=== PATIENT | male | born 1935 | race Caucasian/White ===

== ENCOUNTER 2016-10-18 10:00 | Outpatient (RCR) | payer MEDICARE, OTHER ==
--- OUTSIDE RECORDS SUMMARY | 2016-09-18 10:32 | XMS REPORT | Continuity of Care Document ---
Author Author [facility] Organization [facility] Address Unknown Phone Unavailable Care Team Providers Care Battery Container Finishing Hand Name Role Phone ALEKSANDR PIÑA DO PCP Insurance Providers Payer Name Policy Number Subscriber Name Relationship Wps Medicare [id number] Kamini Cortés 20 Self / Same As Patient For Life [id number] Kamini Cortés 20 Self / Same As Patient Advance Directives Directive Response Recorded Date/Time Advance Directives No 05/26/15 2:53pm Health Care Power of Organizational Research Consultant Yes 05/26/15 2:53pm Organ Donor No 05/26/15 2:53pm Problems Active Problems Medical Problem Onset Date Status Atrial fibrillation 05/26/2015 Acute Medications Current Home Medications Medication Dose Units Route Directions Days/Qty Instructions Start Date Ipratropium/Albuterol Sulfate 14.7 Gm 2 Puff Inhalation Q6hr Prn as needed for Shortness Of Breath NEEDED FOR SHORTNESS OF BREATH 07/11/12 Hydrochlorothiazide 50 Mg 50 Mg Oral Daily 07/11/12 Finasteride 5 Mg 5 Mg Oral Bedtime 07/11/12 Loratadine 10 Mg 10 Mg Oral Daily 07/11/12 Doxazosin Mesylate 4 Mg 8 Mg Oral Bedtime TAKE 2 (4 MG) TABLETS AT BEDTIME 07/11/12 Salmeterol Xinafoate/Fluticasone 1 Disk 1 Puff Inhalation Twice A Day 1 PUFF 07/11/12 Tiotropium [place] 1 Inh 1 Inhalation Daily 1 INHALATION 07/11/12 Alprazolam 1 Mg 1 Mg Oral Three Times A Day as needed for Anxiety Epinephrine 0.3 Mg/0.3 Ml 0.3 Mg Intramusc As Directed 04/07/14 Prednisone 10 Mg 10 Mg Oral Daily 30 04/07/14 Albuterol Sulfate/Ipratropium 3 Ml 3 Ml Inhalation Twice A Day 04/07 Pomegranate Fruit Extract 250 Mg 250 Mg Oral Daily 04/07/14 Cyanocobalamin 2,500 Mcg 2,500 Mcg Sublingual Daily 04/07/14 Ascorbic Acid 500 Mg 500 Mg Oral Daily 04/07/14 Calcium/Vitamin D 600 Mg 600 Mg Oral Daily 04/07/14 Montelukast Sodium 10 Mg 10 Mg Oral Daily 04/07/14 Benzonatate (Tessalon Perles) 200 Mg 200 Mg Oral Q8hr Prn as needed for Cough NEEDED FOR COUGH 04/07/14 Glucosamine/D3/Boswellia Anjali 1 Each 1 Tab Oral Twice A Day Mu-Vits-Min Th/Lycopene/Lutein 1 Each 1 Tab Oral Daily 04/07/14 Vitamin E 400 Unit 400 Unit Oral Daily 04/07/14 [Potassium Gluconate] 595 Mg Oral Daily 04/07/14 Hydrocodone/Acetaminophen 1 Each 1 Tab Oral Every 4HRS as needed for Pain 05/26/15 Azithromycin 250 Mg 500 Mg Oral Saturday05/26/15 Quinapril Hcl 10 Mg 10 Mg Oral Daily 05/26/15 Past Home Medications Medication Directions Ordered Status Meclizine Hcl 25 Mg Tablet, 25 Mg Oral Three Times A Day as needed 07/11/12 Discontinued Hydrocodone Bit/Acetaminophen 1 Each Tablet, 1 Each Oral Every 6 Hours as needed 07/11/12 Discontinued Lisinopril 10 Mg Tablet, 10 Mg Oral Daily 07/11/12 Discontinued Alprazolam 0.25 Mg Tab.rapdis, 1 Each Oral Three Times A Day 07/11/12 Discontinued Potassium Chloride 10 Meq Capsule.sa, 10 Meq Oral Daily 07/11/12 Discontinued Ipratropium [place] 15 Ml [place], 15 Ml Nasal 07/11/12 Discontinued Cefdinir (Omnicef) 300 Mg Capsule, 1 Each Oral Twice A Day 07/11/12 Discontinued Prednisone 50 Mg Tab, 50 Mg Oral Daily 07/11/12 Discontinued Hydrocodone Bit/Acetaminophen 1 Each Tablet, 10-325 Mg Oral Four Times Daily as needed for Moderate Pain 04/07/14 Discontinued Clotrimazole (Mycelex) 10 Mg Christa, 10 Mg Oral 5 Times Daily 04/07/14 Discontinued Azithromycin 500 Mg Tablet, 500 Mg Oral Mon, Sat, Sat04/07/14 Discontinued Social History Social History Problem Response Recorded Date/Time Alcohol Use Regular Use 05/26/2015 2:54pm Recreational Drug Use No 05/26/2015 2:54pm Recent Foreign Travel No 02/27/2016 1:00pm Hospital Discharge Instructions No hospital discharge instructions. Plan of Care Prescriptions See Medication Section Functional Status No functional status results. Allergies, Adverse Reactions, Alerts Allergen Type Severity Reaction Status Last Updated sulfamethoxazole ([id number]) Allergy Severe ANAPHYLAXIS Active 07/11/12 Trimethoprim Allergy Severe ANAPHYLAXIS Active 07/11/12 Levofloxacin Allergy Intermediate NAUSEA Active 07/11/12 Immunizations No immunization records. Vital Signs No known vital signs results. Results No known relevant diagnostic tests, laboratory data and/or discharge summary. Procedures No known history of procedures. Encounters Encounter Location Arrival/Admit Date Discharge/Depart Date Attending Provider Discharged [facility] 05/24/16 10:00am 11:59pm ALEKSANDR PIÑA DO
[~2016-10-18 10:00] MED LIST: ALPR0.2550 PO; ALPR1T PO; ASCO500T20 PO; AZIT250T5 PO; AZIT500T PO; BENZ200C25 PO; CEFD300C3 PO; CLD600T PO; CLOT10TR11 PO; CYAN25003 SL; DOXA4TAB2 PO; E400C PO; EPIN0.3P3 IM; FINA5TAB6 PO; FLUT1DIS27 IH; GLUC-132 PO; HYDR-2890 PO; HYDR-2962 PO; HYDR-753 PO; HYDR50TA3 PO; IPRA15SP2 NS; IPRA3AMP19 IH; LISI10TA PO; LORA10TA7 PO; MECL-105 PO; MONT10TA24 PO; MULT-1029 PO; POME250C2 PO; POTA10CA43 PO; POTASSIUM GLUCONATE PO; PRD10T PO; PRD50T PO; QUIN10TA23 PO; RT-COMBINH IH; TIOT18CA IH
[2016-10-25] MEDS ORDERED: GABA-488 PO (13:32)
[2016-10-25] MEDS ORDERED: APIX5TAB PO (13:32)
[2016-10-25] MEDS ORDERED: POTA10TA6 PO (13:32)
[2016-10-25] MEDS ORDERED: FURO-125 PO (13:32)
== END 2016-12-17 | disposition home or self-care (01) ==
LOC: PULM 10:00
PROVIDERS: ATTEND Internal Medicine
DX: J44.9 Chronic obstructive pulmonary disease, unspecified (principal)

== ENCOUNTER 2016-10-31 10:49 | Outpatient (RCR) | payer MEDICARE, OTHER ==
--- OUTSIDE RECORDS SUMMARY | 2016-10-25 12:04 | XMS REPORT | Continuity of Care Document ---
Author Author [facility] Organization [facility] Address Unknown Phone Unavailable Care Team Providers Care Cosmetic Manager Name Role Phone ALEKSANDR PIÑA DO PCP Insurance Providers Payer Name Policy Number Subscriber Name Relationship Wps Medicare [id number] Kamini Cortés 20 Self / Same As Patient For Life [id number] Kamini Cortés 20 Self / Same As Patient Advance Directives Directive Response Recorded Date/Time Advance Directives No 05/26/15 2:53pm Health Care Power of Net Developer Yes 05/26/15 2:53pm Organ Donor No 05/26/15 [...] Twice A Day 1 PUFF 07/11/12 Tiotropium [place] 1 Inh 1 Inhalation Daily 1 INHALATION [...] 10 Meq Oral Daily 07/11/12 Discontinued Ipratropium [place] 15 Ml [place], 15 Ml Nasal 07/11/12 Discontinued Cefdinir (Omnicef) [...] Type Severity Reaction Status Last Updated sulfamethoxazole ([id number]) Allergy Severe ANAPHYLAXIS Active 07/11/12 Trimethoprim Allergy Severe ANAPHYLAXIS Active 07/11/12 Levofloxacin Allergy Intermediate NAUSEA Active 07/11/12 Immunizations No immunization records. Vital Signs No known vital signs results. Results No known relevant diagnostic tests, laboratory data and/or discharge summary. Procedures No known history of procedures. Encounters Encounter Location Arrival/Admit Date Discharge/Depart Date Attending Provider Discharged Recurring [facility] 05/24/16 10:00am 11:59pm LAEKSANDR PIÑA DO
[2016-10-25] MEDS: cefTRIAXone 1 GM/NS 50 ML IVPB IV SCH ×2 (12:40)
[2016-10-25 13:32] VITALS: BP 106/77
[2016-10-26] MEDS: cefTRIAXone 1 GM/NS 50 ML IVPB IV SCH ×2 (09:20)
[2016-10-26 09:55] VITALS: BP 115/66
[2016-10-27] MEDS: cefTRIAXone 1 GM/NS 50 ML IVPB IV SCH ×2 (09:26)
[2016-10-27 10:10] VITALS: BP 128/68
[2016-10-28] MEDS: cefTRIAXone 1 GM/NS 50 ML IVPB IV SCH ×2 (11:13)
[2016-10-28 11:40] VITALS: BP 129/85
[2016-10-29] MEDS: cefTRIAXone 1 GM/NS 50 ML IVPB IV SCH ×2 (09:14)
[2016-10-29 09:26] VITALS: BP 154/95
[2016-10-30] MEDS: cefTRIAXone 1 GM/NS 50 ML IVPB IV SCH ×2 (10:16)
[2016-10-30 10:46] VITALS: BP 117/67
[~2016-10-31] VITALS: Ht 182.9 cm; Wt 62.8 kg
[~2016-10-31 10:49] MED LIST changes: +APIX5TAB PO; +FURO-125 PO; +GABA-488 PO; +POTA10TA6 PO
[2016-10-31] MEDS: cefTRIAXone 1 GM/NS 50 ML IVPB IV SCH ×2 (10:58)
[2016-10-31 11:13] VITALS: BP 132/92
== END 2017-01-23 | disposition home or self-care (01) ==
LOC: SDC 10:49
PROVIDERS: ATTEND Nurse Practitioner Family
DX: J44.0 Chronic obstructive pulmonary disease with (acute) lower respiratory infection (principal); J18.9 Pneumonia, unspecified organism
CPT/HCPCS: 96365

== ENCOUNTER → 2017-02-15 | Outpatient (CLI) | payer MEDICARE, OTHER ==
--- NOTE | 2017-02-15 11:13 | Diagnostic Imaging Report ---
INDICATION: Shortness of breath and wheezing x2 days. PA and lateral chest. Heart size and pulmonary vascularity are normal. Lungs are clear. There are no effusions or pneumothoraces. IMPRESSION: Negative chest. Dictated by: Dictated on workstation # [id number]
== END ==
LOC: RAD 10:34
PROVIDERS: ATTEND Internal Medicine
DX: R07.89 Other chest pain (principal)
CPT/HCPCS: 71020

== ENCOUNTER 2017-09-17 04:29 | Inpatient (IN) | payer MEDICARE, OTHER ==
[2017-09-17] VITALS (9 sets, daily range): BP systolic 96–141; BP diastolic 60–79
[~2017-09-17] VITALS: Ht 182.9 cm; Wt 104.4 kg
[~2017-09-17 04:29] MED LIST changes: +AZIT250T12 PO; -AZIT250T5 PO; +QUIN10TA14 PO; -QUIN10TA23 PO
[2017-09-17] MEDS ORDERED: RT-ALBUTEROL/IPRATROPIUM 3 ML (DUONEB) VIAL ONE (04:33)
[2017-09-17] MEDS ORDERED: RT-ALBUTEROL SULF 2.5 MG/3 ML PRE-MIX VIAL ONE (04:33)
--- OUTSIDE RECORDS SUMMARY | 2017-09-17 04:37 | XMS REPORT | Continuity of Care Document ---
Author Author [facility] Organization [facility] Address Unknown Phone Unavailable Allergies Active Description Code Type Severity Reaction Onset Reported/Identified Relationship to Patient Clinical Status Yes sulfamethoxazole [id number] Drug Allergy Severe ANAPHYLAXIS 07/11/2012 Yes trimethoprim [id number] Drug Allergy Severe ANAPHYLAXIS 07/11/2012 Yes levofloxacin [id number] Drug Allergy Moderate NAUSEA 07/11/2012 Medications Problems Date Dx Coded Attending Type Code Diagnosis Diagnosed By 07/11/2012 Ot 599.0 URIN TRACT INFECTION NOS 07/11/2012 Ot 782.1 NONSPECIF SKIN ERUPT NEC 07/11/2012 Ot 995.0 OTHER ANAPHYLACTIC REACTION 07/11/2012 Ot E931.0 ADV EFF SULFONAMIDES 04/08/2014 GABRIEL DESHPANDE MD Ot 272.4 HYPERLIPIDEMIA NEC/NOS 04/08/2014 GABRIEL DESHPANDE MD Ot 278.00 OBESITY, NOS 04/08/2014 GABRIEL DESHPANDE MD Ot 401.9 HYPERTENSION NOS 04/08/2014 GABRIEL DESHPANDE MD Ot 414.01 CORONARY ATHEROSCLEROSIS OF [place] CORON 04/08/2014 GABRIEL DESHPANDE MD Ot 440.20 ATHEROSCLEROSIS [place] ARTERIES EXTREMIT 04/08/2014 GABRIEL DESHPANDE MD Ot 441.4 ABDOM AORTIC ANEURYSM 04/08/2014 GABRIEL DESHPANDE MD Ot 496 CHR AIRWAY OBSTRUCT NEC 04/08/2014 GABRIEL DESHPANDE MD Ot 794.30 ABN CARDIOVASC STUDY NOS 04/08/2014 GABRIEL DESHPANDE MD Ot V58.69 OTH MED,LT,CURRENT USE 04/08/2014 GABRIEL DESHPANDE MD Ot V85.31 BODY MASS INDEX 31.0-31.9, ADULT 04/15/2014 OCTAVIO MCKEON MD Ot 278.00 OBESITY, NOS 04/15/2014 OCTAVIO MCKEON MD Ot 401.9 HYPERTENSION NOS 04/15/2014 OCTAVIO MCKEON MD Ot 414.00 CORON ATHEROSCLER NOS TYPE VESSEL, NATIV 04/15/2014 MIKE JENNINGS, OCTAVIO Bernard Ot 440.21 ATHEROSCL [place] ARTER EXTREM W INTERMIT 04/15/2014 MIKE JENNINGS, OCTAVIO Bernard Ot 496 CHR AIRWAY OBSTRUCT NEC 04/15/2014 MIKE JENNINGS, OCTAVIO Bernard Ot V15.82 HISTORY OF TOBACCO USE 04/15/2014 OCTAVIO MCKEON MD Ot V58.69 OTH MED,LT,CURRENT USE 04/15/2014 MIKE JENNINGS, OCTAVIO Bernard Ot V85.31 BODY MASS INDEX 31.0-31.9, ADULT 10/20/2014 ALEKSANDR PIÑA DO Ot 496 10/20/2014 ALEKSANDR PIÑA DO Ot V57.89 11/10/2014 ALEKSANDR PIÑA DO Ot 496 CHR AIRWAY OBSTRUCT NEC 11/10/2014 ALEKSANDR PIÑA DO Ot V57.89 REHABILITATION PROC NEC 11/18/2014 Ot 496 11/18/2014 Ot V57.89 02/04/2015 Ot 486 02/04/2015 Ot 496 02/04/2015 Ot 721.0 02/04/2015 Ot 722.6 02/04/2015 Ot 724.3 02/04/2015 ALEKSANDR PIÑA DO Ot 496 02/04/2015 CHERY ROBERTS DO Ot 278.00 02/04/2015 CHERY ROBERTS DO Ot 486 02/04/2015 CHERY ROBERTS DO Ot 496 02/04/2015 ALEKSANDR PIÑA DO Ot V58.69 02/04/2015 ALEKSANDR PIÑA DO Ot V58.83 02/04/2015 Ot 496 02/04/2015 Ot V57.89 02/07/2015 KAYLEE HERNANDEZ MD Ot 724.6 DISORDERS OF SACRUM 04/01/2015 ALEKSANDR PIÑA DO Ot 496 04/19/2015 Ot 496 04/19/2015 Ot V57.89 04/19/2015 ALEKSANDR PIÑA DO Ot 496 05/06/2015 Ot 496 05/06/2015 Ot V57.89 05/06/2015 ALEKSANDR PIÑA DO Ot 496 05/12/2015 ALEKSANDR PIÑA DO Ot 496 05/26/2015 ALEKSANDR PIÑA DO Ot 496 05/26/2015 ALEKSANDR PIÑA DO Ot 496 05/26/2015 ALEKSANDR PIÑA DO Ot 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 05/26/2015 ALEKSANDR PIÑA DO Ot 305.1 TOBACCO USE DISORDER 05/26/2015 ALEKSANDR PIÑA DO Ot 401.9 HYPERTENSION NOS 05/26/2015 ALEKSANDR PIÑA DO Ot 414.01 CORONARY ATHEROSCLEROSIS OF [place] CORON 05/26/2015 ALEKSANDR PIÑA DO Ot 427.69 PREMATURE BEATS NEC 05/26/2015 ALEKSANDR PIÑA DO Ot 427.89 CARDIAC DYSRHYTHMIAS NEC 05/26/2015 ALEKSANDR PIÑA DO Ot 443.9 PERIPH VASCULAR DIS NOS 05/26/2015 ALEKSANDR PIÑA DO Ot 496 CHR AIRWAY OBSTRUCT NEC 05/26/2015 ALEKSANDR PIÑA DO Ot 600.00 HYPERTROPHY (BENIGN) OF PROSTATE W/O URI 05/26/2015 ALEKSANDR PIÑA DO Ot E932.0 ADV EFF CORTICOSTEROIDS 05/26/2015 ALEKSANDR PIÑA DO Ot 255.0 05/26/2015 ALEKSANDR PIÑA DO Ot 305.1 05/26/2015 ALEKSANDR PIÑA DO Ot 401.9 05/26/2015 ALEKSANDR PIÑA DO Ot 414.01 05/26/2015 ALEKSANDR PIÑA DO Ot 427.69 05/26/2015 ALEKSANDR PIÑA DO Ot 427.89 05/26/2015 ALEKSANDR PIÑA DO Ot 443.9 05/26/2015 ALEKSANDR PIÑA DO Ot 496 05/26/2015 ALEKSANDR PIÑA DO Ot 600.00 05/26/2015 ALEKSANDR PIÑA DO, Ot E932.0 06/06/2015 ALEKSANDR PIÑA DO Ot 496 06/29/2015 ALEKSANDR PIÑA DO Ot 496 CHR AIRWAY OBSTRUCT NEC 11/03/2015 Ot 496 11/03/2015 Ot V57.89 11/03/2015 ALEKSANDR PIÑA DO Ot 496 2016 ALEKSANDR PIÑA DO Ot 496 CHR AIRWAY OBSTRUCT NEC 03/08/2016 ALEKSANDR PIÑA DO Ot 496 CHR AIRWAY OBSTRUCT NEC 04/12/2016 ALEKSANDR PÑIA DO Ot J44.9 CHRONIC OBSTRUCTIVE PULMONARY DISEASE, U 05/03/2016 ALEKSADNR PIÑA DO Ot J44.9 CHRONIC OBSTRUCTIVE PULMONARY DISEASE, U 05/27/2016 ALEKSANDR PIÑA DO Ot J44.9 CHRONIC OBSTRUCTIVE PULMONARY DISEASE, U 06/07/2016 ALEKSANDR PIÑA DO Ot J44.9 CHRONIC OBSTRUCTIVE PULMONARY DISEASE, U 06/07/2016 ALEKSANDR PIÑA DO Ot J44.9 CHRONIC OBSTRUCTIVE PULMONARY DISEASE, U 06/08/2016 ALEKSANDR PIÑA DO Ot J44.9 CHRONIC OBSTRUCTIVE PULMONARY DISEASE, U 07/12/2016 ALEKSANDR PIÑA DO Ot J44.9 CHRONIC OBSTRUCTIVE PULMONARY DISEASE, U 07/19/2016 Ot 496 CHR AIRWAY OBSTRUCT NEC 07/19/2016 Ot V57.89 REHABILITATION PROC NEC 07/19/2016 ALEKSANDR PIÑA DO Ot 496 07/19/2016 ALEKSANDR PIÑA DO Ot J44.9 CHRONIC OBSTRUCTIVE PULMONARY DISEASE, U 07/31/2016 Ot 486 PNEUMONIA, ORGANISM NOS 07/31/2016 Ot 496 CHR AIRWAY OBSTRUCT NEC 07/31/2016 Ot 721.0 CERVICAL SPONDYLOSIS 07/31/2016 Ot 722.6 DISC DEGENERATION NOS 07/31/2016 Ot 724.3 SCIATICA 07/31/2016 ALEKSANDR PIÑA DO Ot 496 CHR AIRWAY OBSTRUCT NEC 07/31/2016 CHERY ROBERTS DO Ot 278.00 OBESITY, NOS 07/31/2016 CHERY ROBERTS DO Ot 486 PNEUMONIA, ORGANISM NOS 07/31/2016 CHERY ROBERTS DO Ot 496 CHR AIRWAY OBSTRUCT NEC 07/31/2016 ALEKSADNR PIÑA DO Ot V58.69 OT MED,LT,CURRENT USE 07/31/2016 ALEKSANDR PIÑA DO Ot V58.83 ENCOUNTER FOR THERAPEUTIC DRUG MONITORIN 07/31/2016 Ot 496 CHR AIRWAY OBSTRUCT NEC 07/31/2016 Ot V57.89 REHABILITATION PROC NEC 07/31/2016 ALEKSANDR PIÑA DO Ot 496 07/31/2016 ALEKSANDR PIÑA DO Ot J44.9 CHRONIC OBSTRUCTIVE PULMONARY DISEASE, U 08/01/2016 MELYSSA JENNINGS, KARRI Cueto Ot M54.12 RADICULOPATHY, CERVICAL REGION 08/14/2016 ALEKSANDR PIÑA DO Ot J44.9 CHRONIC OBSTRUCTIVE PULMONARY DISEASE, U 08/21/2016 MELYSSA JENNINGS, KARRI Cueto Ot M54.12 RADICULOPATHY, CERVICAL REGION 09/04/2016 KARRI RAGSDALE MD Ot M54.12 RADICULOPATHY, CERVICAL REGION 09/05/2016 ALEKSANDR PIÑA DO Ot J44.9 CHRONIC OBSTRUCTIVE PULMONARY DISEASE, U 09/06/2016 ALEKSANDR PIÑA DO Ot J44.9 CHRONIC OBSTRUCTIVE PULMONARY DISEASE, U 09/18/2016 WANG [place], ALEKSANDR Cueto Ot J44.9 CHRONIC OBSTRUCTIVE PULMONARY DISEASE, U 09/19/2016 WANG [place], ALEKSANDR Cueto Ot J44.9 CHRONIC OBSTRUCTIVE PULMONARY DISEASE, U 09/26/2016 SHERLY PATE APRN Ot J44.9 CHRONIC OBSTRUCTIVE PULMONARY DISEASE , U 10/18/2016 ALEKSANDR PIÑA DO Ot J44.9 CHRONIC OBSTRUCTIVE PULMONARY DISEASE, U 10/18/2016 SHERLY PATE APRN Ot J44.9 CHRONIC OBSTRUCTIVE PULMONARY DISEASE , U 10/25/2016 Ot 496 CHR AIRWAY OBSTRUCT NEC 10/25/2016 Ot V57.89 REHABILITATION PROC NEC 10/25/2016 ALEKSANDR PIÑA DO Ot 496 10/25/2016 MELYSSA JENNINGS, KARRI Cueto Ot M54.12 RADICULOPATHY, CERVICAL REGION 10/25/2016 ALEKSANDR PIÑA DO Ot J44.9 CHRONIC OBSTRUCTIVE PULMONARY DISEASE, U 10/25/2016 SHERLY PATE APRN Ot J44.9 CHRONIC OBSTRUCTIVE PULMONARY DISEASE , U 10/31/2016 MARC PIÑA PUBLIC RELATIONS COUNSELOR Ot J18.9 PNEUMONIA, UNSPECIFIED ORGANISM 10/31/2016 MARC PIÑA PUBLIC RELATIONS COUNSELOR Ot J44.0 CHRONIC OBSTRUCTIVE PULMON DISEASE W AC[facility] 10/31/2016 MARC PIÑA PUBLIC RELATIONS COUNSELOR Ot J18.9 PNEUMONIA, UNSPECIFIED ORGANISM 10/31/2016 MARC PIÑA L PUBLIC RELATIONS COUNSELOR Ot J44.0 CHRONIC OBSTRUCTIVE PULMON DISEASE W [facility] 10/31/2016 ALEKSANDR PIÑA DO Ot J44.9 CHRONIC OBSTRUCTIVE PULMONARY DISEASE, U 10/31/2016 SHERLY PATE APRN Ot J44.9 CHRONIC OBSTRUCTIVE PULMONARY DISEASE , U 11/26/2016 Ot 496 CHR AIRWAY OBSTRUCT NEC 11/26/2016 Ot V57.89 REHABILITATION PROC NEC 11/26/2016 ALEKSANDR PIÑA DO Ot 496 11/26/2016 MELYSSA JENNINGS, KARRI Cueto Ot M54.12 RADICULOPATHY, CERVICAL REGION 11/26/2016 ALEKSANDR PIÑA DO Ot J44.9 CHRONIC OBSTRUCTIVE PULMONARY DISEASE, U 11/26/2016 SHERLY PATE APRN Ot J44.9 CHRONIC OBSTRUCTIVE PULMONARY DISEASE , U 11/26/2016 MARC PIÑA PUBLIC RELATIONS COUNSELOR Ot J18.9 PNEUMONIA, UNSPECIFIED ORGANISM 11/26/2016 MARC PIÑA PUBLIC RELATIONS COUNSELOR Ot J44.0 CHRONIC OBSTRUCTIVE PULMON DISEASE W [facility] 12/12/2016 MARC PIÑA PUBLIC RELATIONS COUNSELOR Ot J18.9 PNEUMONIA, UNSPECIFIED ORGANISM 12/12/2016 MARC PIÑA PUBLIC RELATIONS COUNSELOR Ot J44.0 CHRONIC OBSTRUCTIVE PULMON DISEASE W [facility] 12/17/2016 ALEKSANDR PIÑA DO Ot J44.9 CHRONIC OBSTRUCTIVE PULMONARY DISEASE, U 12/18/2016 ALEKSANDR PIÑA DO Ot J44.9 CHRONIC OBSTRUCTIVE PULMONARY DISEASE, U 01/01/2017 MARC PIÑA PUBLIC RELATIONS COUNSELOR Ot J18.9 PNEUMONIA, UNSPECIFIED ORGANISM 01/01/2017 MARC PIÑA PUBLIC RELATIONS COUNSELOR Ot J44.0 CHRONIC OBSTRUCTIVE PULMON DISEASE W [facility] 01/23/2017 MARC PIÑA PUBLIC RELATIONS COUNSELOR Ot J18.9 PNEUMONIA, UNSPECIFIED ORGANISM 01/23/2017 MARC PIÑA PUBLIC RELATIONS COUNSELOR Ot J44.0 CHRONIC OBSTRUCTIVE PULMON DISEASE W [facility] 2017 ALEKSANDR PIÑA DO Ot R07.89 OTHER CHEST PAIN 02/21/2017 ALEKSANDR PIÑA DO Ot R07.89 OTHER CHEST PAIN 03/11/2017 ALEKSANDR PIÑA DO Ot R07.89 OTHER CHEST PAIN 03/26/2017 ALEKSANDR PIÑA DO Ot R07.89 OTHER CHEST PAIN Procedures Results Encounters ACCT No. Visit Date/Time Discharge Status Pt. Type Provider Facility Loc./Unit Complaint [id number] 02/15/2017 10:34:00 2016 23:59:59 CLS Outpatient ALEKSANDR PIÑA DO [facility] RAD R07.89 [id number] 01/24/2017 00:16:00 2016 23:59:59 CLS Preadmit MARC PIÑA [facility] J18.9,J44.9 [id number] 10/31/2016 10:49:00 2016 00:01:00 DIS Outpatient MARC PIÑA [facility] J18.9,J44.9 [id number] 12/18/2016 13:00:00 2016 23:59:59 CLS Preadmit ALEKSANDR PIÑA DO [facility] PULM COPD [id number] 10/18/2016 10:00:00 2016 00:01:00 DIS Outpatient ALEKSANDR PIÑA DO [facility] PULM COPD [id number] 09/25/2016 11:24:00 2015 23:59:59 CLS Outpatient SHERLY PATE APRN [facility] RAD COPD,BRONCHIECTASIS [id number] 08/30/2016 10:00:00 2015 00:01:00 DIS Outpatient ALEKSANDR PIÑA DO [facility] PULM COPD [id number] 07/30/2016 08:36:00 2015 23:59:59 CLS Outpatient KARRI RAGSDALE MD [facility] RAD CERVICAL RADICULOPATHY [id number] 05/24/2016 10:00:00 2015 00:01:00 DIS Outpatient ALEKSANDR PIÑA DO [facility] PULM COPD [id number] 06/30/2015 15:00:00 2014 23:59:59 CLS Preadmit ALEKSANDR PIÑA DO [facility] PULM COPD TACHYCARDIA [id number] 05/26/2015 09:00:00 2014 00:01:00 DIS Outpatient ALEKSANDR PIÑA DO [facility] PULM COPD TACHYCARDIA [id number] 05/26/2015 12:50:00 2014 18:06:00 DIS Inpatient ALEKSANDR PIÑA DO [facility] ICU AFIB [id number] 02/07/2015 12:37:00 2014 13:27:00 DIS Outpatient KAYLEE HERNANDEZ MD [facility] CARD SACROILIAC JOINT DYSFUNCTION [id number] 09/07/2014 10:00:00 2013 23:59:59 CLS Outpatient ALEKSANDR PIÑA DO [facility] PULM COPD [id number] 04/15/2014 13:23:00 2013 21:32:00 DIS Outpatient MIKE JENNINGS, OCTAVIO Bernard [facility] CATH ASOD,LEG PAIN [id number] 04/07/2014 07:04:00 2013 14:57:00 DIS Outpatient GABRIEL DESHPANDE MD [facility] CATH ABN STRESS,CAD,OBESITY,HTN [id number] 03/09/2014 06:41:00 2013 23:59:59 CLS Outpatient ALEKSANDR PIÑA DO [facility] CARD CARDIAC RISK D/T, [id number] 02/17/2014 11:00:00 2013 23:59:59 CLS Outpatient CHERY ROBERTS DO [facility] RT COPD,OBESITY,PNEUMONIA [id number] 11/30/2013 12:32:00 2013 23:59:59 CLS Outpatient ALEKSANDR PIÑA DO [facility] RAD COPD [id number] 09/17/2017 04:31:00 ACT Emergency GOPI JENNINGS, THIAGO Cueto [facility] ER PAIN,FALL ON 09-16-17 [id number] 02/04/2015 16:19:00 Document Registration [id number] 11/11/2014 08:00:00 Document Registration [id number] 08/19/2012 14:17:00 Document Registration [id number] 05/21/2012 10:24:00 Document Registration [id number] 09/04/2011 09:18:00 Document Registration
[2017-09-17] MEDS ORDERED: RT-ALBUTEROL SULF 2.5 MG/3 ML PRE-MIX VIAL INH STA (04:39)
[2017-09-17] MEDS ORDERED: NS IV 1000 ML 1,000 ML IV ONE ×2 (04:39→05:10)
[2017-09-17] MEDS ORDERED: RT-ALBUTEROL/IPRATROPIUM 3 ML (DUONEB) VIAL INH ONE (04:45)
[2017-09-17 04:48] LABS: BASOPHILS % (AUTO) 0 % (0-10); EOSINOPHILS % (AUTO) 0 % (0-10); LYMPHOCYTES # (AUTO) 1.8 X 10^3 (1.0-4.0); LYMPHOCYTES % (AUTO) 26 % (12-44); MEAN CORPUSCULAR HEMOGLOBIN 34 PG (25-34); MEAN CORPUSCULAR HGB CONC 35 G/DL (32-36); MEAN CORPUSCULAR VOLUME 97 FL (80-99); MEAN PLATELET VOLUME 8.4 FL (7.4-10.4); MONOCYTES # (AUTO) 0.9 X 10^3 (0.0-1.0); MONOCYTES % (AUTO) 13 % (0-12); NEUTROPHILS # (AUTO) 4.2 X 10^3 (1.8-7.8); NEUTROPHILS % (AUTO) 60 % (42-75); PLATELET COUNT 230 10^3/uL (130-400); RED BLOOD COUNT 4.54 10^6/uL (4.35-5.85); RED CELL DISTRIBUTION WIDTH 12.5 % (10.0-14.5)
--- NOTE | 2017-09-17 04:48 | ED Fall/Injury ---
General Chief Complaint: General Problems/Pain Stated Complaint: PAIN,FALL ON 09-16-17 Source: patient, EMS Exam Limitations: no limitations History of Present Illness Time seen by provider: 04:42 Initial Comments Patient reports ER by EMS with a chief complaint that he had a fall approximately 20-30 to 2300 hrs. last night. He said he had a few drinks of Scotch and a hydrocodone at 1800 hrs. He does not really remember the fall or events preceding it. He doesn't think he had loss of consciousness nor hit his head. He's not having any new pains anywhere. He does have chronic pain in his neck midline but he has bad degenerative disc disease and is in need of surgery on his neck and is not a candidate right now. Nothing else is hurting and he doesn't really feel any more short of breath than normal. He uses 3 L by nasal cannula at home. He says yesterday he was started on Keflex and steroids for some kind of lung infection by his primary care physician. He has pretty significant COPD. He is not sure how long he laid on the ground before getting up. EMS says when they got there he was leaning against his walker on his abdomen, standing. Dr. Jasmine, coronary catheterization 2013 showing LAD with 70% stenosis. Ejection fraction 60%. Also history of COPD with oxygen dependence, hypertension , prostatic hypertrophy, Pallavi syndrome iatrogenic. Patient states he was put on Keflex and steroids yesterday morning after seeing his doctor did not feel well. His gives a further history that she heard a thud and immediately went into the living room and found him sitting on the floor in front of his easy chair. He was too weak to get up on his own so she had to help him get back into his chair. Allergies and Home Medications Allergies Coded Allergies: sulfamethoxazole (Verified Allergy, Severe, ANAPHYLAXIS, 07/11/12) trimethoprim (Verified Allergy, Severe, ANAPHYLAXIS, 07/11/12) levofloxacin (Verified Allergy, Intermediate, NAUSEA, 07/11/12) Home Medications Albuterol Sulfate/Ipratropium 3 Ml Solution, 3 ML IH BID, (Reported) Alprazolam 1 Mg Tab, 1 MG PO TID PRN for ANXIETY, (Reported) Apixaban 5 Mg Tablet, 5 MG PO BID, (Reported) Ascorbic Acid 500 Mg Tablet, 500 MG PO DAILY, (Reported) Benzonatate 200 Mg Capsule, 200 MG PO Q8HR PRN PRN for COUGH, (Reported) NEEDED FOR COUGH Calcium/Vitamin D 600 Mg Tab, 600 MG PO DAILY, (Reported) Cyanocobalamin 2,500 Mcg Tab.subl, 2,500 MCG SL DAILY, (Reported) Doxazosin Mesylate 4 Mg Tablet, 8 MG PO HS, (Reported) TAKE 2 (4 MG) TABLETS AT BEDTIME Epinephrine 0.3 Mg/0.3 Ml Pen.injctr, 0.3 MG IM UD, (Reported) Finasteride 5 Mg Tablet, 5 MG PO HS, (Reported) Fluticasone/Salmeterol 1 Disk Inhp, 1 PUFF IH BID, (Reported) 1 PUFF Furosemide 20 Mg Tablet, 60 MG PO BID, (Reported) Gabapentin 300 Mg Capsule, 300 MG PO TID, (Reported) Glucosamine/D3/Boswellia Anjali 1 Each Tablet, 1 TAB PO BID, (Reported) Hydrocodone/Acetaminophen 1 Each Tablet, 1 TAB PO Q4H PRN for PAIN, (Reported) Ipratropium/Albuterol Sulfate 14.7 Gm Aer.w.adap, 2 PUFF IH Q6HR PRN PRN for SHORTNESS OF BREATH, (Reported) NEEDED FOR SHORTNESS OF BREATH Loratadine 10 Mg Tablet, 10 MG PO DAILY, (Reported) Montelukast Sodium 10 Mg Tablet, 10 MG PO DAILY, (Reported) Mu-Vits-Min Th/Lycopene/Lutein 1 Each Tablet, 1 TAB PO DAILY, (Reported) Pomegranate Fruit Extract 250 Mg Capsule, 250 MG PO DAILY, (Reported) Potassium Chloride 10 Meq Tablet.er, 10 MEQ PO DAILY, (Reported) Tiotropium [place] 1 Inh Aerp, 1 IH DAILY, (Reported) 1 INHALATION Vitamin E Acetate 400 Unit Capsule, 400 UNIT PO DAILY, (Reported) [Potassium Gluconate] , 595 MG PO DAILY, (Reported) Constitutional: No chills, No dizziness, No fever, No malaise Eyes: Denies Blindness, Denies Blurred Vision Ears, Nose, Mouth, Throat: denies ear pain, denies ear discharge Respiratory: cough (chronic), short of breath (baseline) Cardiovascular: No chest pain, syncope Gastrointestinal: No abdominal pain, No constipation, No diarrhea, No nausea Genitourinary: No discharge, No dysuria Musculoskeletal: No back pain, No joint pain, neck pain (chronic) Skin: No pruritus, No rash Psychiatric/Neurological: Denies Headache, Denies Numbness, Denies Paresthesia , Denies Pre-Existing Deficit Past Ombidem-Gymrcn-Mgkkuc Hx Patient Social History Alcohol Use: Occasionally Uses Alcohol Beverage of Choice: Scotch Recreational Drug Use: No Smoking Status: Former Smoker Former Smoker, Quit: Aug 25, 2002 Recent Foreign Travel: No Contact w/Someone Who Travel: No Recent Hopitalizations: No Physical Abuse: No Sexual Abuse: No Fear: No Immunizations Up To Date Date of Pneumonia Vaccine: Jun 24, 2012 Surgeries History of Surgeries: Yes (BILAT KNEE SCOPE,R SHOULDER SCOPE,C-SPINE FUSION, FENDON GRAFT BILAT THUMBS,) Respiratory History of Respiratory Disorde: Yes Respiratory Disorders: Pneumonia, COPD Cardiovascular History of Cardiac Disorders: Yes Neurological History of Neurological Disord: No Reproductive System Hx Reproductive Disorders: No Genitourinary Genitourinary Disorders: Prostate Problems Gastrointestinal History of Gastrointestinal Di: No Musculoskeletal History of Musculoskeletal Dis: No Endocrine History of Endocrine Disorders: No Cancer History of Cancer: Yes Cancer: Skin Psychosocial Behavioral Health Disorders: Anxiety Suicide Risk Score: 0 Integumentary History of Skin or Integumenta: No Blood Transfusions History of Blood Disorders: No Adverse Reaction to a Blood Tr: No Physical Exam Vital Signs Vital Sign - Last 12Hours 09/17/17 09/17/17 04:30 04:48 Temp 97.2 Pulse 123 Resp 20 B/P (MAP) 107/76 Pulse Ox 78 O2 Delivery Room Air O2 Flow Rate 3.00 Capillary Refill : General Appearance: WD/WN, no apparent distress HEENT: PERRL/EOMI, TMs normal, pharynx normal, other (no bhat sign) Neck: supple, normal inspection, No tender lateral, tender midline Cardiovascular: tachycardia, irregularly irregular Respiratory: chest non-tender, no respiratory distress, no accessory muscle use , wheezing (throughout both lung mora) Peripheral Pulses: 1+ Dorsalis Pedis (R), 1+ Left Dors-Pedis (L), 2+ Radial Pulses (R), 2+ Radial Pulses (L) Gastrointestinal: normal bowel sounds, non tender, soft, No guarding, No rebound, No tenderness Back: normal inspection, no vertebral tenderness Extremities: normal range of motion, non-tender, normal inspection, normal capillary refill, pedal edema (mild) Neurologic/Psychiatric: alert, normal mood/affect, oriented x 3 Skin: normal color, warm/dry, other (erythematous across his lower abdomen where he was leaning on the walker. Minor abrasion mid sternum with some erythema across the right chest. Hemostatic.) Griselda Coma Score Best Eye Response: (4) Open Spontaneously Best Verbal Response: (5) Oriented Best Motor Response: (6) Obeys Commands Griselda Total: 15 Progress/Results/Core Measures Results/Orders Lab Results Laboratory Tests Test 09/17/17 04:34 09/17/17 04:35 09/17/17 04:42 09/17/17 05:45 Range/Units White Blood Count 7.0 4.3-11.0 10^3/uL Red Blood Count 4.54 4.35-5.85 10^6/uL Hemoglobin 15.5 13.3-17.7 G/DL Hematocrit 44 40-54 % Mean Corpuscular Volume 97 80-99 FL Mean Corpuscular Hemoglobin 34 25-34 PG Mean Corpuscular Hemoglobin Concent 35 32-36 G/DL Red Cell Distribution Width 12.5 10.0-14.5 % Platelet Count 230 130-400 10^3/uL Mean Platelet Volume 8.4 7.4-10.4 FL Neutrophils (%) (Auto) 60 42-75 % Lymphocytes (%) (Auto) 26 12-44 % Monocytes (%) (Auto) 13 H 0-12 % Eosinophils (%) (Auto) 0 0-10 % Basophils (%) (Auto) 0 0-10 % Neutrophils # (Auto) 4.2 1.8-7.8 X 10^3 Lymphocytes # (Auto) 1.8 1.0-4.0 X 10^3 Monocytes # (Auto) 0.9 0.0-1.0 X 10^3 Eosinophils # (Auto) 0.0 0.0-0.3 10^3/uL Basophils # (Auto) 0.0 0.0-0.1 10^3/uL Sodium Level 138 135-145 MMOL/L Potassium Level 3.0 L 3.6-5.0 MMOL/L Chloride Level 89 L 98-107 MMOL/L Carbon Dioxide Level 28 21-32 MMOL/L Anion Gap 21 H 5-14 MMOL/L Blood Urea Nitrogen 9 7-18 MG/DL Creatinine 0.83 0.60-1.30 MG/DL Estimat Glomerular Filtration Rate > 60 BUN/Creatinine Ratio 11 Glucose Level 156 H 70-105 MG/DL Calcium Level 9.9 8.5-10.1 MG/DL Magnesium Level 2.1 1.8-2.4 MG/DL Total Bilirubin 0.8 0.1-1.0 MG/DL Aspartate Amino Transf (AST/SGOT) 31 5-34 U/L Alanine Aminotransferase (ALT/SGPT) 22 0-55 U/L Alkaline Phosphatase 69 40-136 U/L Total Creatine Kinase 116 30-200 U/L Troponin I < 0.30 <0.30 NG/ML B-Type Natriuretic Peptide 114.7 H <100.0 PG/ML Total Protein 7.3 6.4-8.2 GM/DL Albumin 3.9 3.2-4.5 GM/DL Serum Alcohol 142 H <10 MG/DL Prothrombin Time 14.6 12.2-14.7 SEC INR Comment 1.1 0.8-1.4 Activated Partial Thromboplast Time 30 24-35 SEC Lactic Acid Level 6.82 *H 0.50-2.00 MMOL/L Blood Gas Puncture Site LEFT RADIAL Blood Gas Patient Temperature 97.1 Arterial Blood pH 7.39 7.37-7.43 Arterial Blood Partial Pressure CO2 55 H 35-45 MMHG Arterial Blood Partial Pressure O2 56 L 79-93 MMHG Arterial Blood HCO3 33 H 23-27 MMOL/L Arterial Blood Total CO2 34.6 H 21.0-31.0 MMOL/L Arterial Blood Oxygen Saturation 90 L 94-100 % Arterial Blood Base Excess 7.7 H -2.5-2.5 MMOL/L Paulo Test POSITIVE Blood Gas Ventilator Setting NO Blood Gas Inspired Oxygen 4 L My Orders Orders - THIAGO NGUYỄN Alcohol (09/17/17 04:39) BNP (09/17/17 04:39) Cbc With Automated Diff (09/17/17 04:39) Comprehensive Metabolic Panel (09/17/17 04:39) Creatine Kinase (09/17/17 04:39) Lactic Acid Analyzer (09/17/17 04:39) Magnesium (09/17/17 04:39) Troponin I (09/17/17 04:39) Ua Culture If Indicated (09/17/17 04:39) Ct Head/Cervical Spine Wo (09/17/17 04:39) Chest 1 View, Ap/Pa Only (09/17/17 04:39) Saline Lock/Iv-Start (09/17/17 04:39) Ns Iv 1000 Ml (Sodium Chloride 0.9%) (09/17/17 04:39) Albuterol Pre-Mix Nebs (Rt) (Proventil (09/17/17 04:39) Albuterol/Ipra Inhalation Soln (Duoneb I (09/17/17 04:45) Ekg Tracing (09/17/17 04:39) Continuous Ekg Monitoring (09/17/17 04:39) Svn Sm Volume Nebulizer Rt-Rfs (09/17/17 04:39) Albuterol Pre-Mix Nebs (Rt) (Proventil (09/17/17 04:33) Albuterol/Ipra Inhalation Soln (Duoneb I (09/17/17 04:33) Saline Lock/Iv-Start (09/17/17 05:10) Ns Iv 1000 Ml (Sodium Chloride 0.9%) (09/17/17 05:10) Lactated Ringers (Lr 1000 Ml Iv Solution (09/17/17 05:10) Vancomycin Injection (Vancomycin Injecti (09/17/17 05:15) Piperacillin Sodium/Tazobactam (Zosyn Vi (09/17/17 05:15) Potassium Cl 10meq/50ml Ivpb (Kcl 10 Meq (09/17/17 05:15) Blood Culture (09/17/17 05:17) Sputum Culture (09/17/17 05:17) Protime With Inr (09/17/17 05:17) Partial Thromboplastin Time (09/17/17 05:17) O2 (09/17/17 05:17) Vital Signs Adult Sepsis Patie Q1H (09/17/17 05:17) Remove Rings In Anticipation O (09/17/17 05:17) Thiamine Injection (Vitamin B-1 Injectio (09/17/17 09:00) D5 1/2 Ns 1000 Ml Iv Solution (Dextrose (09/17/17 05:20) Magnesium Sulfate Inj (Magnesium Sulfate (09/17/17 05:20) Folic Acid Syr (Ed) (Folic Acid Syr (Ed) (09/17/17 05:20) Vitamin Multi Injection (Mvi 12 Injectio (09/17/17 05:20) Thiamine Injection (Vitamin B-1 Injectio (09/17/17 05:22) Arterial Blood Gas (09/17/17 05:42) Thiamine Injection (Vitamin B-1 Injectio (09/17/17 09:00) Medications Given in ED Current Medications Medications Dose Ordered Sig/Antonio Route Start Time Stop Time Status Last Admin Dose Admin Albuterol/ Ipratropium 3 ml ONCE ONCE INH 09/17/17 04:45 09/17/17 04:46 DC 09/17/17 04:47 3 ML Dextrose/Sodium Chloride 1,000 ml @ ud STK-MED ONCE IV 09/17/17 05:20 09/17/17 05:29 DC 09/17/17 05:55 1,000 MLS/HR Folic Acid 1 mg STK-MED ONCE .ROUTE 09/17/17 05:20 09/17/17 05:30 DC 09/17/17 05:55 1 MG Magnesium Sulfate 1 gm STK-MED ONCE .ROUTE 09/17/17 05:20 09/17/17 05:30 DC 09/17/17 05:54 2 GM Multivitamins 10 ml STK-MED ONCE IV 09/17/17 05:20 09/17/17 05:30 DC 09/17/17 05:54 10 ML Piperacillin Sod/ Tazobactam Sod 4.5 gm/Sodium Chloride 100 ml @ 200 mls/hr ONCE ONCE IV 09/17/17 05:15 09/17/17 05:44 DC 09/17/17 05:45 200 MLS/HR Potassium Chloride 50 ml @ 50 mls/hr ONCE ONCE IV 09/17/17 05:15 09/17/17 06:14 09/17/17 05:50 50 MLS/HR Sodium Chloride 1,000 ml @ 0 mls/hr Q0M ONCE IV 09/17/17 04:39 09/17/17 04:44 DC 09/17/17 04:48 1,000 MLS/HR Thiamine HCl 200 mg STK-MED ONCE .ROUTE 09/17/17 05:22 09/17/17 05:32 DC 09/17/17 05:55 100 MG Vital Signs/I&O Vital Sign - Last 12Hours 09/17/17 09/17/17 04:30 04:48 Temp 97.2 Pulse 123 Resp 20 B/P (MAP) 107/76 Pulse Ox 78 93 O2 Delivery Room Air Nasal Cannula O2 Flow Rate 3.00 Progress Note #1: Time: 04:48 Progress Note He is on blood thinners has some amnesia after a fall. We'll get a CTA as well as CT of the head and neck. Going get an x-ray of his chest as he has some wheezing give him some breathing treatments and see if this may have been the trigger for his fall. Even on 3 L he is staying in the upper 80s to low 90s saturation. Hopefully this will improve after her breathing treatment. We'll obtain some blood work and a lactate. It's likely that his tachycardia is due to his dehydration and hopefully will improve after some IV fluids. Does not seem to be in rapid ventricular response. His heart rate also decrease his normal after his no longer being examined. Progress Note #2: Time: 06:02 Progress Note ABG demonstrates well compensated respiratory acidosis with pH 7.39. PO2 was low so he bumped him up to 4 L per nasal cannula. We'll give him a bubble humidifier for his nasal cannula. ECG Initial ECG Impression Date: Sep 17, 2017 Initial ECG Impression Time: 04:50 Initial ECG Rate: 118 Initial ECG Rhythm: A Fib/Flutter Initial ECG Intervals: QRS (102 ms) Initial ECG Impression: Atrial Fibrillation Initial ECG Comparisson: Changed Comment No definitive P waves seen. Irregularly irregular rhythm. Atrial fibrillation without rapid ventricular response. PVCs seen. No T-wave elevation or depression noted. Diagnostic Imaging Diagonstic Imaging: Xray Plain Films/CT/US/NM/MRI: chest Comments Mild pulmonary congestion. No acute infiltrates. COPD. Reviewed: Reviewed by Me Diagonstic Imaging: CT Plain Films/CT/US/NM/MRI: c-spine, head (without contrast) Comments No intracranial hemorrhage, mass effect, tumor. C-spine without acute osseous fracture, subluxation. Fixation hardware noted. No acute abnormalities of the soft tissue of the neck. Reviewed: Reviewed Night [facility] Study, Reviewed by Me Departure Communication (Admissions) Time/Spoke to Admitting Phy: 05:[address] Perez. We discussed lab imaging findings and clinical exam. He agrees with antibiotic choice vancomycin and Zosyn. We will hold off on steroids in the he will see the patient and make further determinations. Impression Impression: Primary Impression: Fall Qualified Codes: W19.XXXA - Unspecified fall, initial encounter Additional Impressions: Syncope Qualified Codes: R55 - Syncope and collapse Alcohol intoxication Qualified Codes: F10.920 - Alcohol use, unspecified with intoxication, uncomplicated Atrial fibrillation, chronic Disposition: ADMITTED INPATIENT Condition: Stable Admissions Decision to Admit Reason: Admit from ER (General) Decision to Admit/Date: Sep 17, 2017 Time/Decision to Admit Time: 05:38 Departure-Patient Inst. Referrals: ALEKSANDR PIÑA DO (PCP/Family) Primary Care Physician Copy Copies To 1: ALEKSANDR PIÑA DO Copies To 2: BRITTNEY BURT MD, TITUS J Sep 17, 2017 04:47
[2017-09-17 05:02] LABS: ALANINE AMINOTRANSFERASE 22 U/L (0-55); ALBUMIN 3.9 GM/DL (3.2-4.5); ALCOHOL 142 MG/DL (<10); ANION GAP 21 MMOL/L (5-14); ASPARTATE AMINO TRANSFERASE 31 U/L (5-34); BILIRUBIN,TOTAL 0.8 MG/DL (0.1-1.0); BLOOD UREA NITROGEN 9 MG/DL (7-18); BUN/CREATININE RATIO 11; CALCIUM 9.9 MG/DL (8.5-10.1); CARBON DIOXIDE 28 MMOL/L (21-32); CHLORIDE 89 MMOL/L (98-107); CREATINE KINASE 116 U/L (30-200); CREATININE SERUM 0.83 MG/DL (0.60-1.30); GFR ESTIMATED > 60; GLUCOSE 156 MG/DL (70-105); MAGNESIUM 2.1 MG/DL (1.8-2.4); SODIUM 138 MMOL/L (135-145); TOTAL PROTEIN 7.3 GM/DL (6.4-8.2)
[2017-09-17 05:08] LABS: TROPONIN I < 0.30 NG/ML (<0.30)
[2017-09-17] MEDS ORDERED: LACTATED RINGERS 1,000 ML IV ONE (05:10)
[2017-09-17] MEDS ORDERED: VANCOMYCIN INJECTION 1,000 MG in NS (IVPB) 250 ML IV ONE (05:15)
[2017-09-17] MEDS ORDERED: POTASSIUM CL 10MEQ/50ML IVPB 50 ML IV ONE (05:15)
[2017-09-17] MEDS ORDERED: PIPERACILLIN SODIUM/TAZOBACTAM 4.5 GM in NS (IVPB) 100 ML IV ONE (05:15)
[2017-09-17] MEDS ORDERED: MAGNESIUM SULFATE 1 GM/2 ML VIAL ONE (05:20)
[2017-09-17] MEDS ORDERED: FOLIC ACID 1 MG/0.2 ML SYR (ED) ONE (05:20)
[2017-09-17] MEDS ORDERED: VITAMIN MULTI- 12 INJECTION 10 ML VIAL IV ONE (05:20)
[2017-09-17] MEDS ORDERED: D5 1/2 NS 1000 ML IV SOLUTION 1,000 ML IV ONE (05:20)
[2017-09-17] MEDS ORDERED: THIAMINE 100 MG/ML 2 ML (VITAMIN B-1) VIAL ONE (05:22)
[2017-09-17 05:34] LABS: INR 1.1 (0.8-1.4); PROTHROMBIN TIME PATIENT 14.6 SEC (12.2-14.7)
[2017-09-17 05:49] LABS: ABG BASE EXCESS 7.7 MMOL/L (-2.5-2.5); ABG HCO3 33 MMOL/L (23-27); ABG OXYGEN SATURATION 90 % (94-100); ABG PCO2 55 MMHG (35-45); ABG PH 7.39 (7.37-7.43); ABG PO2 56 MMHG (79-93); ABG TCO2 34.6 MMOL/L (21.0-31.0); ALLENS TEST POSITIVE
[2017-09-17 05:50] LABS: PATIENT TEMP 97.1
--- NOTE | 2017-09-17 06:23 | Diagnostic Imaging Report ---
EXAM: CHEST 1 VIEW, AP/PA ONLY INDICATION: Chest pain. COMPARISON: Chest radiograph 02/15/2017. FINDINGS: Normal heart size and pulmonary vascularity. No focal pulmonary opacity, pleural effusion or pneumothorax. Postoperative changes in the cervical spine. Calcified aorta. No significant change. IMPRESSION: No acute cardiopulmonary findings. Dictated by: Dictated on workstation # [id number]
--- NOTE | 2017-09-17 06:51 | Diagnostic Imaging Report ---
PROCEDURE: CT head and CT cervical spine without contrast. TECHNIQUE: Multiple contiguous axial images were obtained through the brain and cervical spine without the use of intravenous contrast. Sagittal and coronal reformations through the cervical spine were then performed. INDICATION: Fall. Head and neck pain. Prior cervical spine surgery. COMPARISON: MRI cervical spine without contrast 07/30/2016. FINDINGS: CT head: No intracranial hemorrhage, mass effect, hydrocephalus or extra-axial fluid collections. No CT evidence of acute infarction. Advanced generalized cerebral and cerebellar parenchymal volume loss. Intracranial vascular calcifications. Osseous structures are intact. The visualized paranasal sinuses and mastoids are clear. CT cervical spine: Grade 1 retrolisthesis of C3 on C4 is stable. Alignment is otherwise unremarkable. Vertebral body heights preserved. There are advanced degenerative endplate changes at C2-C4. There are postoperative findings of an anterior fusion at C7. Hardware components are intact. No focal high-grade spinal canal narrowing on this nondedicated exam. Uncovertebral joint hypertrophy results in multiple levels of moderate and advanced neuroforaminal narrowing. Coarse atherosclerotic calcifications including the carotid bifurcations. IMPRESSION: No acute intracranial or cervical spine CT findings. Dictated by: Dictated on workstation # [id number]
--- NOTE | 2017-09-17 07:36 | Pulmonary Consultation ---
History of Present Illness History of Present Illness Date of Consultation 09/17/17 07:31 Time Seen by Provider: 07:31 Date of Admission History of Present Illness 82yo with hx of oxygen dependent COPD 3 liters, and CAD presented to ED via EMS secondary to fall after a few drinks of scotch and taking hydrocondone. He does not remember fall. Allergies and Home Medications Allergies Coded Allergies: sulfamethoxazole (Verified Allergy, Severe, ANAPHYLAXIS, 07/11/12) trimethoprim (Verified Allergy, Severe, ANAPHYLAXIS, 07/11/12) levofloxacin (Verified Allergy, Intermediate, NAUSEA, 07/11/12) Home Medications Albuterol Sulfate/Ipratropium 3 Ml Solution, 3 ML IH BID, (Reported) Alprazolam 1 Mg Tab, 1 MG PO TID PRN for ANXIETY, (Reported) Apixaban 5 Mg Tablet, 5 MG PO BID, (Reported) Ascorbic Acid 500 Mg Tablet, 500 MG PO DAILY, (Reported) Benzonatate 200 Mg Capsule, 200 MG PO Q8HR PRN PRN for COUGH, (Reported) NEEDED FOR COUGH Calcium/Vitamin D 600 Mg Tab, 600 MG PO DAILY, (Reported) Cyanocobalamin 2,500 Mcg Tab.subl, 2,500 MCG SL DAILY, (Reported) Doxazosin Mesylate 4 Mg Tablet, 8 MG PO HS, (Reported) TAKE 2 (4 MG) TABLETS AT BEDTIME Epinephrine 0.3 Mg/0.3 Ml Pen.injctr, 0.3 MG IM UD, (Reported) Finasteride 5 Mg Tablet, 5 MG PO HS, (Reported) Fluticasone/Salmeterol 1 Disk Inhp, 1 PUFF IH BID, (Reported) 1 PUFF Furosemide 20 Mg Tablet, 60 MG PO BID, (Reported) Gabapentin 300 Mg Capsule, 300 MG PO TID, (Reported) Glucosamine/D3/Boswellia Anjali 1 Each Tablet, 1 TAB PO BID, (Reported) Hydrocodone/Acetaminophen 1 Each Tablet, 1 TAB PO Q4H PRN for PAIN, (Reported) Ipratropium/Albuterol Sulfate 14.7 Gm Aer.w.adap, 2 PUFF IH Q6HR PRN PRN for SHORTNESS OF BREATH, (Reported) NEEDED FOR SHORTNESS OF BREATH Loratadine 10 Mg Tablet, 10 MG PO DAILY, (Reported) Montelukast Sodium 10 Mg Tablet, 10 MG PO DAILY, (Reported) Mu-Vits-Min Th/Lycopene/Lutein 1 Each Tablet, 1 TAB PO DAILY, (Reported) Pomegranate Fruit Extract 250 Mg Capsule, 250 MG PO DAILY, (Reported) Potassium Chloride 10 Meq Tablet.er, 10 MEQ PO DAILY, (Reported) Tiotropium [place] 1 Inh Aerp, 1 IH DAILY, (Reported) 1 INHALATION Vitamin E Acetate 400 Unit Capsule, 400 UNIT PO DAILY, (Reported) [Potassium Gluconate] , 595 MG PO DAILY, (Reported) Past Wqbkthc-Baulqv-Vcgeat Hx Patient Social History Alcohol Use: Occasionally Uses Alcohol Beverage of Choice: FreakOut Recreational Drug Use: No Smoking Status: Former Smoker Former Smoker, Quit: Aug 25, 2002 Recent Foreign Travel: No Contact w/Someone Who Travel: No Recent Infectious Disease Expo: No Recent Hopitalizations: No Physical Abuse: No Sexual Abuse: No Fear: No Immunizations Up To Date Date of Pneumonia Vaccine: Jun 24, 2012 Surgeries History of Surgeries: Yes (BILAT KNEE SCOPE,R SHOULDER SCOPE,C-SPINE FUSION, FENDON GRAFT BILAT THUMBS,) Respiratory History of Respiratory Disorde: Yes Respiratory Disorders: Pneumonia, COPD Cardiovascular History of Cardiac Disorders: Yes Neurological History of Neurological Disord: No Reproductive System Hx Reproductive Disorders: No Genitourinary Genitourinary Disorders: Prostate Problems Gastrointestinal History of Gastrointestinal Di: No Musculoskeletal History of Musculoskeletal Dis: No Endocrine History of Endocrine Disorders: No Cancer History of Cancer: Yes Cancer: Skin Psychosocial Behavioral Health Disorders: Anxiety Suicide Risk Score: 0 Integumentary History of Skin or Integumenta: No Blood Transfusions History of Blood Disorders: No Adverse Reaction to a Blood Tr: No Exam Exam Vital Signs Date Time Temp Pulse Resp B/P (MAP) Pulse Ox O2 Delivery O2 Flow Rate FiO2 09/17/17 06:58 87 18 96 Nasal Cannula 4.00 09/17/17 04:48 93 Nasal Cannula 3.00 09/17/17 04:30 97.2 123 20 107/76 78 Room Air General Appearance: No Apparent Distress, WD/WN HEENT: PERRL/EOMI Neck: Full Range of Motion, Non Tender, Supple Respiratory: No Accessory Muscle Use, No Respiratory Distress, Decreased Breath Sounds Capillary Refill: Less Than 3 Seconds Peripheral Pulses: 1+ Dorsalis Pedis (R), 1+ Left Dors-Pedis (L), 2+ Radial Pulses (R), 2+ Radial Pulses (L) Gastrointestinal: normal bowel sounds, non tender, soft, No guarding, No rebound, No tenderness Extremity: Normal Capillary Refill, Normal Inspection Neurologic/Psychiatric: Alert, Oriented x3 Skin: Normal Color, Warm/Dry Lymphatic: No Adenopathy Results Lab Laboratory Tests 09/17/17 04:34 Assessment/Plan Assessment/Plan -s/p fall secondary to ETOH -Fall precautions -Dehydration with lactic acidosis -Aggressive IVF -monitor -Severe oxygen dependent COPD -Oxygen -SVNs -Will hold off on steroids for now Questionable sepsis - -Shah culture -Will continue Abx for now -repeat CXR tomorrow after pt gets IV hydration Morbid obesity Hypokalemia -follow K replacement protocol CHERY ROBERTS DO Sep 17, 2017 07:36
[2017-09-17] MEDS ORDERED: 1/2 NS IV SOLUTION 1,000 ML IV PRN (07:59)
[2017-09-17] MEDS ORDERED: LORazepam 1 MG (ATIVAN) TAB PO PRN (08:00)
[2017-09-17] MEDS ORDERED: POTASSIUM CHLORIDE INJ 10 MEQ in NS IV 1000 ML 1,000 ML IV SCH (08:00)
[2017-09-17] MEDS ORDERED: ACETAMINOPHEN 500 MG TAB (TYLENOL) PO PRN (08:00)
[2017-09-17] MEDS ORDERED: LORazepam INJ 2 MG/ML (ATIVAN) VIAL IV PRN (08:00)
[2017-09-17] MEDS ORDERED: ONDANSETRON 4 MG (ZOFRAN) ORAL DISSOLVE TAB SL PRN (08:00)
[2017-09-17] MEDS ORDERED: LORazepam INJ 2 MG/ML (ATIVAN) VIAL IM/IV PRN (08:00)
[2017-09-17] MEDS ORDERED: CATHETER FLUSH 10 ML SYR IV PRN (08:00)
[2017-09-17] MEDS ORDERED: SENNA W/DOCUSATE (SENOKOT S) TABLET PO PRN (08:00)
[2017-09-17] MEDS ORDERED: HYDROcodone/APAP 10 MG/325 MG (LORTAB) TAB PO PRN (08:00)
[2017-09-17] MEDS ORDERED: D5 1/2 NS 1000 ML IV SOLUTION 1,000 ML IV PRN (08:00)
[2017-09-17] MEDS ORDERED: VANCOMYCIN 1 GM/NS 250 ML IVPB IV NR ×2 (08:00)
[2017-09-17] MEDS ORDERED: ANTACID SUSP 30 ML UDC (MYLANTA) PO PRN (08:00)
[2017-09-17] MEDS ORDERED: ONDANSETRON 4 MG/2 ML (SDV) Z0FRAN IV PRN ×2 (08:00)
[2017-09-17] MEDS ORDERED: MAGNESIUM 1 GM/100 ML IVPB 100 ML IV SCH (08:30)
[2017-09-17] MEDS: KCL 20 MEQ TAB (K-DUR) PO SCH (08:43)
[2017-09-17] MEDS: THIAMINE 100 MG (VITAMIN B-1) TAB PO SCH (08:47)
[2017-09-17] MEDS: MAGNESIUM OXIDE (MAG-OX)400 MG TAB PO SCH ×2 (08:47→21:11)
[2017-09-17] MEDS: FOLIC ACID 1 MG TAB PO SCH (08:47)
[2017-09-17] MEDS: LORATADINE (CLARITIN) 10 MG TAB PO SCH (08:47)
[2017-09-17] MEDS: MULTIVIT W/MINERALS TAB (THERAGRAN M) PO SCH (08:47)
[2017-09-17] MEDS: NS IV 1000 ML 1,000 ML IV SCH ×3 (08:48→14:40)
[2017-09-17] MEDS ORDERED: CEFP250T2 PO (08:52)
[2017-09-17] MEDS ORDERED: TIOT18CA2 INH (08:52)
[2017-09-17] MEDS ORDERED: CYAN25006 SL (08:52)
[2017-09-17] MEDS ORDERED: CALC-6 PO (08:52)
[2017-09-17] MEDS ORDERED: EPIN0.3P3 IJ (08:52)
[2017-09-17] MEDS ORDERED: ACAI500C PO (08:52)
[2017-09-17] MEDS ORDERED: HYDR453.3 TOP (08:52)
[2017-09-17] MEDS ORDERED: ASCO500T7 PO (08:52)
[2017-09-17] MEDS ORDERED: PRD20T PO (08:52)
[2017-09-17] MEDS ORDERED: FURO40TA4 PO (08:52)
[2017-09-17] MEDS ORDERED: FLUT1DIS27 INH (08:52)
[2017-09-17] MEDS ORDERED: CETI10TA17 PO (08:52)
[2017-09-17] MEDS ORDERED: MONT10TA24 PO (08:52)
[2017-09-17] MEDS ORDERED: IPRA4AER INH (08:52)
[2017-09-17] MEDS ORDERED: POTA99TA17 PO (08:52)
[2017-09-17] MEDS ORDERED: BETA2500 PO (08:52)
[2017-09-17] MEDS ORDERED: HYDR-3820 PO (08:52)
[2017-09-17] MEDS ORDERED: ALPR1TAB7 PO (08:52)
[2017-09-17] MEDS ORDERED: POME250C2 PO (08:52)
[2017-09-17] MEDS ORDERED: ACET600C5 PO (08:52)
[2017-09-17] MEDS ORDERED: VITA400C60 PO (08:52)
[2017-09-17] MEDS ORDERED: POTA10CA68 PO (08:52)
[2017-09-17] MEDS ORDERED: MULT-77 PO (08:52)
[2017-09-17] MEDS ORDERED: GLUC-219 PO (08:52)
[2017-09-17] MEDS ORDERED: FINA5TAB6 PO (08:52)
[2017-09-17] MEDS ORDERED: IPRA3AMP NEB (08:52)
[2017-09-17] MEDS ORDERED: BENZ200C51 PO (08:52)
[2017-09-17] MEDS ORDERED: DOXA4TAB2 PO (08:52)
[2017-09-17] MEDS: POTASSIUM CL 10MEQ/50ML IVPB 50 ML IV SCH ×4 (08:59→13:30)
[2017-09-17] MEDS ORDERED: THIAMINE INJECTION 100 MG, FOLIC ACID INJECTION 1 MG, VITAMIN MULTI INJECTION 10 ML, MA... IV ONE ×10 (09:00)
[2017-09-17] MEDS ORDERED: APIXABAN 5 MG (ELIQUIS) TABLET PO SCH (09:00)
[2017-09-17] MEDS ORDERED: METO5TAB6 PO (09:19)
[2017-09-17] MEDS: RT-ALBUTEROL/IPRATROPIUM 3 ML (DUONEB) VIAL INH SCH ×2 (10:52→14:32)
[2017-09-17] MEDS: RT-ADVAIR HFA 115/21 MCG PER PUFF IH SCH ×2 (11:02→19:47)
[2017-09-17] MEDS ORDERED: PIPERACILLIN/TAZOBACTAM 4.5 GM/NS 100 ML IVPB IV SCH ×2 (12:00)
[2017-09-17] MEDS ORDERED: ALPRAZolam 1 MG (XANAX) TAB PO PRN (15:45)
[2017-09-17] MEDS ORDERED: METOLAZONE 5 MG (ZAROXOLYN) TAB PO PRN (15:45)
--- NOTE | 2017-09-17 15:56 | History & Physical-Hospitalist ---
HPI History of Present Illness: HPI/Chief Complaint The patient is an 82-year-old white male who presented to the emergency room early this morning. His states that as she was preparing to go to bed at about 20-30 she heard a loud thump and went into the TV room. Her had somehow fallen out of his recliner was unable to get up off the floor. They struggled with this and he finally suggested that she just go get the sleeping bag and let him sleep on the floor. This was ultimately put they settled upon. She sat with him for a while and then went to bed. She got up later to go to the bathroom and went to check on him. He was somehow able to get up at that time and used a walker to get to the bathroom. She had to help him and then he fell again. At this point in time she called the ambulance. It is noted that he had a few drinks of Scotch and a hydrocodone at about 1800 hours. He has chronic health problems largely with his back and joints. He has advanced COPD and uses O2 by nasal cannula at 3 L/m chronically. He had been seen by Dr. Bedoya yesterday and put on a cephalosporin and some prednisone. There was a concern because of an elevated lactic acid that he might be septic however his chest x-ray, white blood count, vital signs do not confirm this. Source: patient Exam Limitations: no limitations Date Seen 09/17/17 Time Seen by Provider: 15:51 Attending Physician Sb Burt MD PCP Eliceo Bedoya DO Referring Physician Date of Admission Sep 17, 2017 at 05:30 Home Medications & Allergies Home Medications Reviewed patient Home Medication Reconciliation Form Allergies Allergies Coded Allergies sulfamethoxazole (Verified Allergy, Severe, ANAPHYLAXIS, 07/11/12) trimethoprim (Verified Allergy, Severe, ANAPHYLAXIS, 07/11/12) levofloxacin (Verified Allergy, Intermediate, NAUSEA, 07/11/12) Past Nnaqxfo-Owznvb-Zykowc Hx Patient Social History Alcohol Use: Occasionally Uses Number of Drinks Today: EE Alcohol Beverage of Choice: Scotch Recreational Drug Use: No Smoking Status: Former Smoker Former Smoker, Quit: Aug 25, 2002 Physical Abuse Screen: No Sexual Abuse: No Recent Foreign Travel: No Contact w/other who traveled: No Recent Hopitalizations: No Recent Infectious Disease Expo: No Immunizations Up To Date Date of Pneumonia Vaccine: Jun 24, 2012 Date of Influenza Vaccine: Jul 25, 2017 Surgeries Yes (BILAT KNEE SCOPE,R SHOULDER SCOPE,C-SPINE FUSION,FENDON GRAFT BILAT THUMBS, ) Respiratory Yes Cardiovascular Yes Neurological No Reproductive System Hx Reproductive Disorders: No Genitourinary Prostate Problems Gastrointestinal No Musculoskeletal No Endocrine History of Endocrine Disorders: No HEENT History of HEENT Disorders: No Cancer Yes Skin Psychosocial Behavioral Health Disorders: Anxiety Integumentary History of Skin or Integumenta: No Blood Transfusions History of Blood Disorders: No Adverse Reaction to a Blood Tr: No Review of Systems Constitutional: see HPI EENTM: no symptoms reported Respiratory: dyspnea on exertion, orthopnea, short of breath, wheezing Cardiovascular: no symptoms reported Gastrointestinal: no symptoms reported Genitourinary: frequency, hesitancy Musculoskeletal: muscle pain, muscle stiffness Skin: other (easy bruising) Psychiatric/Neurological: No Symptoms Reported Physical Exam Physical Exam Vital Signs Vital Sign - Last 12Hours 09/17/17 09/17/17 04:30 04:48 Temp 97.2 Pulse 123 Resp 20 B/P (MAP) 107/76 Pulse Ox 78 O2 Delivery Room Air O2 Flow Rate 3.00 Capillary Refill : Less Than 3 Seconds General Appearance: No Apparent Distress, WD/WN Eyes: Bilateral Eye Normal Inspection HEENT: Normal ENT Inspection Neck: Normal Inspection Respiratory: Decreased Breath Sounds (distant) Cardiovascular: Irregularly Irregular Gastrointestinal: Other (quite obese without tenderness or organomegaly) Back: Normal Inspection, No CVA Tenderness, No Vertebral Tenderness Extremity: Normal Capillary Refill, Normal Inspection, Normal Range of Motion, Non Tender, No Calf Tenderness, No Pedal Edema Neurologic/Psychiatric: Alert, Oriented x3, No Motor/Sensory Deficits, Normal 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 Multiple other smaller ecchymoses are noted) Lymphatic: No Adenopathy Results Results/Procedures Lab Laboratory Tests 09/17/17 04:34 Assessment/Plan Admission Diagnosis Fall at home. 2.no evidence of sepsis/lactic acid increase likely related to alcohol. 3.severe COPD/chronic O2 dependence Assessment and Plan Discontinue Antibiotics empiricLY. Consider early discharge Clinical Quality Measures DVT/VTE Risk/Contraindication: Risk Factor Score Per Nursin RFS Level Per Nursing on Admit: 4+=Very High SB BURT MD Sep 17, 2017 15:56
[2017-09-17] MEDS ORDERED: RT-ALBUTEROL/IPRATROPIUM 3 ML (DUONEB) VIAL IH PRN (17:00)
[2017-09-17] MEDS: HYDROcodone/APAP 10 MG/325 MG (LORTAB) TAB PO PRN (18:01)
[2017-09-17] MEDS ORDERED: VANCOMYCIN 1500 MG/NS 500 ML IVPB IV SCH ×2 (20:00)
[2017-09-17] MEDS ORDERED: doxAzosin 4 MG (CARDURA) TAB PO SCH (21:00)
[2017-09-17] MEDS ORDERED: RT-ALBUTEROL/IPRATROPIUM 3 ML (DUONEB) VIAL IH SCH (21:00)
[2017-09-17] MEDS ORDERED: MONTELUKAST 10 MG (SINGULAIR) TAB PO SCH ×2 (21:00)
[2017-09-17] MEDS: GABAPENTIN 600 MG (NEURONTIN) TAB PO SCH (21:11)
[2017-09-17] MEDS: APIXABAN 5 MG (ELIQUIS) TABLET PO SCH (21:12)
[2017-09-18] VITALS: BP 110/63
[2017-09-18 04:00] VITALS: BP 121/73
[2017-09-18 04:55] LABS: BASOPHILS % (AUTO) 0 % (0-10); EOSINOPHILS # (AUTO) 0.3 10^3/uL (0.0-0.3); EOSINOPHILS % (AUTO) 3 % (0-10); LYMPHOCYTES # (AUTO) 1.7 X 10^3 (1.0-4.0); LYMPHOCYTES % (AUTO) 17 % (12-44); MEAN CORPUSCULAR HEMOGLOBIN 35 PG (25-34); MEAN CORPUSCULAR HGB CONC 35 G/DL (32-36); MEAN CORPUSCULAR VOLUME 101 FL (80-99); MEAN PLATELET VOLUME 8.7 FL (7.4-10.4); MONOCYTES # (AUTO) 1.3 X 10^3 (0.0-1.0); MONOCYTES % (AUTO) 13 % (0-12); NEUTROPHILS # (AUTO) 6.8 X 10^3 (1.8-7.8); NEUTROPHILS % (AUTO) 67 % (42-75); PLATELET COUNT 193 10^3/uL (130-400); RED BLOOD COUNT 3.78 10^6/uL (4.35-5.85); RED CELL DISTRIBUTION WIDTH 12.9 % (10.0-14.5); WHITE BLOOD COUNT 10.1 10^3/uL (4.3-11.0)
[2017-09-18] MEDS: HYDROcodone/APAP 10 MG/325 MG (LORTAB) TAB PO PRN (04:57)
[2017-09-18 05:17] LABS: ALANINE AMINOTRANSFERASE 18 U/L (0-55); ANION GAP 9 MMOL/L (5-14); ASPARTATE AMINO TRANSFERASE 30 U/L (5-34); BILIRUBIN,TOTAL 1.4 MG/DL (0.1-1.0); BLOOD UREA NITROGEN 6 MG/DL (7-18); BUN/CREATININE RATIO 9; CALCIUM 8.6 MG/DL (8.5-10.1); CARBON DIOXIDE 34 MMOL/L (21-32); CHLORIDE 97 MMOL/L (98-107); CREATININE SERUM 0.69 MG/DL (0.60-1.30); GFR ESTIMATED > 60; GLUCOSE 109 MG/DL (70-105); PHOSPHORUS 2.6 MG/DL (2.3-4.7); SODIUM 140 MMOL/L (135-145); TOTAL PROTEIN 5.7 GM/DL (6.4-8.2)
[2017-09-18] MEDS: KCL 20 MEQ TAB (K-DUR) PO SCH (06:00)
--- NOTE | 2017-09-18 06:24 | Pulmonary Progress Note ---
Subjective Time Seen by Provider: 06:27 Subjective/Events-last exam Pt is doing better no complications noted. Exam Exam Vital Signs Date Time Temp Pulse Resp B/P (MAP) Pulse Ox O2 Delivery O2 Flow Rate FiO2 09/18/17 04:00 97.8 75 14 121/73 96 Nasal Cannula 4.00 09/18/17 01:00 66 09/18/17 00:00 97.6 107 15 110/63 97 Nasal Cannula 4.00 09/17/17 21:00 96 Nasal Cannula 4.00 09/17/17 20:00 98.1 79 24 128/63 96 Nasal Cannula 4.00 09/17/17 19:49 96 Nasal Cannula 4.00 09/17/17 19:00 112 09/17/17 17:35 89 19 141/74 94 Nasal Cannula 4.00 09/17/17 16:00 114 14 94 Nasal Cannula 4.00 09/17/17 15:00 142 25 94 Nasal Cannula 4.00 09/17/17 14:32 95 Nasal Cannula 4.00 09/17/17 14:32 118 95 36 09/17/17 14:00 27 95 Nasal Cannula 4.00 09/17/17 13:00 90 09/17/17 13:00 36 96/66 94 Nasal Cannula 4.00 09/17/17 12:00 130 21 115/62 94 Nasal Cannula 4.00 09/17/17 11:07 96 Nasal Cannula 4.00 09/17/17 11:02 96 Nasal Cannula 4.00 09/17/17 11:00 22 117/60 97 Nasal Cannula 4.00 09/17/17 10:53 95 Nasal Cannula 5.00 09/17/17 10:39 Nasal Cannula 4.00 09/17/17 10:00 126 20 113/79 96 Nasal Cannula 4.00 09/17/17 09:00 21 101/69 95 Nasal Cannula 4.00 09/17/17 08:00 110 18 108/66 95 Nasal Cannula 4.00 09/17/17 07:00 114/70 09/17/17 07:00 114 09/17/17 06:58 87 18 96 Nasal Cannula 4.00 General Appearance: No Apparent Distress, WD/WN HEENT: Normal ENT Inspection Neck: Normal Inspection Respiratory: Decreased Breath Sounds (distant) Cardiovascular: Irregularly Irregular Capillary Refill: Less Than 3 Seconds Peripheral Pulses: 1+ Dorsalis Pedis (R), 1+ Left Dors-Pedis (L), 2+ Radial Pulses (R), 2+ Radial Pulses (L) Gastrointestinal: normal bowel sounds, non tender, soft, No guarding, No rebound, No tenderness Extremity: Normal Capillary Refill, Normal Inspection, Normal Range of Motion, Non Tender, No Calf Tenderness, No Pedal Edema Neurologic/Psychiatric: Alert, Oriented x3, No Motor/Sensory Deficits, Normal Mood/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 Multiple other smaller ecchymoses are noted) Lymphatic: No Adenopathy Results Lab Laboratory Tests 09/17/17 04:34 09/18/17 04:20 Assessment/Plan Assessment/Plan -s/p fall secondary to ETOH -Fall precautions -Dehydration with lactic acidosis -monitor -Severe oxygen dependent COPD -- pt is at baseline -Oxygen -SVNs -Will hold off on steroids for now Morbid obesity Hypokalemia -replace 232 Pt seems to be improved. Doubt infection. Pt is ok from pulmonary standpoint for discharge. Clinical Quality Measures DVT/VTE Risk/Contraindication: Risk Factor Score Per Nursin RFS Level Per Nursing on Admit: 4+=Very High CHERY ROBERTS DO Sep 18, 2017 06:24
[2017-09-18] MEDS ORDERED: KCL 20 MEQ TAB (K-DUR) PO NR (06:30)
[2017-09-18] MEDS ORDERED: ASCORBIC ACID (VIT C) 500 MG TABLET PO SCH (07:00)
[2017-09-18] MEDS ORDERED: predniSONE 20 MG TAB PO SCH (07:00)
[2017-09-18] MEDS: MULTIVIT W/MINERALS TAB (THERAGRAN M) PO SCH (07:04)
[2017-09-18] MEDS: THIAMINE 100 MG (VITAMIN B-1) TAB PO SCH (07:04)
--- NOTE | 2017-09-18 07:50 | Diagnostic Imaging Report ---
INDICATION: Sepsis. Compared 09/17/2017 FINDINGS: Air trapping and COPD chronic. No focal consolidation, effusion or pneumothorax. Mild cardiomegaly present unchanged without substantial overdistention of the vascularity. IMPRESSION: Stable chronic findings Dictated by: Dictated on workstation # [id number]
[2017-09-18] MEDS: RT-ADVAIR HFA 115/21 MCG PER PUFF IH SCH (07:54)
[2017-09-18] MEDS ORDERED: UMECLIDINIUM BROMIDE (INCRUSE ELLIPTA) 7'S IH SCH (08:00)
[2017-09-18 08:08] VITALS: BP 116/68
[2017-09-18] MEDS ORDERED: FUROSEMIDE 40 MG (LASIX) TAB PO SCH (09:00)
[2017-09-18] MEDS: GABAPENTIN 600 MG (NEURONTIN) TAB PO SCH (09:08)
[2017-09-18] MEDS: FOLIC ACID 1 MG TAB PO SCH (09:08)
[2017-09-18] MEDS: MAGNESIUM OXIDE (MAG-OX)400 MG TAB PO SCH (09:08)
[2017-09-18] MEDS: APIXABAN 5 MG (ELIQUIS) TABLET PO SCH (09:08)
[2017-09-18] MEDS: LORATADINE (CLARITIN) 10 MG TAB PO SCH (09:10)
--- NOTE | 2017-09-18 11:14 | Progress Note-Hospitalist ---
Standard Progress Note Progress Notes/Assess & Plan Date Seen 09/18/17 Time Seen by Provider: 11:09 Diagnosis Fall at home. 2.no evidence of sepsis/lactic acid increase likely related to alcohol. 3.severe COPD/chronic O2 dependence Assess & Plan/Chief Complaint The patient appears to return to his usual state of health. He is chronically oxygen dependent at home and remained so. White blood count is normal. He is afebrile. Cultures are negative. They are eager to return home. The is concerned about his ability to walk as she is certainly not able to lift him. Physical therapy will be asked to give an opinion. Physical exam: He is on the commode at the time of my visit. He appears somewhat breathless from the several steps that were required for him to get there from the bed. Lungs are clear but the breath sounds are very distant. CV is regular. Ankles show one half plus edema Impression: Fall at home. 2.lactic acidosis likely secondary to alcohol use. 3.severe COPD/chronic O2 dependence Labs Laboratory Tests 09/17/17 04:34 09/18/17 04:20 Final Diagnosis 1.fall at home. 2.lactic acidosis apparently secondary to alcohol use. 3.severe COPD with chronic oxygen dependence Copy Copies To 1: ALEKSANDR PIÑA RODNEY K MD Sep 18, 2017 11:14
--- NOTE | 2017-09-18 11:25 | Discharge Instructions ---
Discharge Instructions Patient Instructions Patient Instructions: rESUME MEDICATIONS previously. Finish the oral antibiotics that were started prior to urination. Schedule a follow-up appointment with Dr. Bedoya. Return to The [facility] For: Decline in performance. Activity & Diet Discharge Diet: No Restrictions Activity as Tolerated: Yes Copy Copies To 1: ALEKSANDR BEDOYA RODNEY K MD Sep 18, 2017 11:25
--- NOTE | 2017-09-18 11:55 | Physical Therapy Evaluation ---
PT Evaluation-General Medical Diagnosis Admission Date Sep 17, 2017 at 05:30 Medical Diagnosis: fall at home Onset Date: Sep 16, 2017 Therapy Diagnosis Therapy Diagnosis: weakness Height/Weight Height (Feet): 6 Height (Inches): 0.00 Weight (Pounds): 230 Weight (Ounces): 3.2 Precautions Precautions/Isolations: Standard Precautions Weight Bear Status Right Lower Extremity: Right Weight Bearing/Tolerated Left Lower Extremity: Left Weight Bearing/Tolerated Referral Physician: Lyubov Reason for Referral: Evaluation/Treatment (assess if able to discharge home safely) Medical History Pertinent Medical History: COPD Current History Pt fell at home and was unable to get up; brought to ER via EMS. Reviewed History: Yes Social History Home: Single Level Current Living Status: Spouse Entry Into Home: Stairs With Railing Prior/Core FIM Prior Level of Function Functional [place] Measure 0=Not Assessed/NA 4=Minimal Assistance 1=Total Assistance 5=Supervision or Setup 2=Maximal Assistance 6=Modified [place] 3=Moderate Assistance 7=Complete [place] Pt indep at home; uses home O2 PT Evaluation-Current Subjective Anxious to go home. Objective Patient Orientation: Person, Place, Time, Situation Problem Solving: Good ROM/Strength ROM Lower Extremities WFL Strength Lower Extremities WFL Integumentary/Posture Integumentary Refer to nursing notes. Bowel Incontinence: No Bladder Incontinence: No Posture Normal and symmetrical Neuromuscular (Tone, Coordination, Reflexes) No noted functional deficits Sensory Vision: Functional Hand Dominance: Right Sensation Right Lower Extremit: Intact Sensation Left Lower Extremity: Intact Transfers Functional [place] Measure 0=Not Assessed/NA 4=Minimal Assistance 1=Total Assistance 5=Supervision or Setup 2=Maximal Assistance 6=Modified [place] 3=Moderate Assistance 7=Complete [place] Transfers (B, C, W/C) (FIM): 7 Pt able to sit up from flat bed (with difficulty) and able to lie back down without difficulty. Indep with sit to stand; stood to use the urinal unsupported. Gait Mode of Locomotion: Walk Comments/Gait Description Pt ambulated 150 ft without assist; uses O2 at 3 l/min. Safe and steady gait; wide SHARITA but no LOB noted. Balance Sitting Static: Good Sitting Dynamic: Good Standing Static: Fair Standing Dynamic: Fair Assessment/Needs Pt is slightly unsteady with initial standing but no LOB; able to transfer and ambulate without assist; pt and feel they can manage at home without assist. Rehab Potential: Good PT Plan Treatment/Plan Treatment Plan: Discontinue PT Treatment Plan: Other (DC PT) Treatment Duration: Sep 18, 2017 Frequency: eval only Estimated Hrs Per Day: Other Patient and/or Family Agrees t: Yes Safety Risks/Education Patient Education: Gait Training, Transfer Techniques, Safety Issues Teaching Recipient: Patient, Significant Other Teaching Methods: Discussion Response to Teaching: Verbalize Understanding Discharge Recommendations Plan DC PT Time/GCodes Time In: 1110 Time Out: 1130 Total Billed Treatment Time: 20 Total Billed Treatment visit EVM 20 MARAH LAMBERT PT Sep 18, 2017 11:55
[2017-09-18] MEDS ORDERED: TROUGH ORDER-PHARMACY XX NR (19:00)
== END 2017-09-18 12:10 | disposition home or self-care (01) | DRG 641 ==
LOC: EDUNIT# 04:29 → ER 04:31 → ICU 05:30
PROVIDERS: ADMIT Internal Medicine; ATTEND Internal Medicine
DX: E87.2 Acidosis (principal); E86.0 Dehydration; J44.9 Chronic obstructive pulmonary disease, unspecified; F10.920 Alcohol use, unspecified with intoxication, uncomplicated; E24.2 Drug-induced Cushing's syndrome; E66.01 Morbid (severe) obesity due to excess calories; E87.6 Hypokalemia; S20.319A Abrasion of unspecified front wall of thorax, initial encounter; Z66 Do not resuscitate; I48.2 Chronic atrial fibrillation; I25.10 Atherosclerotic heart disease of native coronary artery without angina pectoris; I10 Essential (primary) hypertension; N40.0 Benign prostatic hyperplasia without lower urinary tract symptoms; F41.9 Anxiety disorder, unspecified; M50.30 Other cervical disc degeneration, unspecified cervical region; W07.XXXA Fall from chair, initial encounter; W18.30XA Fall on same level, unspecified, initial encounter; Y92.008 Other place in unspecified non-institutional (private) residence as the place of occurrence of the external cause; Z68.30 Body mass index [BMI] 30.0-30.9, adult; Z99.81 Dependence on supplemental oxygen; Z87.891 Personal history of nicotine dependence; Z85.828 Personal history of other malignant neoplasm of skin; Z98.1 Arthrodesis status
CPT/HCPCS: 36415; 70450; 71010; 72125; 80053; 80320; 82550; 82805; 83605; 83735; 83880; 84100; 84484; 85025; 85610; 85730; 87040; 93005; 94640

== ENCOUNTER → 2017-09-27 | Outpatient (CLI) | payer MEDICARE, OTHER ==
[~2017-09-27] MED LIST changes: +ACAI500C PO; +ACET600C5 PO; +ALPR1TAB7 PO; +ASCO500T7 PO; +BENZ200C51 PO; +BETA2500 PO; +CALC-6 PO; +CEFP250T2 PO; +CETI10TA17 PO; +CYAN25006 SL; +EPIN0.3P3 IJ; +FLUT1DIS27 INH; +FURO40TA4 PO; +GLUC-219 PO; +HYDR-3820 PO; +HYDR453.3 TOP; +IPRA3AMP NEB; +IPRA4AER INH; +METO5TAB6 PO; +MULT-77 PO; +POTA10CA68 PO; +POTA99TA17 PO; +PRD20T PO; +TIOT18CA2 INH; +VITA400C60 PO
--- NOTE | 2017-09-27 12:10 | Diagnostic Imaging Report ---
PROCEDURE: MR imaging cervical spine without contrast. TECHNIQUE: Multiplanar, multisequence MR imaging of the cervical spine was performed without contrast. INDICATION: Chronic neck pain. FINDINGS: There is posterior translation of C3 over C4 of approximately 3 mm. This is stable from 07/30/2016 exam. There is susceptibility artifact from anterior plate and screws for fusion of C4-C7 levels with suggestion of solid osseous fusion of these vertebral bodies. There is disc desiccation seen at the remaining discs and severe disc height loss with endplate irregularity at C3/C4. The marrow signal demonstrates distortions and artifacts around the susceptibility artifact from the fusion hardware with reactive changes around endplates of C3/C4 and anterior-inferior aspect of C2. No suspicious focal mass. The spinal cord has normal signal. The foramen magnum and upper cervical canal are widely patent. C2/C3: There is disc spur complex resulting in mild to moderate spinal canal stenosis reducing the AP dimension of the canal to 8.9 mm. No cord compression. Facet and uncovertebral joint hypertrophy results in moderate stenosis on the left and moderate to severe stenosis on the right side. C3/C4: There is posterior translation of 3 mm at this level. There is also a disc spur complex and posterior ligamentous hypertrophy seen resulting in moderate to severe spinal canal stenosis reducing the AP dimension of the canal to 6.5 mm and resulting in mild cord compression, worse along the left side of the spinal cord. The foramina demonstrate bilateral severe stenosis, worse on the left side. C4/C5: There is solid fusion at this level with remaining mild posterior osteophyte suggested to the right of the midline. There is mild canal stenosis without cord compression reducing the AP dimension of the canal to 9.3 mm. The foramina demonstrate bilateral moderate stenosis. C5/C6: There is solid fusion with suggestion of mild posterior osteophytes resulting in mild spinal canal stenosis reducing the AP dimension of the canal to 9.4 mm. The foramina demonstrate severe stenosis bilaterally. C6/C7: There is solid fusion with no spinal canal stenosis. The foramina demonstrate mild to moderate stenosis bilaterally. C7/T1: There is a mild disc spur complex seen with no significant spinal canal stenosis. No foraminal stenosis. 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 No cord signal abnormality. There is also multilevel high-grade foraminal stenosis. Dictated by: Dictated on workstation # [id number]
== END ==
LOC: RAD 10:40
PROVIDERS: ATTEND Internal Medicine
DX: M48.02 Spinal stenosis, cervical region (principal); M50.20 Other cervical disc displacement, unspecified cervical region; M50.321 Other cervical disc degeneration at C4-C5 level; M24.28 Disorder of ligament, vertebrae
CPT/HCPCS: 72141

== ENCOUNTER → 2018-02-13 | Outpatient (CLI) | payer MEDICARE, OTHER | LOC: CARD 09:58 | PROVIDERS: ATTEND Internal Medicine | DX: I48.0 Paroxysmal atrial fibrillation (principal) | CPT/HCPCS: 93225; 93226 ==

== ENCOUNTER → 2018-04-06 | Outpatient (CLI) | payer MEDICARE, OTHER ==
--- NOTE | 2018-04-06 17:10 | Diagnostic Imaging Report ---
PROCEDURE: CT head without contrast. TECHNIQUE: Multiple contiguous axial images were obtained through the brain without the use of intravenous contrast. INDICATION: Recurrent dizziness and headache after falling eight days ago when striking left side of head, on blood thinner. COMPARISON: 09/09/2017. DISCUSSION: Diffuse brain volume loss is stable, likely age related. White matter hypoattenuation is nonspecific though not greater than expected for age related chronic small vessel ischemic disease. No acute intracranial hemorrhage, mass, midline shift, hydrocephalus. The orbits, sinuses, mastoid air cells, and calvarium are unremarkable. IMPRESSION: 1. Stable senescent changes. No acute intracranial abnormality. Dictated by: Dictated on workstation # [id number]
== END ==
LOC: RAD 16:39
PROVIDERS: ATTEND Nurse Practitioner Family
DX: R54 Age-related physical debility (principal); R42 Dizziness and giddiness; R51 Headache; Z79.01 Long term (current) use of anticoagulants
CPT/HCPCS: 70450

== ENCOUNTER → 2018-05-15 | Outpatient (CLI) | payer MEDICARE, OTHER ==
[~2018-05-15] MED LIST changes: -IPRA3AMP NEB; +IPRA3AMP31 NEB
== END ==
LOC: CARD 13:49
PROVIDERS: ATTEND Internal Medicine Interventional Cardiology
DX: I25.10 Atherosclerotic heart disease of native coronary artery without angina pectoris (principal); I48.0 Paroxysmal atrial fibrillation; I49.5 Sick sinus syndrome; R42 Dizziness and giddiness; R53.83 Other fatigue
CPT/HCPCS: 93306

== ENCOUNTER 2018-06-19 09:59 | Outpatient (RCR) | payer MEDICARE, OTHER ==
[~2018-06-19 09:59] MED LIST changes: +HYDR-4196 PO; -HYDR-753 PO
== END 2018-06-20 | disposition home or self-care (01) ==
LOC: CARD 09:59
PROVIDERS: ATTEND Internal Medicine Interventional Cardiology
DX: I48.0 Paroxysmal atrial fibrillation (principal); I49.5 Sick sinus syndrome; R42 Dizziness and giddiness; R53.83 Other fatigue
CPT/HCPCS: 93270

== ENCOUNTER 2018-12-22 13:16 | Outpatient (RCR) | payer MEDICARE, OTHER ==
[2019-01-01 13:50] VITALS: BP 150/60
[2019-01-01 14:00] VITALS: BP 130/75
[2019-01-08 13:00] VITALS: BP 140/60
[2019-01-08 14:00] VITALS: BP 120/60
[2019-01-15 13:00] VITALS: BP 152/60
[2019-01-15 14:00] VITALS: BP 120/60
[2019-01-20 13:00] VITALS: BP 130/80
[2019-01-20 14:00] VITALS: BP 138/50
[2019-02-05 13:00] VITALS: BP 120/60
[2019-02-05 14:00] VITALS: BP 136/68
[2019-02-24 13:00] VITALS: BP 112/80
[2019-02-24 13:48] VITALS: BP 104/78
[2019-03-03 13:00] VITALS: BP 130/80
[2019-03-03 13:53] VITALS: BP 116/80
== END 2019-03-22 | disposition home or self-care (01) ==
LOC: PULM 13:16
PROVIDERS: ATTEND Internal Medicine
DX: J44.9 Chronic obstructive pulmonary disease, unspecified (principal)
CPT/HCPCS: 99211

== ENCOUNTER → 2019-02-05 | Outpatient (CLI) | payer MEDICARE, OTHER ==
--- NOTE | 2019-02-05 20:50 | Diagnostic Imaging Report ---
INDICATION: Palpable lump in the left axilla region. No prior studies are available for comparison. 2-D and 3-D lateral left diagnostic mammography was performed with a Computer Aided Detection (CAD) system. FINDINGS: There are two intramammary lymph nodes in the upper-outer aspect of left breast. At the area of the BB marker, no underlying abnormality is seen. No suspicious microcalcifications are seen. IMPRESSION: No suspicious mammographic abnormality is seen. Even so, directed sonographic interrogation of the area of palpable abnormality in the left axilla is recommended and will be performed today. ACR BI-RADS Category 0: Incomplete. (Needs additional imaging evaluation). Result letter will be mailed to the patient. Note: At least 10% of breast cancer is not imaged by mammography. Dictated by: Dictated on workstation # [id number]
--- NOTE | 2019-02-05 20:54 | Diagnostic Imaging Report ---
INDICATION: Lump in the left axillary tail. Correlation is made with diagnostic mammogram earlier the same day. FINDINGS: Sonographic interrogation of the area of lump in the left axillary tail was performed. There is an ovoid, smoothly-marginated hypoechoic mass at the 3 o'clock location 3 cm from nipple measuring 1.5 x 0.4 x 1.7 cm. This has the appearance of a lipoma. No internal vascularity is seen. No fluid-containing mass is seen. IMPRESSION: Probable lipoma at the area of palpable abnormality. No other significant abnormality is detected. ACR BI-RADS Category 2: Benign findings. Dictated by: Dictated on workstation # [id number]
== END ==
LOC: RAD 14:24
PROVIDERS: ATTEND Internal Medicine
DX: N63.32 Unspecified lump in axillary tail of the left breast (principal)
CPT/HCPCS: 76642

== ENCOUNTER 2019-05-07 10:15 | Outpatient (RCR) | payer MEDICARE, OTHER ==
[2019-05-01 14:10] VITALS: BP 135/99
[2019-05-01] MEDS: CATHETER FLUSH 10 ML SYR IV PRN (14:40)
[2019-05-01] MEDS: ERTAPENEM 1 GM/NS 50 ML IVPB IV SCH ×2 (14:41)
[2019-05-02] MEDS: ERTAPENEM 1 GM/NS 50 ML IVPB IV SCH ×2 (10:21)
[2019-05-02] MEDS: CATHETER FLUSH 10 ML SYR IV PRN (10:21)
[2019-05-02 11:00] VITALS: BP 142/74
[2019-05-03] MEDS: CATHETER FLUSH 10 ML SYR IV PRN (10:15)
[2019-05-03] MEDS: ERTAPENEM 1 GM/NS 50 ML IVPB IV SCH ×2 (10:15)
[2019-05-03 10:50] VITALS: BP 91/60
[2019-05-04] MEDS: ERTAPENEM 1 GM/NS 50 ML IVPB IV SCH ×2 (10:26)
[2019-05-04 10:36] VITALS: BP 164/82
[2019-05-05] MEDS: CATHETER FLUSH 10 ML SYR IV PRN ×2 (10:25→10:55)
[2019-05-05] MEDS: ERTAPENEM 1 GM/NS 50 ML IVPB IV SCH ×2 (10:26)
[2019-05-05 11:00] VITALS: BP 115/66
[2019-05-06] MEDS: ERTAPENEM 1 GM/NS 50 ML IVPB IV SCH ×2 (10:18)
[2019-05-06 10:20] VITALS: BP 143/75
[~2019-05-07] VITALS: Ht 182.9 cm; Wt 110.9 kg
[2019-05-07 10:15] VITALS: BP 118/93
[2019-05-07] MEDS: ERTAPENEM 1 GM/NS 50 ML IVPB IV SCH ×2 (10:30)
== END 2019-05-07 11:10 | disposition home or self-care (01) ==
LOC: SDC 10:15
PROVIDERS: ATTEND Internal Medicine
DX: J18.9 Pneumonia, unspecified organism (principal)
CPT/HCPCS: 96365

== ENCOUNTER 2019-05-16 19:26 | Inpatient (IN) | payer MEDICARE, OTHER ==
[~2019-05-16] VITALS: Ht 182.9 cm; Wt 109.6 kg
--- NOTE | 2019-05-16 19:30 | NUR ---
Multiple large, dark, and purple bruises noted over anterior and superior aspect of bilat upper extremities.
[2019-05-16] MEDS ORDERED: methylPREDNISolone 125 MG (Solu-MEDROL) VIAL IV STA (19:33)
--- NOTE | 2019-05-16 19:35 | NUR ---
Pt refused gann catheter insertion. Education verbalized to pt regarding benefits regarding catheter insertion and pt continues to refuse.
[2019-05-16 19:41] LABS: BASOPHILS % (AUTO) 0 % (0-10); EOSINOPHILS # (AUTO) 0.2 10^3/uL (0.0-0.3); EOSINOPHILS % (AUTO) 2 % (0-10); HEMATOCRIT 37 % (40-54); HEMOGLOBIN 12.5 G/DL (13.3-17.7); LYMPHOCYTES # (AUTO) 0.8 X 10^3 (1.0-4.0); LYMPHOCYTES % (AUTO) 8 % (12-44); MEAN CORPUSCULAR HEMOGLOBIN 34 PG (25-34); MEAN CORPUSCULAR HGB CONC 34 G/DL (32-36); MEAN CORPUSCULAR VOLUME 100 FL (80-99); MEAN PLATELET VOLUME 8.9 FL (7.4-10.4); MONOCYTES # (AUTO) 0.8 X 10^3 (0.0-1.0); MONOCYTES % (AUTO) 8 % (0-12); NEUTROPHILS # (AUTO) 8.8 X 10^3 (1.8-7.8); NEUTROPHILS % (AUTO) 83 % (42-75); PLATELET COUNT 170 10^3/uL (130-400); RED CELL DISTRIBUTION WIDTH 12.5 % (10.0-14.5); WHITE BLOOD COUNT 10.7 10^3/uL (4.3-11.0)
[2019-05-16] MEDS ORDERED: RT-ALBUTEROL/IPRATROPIUM 3 ML (DUONEB) VIAL INH ONE ×2 (19:45→22:30)
[2019-05-16] MEDS ORDERED: DEXAMETHASONE 4 MG/ML SDV (DECADRON) IH ONE (19:45)
--- NOTE | 2019-05-16 19:45 | NUR ---
@ bedside. reports on the morning of 05/14/19 pt fell @ approx 0300 while amb to restroom. reports pt was "down on knees" for unknown length of time. Pt reports discomfort to bilat knees @ this time. Bruising in various stages of healing and multiple superficial abrasions noted to bilat knees.
[2019-05-16 20:02] LABS: BILIRUBIN,URINE NEGATIVE (NEGATIVE); CLARITY,URINE SLIGHTLY CLOUDY; COLOR,URINE YELLOW; GLUCOSE, URINE (UA) NEGATIVE (NEGATIVE); KETONES,URINE NEGATIVE (NEGATIVE); LEUKOCYTE ESTERASE ,URINE 1+ (NEGATIVE); NITRITE,URINE NEGATIVE (NEGATIVE); PH,URINE 5 (5-9); PROTEIN,URINE 1+ (NEGATIVE); UROBILINOGEN,URINE NORMAL (NORMAL)
[2019-05-16 20:02] LABS: ALBUMIN 3.5 GM/DL (3.2-4.5); BILIRUBIN,TOTAL 1.5 MG/DL (0.1-1.0); CALCIUM 9.4 MG/DL (8.5-10.1); CREATININE SERUM 3.23 MG/DL (0.60-1.30); POTASSIUM 4.5 MMOL/L (3.6-5.0); TOTAL PROTEIN 6.7 GM/DL (6.4-8.2)
[2019-05-16 20:10] LABS: INR 1.4 (0.8-1.4); PROTHROMBIN TIME PATIENT 17.6 SEC (12.2-14.7)
[2019-05-16 20:12] LABS: BACTERIA,URINE TRACE /HPF; RBC,URINE 50-100 /HPF
[2019-05-16 20:18] LABS: AMPHETAMINE SCREEN, URINE NEGATIVE (NEGATIVE); BENZODIAZEPINES SCREEN URINE POSITIVE (NEGATIVE); CANNABINOID SCREEN, URINE NEGATIVE (NEGATIVE); COCAINE SCREEN URINE NEGATIVE (NEGATIVE); METHAMPHETAMINE SCREEN URINE S NEGATIVE (NEGATIVE); OPIATE SCREEN URINE POSITIVE (NEGATIVE)
[2019-05-16 20:19] LABS: BARBITURATE SCREEN URINE NEGATIVE (NEGATIVE); METHADONE STAT NEGATIVE (NEGATIVE); OXYCODONE STAT NEGATIVE (NEGATIVE); PROPOXYPHENE STAT NEGATIVE (NEGATIVE); TRICYCLIC ANTIDEPRESSANTS SCRE NEGATIVE (NEGATIVE)
--- NOTE | 2019-05-16 20:56 | Diagnostic Imaging Report ---
INDICATION: Pain. EXAMINATION: Single view of the chest was obtained. FINDINGS: Upper limits heart size is present. No overt failure pattern. No displaced chest wall fracture deformity, effusion or pneumothorax. There is some scarring or partial atelectasis in the right lung base. IMPRESSION: No acute appearing abnormality. Dictated by: Dictated on workstation # [id number]
--- NOTE | 2019-05-16 20:58 | Diagnostic Imaging Report ---
INDICATION: Fall, pain. EXAMINATION: Three views of bilateral knees were obtained. FINDINGS: No fracture or dislocation. No radiopaque loose bodies. Vascular calcifications and osteoarthritic changes without erosive elements. No convincing evidence for substantial joint effusion. IMPRESSION: No acute appearing abnormality. Dictated by: Dictated on workstation # [id number]
--- NOTE | 2019-05-16 20:59 | Diagnostic Imaging Report ---
INDICATION: Pain. EXAMINATION: AP pelvis and two views of bilateral hips were performed. FINDINGS: There is bilateral hip osteoarthritis. The pelvic rings, symphysis and SI joints are intact. No displacement of the midline bladder. No fracture, avulsion or other acute abnormality. IMPRESSION: No acute appearing abnormality. Dictated by: Dictated on workstation # [id number]
--- NOTE | 2019-05-16 21:13 | Diagnostic Imaging Report ---
PROCEDURE: CT head and CT cervical spine without contrast. TECHNIQUE: Multiple contiguous axial images were obtained through the brain and cervical spine without the use of intravenous contrast. Sagittal and coronal reformations through the cervical spine were then performed. Auto Exposure Controls were utilized during the CT exam to meet ALARA standards for radiation dose reduction. INDICATION: Weakness. COMPARISON: Head CT compared with 04/06/2018. CT HEAD: Cerebral cortical atrophy and periventricular white matter disease are stable chronic findings. Incidental prominence of the cisterna magna as stable chronic findings. Atherosclerotic vascular calcifications, chronic. There is no hemorrhage, edema, mass or mass effect. No evidence for elevated pressures. There is a shallow air-fluid level in the right maxillary sinus with slight membrane thickening, which may be inflammatory. Mastoids are clear. COMPARISON: The cervical spine is compared with 09/09/2017. CT CERVICAL SPINE: ACDF C4, C5, C6 and C7 redemonstrated. No findings of pseudoarthrosis. Spondylosis at the C3-C4 greater than C2-C3 levels, chronic. At C3-C4 there is a moderate severity of central canal stenosis with right greater than left foraminal narrowing, chronic. The alignment is stable. There is no fracture or paravertebral fluid collection. There is substantial atherosclerotic carotid vascular calcifications, stable. Irregular parenchymal density at the patient's right pulmonary apex, elongated, and morphology measured 1.9 cm x 0.6 cm. While this has the appearance most often attributed to pleural parenchymal scarring, its not present on the comparison study and therefore warrants followup. A followup chest CT in 3-4 months is recommended on an outpatient basis. IMPRESSION: 1. CT head: There may be mild right maxillary sinusitis with no acute-appearing intracerebral pathology. Stable chronic senescent findings. 2. CT cervical spine: Spondylosis and facet arthrosis with stable postoperative changes of multilevel stenosis, chronic. No acute cervical spinal pathology. 3. Irregular parenchymal density right pulmonary apex is a new finding from the study of 2017. While likely benign, CT followup of chest would not require contrast and is recommended within three months time. Dictated by: Dictated on workstation # [id number]
--- OUTSIDE RECORDS SUMMARY | 2019-05-16 22:17 | XMS REPORT ---
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 Tender Name Role Phone Nithin Turner PCP Allergies and Adverse Reactions Name Reaction Notes Anectine Bactrim Tamiflu SULFA (SULFONAMIDE ANTIBIOTICS) Plan of Treatment Planned Activity Comments Planned Date Planned Time Plan/Goal CT ABD AND PELVIS W/WO CONTRAST 01/06/2018 12:00 AM Medications Active Name Start Date Estimated Completion Date SIG Comments Eliquis 5 mg oral tablet take 1 tablet (5 mg) by oral route 2 times per day Combivent Respimat 20-100 mcg/actuation inhalation mist inhale 1 puff by inhalation route 4 times per day ; may take additional puffs as needed not to exceed 6 puffs in 24hrs potassium chloride 10 mEq oral capsule, extended release take 1 capsule (10 meq) by oral route once daily with food Spiriva with HandiHaler 18 mcg inhalation capsule, w/inhalation device inhale 1 capsule (18 mcg) by inhalation route once daily Advair Diskus 500-50 mcg/dose inhalation blister with device inhale 1 puff by inhalation route 2 times per day in the morning and evening approximately 12 hours apart ipratropium-albuterol 0.5 mg-3 mg(2.5 mg base)/3 mL inhalation solution for nebulization inhale 3 milliliters by nebulization route 2 times per day Lasix 80 mg oral tablet take 2 tablets (160 mg) by oral route once daily Zyrtec 10 mg oral tablet take 1 tablet (10 mg) by oral route once daily gabapentin 300 mg oral capsule take 2 capsules (600 mg) by oral route 2 times per day hydrocodone-acetaminophen 10-325 mg oral tablet take 1 tablet by oral route every 6 hours as needed for pain alprazolam 1 mg oral tablet take 1/2 tablet (1 mg) by oral route 3 times per day as needed benzonatate 200 mg oral capsule take 1 capsule (200 mg) by oral route 3 times per day as needed for cough doxazosin 4 mg oral tablet take 2 tablets (8 mg) by oral route once daily finasteride 5 mg oral tablet take 1 tablet (5 mg) by oral route once daily montelukast 10 mg oral tablet take 1 tablet (10 mg) by oral route once daily in the evening Osteo Bi-Flex 250-200 mg oral tablet take 1 tablet by oral route Complete Senior oral tablet take 1 tablet by oral route Macuvite With Lutein 5,000-60-30-2 ajcq-el-ilfy-mg oral tablet take 1 tablet by oral route vitamin E 400 unit oral capsule take 1 capsule by oral route potassium gluconate 595 mg (99 mg) oral tablet extended release take 1 tablet by oral route daily Vitamin C 500 mg oral capsule, extended release take 1 capsule by oral route daily Calcium with Vitamin D 600 mg(1,500mg) -400 unit oral tablet take 1 tablet by oral route daily vitamin H13-dhwzl acid 500-400 mcg oral tablet take 1 tablet by oral route daily pomegranate fruit extract 250 mg oral capsule take 1 capsule by oral route daily j-fpemem-wslhg-d-glucosamine miscellaneous powder use as directed Problem List Not available. Vital Signs Date Time BP-Sys(mm[Hg] BP-Maureen(mm[Hg]) HR(bpm) RR(rpm) Temp WT HT HC BMI BSA BMI Percentile O2 Sat(%) 01/06/2018 1:42:00 PM 130 mmHg 82 mmHg 133 bpm 24 rpm 97.3 F 233 lbs 72 in 31.60 kg/m2 2.32 m2 96 % Social History Name Description Comments Tobacco Former smoker quit 2001 History of Procedures Date Ordered Description Order Status 01/06/2018 12:00 AM URINALYSIS AUTO W/SCOPE Reviewed 01/06/2018 12:00 AM CYTOGENETIC STUDY Returned 01/06/2018 12:00 AM METABOLIC PANEL TOTAL CA Reviewed Results Summary Date and Description Results 01/06/2018 2:35 PM GLUCOSE 129.0 mg/dLSODIUM 141.0 mmol/LPOTASSIUM 4.10 mmol/LCHLORIDE 97.0 mmol/LCO2 36.0 mmol/LBUN 8.0 mg/dLCREATININE 0.80 mg/dLCALCIUM 9.30 mg/dLAGE 82 GFR NonAA 93 GFR AA 113 eGFR >60 mL/min/1.73meGFR AA* >60 01/06/2018 3:05 PM COLOR YELLOW APPEARANCE CLEAR SPEC GRAV >=1.030 pH 5.0 PROTEIN TRACE GLUCOSE NEGATIVE mg/dLKETONE TRACE BILIRUBIN NEGATIVE BLOOD MODERATE NITRITE NEGATIVE LEUK SCREEN NEGATIVE WBC/HPF 0-5 RBC/HPF 0-5 CASTS/LPF NEGATIVE /LPFCRYSTALS NEGATIVE MUCOUS THRDS NEGATIVE BACTERIA 1+ EPITH CELLS NEGATIVE /HPFTRICHOMONAS NEGATIVE YEAST NEGATIVE CULT SET UP? YES History Of Immunizations Not available. History of Past Illness Name Date of Onset Comments Urinary Tract Infection Jan 06 2018 1:44PM Microscopic hematuria Jan 06 2018 1:44PM Payers Insurance Name Company Name Plan Name Plan Number Policy Number Policy Group Number Start Date Medicare Part B [employer] [place] [id number] N/A [facility] [place] [id number] N/A History of Encounters Visit Date Visit Type Provider 01/06/2018 Office visit Nithin Turner MD
--- OUTSIDE RECORDS SUMMARY | 2019-05-16 22:18 | XMS REPORT ---
Author Author Nithin Turner Organization [facility] Address [address] [place], [place] [id number] Care Team Providers Care Policewoman Name Role Phone Nithin Turner PCP Allergies [...] by oral route Macuvite With Lutein 5,000-60-30-2 vjnm-qz-igbl-mg oral tablet take 1 tablet by oral [...] 1 tablet by oral route daily vitamin H74-tcnmy acid 500-400 mcg oral tablet take 1 tablet by oral route daily pomegranate fruit extract 250 mg oral capsule take 1 capsule by oral route daily k-opgfap-rldeo-d-glucosamine miscellaneous powder use as directed Flomax 0.4 mg oral capsule,extended release 24hr 01/23/2018 01/18/2019 take 2 capsules (0.8 mg) by oral route once daily 1/2 hour following the same meal each day for 30 days Problem List Not available. Vital Signs Date Time BP-Sys(mm[Hg] BP-Maureen(mm[Hg]) HR(bpm) RR(rpm) Temp WT HT HC BMI BSA BMI Percentile O2 Sat(%) 01/06/2018 1:42:00 PM 130 mmHg 82 mmHg 133 bpm 24 rpm 97.3 F 233 lbs 72 in 31.6002 kg/m 2.3171 m 96 % Social History Name Description Comments Tobacco Former smoker quit 2002 History of Procedures Date Ordered Description Order Status 01/06/2018 12:00 AM URINALYSIS AUTO W/SCOPE Reviewed 01/06/2018 12:00 AM CYTOGENETIC STUDY Reviewed 01/06/2018 12:00 AM METABOLIC PANEL TOTAL CA Reviewed 01/23/2018 12:00 AM CYSTOSCOPY Reviewed Results Summary Date and Description Results [...] Date Medicare Part B [employer] [place] [id number] N/A [facility] [id number] N/A History of Encounters Visit Date Visit Type Provider 01/23/2018 Procedures Nithin Turner MD 01/06/2018 Office visit Nithin Turner MD
--- OUTSIDE RECORDS SUMMARY | 2019-05-16 22:20 | XMS REPORT | Continuity of Care Document ---
Author Organization Unknown Address Unknown Phone Unavailable Allergies Active Description Code Type Severity Reaction Onset Reported/Identified Relationship to Patient Clinical Status Yes sulfamethoxazole [id number] Drug Allergy Severe ANAPHYLAXIS 07/11/2012 Yes trimethoprim [id number] Drug Allergy Severe ANAPHYLAXIS 07/11/2012 Yes levofloxacin [id number] Drug Allergy Moderate NAUSEA 07/11/2012 Medications There is no data. Problems Date Dx Coded Attending Type Code Diagnosis Diagnosed By 09/19/1109 ALEKSANDR PIÑA DO Ot J18.9 PNEUMONIA, UNSPECIFIED ORGANISM 07/11/2012 Ot 599.0 URIN TRACT INFECTION NOS 07/11/2012 Ot 782.1 NONSPECIF SKIN ERUPT NEC 07/11/2012 Ot 995.0 OTHER ANAPHYLACTIC REACTION 07/11/2012 Ot E931.0 ADV EFF SULFONAMIDES 04/08/2014 GABRIEL DESHPANDE MD Ot 272.4 HYPERLIPIDEMIA NEC/NOS 04/08/2014 GABRIEL DESHPANDE MD Ot 278.00 OBESITY, NOS 04/08/2014 GABRIEL DESHPANDE MD Ot 401.9 HYPERTENSION NOS 04/08/2014 GABRIEL DESHPANDE MD Ot 414.01 CORONARY ATHEROSCLEROSIS OF [place] CORON 04/08/2014 GABRIEL DESHPANDE MD Ot 440.20 ATHEROSCLEROSIS [place] ARTERIES EXTREMIT 04/08/2014 GABRIEL DESHPANDE MD Ot [...] 401.9 HYPERTENSION NOS 04/15/2014 OCTAVIO MCKEON MD S Ot 414.00 CORON ATHEROSCLER NOS TYPE VESSEL, NATIV 04/15/2014 OCTAVIO MCKEON MD Ot 440.21 ATHEROSCL [place] ARTER EXTREM W INTERMIT 04/15/2014 OCTAVIO MCKEON MD Ot 496 CHR AIRWAY OBSTRUCT NEC 04/15/2014 OCTAVIO MCKEON MD Ot V15.82 HISTORY OF TOBACCO USE 04/15/2014 OCTAVIO MCKEON MD Ot V58.69 OTH MED,LT,CURRENT USE 04/15/2014 OCTAVIO MCKEON MD Ot V85.31 BODY MASS INDEX 31.0-31.9, [...] PIÑA DO Ot 414.01 CORONARY ATHEROSCLEROSIS OF [place] CORON 05/26/2015 ALEKSANDR PIÑA DO Ot 427.69 [...] PIÑA DO Ot 600.00 05/26/2015 ALEKSANDR PIÑA DO Ot E932.0 06/06/2015 ALEKSANDR PIÑA DO Ot 496 06/29/2015 ALEKSANDR PIÑA DO Ot 496 CHR AIRWAY OBSTRUCT NEC 11/03/2015 Ot 496 11/03/2015 Ot V57.89 11/03/2015 ALEKSANDR PIÑA DO Ot 496 2016 ALEKSANDR PIÑA DO Ot 496 CHR AIRWAY OBSTRUCT NEC 03/08/2016 ALEKSANDR PIÑA DO Ot 496 CHR AIRWAY OBSTRUCT NEC 04/12/2016 ALEKSANDR PIÑA DO Ot J44.9 CHRONIC OBSTRUCTIVE PULMONARY DISEASE, U 05/03/2016 ALEKSANDR PIÑA DO Ot J44.9 CHRONIC OBSTRUCTIVE [...] Ot 496 CHR AIRWAY OBSTRUCT NEC 07/31/2016 ALEKSANDR PIÑA DO Ot V58.69 OT MED,LT,CURRENT USE 07/31/2016 ALEKSANDR PIÑA DO Ot V58.83 ENCOUNTER FOR THERAPEUTIC DRUG MONITORIN 07/31/2016 Ot 496 CHR AIRWAY OBSTRUCT NEC 07/31/2016 Ot V57.89 REHABILITATION PROC NEC 07/31/2016 ALEKSANDR PIÑA DO Ot 496 07/31/2016 ALEKSANDR PIÑA DO Ot J44.9 CHRONIC OBSTRUCTIVE PULMONARY DISEASE, U 08/01/2016 KARRI RAGSDALE MD Ot M54.12 RADICULOPATHY, CERVICAL REGION 08/14/2016 ALEKSANDR PIÑA DO Ot J44.9 CHRONIC OBSTRUCTIVE PULMONARY DISEASE, U 08/21/2016 MELYSSA JENNINGS, KARRI Cueto Ot M54.12 RADICULOPATHY, CERVICAL REGION 09/04/2016 KARRI RAGSDALE MD, Ot M54.12 RADICULOPATHY, CERVICAL REGION 09/05/2016 ALEKSANDR PIÑA DO Ot J44.9 CHRONIC OBSTRUCTIVE PULMONARY DISEASE, U 09/06/2016 ALEKSANDR PIÑA DO Ot J44.9 CHRONIC OBSTRUCTIVE PULMONARY DISEASE, U 09/18/2016 ALEKSANDR PIÑA DO Ot J44.9 CHRONIC OBSTRUCTIVE PULMONARY DISEASE, U 09/19/2016 ALEKSANDR PIÑA DO Ot J44.9 CHRONIC OBSTRUCTIVE PULMONARY DISEASE, U 09/26/2016 SHERLY PATE APRN Ot J44.9 CHRONIC OBSTRUCTIVE PULMONARY DISEASE, U 10/18/2016 ALEKSANDR PIÑA DO Ot J44.9 CHRONIC OBSTRUCTIVE PULMONARY DISEASE, U 10/18/2016 SHERLY PATE APRN Ot J44.9 CHRONIC OBSTRUCTIVE PULMONARY DISEASE, U 10/25/2016 Ot 496 CHR AIRWAY OBSTRUCT NEC 10/25/2016 Ot V57.89 REHABILITATION PROC NEC 10/25/2016 ALEKSANDR PIÑA DO Ot 496 10/25/2016 KARRI RAGSDALE MD, Ot M54.12 RADICULOPATHY, CERVICAL REGION 10/25/2016 ALEKSANDR PIÑA DO Ot J44.9 CHRONIC OBSTRUCTIVE PULMONARY DISEASE, U 10/25/2016 SHERLY PATE APRN Ot J44.9 CHRONIC OBSTRUCTIVE PULMONARY DISEASE, U 10/31/2016 EKATERINA PIÑAIA L COUNSELING DIRECTOR Ot J18.9 PNEUMONIA, UNSPECIFIED ORGANISM 10/31/2016 EKATERINA PIÑAIA L COUNSELING DIRECTOR Ot J44.0 CHRONIC OBSTRUCTIVE PULMON DISEASE W [facility] 10/31/2016 EKATERINA PIÑAIA L COUNSELING DIRECTOR Ot J18.9 PNEUMONIA, UNSPECIFIED ORGANISM 10/31/2016 EKATERINA PIÑAIA L COUNSELING DIRECTOR Ot J44.0 CHRONIC OBSTRUCTIVE PULMON DISEASE W ACU 10/31/2016 ALEKSANDR PIÑA DO Ot J44.9 CHRONIC OBSTRUCTIVE PULMONARY DISEASE, U 10/31/2016 SHERLY PATE APRN Ot J44.9 CHRONIC OBSTRUCTIVE PULMONARY DISEASE, U 11/26/2016 Ot 496 CHR AIRWAY OBSTRUCT NEC 11/26/2016 Ot V57.89 REHABILITATION PROC [facility] 11/26/2016 ALEKSANDR PIÑA DO Ot 496 11/26/2016 MELYSSA JENNINGS, KARRI Cueto Ot M54.12 RADICULOPATHY, CERVICAL REGION 11/26/2016 ALEKSANDR PIÑA DO Ot J44.9 CHRONIC OBSTRUCTIVE PULMONARY DISEASE, U 11/26/2016 SHERLY PATE APRN Ot J44.9 CHRONIC OBSTRUCTIVE PULMONARY DISEASE, U 11/26/2016 MARC PIÑA COUNSELING DIRECTOR Ot J18.9 PNEUMONIA, UNSPECIFIED ORGANISM 11/26/2016 EKATERINA PIÑAIA L COUNSELING DIRECTOR Ot J44.0 CHRONIC OBSTRUCTIVE PULMON DISEASE W [facility] 12/12/2016 EKATERINA PIÑAIA L COUNSELING DIRECTOR Ot J18.9 PNEUMONIA, UNSPECIFIED ORGANISM 12/12/2016 EKATERINA PIÑAIA L COUNSELING DIRECTOR Ot J44.0 CHRONIC OBSTRUCTIVE PULMON DISEASE W U 12/17/2016 ALEKSANDR PIÑA DO Ot J44.9 CHRONIC OBSTRUCTIVE PULMONARY DISEASE, U 12/18/2016 ALEKSANDR PIÑA DO Ot J44.9 CHRONIC OBSTRUCTIVE PULMONARY DISEASE, U 01/01/2017 SHAISTA PIÑARICIA L COUNSELING DIRECTOR Ot J18.9 PNEUMONIA, UNSPECIFIED ORGANISM 01/01/2017 SHAISTA PIÑARICIA L COUNSELING DIRECTOR Ot J44.0 CHRONIC OBSTRUCTIVE PULMON DISEASE W U 01/23/2017 EKATERINA PIÑAIA L COUNSELING DIRECTOR Ot J18.9 PNEUMONIA, UNSPECIFIED ORGANISM 01/23/2017 EKATERINA PIÑAIA L COUNSELING DIRECTOR Ot J44.0 CHRONIC OBSTRUCTIVE PULMON DISEASE W U 2017 ALEKSANDR PIÑA DO Ot R07.89 OTHER CHEST PAIN 02/21/2017 ALEKSANDR PIÑA DO Ot R07.89 OTHER CHEST PAIN 03/11/2017 ALEKSANDR PIÑA DO Ot R07.89 OTHER CHEST PAIN 03/26/2017 ALEKSANDR PIÑA DO Ot R07.89 OTHER CHEST PAIN 09/17/2017 Ot 721.0 CERVICAL SPONDYLOSIS 09/17/2017 Ot 722.6 DISC DEGENERATION NOS 09/17/2017 Ot 724.3 SCIATICA 09/17/2017 ALEKSANDR PIÑA DO Ot 496 CHR AIRWAY OBSTRUCT NEC 09/17/2017 CHERY ROBERTS DO Ot 278.00 OBESITY, NOS 09/17/2017 CHERY ROBERTS DO Ot 486 PNEUMONIA, ORGANISM NOS 09/17/2017 CHERY ROBERTS DO Ot 496 CHR AIRWAY OBSTRUCT NEC 09/17/2017 ALEKSANDR PIÑA DO Ot V58.69 OTH MED,LT,CURRENT USE 09/17/2017 ALEKSANDR PIÑA DO Ot V58.83 ENCOUNTER FOR THERAPEUTIC DRUG MONITORIN 09/17/2017 Ot 496 CHR AIRWAY OBSTRUCT NEC 09/17/2017 Ot V57.89 REHABILITATION PROC NEC 09/17/2017 ALEKSANDR PIÑA DO Ot 496 09/17/2017 MELYSSA JENNINGS, KARRI Cueto Ot M54.12 RADICULOPATHY, CERVICAL REGION 09/17/2017 SHERLY PATE APRN Ot J44.9 CHRONIC OBSTRUCTIVE PULMONARY DISEASE, U 09/17/2017 ALEKSANDR PIÑA DO Ot J44.9 CHRONIC OBSTRUCTIVE PULMONARY DISEASE, U 09/17/2017 ALEKSANDR PIÑA DO Ot R07.89 OTHER CHEST PAIN 09/17/2017 BRITTNEY BURT MD Ot A41.9 SEPSIS, UNSPECIFIED ORGANISM 09/17/2017 BRITTNEY BURT MD Ot E66.01 MORBID (SEVERE) OBESITY DUE TO EXCESS CA 09/17/2017 BRITTNEY BURT MD Ot E86.0 DEHYDRATION 09/17/2017 BRITTNEY BURT MD Ot E87.6 HYPOKALEMIA 09/17/2017 BRITTNEY BURT MD Ot J44.9 CHRONIC OBSTRUCTIVE PULMONARY DISEASE, U 09/17/2017 BRITTNEY BURT MD Ot Z66 DO NOT RESUSCITATE 09/17/2017 BRITTNEY BURT MD Ot Z68.30 BODY MASS INDEX (BMI) 30.0-30.9, ADULT 09/17/2017 BRITTNEY BURT MD Ot Z99.81 DEPENDENCE ON SUPPLEMENTAL OXYGEN 09/17/2017 BRITTNEY BURT MD Ot A41.9 SEPSIS, UNSPECIFIED ORGANISM 09/17/2017 BRITTNEY BURT MD Ot 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 09/17/2017 BRITTNEY BURT MD Ot E66.01 MORBID (SEVERE) OBESITY DUE TO EXCESS CA 09/17/2017 BRITTNEY BURT MD Ot E86.0 DEHYDRATION 09/17/2017 BRITTNEY BURT MD Ot E87.2 ACIDOSIS 09/17/2017 BRITTNEY BURT MD Ot E87.6 HYPOKALEMIA 09/17/2017 BRITTNEY BURT MD Ot F10.920 ALCOHOL USE, UNSPECIFIED WITH INTOXICATI 09/17/2017 BRITTNEY BURT MD Ot F41.9 ANXIETY DISORDER, UNSPECIFIED 09/17/2017 BRITTNEY BURT MD Ot I10 ESSENTIAL (PRIMARY) HYPERTENSION 09/17/2017 BRITTNEY BURT MD, Ot I25.10 ATHSCL HEART DISEASE OF [place] CORONARY 09/17/2017 BRITTNEY BURT MD, Ot I48.2 CHRONIC ATRIAL FIBRILLATION 09/17/2017 BRITTNEY BURT MD, Ot J44.9 CHRONIC OBSTRUCTIVE PULMONARY DISEASE, U 09/17/2017 BRITTNEY BURT MD Ot M50.30 OTHER CERVICAL DISC DEGENERATION, [facility] C 09/17/2017 BRITTNEY BURT MD Ot N40.0 BENIGN PROSTATIC HYPERPLASIA WITHOUT LOW 09/17/2017 BRITTNEY BURT MD Ot R55 SYNCOPE AND COLLAPSE 09/17/2017 BRITTNEY BURT MD Ot S20.319A ABRASION OF UNSPECIFIED FRONT WALL OF TH 09/17/2017 BRITTNEY BURT MD Ot W19.XXXA UNSPECIFIED FALL, INITIAL ENCOUNTER 09/17/2017 BRITTNEY BURT MD Ot Y92.[address] 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 09/18/2017 BRITTNEY BURT MD Ot E66.01 MORBID (SEVERE) OBESITY DUE TO EXCESS CA 09/18/2017 BRITTNEY BURT MD Ot E86.0 DEHYDRATION 09/18/2017 BRITTNEY BURT MD Ot E87.2 ACIDOSIS 09/18/2017 BRITTNEY BURT MD Ot E87.6 HYPOKALEMIA 09/18/2017 BRITTNEY BURT MD Ot F10.920 ALCOHOL USE, UNSPECIFIED WITH INTOXICATI 09/18/2017 BRITTNEY BURT MD Ot F41.9 ANXIETY DISORDER, UNSPECIFIED 09/18/2017 BRITTNEY BURT MD Ot I10 ESSENTIAL (PRIMARY) HYPERTENSION 09/18/2017 BRITTNEY BURT MD Ot I25.10 ATHSCL HEART DISEASE OF [place] CORONARY 09/18/2017 BRITTNEY BURT MD Ot I48.2 CHRONIC ATRIAL FIBRILLATION 09/18/2017 BRITTNEY BURT MD Ot J44.9 CHRONIC OBSTRUCTIVE PULMONARY DISEASE, U 09/18/2017 BRITTNEY BURT MD Ot M50.30 OTHER CERVICAL DISC DEGENERATION, [facility] C 09/18/2017 BRITTNEY BURT MD Ot N40.0 BENIGN PROSTATIC HYPERPLASIA WITHOUT LOW 09/18/2017 BRITTNEY BURT MD Ot R55 SYNCOPE AND COLLAPSE 09/18/2017 BRITTNEY BURT MD Ot S20.319A ABRASION OF UNSPECIFIED FRONT WALL OF TH 09/18/2017 BRITTNEY BURT MD Ot W19.XXXA UNSPECIFIED FALL, INITIAL ENCOUNTER 09/18/2017 BRITTNEY BURT MD Ot Y92.[address] 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 09/18/2017 BRITTNEY BURT MD Ot E66.01 MORBID (SEVERE) OBESITY DUE TO EXCESS CA 09/18/2017 BRITTNEY BURT MD Ot E86.0 DEHYDRATION 09/18/2017 BRITTNEY BURT MD Ot E87.2 ACIDOSIS 09/18/2017 BRITTNEY BURT MD Ot E87.6 HYPOKALEMIA 09/18/2017 BRITTNEY BURT MD Ot F10.920 ALCOHOL USE, UNSPECIFIED WITH INTOXICATI 09/18/2017 BRITTNEY BURT MD Ot F41.9 ANXIETY DISORDER, UNSPECIFIED 09/18/2017 BRITTNEY BURT MD Ot I10 ESSENTIAL (PRIMARY) HYPERTENSION 09/18/2017 BRITTNEY BURT MD Ot I25.10 ATHSCL HEART DISEASE OF [place] CORONARY 09/18/2017 BRITTNEY BURT MD Ot I48.2 CHRONIC ATRIAL FIBRILLATION 09/18/2017 BRITTNEY BURT MD Ot J44.9 CHRONIC OBSTRUCTIVE PULMONARY DISEASE, U 09/18/2017 BRITTNEY BURT MD Ot M50.30 OTHER CERVICAL DISC DEGENERATION, [facility] C 09/18/2017 BRITTNEY BURT MD Ot N40.0 BENIGN PROSTATIC HYPERPLASIA WITHOUT LOW 09/18/2017 BRITTNEY BURT MD Ot S20.319A ABRASION OF UNSPECIFIED FRONT WALL OF TH 09/18/2017 BRITTNEY BURT MD Ot W07.XXXA FALL FROM CHAIR, INITIAL ENCOUNTER 09/18/2017 BRITTNEY BURT MD Ot W18.30XA FALL ON SAME LEVEL, UNSPECIFIED, INITIAL 09/18/2017 BRITTNEY BURT MD Ot Y92.[address] IN [facility] NON-INSTITUT (PRIVATE) 09/18/2017 BRITTNEY BURT MD Ot Z66 DO NOT RESUSCITATE 09/18/2017 BRITTNEY BURT MD Ot Z68.30 BODY MASS INDEX (BMI) 30.0-30.9, ADULT 09/18/2017 BRITTNEY BURT MD Ot Z85.828 PERSONAL HISTORY OF OTHER MALIGNANT NEOP 09/18/2017 BRITTNEY BURT MD Ot Z87.891 PERSONAL HISTORY OF NICOTINE DEPENDENCE 09/18/2017 BRITTNEY BURT MD Ot Z98.1 ARTHRODESIS STATUS 09/18/2017 BRITTNEY BURT MD Ot Z99.81 DEPENDENCE ON SUPPLEMENTAL OXYGEN 09/24/2017 Ot 496 CHR AIRWAY OBSTRUCT NEC 09/24/2017 Ot V57.89 REHABILITATION PROC NEC 09/24/2017 ALEKSANDR PIÑA DO Ot 496 09/24/2017 KARRI RAGSDALE MD Ot M54.12 RADICULOPATHY, CERVICAL REGION 09/24/2017 SHERLY PATE APRN Ot J44.9 CHRONIC OBSTRUCTIVE PULMONARY DISEASE, U 09/24/2017 ALEKSANDR PIÑA DO Ot J44.9 CHRONIC OBSTRUCTIVE PULMONARY DISEASE, U 09/24/2017 ALEKSANDR PIÑA DO Ot R07.89 OTHER CHEST PAIN 09/26/2017 Ot 496 CHR AIRWAY OBSTRUCT NEC 09/26/2017 Ot V57.89 REHABILITATION PROC NEC 09/26/2017 ALEKSANDR PIÑA DO Ot 496 09/26/2017 KARRI RAGSDALE MD Ot M54.12 RADICULOPATHY, CERVICAL REGION 09/26/2017 SHERLY PATE APRN Ot J44.9 CHRONIC OBSTRUCTIVE PULMONARY DISEASE, U 09/26/2017 ALEKSANDR PIÑA DO Ot J44.9 CHRONIC OBSTRUCTIVE PULMONARY DISEASE, U 09/26/2017 ALEKSANDR PIÑA DO Ot R07.89 OTHER CHEST PAIN 09/30/2017 ALEKSANDR PIÑA DO Ot M24.28 DISORDER OF LIGAMENT, [place] 09/30/2017 ALEKSANDR PIÑA DO Ot M48.02 SPINAL STENOSIS, CERVICAL REGION 09/30/2017 ALEKSANDR PIÑA DO Ot M50.20 OTHER CERVICAL DISC DISPLACEMENT, [facility] C 09/30/2017 ALEKSANDR PIÑA DO Ot 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 09/30/2017 Ot 496 CHR AIRWAY OBSTRUCT NEC 09/30/2017 Ot V57.89 REHABILITATION PROC NEC 09/30/2017 ALEKSANDR PIÑA DO Ot 496 09/30/2017 KARRI RAGSDALE MD Ot M54.12 RADICULOPATHY, CERVICAL REGION 09/30/2017 SHERLY PATE APRN Ot J44.9 CHRONIC OBSTRUCTIVE PULMONARY DISEASE, U 09/30/2017 ALEKSANDR PIÑA DO Ot J44.9 CHRONIC OBSTRUCTIVE PULMONARY DISEASE, U 09/30/2017 ALEKSANDR PIÑA DO Ot R07.89 OTHER CHEST PAIN 09/30/2017 ALEKSANDR PIÑA DO Ot M24.28 DISORDER OF LIGAMENT, [place] 09/30/2017 ALEKSANDR PIÑA DO Ot M48.02 SPINAL STENOSIS, CERVICAL REGION 09/30/2017 ALEKSANDR PIÑA DO Ot M50.20 OTHER CERVICAL DISC DISPLACEMENT, 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 10/18/2017 ALEKSANDR PIÑA DO Ot M24.28 DISORDER OF LIGAMENT, [place] 10/18/2017 ALEKSANDR PIÑA DO Ot M48.02 SPINAL STENOSIS, CERVICAL REGION 10/18/2017 ALEKSANDR PIÑA DO Ot M50.20 OTHER CERVICAL DISC DISPLACEMENT, [facility] 10/18/2017 ALEKSANDR PIÑA DO Ot 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 11/07/2017 ALEKSANDR PIÑA DO Ot M24.28 DISORDER OF LIGAMENT, [place] 11/07/2017 ALEKSANDR PIÑA DO Ot M48.02 SPINAL STENOSIS, CERVICAL REGION 11/07/2017 ALEKSANDR PIÑA DO Ot M50.20 OTHER CERVICAL DISC DISPLACEMENT, [facility] 11/07/2017 ALEKSANDR PIÑA DO Ot 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 11/10/2017 Ot 496 CHR AIRWAY OBSTRUCT NEC 11/10/2017 Ot V57.89 REHABILITATION PROC [facility] 11/10/2017 ALEKSANDR PIÑA DO Ot 496 11/10/2017 KARRI RAGSDALE MD Ot M54.12 RADICULOPATHY, CERVICAL REGION 11/10/2017 SHERLY PATE APRN Ot J44.9 CHRONIC OBSTRUCTIVE PULMONARY DISEASE, U 11/10/2017 PIÑA DOALEKSANDR Ot J44.9 CHRONIC OBSTRUCTIVE PULMONARY DISEASE, U 11/10/2017 PIÑA DO, ALEKSANDR Cueto Ot R07.89 OTHER CHEST PAIN 11/10/2017 ALEKSANDR PIÑA DO Ot M24.28 DISORDER OF LIGAMENT, [place] 11/10/2017 ALEKSANDR PIÑA DO Ot M48.02 SPINAL STENOSIS, CERVICAL REGION 11/10/2017 PIÑA DOALEKSANDR Ot M50.20 OTHER CERVICAL DISC DISPLACEMENT, [facility] C 11/10/2017 PIÑA DOALEKSANDR Ot 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 12/09/2017 Ot 496 CHR AIRWAY OBSTRUCT NEC 12/09/2017 Ot V57.89 REHABILITATION PROC NEC 12/09/2017 ALEKSANDR PIÑA DO Ot 496 12/09/2017 KARRI RAGSDALE MD, Ot M54.12 RADICULOPATHY, CERVICAL REGION 12/09/2017 SHERLY PATE APRN Ot J44.9 CHRONIC OBSTRUCTIVE PULMONARY DISEASE, U 12/09/2017 PIÑA DOALEKSANDR Ot J44.9 CHRONIC OBSTRUCTIVE PULMONARY DISEASE, U 12/09/2017 PIÑA DO, ALEKSANDR Cueto Ot R07.89 OTHER CHEST PAIN 12/09/2017 WANG DOALEKSANDR Ot M24.28 DISORDER OF LIGAMENT, [place] 12/09/2017 ALEKSANDR PIÑA DO Ot M48.02 SPINAL STENOSIS, CERVICAL REGION 12/09/2017 PIÑA DOALEKSANDR Ot M50.20 OTHER CERVICAL DISC DISPLACEMENT, [facility] C 12/09/2017 PIÑA DOALEKSANDR Ot 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 02/11/2018 Ot 496 CHR AIRWAY OBSTRUCT NEC 02/11/2018 Ot V57.89 REHABILITATION PROC NEC 02/11/2018 ALEKSANDR PIÑA DO Ot 496 02/11/2018 KARRI RAGSDALE MD Ot M54.12 RADICULOPATHY, CERVICAL REGION 02/11/2018 SHERLY PATE APRN Ot J44.9 CHRONIC OBSTRUCTIVE PULMONARY DISEASE, U 02/11/2018 ALEKSANDR PIÑA DO Ot J44.9 CHRONIC OBSTRUCTIVE PULMONARY DISEASE, U 02/11/2018 ALEKSANDR PIÑA DO Ot R07.89 OTHER CHEST PAIN 02/11/2018 ALEKSANDR PIÑA DO Ot M24.28 DISORDER OF LIGAMENT, [place] 02/11/2018 ALEKSANDR PIÑA DO Ot M48.02 SPINAL STENOSIS, CERVICAL REGION 02/11/2018 ALEKSANDR PIÑA DO Ot M50.20 OTHER CERVICAL DISC DISPLACEMENT, [facility] C 02/11/2018 ALEKSANDR PIÑA DO Ot 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 02/11/2018 ALEKSANDR PIÑA DO Ot I48.0 PAROXYSMAL ATRIAL FIBRILLATION 02/14/2018 ALEKSANDR PIÑA DO Ot I48.0 PAROXYSMAL ATRIAL FIBRILLATION 03/05/2018 ALEKSANDR PIÑA DO Ot I48.0 PAROXYSMAL ATRIAL FIBRILLATION 03/26/2018 ALEKSANDR PIÑA DO Ot I48.0 PAROXYSMAL ATRIAL FIBRILLATION 04/06/2018 Ot 496 CHR AIRWAY OBSTRUCT [facility] 04/06/2018 Ot V57.89 REHABILITATION PROC [facility] 04/06/2018 ALEKSANDR PIÑA DO Ot 496 04/06/2018 MELYSSA JENNINGS, KARRI Cueto Ot M54.12 RADICULOPATHY, CERVICAL REGION 04/06/2018 SHERLY PATE APRN Ot J44.9 CHRONIC OBSTRUCTIVE PULMONARY DISEASE, U 04/06/2018 ALEKSANDR PIÑA DO Ot J44.9 CHRONIC OBSTRUCTIVE PULMONARY DISEASE, U 04/06/2018 ALEKSANDR PIÑA DO Ot R07.89 OTHER CHEST PAIN 04/06/2018 ALEKSANDR PIÑA DO Ot M24.28 DISORDER OF LIGAMENT, [place] 04/06/2018 ALEKSANDR PIÑA DO Ot M48.02 SPINAL STENOSIS, CERVICAL REGION 04/06/2018 ALEKSANDR PIÑA DO Ot M50.20 OTHER CERVICAL DISC DISPLACEMENT, [facility] C 04/06/2018 ALEKSANDR PIÑA DO Ot 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 04/06/2018 ALEKSANDR PIÑA DO Ot I48.0 PAROXYSMAL ATRIAL FIBRILLATION 04/07/2018 SADIE NI APRN Ot R42 DIZZINESS AND GIDDINESS 04/07/2018 SADIE NI APRN Ot R51 HEADACHE 04/07/2018 LAST, SADIE Rama FAMILY SERVICE COUNSELOR Ot R54 AGE-RELATED PHYSICAL DEBILITY 04/07/2018 LAST, SADIE Ontiveros FAMILY SERVICE COUNSELOR Ot Z79.01 [facility] (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 04/08/2018 LAST, SADIE L FAMILY SERVICE COUNSELOR Ot R42 DIZZINESS AND GIDDINESS 04/08/2018 LAST, SADIE L FAMILY SERVICE COUNSELOR Ot R51 HEADACHE 04/08/2018 LAST, SADIE L FAMILY SERVICE COUNSELOR Ot R54 AGE-RELATED PHYSICAL DEBILITY 04/08/2018 LAST, SADIE Rama FAMILY SERVICE COUNSELOR Ot 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 04/28/2018 LAST, SADIE L FAMILY SERVICE COUNSELOR Ot R42 DIZZINESS AND GIDDINESS 04/28/2018 LAST, SADIE L FAMILY SERVICE COUNSELOR Ot R51 HEADACHE 04/28/2018 LAST, SADIE L FAMILY SERVICE COUNSELOR Ot R54 AGE-RELATED PHYSICAL DEBILITY 04/28/2018 LAST, SADIE Ontiveros FAMILY SERVICE COUNSELOR Ot 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 05/15/2018 ALEKSANDR PIÑA DO Ot 496 CHR AIRWAY OBSTRUCT NEC 05/15/2018 CHERY ROBERTS DO Ot 278.00 OBESITY, NOS 05/15/2018 CHERY ROBERTS DO Ot 486 PNEUMONIA, ORGANISM NOS 05/15/2018 CHERY ROBERTS DO Ot 496 CHR AIRWAY OBSTRUCT NEC 05/15/2018 ALEKSANDR PIÑA DO Ot V58.69 OT MED,LT,CURRENT USE 05/15/2018 ALEKSANDR PIÑA DO Ot V58.83 ENCOUNTER FOR THERAPEUTIC DRUG MONITORIN 05/15/2018 Ot 496 CHR AIRWAY OBSTRUCT NEC 05/15/2018 Ot V57.89 REHABILITATION PROC NEC 05/15/2018 ALEKSANDR PIÑA DO Ot 496 05/15/2018 MELYSSA JENNINGS, KARRI Cueto Ot M54.12 RADICULOPATHY, CERVICAL REGION 05/15/2018 SHERLY PATE APRN Ot J44.9 CHRONIC OBSTRUCTIVE PULMONARY DISEASE, U 05/15/2018 ALEKSANDR PIÑA DO, Ot J44.9 CHRONIC OBSTRUCTIVE PULMONARY DISEASE, U 05/15/2018 ALEKSANDR PIÑA DO Ot R07.89 OTHER CHEST PAIN 05/15/2018 ALEKSANDR PIÑA DO Ot M24.28 DISORDER OF LIGAMENT, VERTEBRAE 05/15/2018 ALEKSANDR PIÑA DO Ot M48.02 SPINAL STENOSIS, CERVICAL REGION 05/15/2018 ALEKSANRD PIÑA DO Ot M50.20 OTHER CERVICAL DISC DISPLACEMENT, UNSP C 05/15/2018 ALEKSANDR PIÑA DO Ot 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 05/15/2018 ALEKSANDR PIÑA DO Ot I48.0 PAROXYSMAL ATRIAL FIBRILLATION 05/15/2018 LASTSADIE FAMILY SERVICE COUNSELOR Ot R42 DIZZINESS AND GIDDINESS 05/15/2018 LAST, SADIE Ontiveros FAMILY SERVICE COUNSELOR Ot R51 HEADACHE 05/15/2018 LAST, SADIE Ontiveros FAMILY SERVICE COUNSELOR Ot R54 AGE-RELATED PHYSICAL DEBILITY 05/15/2018 SADIE NI APRN Ot Z79.01 [facility] (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 05/19/2018 Amy PADILLA MD Ot I25.10 ATHSCL HEART DISEASE OF [place] CORONARY 05/19/2018 Amy PADILLA MD Ot I48.0 PAROXYSMAL ATRIAL FIBRILLATION 05/19/2018 Amy PADILLA MD Ot I49.5 SICK SINUS SYNDROME 05/19/2018 Amy PADILLA MD Ot R42 DIZZINESS AND GIDDINESS 05/19/2018 Amy PADILLA MD Ot R53.83 OTHER FATIGUE 05/19/2018 LASTSADIE FAMILY SERVICE COUNSELOR Ot R42 DIZZINESS AND GIDDINESS 05/19/2018 LASTSADIE FAMILY SERVICE COUNSELOR Ot R51 HEADACHE 05/19/2018 LASTSADIE FAMILY SERVICE COUNSELOR Ot R54 AGE-RELATED PHYSICAL DEBILITY 05/19/2018 SADIE NI APRN Ot Z79.01 [facility] (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 06/06/2018 RANDY JENNINGS M LISSETTE Ot I25.10 ATHSCL HEART DISEASE OF [place] CORONARY 06/06/2018 RANDY JENNINGS M LISSETTE Ot I48.0 PAROXYSMAL ATRIAL FIBRILLATION 06/06/2018 Amy PADILLA MD Ot I49.5 SICK SINUS SYNDROME 06/06/2018 Amy PADILLA MD Ot R42 DIZZINESS AND GIDDINESS 06/06/2018 Amy PADILLA MD Ot R53.83 OTHER FATIGUE 06/20/2018 RANDY JENNINGS, M LISSETTE Ot I48.0 PAROXYSMAL ATRIAL FIBRILLATION 06/20/2018 RANDY JENNINGS, M LISSETTE Ot I49.5 SICK SINUS SYNDROME 06/20/2018 RANDY JENNINGS M LISSETTE Ot R42 DIZZINESS AND GIDDINESS 06/20/2018 RANDY JENNINGS M LISSETTE Ot R53.83 OTHER FATIGUE 07/04/2018 RANDY JENNINGS, M LISSETTE Ot I25.10 ATHSCL HEART DISEASE OF [place] CORONARY 07/04/2018 RANDY JENNINGS M LISSETTE Ot I48.0 PAROXYSMAL ATRIAL FIBRILLATION 07/04/2018 RANDY JENNINGS M LISSETTE Ot I49.5 SICK SINUS SYNDROME 07/04/2018 RANDY JENNINGS M LISSETTE Ot R42 DIZZINESS AND GIDDINESS 07/04/2018 RANDY JENNINGS M LISSETTE Ot R53.83 OTHER FATIGUE 07/15/2018 RANDY JENNINGS M LISSETTE Ot I48.0 PAROXYSMAL ATRIAL FIBRILLATION 07/15/2018 RANDY JENNINGS M LISSETTE Ot I49.5 SICK SINUS SYNDROME 07/15/2018 RANDY JENNINGS M LISSETTE Ot R42 DIZZINESS AND GIDDINESS 07/15/2018 Amy PADILLA MD Ot R53.83 OTHER FATIGUE 12/23/2018 ALEKSANDR PIÑA DO, Ot J44.9 CHRONIC OBSTRUCTIVE PULMONARY DISEASE, U 01/01/2019 ALEKSANDR PIÑA DO, Ot J44.9 CHRONIC OBSTRUCTIVE PULMONARY DISEASE, U 01/08/2019 ALEKSANDR PIÑA DO, Ot J44.9 CHRONIC OBSTRUCTIVE PULMONARY DISEASE, U 01/15/2019 ALEKSANDR PIÑA DO, Ot J44.9 CHRONIC OBSTRUCTIVE PULMONARY DISEASE, U 01/15/2019 ALEKSANDR PIÑA DO, Ot J44.9 CHRONIC OBSTRUCTIVE PULMONARY DISEASE, U 01/20/2019 ALEKSANDR PIÑA DO, Ot J44.9 CHRONIC OBSTRUCTIVE PULMONARY DISEASE, U 02/05/2019 ALEKSANDR PIÑA DO, Ot J44.9 CHRONIC OBSTRUCTIVE PULMONARY DISEASE, U 02/06/2019 ALEKSANDR PIÑA DO Ot N63.32 UNSPECIFIED LUMP IN AXILLARY TAIL OF THE 02/11/2019 ALEKSANDR PIÑA DO, Ot J44.9 CHRONIC OBSTRUCTIVE PULMONARY DISEASE, U 02/23/2019 WANG [place], ALEKSANDR Cueto Ot J44.9 CHRONIC OBSTRUCTIVE PULMONARY DISEASE, U 02/24/2019 ALEKSANDR PIÑA DO Ot J44.9 CHRONIC OBSTRUCTIVE PULMONARY DISEASE, U 03/03/2019 WANG [place], ALEKSANDR Cueto Ot J44.9 CHRONIC OBSTRUCTIVE PULMONARY DISEASE, U 03/22/2019 ALEKSANDR PIÑA DO Ot J44.9 CHRONIC OBSTRUCTIVE PULMONARY DISEASE, U 03/27/2019 ALEKSANDR PIÑA DO Ot N63.32 UNSPECIFIED LUMP IN AXILLARY TAIL OF THE 03/28/2019 ALEKSANDR PIÑA DO Ot J44.9 CHRONIC OBSTRUCTIVE PULMONARY DISEASE, U Procedures There is no data. Results Test Result Range Complete blood count (CBC) with automated white blood cell (WBC) differential - 09/17/17 04:34 Blood leukocytes automated count (number/volume) 7.0 10*3/uL 4.3-11.0 Blood erythrocytes automated count (number/volume) 4.54 10*6/uL 4.35-5.85 Venous blood hemoglobin measurement (mass/volume) 15.5 g/dL 13.3-17.7 Blood hematocrit (volume fraction) 44 % 40-54 Automated erythrocyte mean corpuscular volume 97 [foz_us] 80-99 Automated erythrocyte mean corpuscular hemoglobin (mass per erythrocyte) 34 pg 25-34 Automated erythrocyte mean corpuscular hemoglobin concentration measurement (mass/volume) 35 g/dL 32-36 Automated erythrocyte distribution width ratio 12.5 % 10.0- 14.5 Automated blood platelet count (count/volume) 230 10*3/uL 130-400 Automated blood platelet mean volume measurement 8.4 [foz_us] 7.4-10.4 Automated blood neutrophils/100 leukocytes 60 % 42-75 Automated blood lymphocytes/100 leukocytes 26 % 12-44 Blood monocytes/100 leukocytes 13 % 0-12 Automated blood eosinophils/100 leukocytes 0 % 0-10 Automated blood basophils/100 leukocytes 0 % 0-10 Blood neutrophils automated count (number/volume) 4.2 10*3 1.8-7.8 Blood lymphocytes automated count (number/volume) 1.8 10*3 1.0-4.0 Blood monocytes automated count (number/volume) 0.9 10*3 0.0- 1.0 Automated eosinophil count 0.0 10*3/uL 0.0-0.3 Automated blood basophil count (count/volume) 0.0 10*3/uL 0.0-0.1 Comprehensive metabolic panel - 09/17/17 04:34 Serum or plasma sodium measurement (moles/volume) 138 mmol/L 135-145 Serum or plasma potassium measurement (moles/volume) 3.0 mmol/L 3.6-5.0 Serum or plasma chloride measurement (moles/volume) 89 mmol/L 98-107 Carbon dioxide 28 mmol/L 21-32 Serum or plasma anion gap determination (moles/volume) 21 mmol/L 5-14 Serum or plasma urea nitrogen measurement (mass/volume) 9 mg/dL 7-18 Serum or plasma creatinine measurement (mass/volume) 0.83 mg/dL 0.60-1.30 Serum or plasma urea nitrogen/creatinine mass ratio 11 NRG Serum or plasma creatinine measurement with calculation of estimated glomerular filtration rate > NRG Serum or plasma glucose measurement (mass/volume) 156 mg/dL 70-105 Serum or plasma calcium measurement (mass/volume) 9.9 mg/dL 8.5-10.1 Serum or plasma total bilirubin measurement (mass/volume) 0.8 mg/dL 0.1-1.0 Serum or plasma alkaline phosphatase measurement (enzymatic activity/volume) 69 U/L 40-136 Serum or plasma aspartate aminotransferase measurement (enzymatic activity/volume) 31 U/L 5-34 Serum or plasma alanine aminotransferase measurement (enzymatic activity/volume) 22 U/L 0-55 Serum or plasma protein measurement (mass/volume) 7.3 g/dL 6.4-8.2 Serum or plasma albumin measurement (mass/volume) 3.9 g/dL 3.2-4.5 Magnesium - 09/17/17 04:34 Magnesium 2.1 mg/dL 1.8-2.4 Serum or plasma creatine kinase measurement (enzymatic activity/volume) - 09/17/17 04:34 Serum or plasma creatine kinase measurement (enzymatic activity/volume) 116 U/L 30-200 Serum or plasma troponin i.cardiac measurement (mass/volume) - 09/17/17 04:34 Serum or plasma troponin i.cardiac measurement (mass/volume) < ng/mL <0.30 Serum or plasma lithium measurement (moles/volume) - 09/17/17 04:34 BNP level 114.7 pg/mL <100.0 Serum or plasma ethanol measurement (mass/volume) - 09/17/17 04:34 Serum or plasma ethanol measurement (mass/volume) 142 mg/dL <10 PT panel in platelet poor plasma by coagulation assay - 09/17/17 04:35 Prothrombin time (PT) in platelet poor plasma by coagulation assay 14.6 s 12.2-14.7 INR in platelet poor plasma or blood by coagulation assay 1.1 0.8-1.4 Activated partial thromboplastin time (aPTT) in platelet poor plasma bycoagulation assay - 09/17/17 04:35 Activated partial thromboplastin time (aPTT) in platelet poor plasma bycoagulation assay 30 s 24-35 Blood lactic acid measurement (moles/volume) - 09/17/17 04:42 Blood lactic acid measurement (moles/volume) 6.82 mmol/L 0.50- 2.00 Bacterial blood culture - 09/17/17 05:08 Bacterial blood culture NG NRG Bacterial blood culture - 09/17/17 05:35 Bacterial blood culture NG NRG Arterial blood gas measurement - 09/17/17 05:45 Blood pCO2 55 mm[Hg] 35-45 Blood pO2 56 mm[Hg] 79-93 Arterial blood bicarbonate measurement (moles/volume) 33 mmol/L 23-27 Arterial blood base excess by calculation 7.7 mmol/L -2.5-2.5 Arterial blood oxygen saturation measurement 90 % 94-100 * Inhaled oxygen flow rate 4 L NRG Arterial blood pH measurement with patient temperature correction 7.39 7.37-7.43 Arterial blood carbon dioxide, total measurement (moles/volume) 34.6 mmol/L 21.0-31.0 Body site LEFT RADIAL NRG Assessment of wrist artery patency prior to arterial puncture POSITIVE NRG Setting of ventilation mode NO NRG Measurement of body temperature 97.1 NRG Serum or plasma lactate measurement (moles/volume) - 09/17/17 07:25 Serum or plasma lactate measurement (moles/volume) 2.68 mmol/L 0.50-2.00 Complete blood count (CBC) with automated white blood cell (WBC) differential - 09/18/17 04:20 Blood leukocytes automated count (number/volume) 10.1 10*3/uL 4.3-11.0 Blood erythrocytes automated count (number/volume) 3.78 10*6/uL 4.35-5.85 Venous blood hemoglobin measurement (mass/volume) 13.1 g/dL 13.3-17.7 Blood hematocrit (volume fraction) 38 % 40-54 Automated erythrocyte mean corpuscular volume 101 [foz_us] 80-99 Automated erythrocyte mean corpuscular hemoglobin (mass per erythrocyte) 35 pg 25-34 Automated erythrocyte mean corpuscular hemoglobin concentration measurement (mass/volume) 35 g/dL 32-36 Automated erythrocyte distribution width ratio 12.9 % 10.0- 14.5 Automated blood platelet count (count/volume) 193 10*3/uL 130-400 Automated blood platelet mean volume measurement 8.7 [foz_us] 7.4-10.4 Automated blood neutrophils/100 leukocytes 67 % 42-75 Automated blood lymphocytes/100 leukocytes 17 % 12-44 Blood monocytes/100 leukocytes 13 % 0-12 Automated blood eosinophils/100 leukocytes 3 % 0-10 Automated blood basophils/100 leukocytes 0 % 0-10 Blood neutrophils automated count (number/volume) 6.8 10*3 1.8-7.8 Blood lymphocytes automated count (number/volume) 1.7 10*3 1.0-4.0 Blood monocytes automated count (number/volume) 1.3 10*3 0.0- 1.0 Automated eosinophil count 0.3 10*3/uL 0.0-0.3 Automated blood basophil count (count/volume) 0.0 10*3/uL 0.0-0.1 Comprehensive metabolic panel - 09/18/17 04:20 Serum or plasma sodium measurement (moles/volume) 140 mmol/L 135-145 Serum or plasma potassium measurement (moles/volume) 3.0 mmol/L 3.6-5.0 Serum or plasma chloride measurement (moles/volume) 97 mmol/L 98-107 Carbon dioxide 34 mmol/L 21-32 Serum or plasma anion gap determination (moles/volume) 9 mmol/L 5-14 Serum or plasma urea nitrogen measurement (mass/volume) 6 mg/dL 7-18 Serum or plasma creatinine measurement (mass/volume) 0.69 mg/dL 0.60-1.30 Serum or plasma urea nitrogen/creatinine mass ratio 9 NRG Serum or plasma creatinine measurement with calculation of estimated glomerular filtration rate > NRG Serum or plasma glucose measurement (mass/volume) 109 mg/dL 70-105 Serum or plasma calcium measurement (mass/volume) 8.6 mg/dL 8.5-10.1 Serum or plasma total bilirubin measurement (mass/volume) 1.4 mg/dL 0.1-1.0 Serum or plasma alkaline phosphatase measurement (enzymatic activity/volume) 49 U/L 40-136 Serum or plasma aspartate aminotransferase measurement (enzymatic activity/volume) 30 U/L 5-34 Serum or plasma alanine aminotransferase measurement (enzymatic activity/volume) 18 U/L 0-55 Serum or plasma protein measurement (mass/volume) 5.7 g/dL 6.4-8.2 Serum or plasma albumin measurement (mass/volume) 3.0 g/dL 3.2-4.5 Serum or plasma phosphate measurement (mass/volume) - 09/18/17 04:20 Serum or plasma phosphate measurement (mass/volume) 2.6 mg/dL 2.3-4.7 Magnesium - 09/18/17 04:20 Magnesium 2.0 mg/dL 1.8-2.4 Complete blood count (CBC) with automated white blood cell (WBC) differential - 05/16/19 19:33 Blood leukocytes automated count (number/volume) 10.7 10*3/uL 4.3-11.0 Blood erythrocytes automated count (number/volume) 3.68 10*6/uL 4.35-5.85 Venous blood hemoglobin measurement (mass/volume) 12.5 g/dL 13.3-17.7 Blood hematocrit (volume fraction) 37 % 40-54 Automated erythrocyte mean corpuscular volume 100 [foz_us] 80-99 Automated erythrocyte mean corpuscular hemoglobin (mass per erythrocyte) 34 pg 25-34 Automated erythrocyte mean corpuscular hemoglobin concentration measurement (mass/volume) 34 g/dL 32-36 Automated erythrocyte distribution width ratio 12.5 % 10.0- 14.5 Automated blood platelet count (count/volume) 170 10*3/uL 130-400 Automated blood platelet mean volume measurement 8.9 [foz_us] 7.4-10.4 Automated blood neutrophils/100 leukocytes 83 % 42-75 Automated blood lymphocytes/100 leukocytes 8 % 12-44 Blood monocytes/100 leukocytes 8 % 0-12 Automated blood eosinophils/100 leukocytes 2 % 0-10 Automated blood basophils/100 leukocytes 0 % 0-10 Blood neutrophils automated count (number/volume) 8.8 10*3 1.8-7.8 Blood lymphocytes automated count (number/volume) 0.8 10*3 1.0-4.0 Blood monocytes automated count (number/volume) 0.8 10*3 0.0- 1.0 Automated eosinophil count 0.2 10*3/uL 0.0-0.3 Automated blood basophil count (count/volume) 0.0 10*3/uL 0.0-0.1 Blood lactic acid measurement (moles/volume) - 05/16/19 19:33 Blood lactic acid measurement (moles/volume) 1.81 mmol/L 0.50- 2.00 Magnesium - 05/16/19 19:33 Magnesium 2.0 mg/dL 1.8-2.4 Comprehensive metabolic panel - 05/16/19 19:33 Serum or plasma sodium measurement (moles/volume) 128 mmol/L 135-145 Serum or plasma potassium measurement (moles/volume) 4.5 mmol/L 3.6-5.0 Serum or plasma chloride measurement (moles/volume) 83 mmol/L 98-107 Carbon dioxide 27 mmol/L 21-32 Serum or plasma anion gap determination (moles/volume) 18 mmol/L 5-14 Serum or plasma urea nitrogen measurement (mass/volume) 35 mg/dL 7-18 Serum or plasma creatinine measurement (mass/volume) 3.23 mg/dL 0.60-1.30 Serum or plasma urea nitrogen/creatinine mass ratio 11 NRG Serum or plasma creatinine measurement with calculation of estimated glomerular filtration rate 18 NRG Serum or plasma glucose measurement (mass/volume) 111 mg/dL 70-105 Serum or plasma calcium measurement (mass/volume) 9.4 mg/dL 8.5-10.1 Serum or plasma total bilirubin measurement (mass/volume) 1.5 mg/dL 0.1-1.0 Serum or plasma alkaline phosphatase measurement (enzymatic activity/volume) 58 U/L 40-136 Serum or plasma aspartate aminotransferase measurement (enzymatic activity/volume) 349 U/L 5-34 Serum or plasma alanine aminotransferase measurement (enzymatic activity/volume) 74 U/L 0-55 Serum or plasma protein measurement (mass/volume) 6.7 g/dL 6.4-8.2 Serum or plasma albumin measurement (mass/volume) 3.5 g/dL 3.2-4.5 CALCIUM CORRECTED 9.8 mg/dL 8.5-10.1 Serum or plasma ethanol measurement (mass/volume) - 05/16/19 19:33 Serum or plasma ethanol measurement (mass/volume) < mg/dL <10 Serum or plasma troponin i.cardiac measurement (mass/volume) - 05/16/19 19:33 Serum or plasma troponin i.cardiac measurement (mass/volume) 0.040 ng/mL <0.028 PT panel in platelet poor plasma by coagulation assay - 05/16/19 19:53 Prothrombin time (PT) in platelet poor plasma by coagulation assay 17.6 s 12.2-14.7 INR in platelet poor plasma or blood by coagulation assay 1.4 0.8-1.4 Activated partial thromboplastin time (aPTT) in platelet poor plasma bycoagulation assay - 05/16/19 19:53 Activated partial thromboplastin time (aPTT) in platelet poor plasma bycoagulation assay 36 s 24-35 Complete urinalysis with reflex to culture - 05/16/19 19:55 Urine color determination YELLOW NRG Urine clarity determination SLIGHTLY CLOUDY NRG Urine pH measurement by test strip 5 5-9 Specific gravity of urine by test strip 1.015 1.016-1.022 Urine protein assay by test strip, semi-quantitative 1+ NEGATIVE Urine glucose detection by automated test strip NEGATIVE NEGATIVE Erythrocytes detection in urine sediment by light microscopy 5+ NEGATIVE Urine ketones detection by automated test strip NEGATIVE NEGATIVE Urine nitrite detection by test strip NEGATIVE NEGATIVE Urine total bilirubin detection by test strip NEGATIVE NEGATIVE Urine urobilinogen measurement by automated test strip (mass/volume) NORMAL NORMAL Urine leukocyte esterase detection by dipstick 1+ NEGATIVE Automated urine sediment erythrocyte count by microscopy (number/high power field) [HPF] NRG Automated urine sediment leukocyte count by microscopy (number/high power field) [HPF] NRG Bacteria detection in urine sediment by light microscopy TRACE NRG Squamous epithelial cells detection in urine sediment by light microscopy 2-5 NRG Crystals detection in urine sediment by light microscopy NONE NRG Casts detection in urine sediment by light microscopy NONE NRG Mucus detection in urine sediment by light microscopy NEGATIVE NRG Complete urinalysis with reflex to culture CULTURE PENDING NRG Urine drug screening test - 05/16/19 19:55 Urine phencyclidine detection by screening method NEGATIVE NEGATIVE Urine benzodiazepines detection by screening method POSITIVE NEGATIVE Urine cocaine detection NEGATIVE NEGATIVE Urine amphetamines detection by screening method NEGATIVE NEGATIVE Urine methamphetamine detection by screening method NEGATIVE NEGATIVE Urine cannabinoids detection by screening method NEGATIVE NEGATIVE Urine opiates detection by screening method POSITIVE NEGATIVE Urine barbiturates detection NEGATIVE NEGATIVE Screening urine tricyclic antidepressants detection NEGATIVE NEGATIVE Urine methadone detection by screening method NEGATIVE NEGATIVE Urine oxycodone detection NEGATIVE NEGATIVE Urine propoxyphene detection NEGATIVE NEGATIVE Encounters ACCT No. Visit Date/Time Discharge Status Pt. Type Provider Facility Loc./Unit Complaint [id number] 04/03/2019 15:42:44 04/03/2019 23:59:59 CLS Outpatient Nithin Turner [id number] 01/23/2018 15:53:35 01/23/2018 23:59:59 CLS Outpatient Nithin Turner [id number] 01/06/2018 14:02:27 01/06/2018 23:59:59 CLS Outpatient Nithin Turner [id number] 05/07/2019 10:15:00 05/07/2019 11:10:00 DIS Outpatient ALEKSANDR PIÑA DO Via [facility] J18.9 [id number] 03/23/2019 10:45:00 03/23/2019 23:59:59 CLS Preadmit ALEKSANDR PIÑA DO Via [facility] PULM COPD [id number] 12/22/2018 13:16:00 03/22/2019 00:01:00 DIS Outpatient ALEKSANDR PIÑA DO Via [facility] PULM COPD [id number] 02/05/2019 14:24:00 02/05/2019 23:59:59 CLS Outpatient ALEKSANDR PIÑA DO Via [facility] RAD UNSPECIFIED LUMP IN AXILLARY TAIL OF THE L BREAST [id number] 07/21/2018 15:00:00 07/21/2018 23:59:59 CLS Preadmit Amy PADILLA MD Via [facility] CARD PAD,SINUS NODE DYSFUNCTION,DIZZINESS,FATIGUE [id number] 06/19/2018 09:59:00 06/20/2018 00:01:00 DIS Outpatient Amy PADILLA MD [facility] CARD PAD,SINUS NODE DYSFUNCTION,DIZZINESS,FATIGUE [id number] 05/15/2018 13:49:00 05/15/2018 23:59:59 CLS Outpatient RANDY JENNINGS, Amy MCLAUGHLIN Via [facility] CARD CAD,FATIGUE,DIZZINESS,SINUS NODE DYSFUNCTION [id number] 04/06/2018 16:39:00 04/06/2018 23:59:59 CLS Outpatient SADIE NI APRN [facility] RAD FALL, RECURRENT DIZZINESS,ON BLOOD THINNERS [id number] 02/13/2018 09:58:00 02/13/2018 23:59:59 CLS Outpatient ALEKSANDR PIÑA DO Via [facility] CARD I48.0 AFIB [id number] 09/27/2017 10:40:00 09/27/2017 23:59:59 CLS Outpatient ALEKSANDR PIÑA DO Via [facility] RAD CERVICAL DJD [id number] 09/17/2017 05:30:00 09/18/2017 12:10:00 DIS Inpatient BRITTNEY BURT MD Via [facility] ICU SEPSIS-SEVERE,SUSPECT PNA,FALL,HYPOKALEMIA,ETOH [id number] 02/15/2017 10:34:00 02/15/2017 23:59:59 CLS Outpatient ALEKSANDR PIÑA DO Via [facility] RAD R07.89 [id number] 01/24/2017 00:16:00 01/24/2017 23:59:59 CLS Preadmit MARC PIÑA Via [facility] J18.9,J44.9 [id number] 10/31/2016 10:49:00 01/23/2017 00:01:00 DIS Outpatient MARC PIÑAP Via [facility] J18.9,J44.9 [id number] 12/18/2016 13:00:00 12/18/2016 23:59:59 CLS Preadmit ALEKSANDR PIÑA DO Via [facility] PULM COPD [id number] 10/18/2016 10:00:00 12/17/2016 00:01:00 DIS Outpatient ALEKSANDR PIÑA DO Via [facility] PULM COPD [id number] 09/25/2016 11:24:00 09/25/2016 23:59:59 CLS Outpatient RIO SHERLY Lilliam INDIRA Via [facility] RAD COPD,BRONCHIECTASIS [id number] 08/30/2016 10:00:00 09/05/2016 00:01:00 DIS Outpatient ALEKSANDR PIÑA DO Via [facility] PULM COPD [id number] 07/30/2016 08:36:00 07/30/2016 23:59:59 CLS Outpatient KARRI RAGSDALE MD Via [facility] RAD CERVICAL RADICULOPATHY [id number] 05/24/2016 10:00:00 05/27/2016 00:01:00 DIS Outpatient ALEKSANDR PIÑA DO Via [facility] PULM COPD [id number] 06/30/2015 15:00:00 06/30/2015 23:59:59 CLS Preadmit ALEKSANDR PIÑA DO Via [facility] PUL COPD TACHYCARDIA [id number] 05/26/2015 09:00:00 06/29/2015 00:01:00 DIS Outpatient ALEKSANDR PIÑA DO Via [facility] PUL COPD TACHYCARDIA [id number] 05/26/2015 12:50:00 05/26/2015 18:06:00 DIS Inpatient ALEKSANDR PIÑA DO Via [facility] ICU AFIB [id number] 02/07/2015 12:37:00 02/07/2015 13:27:00 DIS Outpatient KAYLEE HERNANDEZ MD Via [facility] CARD SACROILIAC JOINT DYSFUNCTION [id number] 09/07/2014 10:00:00 09/07/2014 23:59:59 CLS Outpatient ALEKSANDR PIÑA DO Via [facility] PULM COPD [id number] 04/15/2014 13:23:00 04/15/2014 21:32:00 DIS Outpatient OCTAVIO MCKEON MD Via [facility] CATH ASOD,LEG PAIN [id number] 04/07/2014 07:04:00 04/08/2014 14:57:00 DIS Outpatient GABRIEL DESHPANDE MD Via [facility] CATH ABN STRESS,CAD,OBESITY,HTN [id number] 03/09/2014 06:41:00 03/09/2014 23:59:59 CLS Outpatient ALEKSANDR PIÑA DO Via [facility] CARD CARDIAC RISK D/T, [id number] 02/17/2014 11:00:00 02/17/2014 23:59:59 CLS Outpatient CHERY ROBERTS DO Via [facility] RT COPD,OBESITY,PNEUMONIA [id number] 11/30/2013 12:32:00 11/30/2013 23:59:59 CLS Outpatient ALEKSANDR PIÑA DO Via [facility] RAD COPD [id number] 05/16/2019 19:42:00 Document Registration [id number] 02/04/2015 16:19:00 Document Registration [id number] 11/11/2014 08:00:00 Document Registration [id number] 08/19/2012 14:17:00 Document Registration [id number] 05/21/2012 10:24:00 Document Registration [id number] 09/04/2011 09:18:00 Document Registration
[2019-05-16] MEDS ORDERED: NS IV 1000 ML 1,000 ML ONE (23:32)
[2019-05-16] MEDS ORDERED: 1/2 NS IV SOLUTION 1,000 ML IV PRN (23:56)
[2019-05-16] MEDS: NS IV 1000 ML 1,000 ML IV SCH (23:59)
[2019-05-17] VITALS (11 sets, daily range): BP systolic 90–128; BP diastolic 62–92
[2019-05-17] MEDS ORDERED: ONDANSETRON 4 MG/2 ML (SDV) Z0FRAN IV PRN
[2019-05-17] MEDS ORDERED: LORazepam INJ 2 MG/ML (ATIVAN) VIAL IM/IV PRN
[2019-05-17] MEDS ORDERED: D5 1/2 NS 1000 ML IV SOLUTION 1,000 ML IV PRN
[2019-05-17] MEDS ORDERED: ANTACID SUSP 30 ML UDC (MYLANTA) PO PRN
[2019-05-17] MEDS ORDERED: LORazepam INJ 2 MG/ML (ATIVAN) VIAL IV PRN
[2019-05-17] MEDS ORDERED: ONDANSETRON 4 MG (ZOFRAN) ORAL DISSOLVE TAB SL PRN
[2019-05-17] MEDS ORDERED: SENNA W/DOCUSATE (SENOKOT S) TABLET PO PRN
[2019-05-17] MEDS: methylPREDNISolone 125 MG (Solu-MEDROL) VIAL IVP SCH ×2 (03:10→08:28)
[2019-05-17 03:24] LABS: BASOPHILS % (AUTO) 0 % (0-10); EOSINOPHILS % (AUTO) 0 % (0-10); HEMATOCRIT 34 % (40-54); HEMOGLOBIN 11.4 G/DL (13.3-17.7); LYMPHOCYTES # (AUTO) 0.3 X 10^3 (1.0-4.0); LYMPHOCYTES % (AUTO) 4 % (12-44); MEAN CORPUSCULAR HEMOGLOBIN 34 PG (25-34); MEAN CORPUSCULAR HGB CONC 34 G/DL (32-36); MEAN CORPUSCULAR VOLUME 100 FL (80-99); MEAN PLATELET VOLUME 9.1 FL (7.4-10.4); MONOCYTES # (AUTO) 0.1 X 10^3 (0.0-1.0); MONOCYTES % (AUTO) 1 % (0-12); NEUTROPHILS # (AUTO) 7.4 X 10^3 (1.8-7.8); NEUTROPHILS % (AUTO) 95 % (42-75); PLATELET COUNT 150 10^3/uL (130-400); RED CELL DISTRIBUTION WIDTH 12.3 % (10.0-14.5); WHITE BLOOD COUNT 7.8 10^3/uL (4.3-11.0)
[2019-05-17] MEDS ORDERED: RT-ALBUTEROL SULF 2.5 MG/3 ML PRE-MIX VIAL INH PRN (03:30)
[2019-05-17 03:41] LABS: ALANINE AMINOTRANSFERASE 62 U/L (0-55); ALBUMIN 3.2 GM/DL (3.2-4.5); ALKALINE PHOSPHATASE 53 U/L (40-136); BILIRUBIN,TOTAL 1.2 MG/DL (0.1-1.0); BUN/CREATININE RATIO 12; CALCIUM 8.9 MG/DL (8.5-10.1); CARBON DIOXIDE 26 MMOL/L (21-32); CHLORIDE 86 MMOL/L (98-107); CREATININE SERUM 3.09 MG/DL (0.60-1.30); GFR ESTIMATED 19; GLUCOSE 160 MG/DL (70-105); POTASSIUM 4.7 MMOL/L (3.6-5.0); SODIUM 127 MMOL/L (135-145)
[2019-05-17 03:50] LABS: BAND NEUTROPHILS 5 %; LYMPHOCYTES % (MANUAL) 3 %; MONOCYTES % (MANUAL) 2 %; NEUTROPHILS % (MANUAL) 90 %
[2019-05-17 03:51] LABS: RBC MORPH NORMAL
[2019-05-17] MEDS: NS IV 1000 ML 1,000 ML IV SCH ×5 (05:00→22:32)
--- NOTE | 2019-05-17 06:55 | ED General ---
General Chief Complaint: General Problems/Pain Stated Complaint: ACUTE RENAL FAILURE;DEHYDRATION;WEAKNESS Nursing Triage Note: Pt to room #3 via cc ems cart from home with c/o generalized weakness and decreased urination. 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 In transit to facility ems adm duoneb tx IH d/t audible breath sounds. Upon arrival pt a&ox4 with audible breath sounds heard. 4L o2 via nc applied. Pt reports he has been experiencing weakness for "a couple days." Denies sob, fever, chills, nausea, vomiting, diarrhea. Denies pain or discomfort. Nursing Sepsis Screen: No Definite Risk Source of Information: Patient (PT IS SOMEWHAT LIMITED HISTORIAN), Spouse History of Present Illness Date Seen by Provider: May 16, 2019 Time Seen by Provider: 19:30 Initial Comments PT ARRIVES VIA EMS FROM HOME PT HAS HAD GENERALIZED WEAKNESS FOR THE LAST 3 DAYS, AND TODAY HE COULD NOT STAND, SO SAT DOWN ON THE BATHROOM FLOOR AND COULD NOT GET UP. HE DID NOT FALL AT ANY TIME OR INJURE HIMSELF EMS GAVE DUONEB ENROUTE FOR COUGH AND CHEST CONGESTION PER EMS: O2 SAT 97% ON 3L/NC--PT NORMALLY WEARS O2 AT 3-4L/NC CONTINUOUSLY BP 120'S/70'S HR 110'S BLOOD GLUCOSE 118 A PT STATES SHE HAS HAD A NON-PRODUCTIVE COUGH FOR THE LAST FEW DAYS--PT WITH HISTORY OF COPD DENIES FEVER/SWEATS/CHILLS DENIES CHEST PAIN DENIES INCREASE IN CHRONIC SHORTNESS OF BREATH DENIES NAUSEA/VOMITING/DIARRHEA OR ABDOMINAL PAIN STATES HE HAS BEEN EATING AND DRINKING, BUT STATES HE HAS NOT URINATED AT ALL FOR AT LEAST 2 DAYS NO INCREASE IN CHRONIC LEG EDEMA IS IN ROOM A SHORT TIME LATER, AND SHE REPORTS THAT HE FELL ON SATURDAY AT 0300, AND HAS HAD PROGRESSIVE WEAKNESS SINCE THEN, AND HAS NOT BEEN ABLE TO REALLY GET UP AT ALL PT C/O BILATERAL KNEE PAIN FROM THE FALL--LEFT > RIGHT. DENIES HITTING HEAD OR HAVING LOSS OF CONSCIOUSNESS. NO HEAD, NECK OR BACK PAIN PT DRINKS DAILY--AT LEAST 4 DRINKS / SCOTCH EVERY NIGHT, DOES . NO HISTORY OF WITHDRAWL SYMPTOMS PT ALSO USES OPIATES ON DAILY BASIS FOR CHRONIC NECK AND JOINT PAIN, AND BENZODIAZEPINES DAILY FOR ANXIETY PT IS ON ELIQUIS FOR CHRONIC ATRIAL FIBRILLATION. PCP: DR. PIÑA Allergies and Home Medications Allergies Coded Allergies: sulfamethoxazole (Verified Allergy, Severe, ANAPHYLAXIS, 07/11/12) trimethoprim (Verified Allergy, Severe, ANAPHYLAXIS, 07/11/12) levofloxacin (Verified Allergy, Intermediate, NAUSEA, 07/11/12) Home Medications Acai Julian Extract 500 Mg Capsule, 500 MG PO BID, (Reported) Acetylcysteine 600 Mg Capsule, 600 MG PO BID, (Reported) Albuterol/Ipratropium 4 Gm Aero, 1 PUFF INH QID PRN for SHORTNESS OF BREATH, (Reported) Alprazolam 1 Mg Tablet, 1 MG PO TID PRN for ANXIETY, (Reported) Apixaban 5 Mg Tablet, 5 MG PO BID, (Reported) Ascorbic Acid 500 Mg Tablet, 500 MG PO DAILY, (Reported) Benzonatate 200 Mg Capsule, 200 MG PO Q8H PRN for COUGH, (Reported) Beta-Carotene 25,000 Unit Capsule, 25,000 UNIT PO DAILY, (Reported) Calcium Carbonate/Vitamin D3 1 Each Tablet, 1 TAB PO DAILY, (Reported) Cefprozil 250 Mg Tablet, 250 MG PO BID, (Reported) 10 DAY SUPPLY FILLED 09-16-17 Cetirizine HCl 10 Mg Tablet, 10 MG PO DAILY, (Reported) Cyanocobalamin (Vitamin B-12) 2,500 Mcg Tab.subl, 2,500 MCG SL DAILY, (Reported) Doxazosin Mesylate 4 Mg Tablet, 8 MG PO HS, (Reported) TAKES 2 (4MG) TABLETS Epinephrine 0.3 Mg/0.3 Ml Auto.injct, 0.3 MG IJ UD PRN for ALLERGIC REACTION, (Reported) Finasteride 5 Mg Tablet, 5 MG PO HS, (Reported) Fluticasone/Salmeterol 1 Each Blst.w.dev, 1 PUFF INH BID, (Reported) Furosemide 40 Mg Tablet, 80 MG PO DAILY, (Reported) TAKES 2 (40MG) TABLETS Gabapentin 300 Mg Capsule, 600 MG PO BID, (Reported) TAKES 2 (300MG) CAPSULES Glucosamine/D3/Boswellia Anjali 1 Each Tablet, 1 TAB PO DAILY, (Reported) Hydrocodone/Acetaminophen 1 Each Tablet, 1 TAB PO Q6H PRN for PAIN-MODERATE, (Reported) Hydrocortisone 453.6 Gm Cream..g., TOP DAILY PRN for SKIN SORE, (Reported) Ipratropium/Albuterol Sulfate 3 Ml Ampul.neb, 3 ML NEB BID, (Reported) Metolazone 5 Mg Tablet, 5 MG PO MoWeFr PRN for SWELLING, (Reported) Montelukast Sodium 10 Mg Tablet, 10 MG PO HS, (Reported) Multivitamin W/Iron, Minerals 1 Each Tablet, 1 TAB PO DAILY, (Reported) Pomegranate Fruit Extract 250 Mg Capsule, 500 MG PO DAILY, (Reported) Potassium Chloride 10 Meq Capsule.er, 10 MEQ PO DAILY, (Reported) Potassium Gluconate 99 Mg Tablet, 99 MG PO DAILY, (Reported) Tiotropium [place] 1 Inh Aerp, 1 CAP INH DAILY, (Reported) Vitamin E Acetate 400 Unit Capsule, 400 UNIT PO DAILY, (Reported) Patient Home Medication List Home Medication List Reviewed: Yes Review of Systems Review of Systems Constitutional: see HPI; No chills, No diaphoresis, No dizziness, No fever; malaise, weakness EENTM: no symptoms reported Respiratory: see HPI, cough; No phlegm; short of breath Cardiovascular: no symptoms reported; No chest pain; edema; No palpitations, No syncope Gastrointestinal: no symptoms reported; No abdominal pain, No diarrhea, No loss of appetite, No nausea, No vomiting Genitourinary: see HPI, decreased output; No dysuria Musculoskeletal: see HPI Skin: no symptoms reported Psychiatric/Neurological: No Symptoms Reported; Denies Headache, Denies Numbness, Denies Paresthesia, Denies Seizure, Denies Tingling; Weakness (GENERALIZED WEAKNESS, NO FOCAL WEAKNESS) Hematologic/Lymphatic: No Symptoms Reported Immunological/Allergic: no symptoms reported Past Ifydzai-Tyvqpx-Yqdhkf Hx Patient Social History Alcohol Use: Regular Use (DAILY USE--DRINKS AT LEAST 4 DRINKS A DAY--SCOTCH ON [employer]) Number of Drinks Today: EE Alcohol Beverage of Choice: Scotch Recreational Drug Use: No Smoking Status: Former Smoker (HEAVY, DAILY USE BY HISTORY) Type Used: Cigarettes Former Smoker, Quit: Aug 25, 2002 2nd Hand Smoke Exposure: No Recent Foreign Travel: No Contact w/Someone Who Travel: No Recent Infectious Disease Expo: No Recent Hopitalizations: No Immunizations Up To Date Date of Pneumonia Vaccine: May 17, 2018 Date of Influenza Vaccine: Jul 25, 2017 Past Medical History Surgeries: Yes (LEFT KNEE SCOPE 2001; RIGHT KNEE SCOPE 2002;RIGH SHOUDER 2004; RIGHT HYDROCOELE 2007; C-SPINE FUSION/PLATE AND DISCECTOMY C4-C7 2007; LEFT THUMB ENDON GRAFT 2009; RIGHT THUMB TENDON GRAFT 2017; BILATERAL CATARACTS 2012; CARDIAC CATHS--NO INTERVENTION) Cardiac, Eye Surgery, Orthopedic Respiratory: Yes Pneumonia, COPD 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) Atrial Fibrillation, Chronic Edema/Swelling, Coronary Artery Disease, High Cholesterol, Hypertension, Peripheral Vascular Neurological: No Reproductive Disorders: No Genitourinary: Yes (E.D.) Benign Prostatic Hyperpl, Prostate Problems Gastrointestinal: No Musculoskeletal: Yes (CHRONIC NECK PAIN --S/P SURGERY 2007) Degenerate Disk Disease, Arthritis Endocrine: Yes (OBESITY; JUAN MANUEL'S FROM CHRONIC STEROID USE) HEENT: Yes Cataract Cancer: Yes Skin Psychosocial: Yes Anxiety Integumentary: No Blood Disorders: No Adverse Reaction/Blood Tranf: No Physical Exam Vital Signs Vital Signs - First Documented 05/17/19 03:22 FiO2 32 Capillary Refill : Less Than 3 Seconds Height, Weight, BMI Height: 6'0.00" Weight: 225lbs. 2.0oz. 102.723008ao; 30.5 BMI Method:Stated General Appearance: Mild Distress, Obese, Other (AUDIBLE RHONCHI FROM DOORWAY; PT LETHARGIC WITH SLIGHTLY SLOW MENTATION; ) HEENT: PERRL/EOMI Neck: Non Tender Respiratory: Rhonci (AUDIBLE), Other (MILDLY DYSPNEIC) Cardiovascular: No Murmur, Irregularly Irregular, Tachycardia Gastrointestinal: Non Tender, Soft Back: No CVA Tenderness Extremity: Pedal Edema (1+ BILATERAL EDEMA WITH CHRONIC VENOUS STASIS CHANGES BILATERALLY; BILATERAL FOREARMS WITH EXTENSIVE BRUISING OF VARIOUS AGES; BILATERAL KNEES WITH BRUISING AND TENDERNESS--LEFT > RIGHT. NO DEFORMITY. ) Neurologic/Psychiatric: Alert, Oriented x3, No Motor/Sensory Deficits, Other (MILD TO MODERATELY LETHARGIC WITH SLOW MENTATION) Skin: Normal Color, Warm/Dry, Ecchymosis Focused Exam Lactate Level 05/16/19 19:33: Lactic Acid Level 1.81 Progress/Results/Core Measures Suspected Sepsis Recent Fever Within 48 Hours: No Infection Criteria Present: None New/Unexplained Altered Menta: No Sepsis Screen: No Definite Risk SIRS Temperature:95.2 Pulse: 67 Respiratory Rate: 17 Laboratory Tests 7/27/19 19:33: White Blood Count 10.7 05/17/19 03:06: White Blood Count 7.8 Blood Pressure 90 /78 Mean: 82 05/16/19 19:33: Lactic Acid Level 1.81 Laboratory Tests 05/16/19 19:33: Creatinine 3.23H, Platelet Count 170, Total Bilirubin 1.5H 05/16/19 19:53: INR Comment 1.4 05/17/19 03:06: Creatinine 3.09H, Platelet Count 150, Total Bilirubin 1.2H Results/Orders Lab Results Laboratory Tests Test 05/16/19 19:33 05/16/19 19:53 05/16/19 19:55 05/17/19 03:06 Range/Units White Blood Count 10.7 7.8 4.3-11.0 10^3/uL Red Blood Count 3.68 L 3.37 L 4.35-5.85 10^6/uL Hemoglobin 12.5 L 11.4 L 13.3-17.7 G/DL Hematocrit 37 L 34 L 40-54 % Mean Corpuscular Volume 100 H 100 H 80-99 FL Mean Corpuscular Hemoglobin 34 34 25-34 PG Mean Corpuscular Hemoglobin Concent 34 34 32-36 G/DL Red Cell Distribution Width 12.5 12.3 10.0-14.5 % Platelet Count 170 150 130-400 10^3/uL Mean Platelet Volume 8.9 9.1 7.4-10.4 FL Neutrophils (%) (Auto) 83 H 95 H 42-75 % Lymphocytes (%) (Auto) 8 L 4 L 12-44 % Monocytes (%) (Auto) 8 1 0-12 % Eosinophils (%) (Auto) 2 0 0-10 % Basophils (%) (Auto) 0 0 0-10 % Neutrophils # (Auto) 8.8 H 7.4 1.8-7.8 X 10^3 Lymphocytes # (Auto) 0.8 L 0.3 L 1.0-4.0 X 10^3 Monocytes # (Auto) 0.8 0.1 0.0-1.0 X 10^3 Eosinophils # (Auto) 0.2 0.0 0.0-0.3 10^3/uL Basophils # (Auto) 0.0 0.0 0.0-0.1 10^3/uL Sodium Level 128 L 127 L 135-145 MMOL/L Potassium Level 4.5 4.7 3.6-5.0 MMOL/L Chloride Level 83 L 86 L 98-107 MMOL/L Carbon Dioxide Level 27 26 21-32 MMOL/L Anion Gap 18 H 15 H 5-14 MMOL/L Blood Urea Nitrogen 35 H 38 H 7-18 MG/DL Creatinine 3.23 H 3.09 H 0.60-1.30 MG/DL Estimat Glomerular Filtration Rate 18 19 BUN/Creatinine Ratio 11 12 Glucose Level 111 H 160 H 70-105 MG/DL Lactic Acid Level 1.81 0.50-2.00 MMOL/L Calcium Level 9.4 8.9 8.5-10.1 MG/DL Corrected Calcium 9.8 9.5 8.5-10.1 MG/DL Magnesium Level 2.0 1.8-2.4 MG/DL Total Bilirubin 1.5 H 1.2 H 0.1-1.0 MG/DL Aspartate Amino Transf (AST/SGOT) 349 H 253 H 5-34 U/L Alanine Aminotransferase (ALT/SGPT) 74 H 62 H 0-55 U/L Alkaline Phosphatase 58 53 40-136 U/L Troponin I 0.040 H < 0.028 <0.028 NG/ML Total Protein 6.7 6.0 L 6.4-8.2 GM/DL Albumin 3.5 3.2 3.2-4.5 GM/DL Serum Alcohol < 10 <10 MG/DL Prothrombin Time 17.6 H 12.2-14.7 SEC INR Comment 1.4 0.8-1.4 Activated Partial Thromboplast Time 36 H 24-35 SEC Urine Color YELLOW Urine Clarity SLIGHTLY CLOUDY Urine pH 5 5-9 Urine Specific [place] 1.015 L 1.016-1.022 Urine Protein 1+ H NEGATIVE Urine Glucose (UA) NEGATIVE NEGATIVE Urine Ketones NEGATIVE NEGATIVE Urine Nitrite NEGATIVE NEGATIVE Urine Bilirubin NEGATIVE NEGATIVE Urine Urobilinogen NORMAL NORMAL MG/DL Urine Leukocyte Esterase 1+ H NEGATIVE Urine RBC (Auto) 5+ H NEGATIVE Urine RBC 50-100 H /HPF Urine WBC 2-5 /HPF Urine Squamous Epithelial Cells 2-5 /HPF Urine Crystals NONE /LPF Urine Bacteria TRACE /HPF Urine Casts NONE /LPF Urine Mucus NEGATIVE /LPF Urine Culture Indicated CULTURE PENDING Urine Opiates Screen POSITIVE H NEGATIVE Urine Oxycodone Screen NEGATIVE NEGATIVE Urine Methadone Screen NEGATIVE NEGATIVE Urine Propoxyphene Screen NEGATIVE NEGATIVE Urine Barbiturates Screen NEGATIVE NEGATIVE Ur Tricyclic Antidepressants Screen NEGATIVE NEGATIVE Urine Phencyclidine Screen NEGATIVE NEGATIVE Urine Amphetamines Screen NEGATIVE NEGATIVE Urine Methamphetamines Screen NEGATIVE NEGATIVE Urine Benzodiazepines Screen POSITIVE H NEGATIVE Urine Cocaine Screen NEGATIVE NEGATIVE Urine Cannabinoids Screen NEGATIVE NEGATIVE Neutrophils % (Manual) 90 % Lymphocytes % (Manual) 3 % Monocytes % (Manual) 2 % Band Neutrophils 5 % Blood Morphology Comment NORMAL My Orders Orders - WEN CAREY DO Cbc With Automated Diff (05/16/19 19:33) Comprehensive Metabolic Panel (05/16/19 19:33) Blood Culture (05/16/19:33) Sputum Culture (05/16/19:33) Urinalysis (05/16/19:33) Urine Culture (05/16/19:33) Protime With Inr (05/16/19:33) Partial Thromboplastin Time (05/16/19:33) Chest 1 View, Ap/Pa Only (05/16/19:33) Ed Iv/Invasive Line Start (05/16/19:33) Ed Iv/Invasive Line Start (05/16/19:33) Ekg Tracing (05/16/19:33) Troponin I (05/16/19:33) Vital Signs Adult Sepsis Patie Q15M (05/16/19 19:33) O2 (05/16/19 19:33) Remove Rings In Anticipation O (05/16/19:33) Lactic Acid Analyzer (05/16/19:33) Albuterol/Ipra Inhalation Soln (Duoneb I (05/16/19 19:45) Dexamethasone Injection (Decadron Inject (05/16/19 19:45) Rt Request For Service (05/16/19 19:33) Methylprednisolone Sod Succ (Solu-Medrol (05/16/19 19:33) Svn Small Volume Nebulizer (05/16/19 19:33) Alcohol (05/16/19 19:39) Drug Screen Stat (Urine) (05/16/19 19:39) Magnesium (05/16/19 19:39) Ct Head/Cervical Spine Wo (05/16/19 19:45) Pelvis/Asif Hips 5> Views (05/16/19 19:45) Knee, 3 Views, Bilateral (05/16/19 19:45) Albuterol/Ipra Inhalation Soln (Duoneb I (05/16/19 22:30) Svn Small Volume Nebulizer (05/16/19 22:23) Medications Given in ED Current Medications Medications Dose Ordered Sig/Antonio Route Start Time Stop Time Status Last Admin Dose Admin Albuterol/ Ipratropium 3 ml ONCE ONCE INH 05/16/19 19:45 05/16/19 19:46 DC 05/16/19 21:05 3 ML Dexamethasone Sodium Phosphate 20 mg ONCE ONCE IH 05/16/19 19:45 05/16/19 19:46 DC 05/16/19 21:05 20 MG Vital Signs/I&O 05/16/19 05/16/19 05/16/19 05/17/19 19:30 19:30 23:00 00:00 Temp 98.5 98.5 99.1 Pulse 84 112 82 Resp 20 18 14 B/P (MAP) 129/72 (91) 95/73 (80) 123/67 (85) Pulse Ox 94 94 96 98 O2 Delivery Nasal Cannula Nasal Cannula Nasal Cannula Nasal Cannula O2 Flow Rate 4.00 4.00 4.00 3.00 05/17/19 05/17/19 05/17/19 05/17/19 00:00 00:02 00:12 00:15 Pulse 91 82 Resp 12 B/P (MAP) 126/76 (93) Pulse Ox 96 98 O2 Delivery Nasal Cannula Nasal Cannula Nasal Cannula O2 Flow Rate 3.00 3.00 3.00 05/17/19 05/17/19 05/17/19 05/17/19 00:30 02:00 03:22 04:00 Temp 95.2 Pulse 93 79 79 Resp 13 11 B/P (MAP) 128/73 (91) 108/76 (87) Pulse Ox 95 99 99 O2 Delivery Nasal Cannula Nasal Cannula O2 Flow Rate 3.00 3.00 FiO2 32 05/17/19 05/17/19 04:00 04:00 Pulse 67 Resp 17 B/P (MAP) 90/78 (82) Pulse Ox 99 O2 Delivery Nasal Cannula Nasal Cannula O2 Flow Rate 3.00 3.00 Capillary Refill : Less Than 3 Seconds Blood Pressure Mean: 82 Progress Note : Progress Note NO DETERIORATION IN PT'S CONDITION DURING ER STAY GIVEN NEB TREATMENTS WITH CLEARING OF RHONCHI ECG Initial ECG Impression Date: May 16, 2019 Initial ECG Impression Time: 19:42 Initial ECG Rate: 112 Initial ECG Rhythm: A Fib/Flutter Diagnostic Imaging Comments CXR--NO ACUTE PROCESS CT HEAD/CERVICAL SPINE--NO ACUTE PROCESS, MILD RIGHT MAXILLARY SINUSITIS, DEGENERATIVE CHANGES OF CERVICAL SPINE; RIGHT PULMONARY APEX WITH LIKELY BENIGN, BUT NEW, DENSITY, CAROTID DISEASE PELVIS WITH BILATERAL HIPS XRAYS--NO ACUTE PROCESS BILATERAL KNEE XRAYS--NO ACUTE PROCESS ALL PER RADIOLOGIST REPORTS AT 2113 Reviewed: Reviewed by Me Departure Communication (Admissions) 2138--SPOKE WITH DR. LIMON, HOSPITALIST, ACCEPTS PT FOR ADMIT. Impression Primary Impression: COPD exacerbation Additional Impressions: Acute renal failure Generalized weakness S/P FALL FROM STANDING BILATERAL KNEE CONTUSIONS Elevated liver enzymes Electrolyte imbalance Alcoholism CHRONIC OPIATE AND BENDAZEPINE USE Disposition: ADMITTED INPATIENT Condition: Improved Departure-Patient Inst. Referrals: ALEKSANDR PIÑA DO (PCP) Primary Care Physician WEN CAREY DO May 17, 2019 06:55
--- NOTE | 2019-05-17 08:13 | Pulmonary Consultation ---
History of Present Illness History of Present Illness Date of Consultation 05/17/19 08:05 Time Seen by Provider: 08:05 Date of Admission History of Present Illness 84yo with hx of severe oxygen dependent COPD ( 3liters/min), Afib (on eliquis) chronic pain presented via EMS to ED secondary to worsening chest congestion, NPC, generalized weakness over the last 3 days to the point pt could not stand. Denies sob, fever, chills, nausea, vomiting, diarrhea. Denies pain or discomfort. EMS gave SVN secondary to chest congestion. PT also states he has not urinated over the last 2 days. PT drinks at least 4 drinks of scotch daily. No hx of withdrawal. Pt also uses daily narcotics and benzos. Allergies and Home Medications Allergies Coded Allergies: sulfamethoxazole (Verified Allergy, Severe, ANAPHYLAXIS, 07/11/12) trimethoprim (Verified Allergy, Severe, ANAPHYLAXIS, 07/11/12) levofloxacin (Verified Allergy, Intermediate, NAUSEA, 07/11/12) Home Medications Acai Julian Extract 500 Mg Capsule, 500 MG PO BID, (Reported) Acetylcysteine 600 Mg Capsule, 600 MG PO BID, (Reported) Albuterol/Ipratropium 4 Gm Aero, 1 PUFF INH QID PRN for SHORTNESS OF BREATH, (Reported) Alprazolam 1 Mg Tablet, 1 MG PO TID PRN for ANXIETY, (Reported) Apixaban 5 Mg Tablet, 5 MG PO BID, (Reported) Ascorbic Acid 500 Mg Tablet, 500 MG PO DAILY, (Reported) Benzonatate 200 Mg Capsule, 200 MG PO Q8H PRN for COUGH, (Reported) Beta-Carotene 25,000 Unit Capsule, 25,000 UNIT PO DAILY, (Reported) Calcium Carbonate/Vitamin D3 1 Each Tablet, 1 TAB PO DAILY, (Reported) Cefprozil 250 Mg Tablet, 250 MG PO BID, (Reported) 10 DAY SUPPLY FILLED 09-16-17 Cetirizine HCl 10 Mg Tablet, 10 MG PO DAILY, (Reported) Cyanocobalamin (Vitamin B-12) 2,500 Mcg Tab.subl, 2,500 MCG SL DAILY, (Reported) Doxazosin Mesylate 4 Mg Tablet, 8 MG PO HS, (Reported) TAKES 2 (4MG) TABLETS Epinephrine 0.3 Mg/0.3 Ml Auto.injct, 0.3 MG IJ UD PRN for ALLERGIC REACTION, (Reported) Finasteride 5 Mg Tablet, 5 MG PO HS, (Reported) Fluticasone/Salmeterol 1 Each Blst.w.dev, 1 PUFF INH BID, (Reported) Furosemide 40 Mg Tablet, 80 MG PO DAILY, (Reported) TAKES 2 (40MG) TABLETS Gabapentin 300 Mg Capsule, 600 MG PO BID, (Reported) TAKES 2 (300MG) CAPSULES Glucosamine/D3/Boswellia Anjali 1 Each Tablet, 1 TAB PO DAILY, (Reported) Hydrocodone/Acetaminophen 1 Each Tablet, 1 TAB PO Q6H PRN for PAIN-MODERATE, ( Reported) Hydrocortisone 453.6 Gm Cream..g., TOP DAILY PRN for SKIN SORE, (Reported) Ipratropium/Albuterol Sulfate 3 Ml Ampul.neb, 3 ML NEB BID, (Reported) Metolazone 5 Mg Tablet, 5 MG PO MoWeFr PRN for SWELLING, (Reported) Montelukast Sodium 10 Mg Tablet, 10 MG PO HS, (Reported) Multivitamin W/Iron, Minerals 1 Each Tablet, 1 TAB PO DAILY, (Reported) Pomegranate Fruit Extract 250 Mg Capsule, 500 MG PO DAILY, (Reported) Potassium Chloride 10 Meq Capsule.er, 10 MEQ PO DAILY, (Reported) Potassium Gluconate 99 Mg Tablet, 99 MG PO DAILY, (Reported) Tiotropium [place] 1 Inh Aerp, 1 CAP INH DAILY, (Reported) Vitamin E Acetate 400 Unit Capsule, 400 UNIT PO DAILY, (Reported) Past Egtemvc-Mtqday-Evtzng Hx Patient Social History Alcohol Use: Regular Use (DAILY USE--DRINKS AT LEAST 4 DRINKS A DAY--[place] ON [employer]) Number of Drinks Today: EE Alcohol Beverage of Choice: [place] Recreational Drug Use: No Smoking Status: Former Smoker (HEAVY, DAILY USE BY HISTORY) Type Used: Cigarettes Former Smoker, Quit: Aug 25, 2002 2nd Hand Smoke Exposure: No Recent Foreign Travel: No Contact w/Someone Who Travel: No Recent Infectious Disease Expo: No Recent Hopitalizations: No Immunizations Up To Date Date of Pneumonia Vaccine: May 17, 2018 Date of Influenza Vaccine: Jul 25, 2017 Past Medical History Surgeries: Yes (LEFT KNEE SCOPE 2001; RIGHT KNEE SCOPE 2002;RIGH SHOUDER 2004; RIGHT HYDROCOELE 2007; C-SPINE FUSION/PLATE AND DISCECTOMY C4-C7 2007; LEFT THUMB ENDON GRAFT 2009; RIGHT THUMB TENDON GRAFT 2017; BILATERAL CATARACTS 2012; CARDIAC CATHS--NO INTERVENTION) Cardiac, Eye Surgery, Orthopedic Respiratory: Yes Pneumonia, COPD 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) Atrial Fibrillation, Chronic Edema/Swelling, Coronary Artery Disease, High Cho lesterol, Hypertension, Peripheral Vascular Neurological: No Reproductive Disorders: No Genitourinary: Yes (E.D.) Benign Prostatic Hyperpl, Prostate Problems Gastrointestinal: No Musculoskeletal: Yes (CHRONIC NECK PAIN --S/P SURGERY 2007) Degenerate Disk Disease, Arthritis Endocrine: Yes (OBESITY; JUAN MANUEL'S FROM CHRONIC STEROID USE) HEENT: Yes Cataract Cancer: Yes Skin Psychosocial: Yes Anxiety Integumentary: No Blood Disorders: No Adverse Reaction/Blood Tranf: No Review of Systems Time Seen by Provider: 08:22 Sepsis Event Evaluation Height, Weight, BMI Height: 6'0.00" Weight: 225lbs. 2.0oz. 102.162405py; 30.5 BMI Method:Stated Exam Exam Vital Signs Date Time Temp Pulse Resp B/P (MAP) Pulse Ox O2 Delivery O2 Flow Rate FiO2 05/17/19 08:00 65 11 103/62 (76) 96 Nasal Cannula 3.00 05/17/19 07:00 66 05/17/19 04:00 67 17 90/78 (82) 99 Nasal Cannula 3.00 05/17/19 04:00 Nasal Cannula 3.00 05/17/19 04:00 95.2 05/17/19 03:22 79 99 32 05/17/19 02:00 79 11 108/76 (87) 99 Nasal Cannula 3.00 05/17/19 00:30 93 13 128/73 (91) 95 Nasal Cannula 3.00 05/17/19 00:15 82 12 126/76 (93) 98 Nasal Cannula 3.00 05/17/19 00:12 96 Nasal Cannula 3.00 05/17/19 00:02 91 05/17/19 00:00 Nasal Cannula 3.00 05/17/19 00:00 99.1 82 14 123/67 (85) 98 Nasal Cannula 3.00 05/16/19 23:00 98.5 112 18 95/73 (80) 96 Nasal Cannula 4.00 05/16/19 19:30 94 Nasal Cannula 4.00 05/16/19 19:30 98.5 84 20 129/72 (91 94 Nasal Cannula 4.00 I & O 05/17/19 07:00 Intake Total 0 ml Output Total 350 ml Balance -350 ml Height & Weight Height: 6'0.00" Weight: 225lbs. 2.0oz. 102.832831xu; 30.5 BMI Method:Stated General Appearance: Anxious, Chronically ill HEENT: PERRL/EOMI, Pharynx Normal Neck: Full Range of Motion, Non Tender, Supple Respiratory: Chest Non Tender, No Respiratory Distress, Crackles, Decreased Breath Sounds Cardiovascular: Regular Rate, Rhythm, No Edema, No Murmur Capillary Refill: Less Than 3 Seconds Gastrointestinal: normal bowel sounds, non tender, soft, no organomegaly Extremity: Normal Capillary Refill, Normal Range of Motion, Non Tender, No Pedal Edema Neurologic/Psychiatric: Alert, Depressed Affect, Disoriented Skin: Normal Color, Warm/Dry Lymphatic: No Adenopathy Results Lab Laboratory Tests 05/16/19 19:33 05/17/19 03:06 Assessment/Plan Assessment/Plan COPDAE (PT has home oxygen 3liters/min) -Add advair -svns -Solumedrol Dehydration -IVF -Will give another liter bolus of NS CKD -Monitor -IVF Generalized weaknesss -PT/OT Elevated LFTs probably secondary to ETOH -Check US of RUQ -Hepatitis panel Alcohol dependance -Education -KAMALJIT protocol Chronic pain CHERY ROBERTS DO May 17, 2019 08:13
[2019-05-17] MEDS ORDERED: NS IV 1000 ML 1,000 ML IV SCH (08:15)
[2019-05-17] MEDS: GABAPENTIN 300 MG (NEURONTIN) CAP PO SCH ×2 (08:28→21:05)
[2019-05-17] MEDS: APIXABAN 5 MG (ELIQUIS) TABLET PO SCH ×2 (08:28→21:05)
[2019-05-17] MEDS ORDERED: THIAMINE INJECTION 100 MG, FOLIC ACID INJECTION 1 MG, MAGNESIUM SULFATE 2 GM, VITAMIN M... IV SCH ×5 (09:00)
[2019-05-17] MEDS: RT-ALBUTEROL/IPRATROPIUM 3 ML (DUONEB) VIAL INH SCH ×3 (09:38→22:30)
[2019-05-17] MEDS: RT-ADVAIR HFA 115/21 MCG PER PUFF IH SCH ×2 (09:39→22:30)
[2019-05-17] MEDS: methylPREDNISolone 40 MG/ML (Solu-MEDROL) VIAL IV SCH ×3 (10:13→21:05)
--- NOTE | 2019-05-17 11:28 | History & Physical-Hospitalist ---
History of Present Illness HPI/Chief Complaint patient reports for the past week in been feeling increasingly weak with poor appetite. He admits to long-standing history of excessive drinking 4 scotches each night that sound like they have a minimum of 2 ounces of alcohol and more likely for per glass. As an aside when I discussed my suspicion that excessive alcohol intake may be the root of his hospital admission he stated that he expected that it was going to catch up with him at some point. He denied any night sweats chills fever and also denied abdominal pain. He denies any problems with confusion but just stated that he felt weak. He reports that he had been in his usual state of health up until about a week ago. Date Seen 05/17/19 Time Seen by a Provider: 08:45 Attending Physician Shreyas Saul MD PCP Aleksandr Piña DO Referring Physician Date of Admission May 16, 2019 at 21:00 Home Medications & Allergies Home Medications Reviewed patient Home Medication Reconciliation performed by pharmacy medication reconciliations human service technician and/or nursing. Patients Allergies have been reviewed. Allergies Allergies Coded Allergies sulfamethoxazole (Verified Allergy, Severe, ANAPHYLAXIS, 07/11/12) trimethoprim (Verified Allergy, Severe, ANAPHYLAXIS, 07/11/12) levofloxacin (Verified Allergy, Intermediate, NAUSEA, 07/11/12) Past [id number] Hx Past Med/Social Hx: Reviewed and Corrections made Patient Social History Alcohol Use: Regular Use (DAILY USE--DRINKS AT LEAST 4 DRINKS A DAY--SCOTCH ON [place]) Number of Drinks Today: EE Alcohol Beverage of Choice: Scotch Recreational Drug Use: No Smoking Status: Former Smoker (HEAVY, DAILY USE BY HISTORY) Former Smoker, Quit: Aug 25, 2002 Type Used: Cigarettes 2nd Hand Smoke Exposure: No Recent Foreign Travel: No Contact w/other who traveled: No Recent Hopitalizations: No Recent Infectious Disease Expo: No Immunizations Up To Date Date of Pneumonia Vaccine: May 17, 2018 Date of Influenza Vaccine: Jul 25, 2017 Past Medical History Surgeries: Cardiac, Eye Surgery, Orthopedic Cardiac: Atrial Fibrillation, Chronic Edema/Swelling, Coronary Artery Disease, High Cholesterol, Hypertension, Peripheral Vascular Reproductive: No Genitourinary: Benign Prostatic Hyperpl, Prostate Problems Musculoskeletal: Degenerate Disk Disease, Arthritis HEENT: Cataract Cancer: Skin Psychosocial: Anxiety History of Blood Disorders: No Adverse Reaction to Blood Kang: No Review of Systems Constitutional: see HPI Physical Exam Physical Exam Vital Signs Vital Signs - First Documented 05/17/19 03:22 FiO2 32 Capillary Refill : Less Than 3 Seconds Height, Weight, BMI Height: 6'0.00" Weight: 225lbs. 2.0oz. 102.555454ft; 30.5 BMI Method:Stated General Appearance: No Apparent Distress Neck: Normal Inspection Respiratory: Chest Non Tender, No Accessory Muscle Use, No Respiratory D istress, Other (sonorous rhonchi noted bilaterally with loose sounding nonproductive cough.) Cardiovascular: Regular Rate, Rhythm, No Edema, No Gallop, No JVD, No Murmur, Normal Peripheral Pulses Gastrointestinal: Normal Bowel Sounds, No Organomegaly, No Pulsatile Mass, Non Tender, Soft Extremity: Other (rather diffuse senile purpura noted with trace bilateral lower extremity edema no hematoma formation noted) Neurologic/Psychiatric: Alert, No Motor/Sensory Deficits, Normal Mood/Affect, Other (oriented 2) Results Results/Procedures Labs Laboratory Tests 05/16/19 19:33 05/17/19 03:06 Patient resulted labs reviewed. Assessment/Plan Admission Diagnosis 1. 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 Discussed the fact that the patient's alcohol consumption is clearly excessive which he agrees with he is strongly advised to discontinue alcohol consumption. We'll be holding antihypertensive medication and continue IV fluid therapy with monitoring renal function. monitor for evidence of withdrawal and thiamine is been initiated IV. 2. Alcohol use disorder 3. Acute kidney injury again secondary to hypotension most likely Admission Status: Inpatient Order (span 2 midnights) Reason for Inpatient Admission: see admission and plan Critical Care Critically Ill Patient Clinical Quality Measures DVT/VTE Risk/Contraindication: Risk Factor Score Per Nursin RFS Level Per Nursing on Admit: 4+=Very High Copy Copies To 1: ALEKSANDR PIÑA MARK D MD May 17, 2019 11:28
[2019-05-17] MEDS: LORazepam 1 MG (ATIVAN) TAB PO PRN ×2 (16:44→21:05)
[2019-05-17] MEDS: HYDROcodone/APAP 10 MG/325 MG (LORTAB) TAB PO PRN (21:24)
--- NOTE | 2019-05-17 21:39 | NUR ---
PT ADAMANT ABOUT TAKING HYDROCODONE-ACETAMINOPHEN BEFORE BED THIS IS WHAT HE DOES WHEN HE IS AT HOME. THIS NURSE EDUCATED PT ON PAIN MANAGEMENT AT TIME OF MED ADMINISTRATION
[2019-05-18] VITALS (8 sets, daily range): BP systolic 68–137; BP diastolic 53–84
[2019-05-18] MEDS: methylPREDNISolone 40 MG/ML (Solu-MEDROL) VIAL IV SCH ×4 (02:52→20:24)
[2019-05-18] MEDS: RT-ALBUTEROL/IPRATROPIUM 3 ML (DUONEB) VIAL INH SCH ×4 (03:25→21:58)
[2019-05-18] MEDS: NS IV 1000 ML 1,000 ML IV SCH ×4 (03:36→20:25)
--- NOTE | 2019-05-18 06:43 | Pulmonary Progress Note ---
Subjective Time Seen by a Provider: 07:14 Subjective/Events-last exam Awake and alert. Complains of loose nonproductive cough. SOB is stable . Sepsis Event Evaluation Height, Weight, BMI Height: 6'0.00" Weight: 233lbs. 0.2oz. 105.542556yw; 30.5 BMI Method:Stated Focused Exam Lactate Level 05/16/19 19:33: Lactic Acid Level 1.81 Exam Exam Vital Signs Date Time Temp Pulse Resp B/P (MAP) Pulse Ox O2 Delivery O2 Flow Rate FiO2 05/18/19 04:00 65 13 109/66 (80) 97 Nasal Cannula 3.00 05/18/19 04:00 97 Nasal Cannula 3.00 05/18/19 03:41 98 Nasal Cannula 3.00 05/18/19 02:00 66 12 115/75 (88) 97 Nasal Cannula 3.00 05/18/19 01:00 66 05/18/19 00:00 97 Nasal Cannula 3.00 05/18/19 00:00 66 11 106/70 (82) 98 Nasal Cannula 3.00 05/17/19 22:35 99 Nasal Cannula 3.00 05/17/19 22:30 98 Nasal Cannula 3.00 05/17/19 22:00 78 12 109/73 (85) 97 Nasal Cannula 3.00 05/17/19 21:00 96 Nasal Cannula 3.00 05/17/19 20:42 96 15 94 Nasal Cannula 3.00 05/17/19 20:00 88 16 117/68 (84) 94 Nasal Cannula 2.00 05/17/19 20:00 96 Nasal Cannula 3.00 05/17/19 19:55 96.6 05/17/19 19:00 90 05/17/19 16:00 86 17 110/78 (89) 96 Nasal Cannula 3.00 05/17/19 16:00 Nasal Cannula 2.00 05/17/19 16:00 96.8 05/17/19 15:32 100 Nasal Cannula 2.00 05/17/19 12:39 80 05/17/19 12:00 96.5 05/17/19 12:00 83 17 127/92 (104) Nasal Cannula 3.00 05/17/19 12:00 Nasal Cannula 2.00 05/17/19 09:38 96 Nasal Cannula 2.00 05/17/19 09:00 Nasal Cannula 2.00 05/17/19 08:00 96.2 05/17/19 08:00 Nasal Cannula 2.00 05/17/19 08:00 65 11 103/62 (76) 96 Nasal Cannula 3.00 05/17/19 07:00 66 I & O 05/18/19 07:00 Intake Total 3965.2 ml Output Total 1525 ml Balance 2440.2 ml Height & Weight Height: 6'0.00" Weight: 233lbs. 0.2oz. 105.358402dr; 30.5 BMI Method:Stated General Appearance: Anxious, Chronically ill HEENT: PERRL/EOMI, Pharynx Normal Neck: Full Range of Motion, Non Tender, Supple Respiratory: No Accessory Muscle Use, No Respiratory Distress, Crackles, Decreased Breath Sounds, Rhonci; No Wheezing Cardiovascular: Regular Rate, Rhythm, No JVD, No Murmur Capillary Refill: Less Than 3 Seconds Gastrointestinal: normal bowel sounds, non tender, soft Extremity: Normal Capillary Refill, No Pedal Edema Neurologic/Psychiatric: Alert, Oriented x3 Skin: Normal Color Lymphatic: No Adenopathy Results Lab Laboratory Tests 05/16/19 19:33 05/17/19 03:06 Assessment/Plan Assessment/Plan COPDAE (PT has home oxygen 3liters/min) - advair -svns -Solumedrol Dehydration -IVF CKD -Monitor -IVF Generalized weaknesss -PT/OT Elevated LFTs probably secondary to ETOH -Check US of RUQ -Hepatitis panel Alcohol dependance -Education -KAMALJIT protocol Chronic pain CHERY ROBERTS DO May 18, 2019 06:43
[2019-05-18 07:37] LABS: BASOPHILS % (AUTO) 0 % (0-10); EOSINOPHILS % (AUTO) 0 % (0-10); HEMATOCRIT 34 % (40-54); HEMOGLOBIN 11.6 G/DL (13.3-17.7); LYMPHOCYTES # (AUTO) 0.3 X 10^3 (1.0-4.0); LYMPHOCYTES % (AUTO) 4 % (12-44); MEAN CORPUSCULAR HEMOGLOBIN 34 PG (25-34); MEAN CORPUSCULAR HGB CONC 34 G/DL (32-36); MEAN CORPUSCULAR VOLUME 100 FL (80-99); MEAN PLATELET VOLUME 9.4 FL (7.4-10.4); MONOCYTES # (AUTO) 0.4 X 10^3 (0.0-1.0); MONOCYTES % (AUTO) 6 % (0-12); NEUTROPHILS # (AUTO) 6.5 X 10^3 (1.8-7.8); NEUTROPHILS % (AUTO) 90 % (42-75); PLATELET COUNT 140 10^3/uL (130-400); RED CELL DISTRIBUTION WIDTH 12.3 % (10.0-14.5); WHITE BLOOD COUNT 7.2 10^3/uL (4.3-11.0)
[2019-05-18 07:52] LABS: CALCIUM 8.5 MG/DL (8.5-10.1); CREATININE SERUM 2.37 MG/DL (0.60-1.30); POTASSIUM 4.2 MMOL/L (3.6-5.0)
--- NOTE | 2019-05-18 09:30 | NUR ---
Initial visit with pt's , Chaya. Offered compassionate presence and active listening as she shared that she wants to be an advocate for her 's health and wellbeing, just as she was for her mother until her . She recalled that I escorted Adarsh to registration one day when he was here for an appointment, and said the kindness meant allot. Chaya said she was glad to see a familiar face.
[2019-05-18] MEDS: THIAMINE INJECTION 100 MG, FOLIC ACID INJECTION 1 MG, VITAMIN MULTI INJECTION 10 ML, MA... IV SCH ×5 (10:19)
[2019-05-18] MEDS: GABAPENTIN 300 MG (NEURONTIN) CAP PO SCH ×2 (10:19→20:25)
[2019-05-18] MEDS: APIXABAN 5 MG (ELIQUIS) TABLET PO SCH ×2 (10:19→20:25)
--- NOTE | 2019-05-18 10:23 | Progress Note - Hospitalist ---
Subjective HPI/CC On Admission Date Seen by Provider: May 18, 2019 Time Seen by Provider: 08:15 patient reports for the past week in been feeling increasingly weak with poor appetite. He admits to long-standing history of excessive drinking 4 scotches each night that sound like they have a minimum of 2 ounces of alcohol and more l ikely for per glass. As an aside when I discussed my suspicion that excessive alcohol intake may be the root of his hospital admission he stated that he expected that it was going to catch up with him at some point. He denied any night sweats chills fever and also denied abdominal pain. He denies any problems with confusion but just stated that he felt weak. He reports that he had been in his usual state of health up until about a week ago. Subjective/Events-last exam Pt reports feeling well. Requesting DC. Focused Exam Lactate Level 05/16/19 19:33: Lactic Acid Level 1.81 Objective Exam Vital Signs Vital Signs Date Time Temp Pulse Resp B/P (MAP) Pulse Ox O2 Delivery O2 Flow Rate FiO2 05/18/19 12:00 97.2 85 20 128/77 (94) 99 Nasal Cannula 3.00 05/17/19 03:22 32 Capillary Refill : Less Than 3 Seconds General Appearance: No Apparent Distress, WD/WN Respiratory: No Accessory Muscle Use, No Respiratory Distress, Decreased Breath Sounds, Rhonci; No Wheezing; Other (on 3lpm NC) Cardiovascular: Regular Rate, Rhythm, No JVD, No Murmur Gastrointestinal: Normal Bowel Sounds, Non Tender, Soft Extremity: No Pedal Edema Neurologic/Psychiatric: Alert, Oriented x3, Normal Mood/Affect Results/Procedures Lab Laboratory Tests 05/18/19 07:25 Patient resulted labs reviewed. Assessment/Plan Assessment and Plan Assess & Plan/Chief Complaint COPD with Acute Exacerbation Acute Renal Failure Alcohol Abuse Hepatitis likely due to alcohol and/or PAGE Plan IVF and trend creatinine Continue Solu Medrol MAT protocol Pulm consulted, appreciate recs [place] Critical Care Critically Ill Patient Diagnosis/Problems Diagnosis/Problems (1) COPD exacerbation Status: Acute (2) Acute renal failure Status: Acute Qualifiers: Acute renal failure type: unspecified Qualified Codes: N17.9 - Acute kid kolby failure, unspecified (3) Alcoholism Status: Acute (4) Atrial fibrillation Onset Date: 05/26/2015 Status: Acute Qualifiers: Atrial fibrillation type: chronic Qualified Codes: I48.2 - Chronic atrial fibrillation (5) Elevated liver enzymes Status: Acute Clinical Quality Measures DVT/VTE Risk/Contraindication: Risk Factor Score Per Nursin RFS Level Per Nursing on Admit: 4+=Very High CHRIS ACOSTA MD May 18, 2019 10:23
[2019-05-18] MEDS ORDERED: POTA10TA14 PO (10:52)
[2019-05-18] MEDS ORDERED: FURO80TA3 PO (10:52)
--- NOTE | 2019-05-18 11:20 | NUR ---
TRANSFERRED FROM ICU TO ROOM 416 PER W/C. ALERT AND COOPERATIVE WITH SL. TREMORS AND SL. CONFUSION NOTED. SKIN W/D. COLOR PALE. RESP. REGULAR. DEEP BREATHING ENCOURAGED. IV SITE PER LEFT WRIST WITH GOOD BLOOD RETURN AND IV FLUIDS INFUSING WELL. AT BEDSIDE. LUNA CATH WITH CLEAR YELLOW URINE. TEL. ON. HEART RATE IRREGULAR. LUNGS COURSE AND DIM. LOOSE NON-PRODUCTIVE COUGH AT TIMES. O2 ON PER N/C AT 3 L PER MIN.
[2019-05-18] MEDS ORDERED: ASCO500C17 PO (13:58)
--- NOTE | 2019-05-18 14:07 | NUR ---
SPOKE WITH PT (AND HIS ) ABOUT HOME MEDS, WELL GOING THRU THE EXT MED HISTORY TO COMPLETE THE MED REC. 05-29-18 ADVAIR 500-/50 90 DAY SUPPLY 04-15-2019 DOXAZOSIN 4MG #90/90 DS, LOOKS IF RX WAS WRITTEN FOR 1 TABLET DAILY, BUT IS ADAMANT THEN HE TAKING TWO 4MG TABLETS(8MG TOTAL) ONCE DAILY. XANAX 1MG- PT SAYS HE ONLY TAKES THEN PRN AND I CANNOT SEE THE LAST TIME IT WAS FILLED THRU MAIL ORDER. OTC MEDS: OSTEO BI-FLEX : 1 DAILY SENIOR MULTIVITAMIN: 1 DAILY BETA CAROTENE 25,000IU- 1 DAILY VITAMIN E 400 IU: 1 DAILY POTASSIUM GLUCONATE: 1 DAILY VITAMIN C 500M DAILY CALCIUM WITH VIT D: 1 DAILY VITAMIN B 2,500MG- 1 DAILY POMEGRANATE 500MG- 1 DAILY ACETYL CYSTEINE 600MG- BID STATES THESE ARE THE NORMAL VITAMINS /SUPPLEMENTS HE TAKE BUT OVER THE LAST MONTH IT HAS BEEN TO HARD TO SWALLOW SO HE HAS CUT BACK AND THE ONLY OTC HE IS TAKING CURRENTLY IS THE MULTIVITAMIN. Addendum: 05/19/19 at 1205 by OCHOA MASCORRO [facility] PATIENTS (MARIE) HAS BROUGHT IN HIS FUROSEMIDE BOTTLE TODAY BECAUSE SHE THOUGHT SHE WAS CONFUSED ON THE STRENGTH. THE MAIL ORDER HAD SHOWED THEY SENT OUT THE 80MG ONCE DAILY, BUT AFTER LOOKING AT THE BOTTLE SHE EXPLAINED THE SHE ALWAYS HAS THEM SEND THE 40MG AND HE TAKES 2 TABS AT THE SAME TIME. ACCORDING TO HER THE 80MG ARE TO BIG FOR HIM TO SWALLOW AND HE HAS A HARD TIME TAKING. SHE IS GOING TO CONTACT THE MAIL ORDER PHARMACY AND MAKE SURE THEY KNOW TO JUST SENT 40MG IN THE FUTURE. I UPDATED TO MED REC TO CORRESPOND WITH THIS CHANGE.
[2019-05-18] MEDS: RT-ADVAIR HFA 115/21 MCG PER PUFF IH SCH ×3 (14:43→22:09)
[2019-05-18] MEDS: HYDROcodone/APAP 10 MG/325 MG (LORTAB) TAB PO PRN (15:22)
[2019-05-18] MEDS: LORazepam 1 MG (ATIVAN) TAB PO PRN ×2 (15:30→20:25)
[2019-05-18 15:39] LABS: HEPATITIS C ANTIBODY C Non-Reactive (Non-Reactive)
--- NOTE | 2019-05-18 18:00 | NUR ---
UP IN CHAIR. JEREMY HARRIS DC'D PER DR. ACOSTA"S ORDERS.
[2019-05-19] VITALS: BP 147/70
[2019-05-19] MEDS: RT-ALBUTEROL/IPRATROPIUM 3 ML (DUONEB) VIAL INH SCH ×4 (02:17→21:50)
[2019-05-19] MEDS: methylPREDNISolone 40 MG/ML (Solu-MEDROL) VIAL IV SCH ×4 (02:34→19:42)
[2019-05-19 03:28] VITALS: BP 121/74
[2019-05-19 06:16] LABS: BASOPHILS % (AUTO) 0 % (0-10); EOSINOPHILS % (AUTO) 0 % (0-10); HEMATOCRIT 36 % (40-54); LYMPHOCYTES # (AUTO) 0.3 X 10^3 (1.0-4.0); LYMPHOCYTES % (AUTO) 4 % (12-44); MEAN CORPUSCULAR HEMOGLOBIN 33 PG (25-34); MEAN CORPUSCULAR HGB CONC 33 G/DL (32-36); MEAN CORPUSCULAR VOLUME 101 FL (80-99); MEAN PLATELET VOLUME 9.3 FL (7.4-10.4); MONOCYTES # (AUTO) 0.5 X 10^3 (0.0-1.0); MONOCYTES % (AUTO) 8 % (0-12); NEUTROPHILS # (AUTO) 6.4 X 10^3 (1.8-7.8); NEUTROPHILS % (AUTO) 88 % (42-75); PLATELET COUNT 168 10^3/uL (130-400); RED CELL DISTRIBUTION WIDTH 12.7 % (10.0-14.5); WHITE BLOOD COUNT 7.2 10^3/uL (4.3-11.0)
[2019-05-19 06:43] LABS: CREATININE SERUM 2.01 MG/DL (0.60-1.30); POTASSIUM 4.2 MMOL/L (3.6-5.0)
[2019-05-19] MEDS: NS IV 1000 ML 1,000 ML IV SCH ×3 (07:41→19:42)
[2019-05-19 08:00] VITALS: BP 132/85
[2019-05-19] MEDS: GABAPENTIN 300 MG (NEURONTIN) CAP PO SCH ×2 (08:47→21:04)
[2019-05-19] MEDS: APIXABAN 5 MG (ELIQUIS) TABLET PO SCH ×2 (08:47→21:03)
[2019-05-19] MEDS: HYDROcodone/APAP 10 MG/325 MG (LORTAB) TAB PO PRN (08:48)
--- NOTE | 2019-05-19 09:03 | NUR ---
Met pt's , Chaya at the front entrance. She was carrying multiple bags and sweating. She accepted my offer to assist by carrying one of her bags. She said she has COPD and appreciated the help. Upon entering the room, the pt engaged warmly, alert and oriented. 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 They offered mutual encouragement and support to each other during our visit.
[2019-05-19] MEDS: THIAMINE INJECTION 100 MG, FOLIC ACID INJECTION 1 MG, VITAMIN MULTI INJECTION 10 ML, MA... IV SCH ×5 (09:22)
[2019-05-19] MEDS: RT-ADVAIR HFA 115/21 MCG PER PUFF IH SCH ×2 (10:11→21:49)
[2019-05-19] MEDS ORDERED: FURO40TA4 PO (11:59)
[2019-05-19 12:00] VITALS: BP 153/79
--- NOTE | 2019-05-19 12:08 | Physical Therapy Evaluation ---
PT Evaluation-General Medical Diagnosis Admission Date May 16, 2019 at 21:00 Medical Diagnosis: acute renal failure/dehydration Onset Date: May 16, 2019 Therapy Diagnosis Therapy Diagnosis: debility/weakness Height/Weight Height (Feet): 6 Height (Inches): 0.00 Weight (Pounds): 236 Weight (Ounces): 4.0 Precautions Precautions/Isolations: Fall Prevention, Standard Precautions Weight Bear Status Right Lower Extremity: Right Weight Bearing/Tolerated Left Lower Extremity: Left Weight Bearing/Tolerated Referral Physician: Ismael Reason for Referral: Evaluation/Treatment Medical History Pertinent Medical History: Atrial Fib, Alcoholism, COPD Current History EMS secondary to weakness Reviewed History: Yes Social History Home: Single Level Current Living Status: Spouse Entry Into Home: Stairs With Railing PT Steps Into Home: 3 Prior/Core FIM Prior Level of Function Therapy Code Descriptions/Definitions Functional [place] Measure: 0=Not Assessed/NA 4=Minimal Assistance 1=Total Assistance 5=Supervision or Setup 2=Maximal Assistance 6=Modified [place] 3=Moderate Assistance 7=Complete [place] Therapy Quality Codes: 6 Independent with activity with or without an assistive device 5 Patient requires set up or clean up by helper. Patient completes activity by themselves 4 Supervision or touching assist (CGA). [place] provide cues , steadying assist 3 The helper provides less than half the effort to complete the activity 2 The helper provides more than half the effort to complete the activity 1 Dependent. The helper does all the effort to complete an activity 7 Patient refused to complete or attempt activity 9 The patient did not perform the activity before the current illness or injury 88 Not attempted due to Medical conditions or safety concerns Functional Abilities and Goals: Independent: Patient completed the activities by him/herself, with or without an assistive device, with no assistance from a helper. Needed Some Help: Patient needed partial assistance from another person to complete activities. Dependent: A helper completed the activities for the patient. Unknown: Not Applicable: Bed Mobility: 7 Transfers (B,C,W/C) (FIM): 7 Gait: 7 Stairs: 7 Indoor Mobility (Ambulation): Independent Stairs: Independent Prior Devices Use: None PT Evaluation-Current Subjective OT just complete. Patient agrees to PT. Pain Numeric Pain Scale: 0-No Pain Location: No Pain Reported Objective Patient Orientation: Normal For Age Problem Solving: Fair Attachments: Oxygen (3L NC), IV ROM/Strength ROM Lower Extremities bilateral LE WFL Strength Lower Extremities 4/5 grossly bilaterally Integumentary/Posture Integumentary multiple abrasions bilateral LE due to falls at home Bowel Incontinence: No Bladder Incontinence: No Posture WFL Neuromuscular (Tone, Coordination, Reflexes) grossly intact Sensory Vision: Functional Hearing: Functional Sensation Right Lower Extremit: Intact Sensation Left Lower Extremity: Intact Transfers Therapy Code Descriptions/Definitions Functional [place] Measure: 0=Not Assessed/NA 4=Minimal Assistance 1=Total Assistance 5=Supervision or Setup 2=Maximal Assistance 6=Modified [place] 3=Moderate Assistance 7=Complete [place] Transfers (B, C, W/C) (FIM): 5 Scootin Sit to/from Stand: 5 Gait Mode of Locomotion: Walk Anticipated Mode of Locomotion: Walk Gait (FIM): 5 Distance (FIM): 3=150 ft Distance: 300' x 2 Gait Level of Assist: 5 Gait Assistive Device: FWW Comments/Gait Description steady, functional gait sequence with no deviation Balance Sitting Static: Normal Sitting Dynamic: Normal Standing Static: Normal Standing Dynamic: Normal Assessment/Needs 84 y.o. male, will be seen short term by skilled PT to address functional mobility to ensure safe return to home with spouse. Upon dismissal, patient will require FWW for home use. SW notified. Rehab Potential: Fair PT Short Term Goals Short Term Goals Time Frame: May 22, 2019 Transfers (B,C,W/C) (FIM): 6 Gait (FIM): 6 Distance (FIM): 3=150 ft Gait Distance Comment: >300' Gait Level of Assist: 6 Gait Assistive Device: FWW PT Plan Problem List Problem List: Activity Tolerance Treatment/Plan Treatment Plan: Continue Plan of Care Treatment Plan: Education, Functional Activity [place], Functional Strength, G ait, Safety, Therapeutic Exercise, Transfers Treatment Duration: May 22, 2019 Frequency: 4 times per week Estimated Hrs Per Day: .25 hour per day Patient and/or Family Agrees t: Yes Safety Risks/Education Patient Education: Safety Issues Teaching Recipient: Patient Teaching Methods: Discussion Response to Teaching: Verbalize Understanding Discharge Recommendations Therapy D/C Recommendations: Home w/ Family Support Equpiment Recommendations-D/C: Front Wheeled Walker Time/GCodes Time In: 1145 Time Out: 1205 Total Billed Treatment Time: 17 Total Billed Treatment 1 visit EVMod 17 min ALICE HASSAN PT May 19, 2019 12:08
--- NOTE | 2019-05-19 13:40 | Progress Note - Hospitalist ---
Subjective HPI/CC On Admission Date Seen by Provider: May 19, 2019 Time Seen by Provider: 13:37 patient reports for the past week in been feeling increasingly weak with poor appetite. He admits to long-standing history of excessive drinking 4 scotches each night that sound like they have a minimum of 2 ounces of alcohol and more l ikely for per glass. As an aside when I discussed my suspicion that excessive alcohol intake may be the root of his hospital admission he stated that he expected that it was going to catch up with him at some point. He denied any night sweats chills fever and also denied abdominal pain. He denies any problems with confusion but just stated that he felt weak. He reports that he had been in his usual state of health up until about a week ago. Subjective/Events-last exam Pt reports feeling better. Again requesting discharge. at bedside and worried about DC home today as he has not walked yet. Creatinine remains elevated so pt not medically ready for DC yet. Focused Exam Lactate Level 05/16/19 19:33: Lactic Acid Level 1.81 Objective Exam Vital Signs Vital Signs Date Time Temp Pulse Resp B/P (MAP) Pulse Ox O2 Delivery O2 Flow Rate FiO2 05/19/19 13:00 122 05/19/19 12:00 97.0 18 153/79 (103) 95 Nasal Cannula 3.00 05/17/19 03:22 32 Capillary Refill : Less Than 3 Seconds General Appearance: No Apparent Distress, WD/WN Respiratory: No Accessory Muscle Use, No Respiratory Distress, Decreased Breath Sounds; No Wheezing; Other (on 2lpm NC) Cardiovascular: Regular Rate, Rhythm, No JVD, No Murmur Gastrointestinal: Normal Bowel Sounds, Non Tender, Soft Neurologic/Psychiatric: Alert, Oriented x3, Normal Mood/Affect Results/Procedures Lab Laboratory Tests 05/19/19 05:50 Patient resulted labs reviewed. Assessment/Plan Assessment and Plan Assess & Plan/Chief Complaint COPD with Acute Exacerbation Acute Renal Failure Alcohol Abuse Hepatitis likely due to alcohol and/or PAGE Plan Creatinine improving, trend IVF Continue Solu Medrol- transition to oral taper likely tomorrow MAT protocol Pulm consulted, appreciate recs CIWA Likely DC tomorrow if creatinine continues to improve Critical Care Critically Ill Patient Diagnosis/Problems Diagnosis/Problems (1) COPD exacerbation Status: Acute (2) Acute renal failure Status: Acute Qualifiers: Acute renal failure type: unspecified Qualified Codes: N17.9 - Acute kidney failure, unspecified (3) Alcoholism Status: Acute (4) Atrial fibrillation Onset Date: 05/26/2015 Status: Acute Qualifiers: Atrial fibrillation type: chronic Qualified Codes: I48.2 - Chronic atrial fibrillation (5) Elevated liver enzymes Status: Acute Clinical Quality Measures DVT/VTE Risk/Contraindication: Risk Factor Score Per Nursin RFS Level Per Nursing on Admit: 4+=Very High CHRIS ACOSTA MD May 19, 2019 1:40 pm
--- NOTE | 2019-05-19 14:18 | Occupational Therapy Eval ---
OT Evaluation-General/PLF Medical Diagnosis Admission Date May 16, 2019 at 21:00 Medical Diagnosis: acute renal failure/dehydration Onset Date: May 16, 2019 Therapy Diagnosis Therapy Diagnosis: Weakness Height/Weight Height (Feet): 6 Height (Inches): 0.00 Weight (Pounds): 236 Weight (Ounces): 4.0 Precautions Precautions/Isolations: Fall Prevention, Standard Precautions Safety Interventions: Bed Exit Alarm Weight Bear Status Weight Bearing Restriction: Weight Bearing/Tolerated Referral Physician: Ismael Referral Reason: Activity Tolerance, Self Care, Evaluation/Treatment, Strengthening/ROM Medical History Pertinent Medical History: Atrial Fib, Alcoholism, CAD, COPD, HTN Current History Pt. became weak at home from hepatitis and acute kidney injury, related to ETOH use. Reviewed History: Yes Social History Home: Single Level Current Living Status: Spouse Entry Into Home: Stairs With Railing Steps Into Home: 3 ADL-Prior Level of Function Therapy Code Descriptions/Definitions Functional [place] Measure: 0=Not Assessed/NA 4=Minimal Assistance 1=Total Assistance 5=Supervision or Setup 2=Maximal Assistance 6=Modified [place] 3=Moderate Assistance 7=Complete [place] Therapy Quality Codes: 6 Independent with activity with or without an assistive device 5 Patient requires set up or clean up by helper. Patient completes activity by themselves 4 Supervision or touching assist (CGA). [place] provide cues , steadying assist 3 The helper provides less than half the effort to complete the activity 2 The helper provides more than half the effort to complete the activity 1 Dependent. The helper does all the effort to complete an activity 7 Patient refused to complete or attempt activity 9 The patient did not perform the activity before the current illness or injury 88 Not attempted due to Medical conditions or safety concerns Functional Abilities and Goals: Independent: Patient completed the activities by him/herself, with or without an assistive device, with no assistance from a helper. Needed Some Help: Patient needed partial assistance from another person to complete activities. Dependent: A helper completed the activities for the patient. Unknown: Not Applicable: ADL PLOF Comments Pt. states that he was independent with all basic ADLs. Pt. drives. Does not use walker. Self Care: Independent Functional Cognition: Independent DME/Equipment: Tub/Shower DME/Equipment Comments Pt. does not have walker but spouse has one. Will likely be too short. Occupation: Retired Drive Self: Yes OT Current Status Subjective No pain reported. Spouse states that she would like pt. to be up walking to gain strength. Appearance Pt. in bed and agrees to OT treatment. Mental Status/Objective Patient Orientation: Person, Place, Time, Situation Attachments: IV, Oxygen Current Hand Dominance: Right Upper Extremity ROM WFL Upper Extremity Strength WFL ADL-Treatment Therapy Code Descriptions/Definitions Functional [place] Measure: 0=Not Assessed/NA 4=Minimal Assistance 1=Total Assistance 5=Supervision or Setup 2=Maximal Assistance 6=Modified [place] 3=Moderate Assistance 7=Complete [place] Therapy Quality Codes: 6 Independent with activity with or without an assistive device 5 Patient requires set up or clean up by helper. Patient completes activity by themselves 4 Supervision or touching assist (CGA). [place] provide cues , steadying assist 3 The helper provides less than half the effort to complete the activity 2 The helper provides more than half the effort to complete the activity 1 Dependent. The helper does all the effort to complete an activity 7 Patient refused to complete or attempt activity 9 The patient did not perform the activity before the current illness or injury 88 Not attempted due to Medical conditions or safety concerns Lower Body Dressing (FIM): 5 (SBA to don hospital slippers.) Transfers (B, C, W/C) (FIM): 5 Other Treatments Pt. agrees to work with OT. Transfers supine-sit with SBA. Pt. is able to don slipper socks with SBA while seated on side of bed. Pt. declines ADLs as he has already "cleaned up" from an incontinence issue earlier. Pt. agrees to ambulate with OT, as spouse was concerned about his strength before return home. Stood with SBA and ambulated in [place] with walker. PT took over for pt's ambulation and safety. Pt. agrees to attempt ADLs with OT assist tomorrow. Spouse given toothbrushing items for use in room for pt. Education OT Patient Education: Correct positioning, Modified ADL techniques, Progress toward Goal/Update tx plan, Purpose of tx/functional activities, Reviewed precautions, Rehab process, Transfer techniques Teaching Recipient: Patient, Family Teaching Methods: Demonstration, Discussion Response to Teaching: Verbalize Understanding, Return Demonstration OT Short Term Goals Short Term Goals Transfers (B,C,W/C) (FIM): 6 1=Demonstrate adherence to instructed precautions during ADL tasks. 2=Patient will verbalize/demonstrate understanding of assistive devices/modifications for ADL. 3=Patient will improve strength/tolerance for activity to enable patient to perform ADL's. OT Professor Of Chemical Engineering Goals Longterm Goals Time Frame: May 26, 2019 Eating (FIM): 6 Grooming(FIM): 6 Bathing(FIM): 5 Upper Body Dressing(FIM): 5 Lower Body Dressing(FIM): 5 Toileting(FIM): 6 Transfers (B,C,W/C) (FIM): 6 Toilet/Commode Transfer(FIM): 6 Shower Transfer(FIM): 5 Additional Goals: 1-Demonstrate ADL Tasks, 2-Verbalize Understanding, 3- ImproveStrength/[place] 1=Demonstrate adherence to instructed precautions during ADL tasks. 2=Patient will verbalize/demonstrate understanding of assistive devices/modifications for ADL. 3=Patient will improve strength/tolerance for activity to enable patient to perform ADL's. OT Education/Plan Problem List/Assessment Assessment: Decreased Activ Tolerance, Impaired I ADL's, Impaired Self-Care Skills Discharge Recommendations Plan/Recommendations: Continue POC Therapy D/C Recommendations: Home w/ Family Support, Occupational Therapy Home Care Equpiment Recommendations-D/C: Extended Bath Bench Comment Pt. will need FWW at discharge, as well as bath bench. Target Placement Home with spouse. Possible home health OT. Treatment Plan/Plan of Care Treatment,Training & Education: Yes Patient would benefit from OT for education, treatment and training to promote independence in ADL's, mobility, safety and/or upper extremity function for ADL's. Plan of Care: ADL Retraining, Functional Mobility, UE Funct Exercise/Act Treatment Duration: May 26, 2019 Frequency: 5 times per week Estimated Hrs Per Day: .5 hour per day Agreement: Yes Rehab Potential: Good Time/GCodes Start Time: 11:45 Stop Time: 12:15 Total Time Billed (hr/min): 30 Billed Treatment Time 1,EVL x 15minutes, ADL x 15minutes RICHARD VU OT May 19, 2019 14:18
--- NOTE | 2019-05-19 14:25 | Pulmonary Progress Note ---
Subjective Time Seen by a Provider: 11:17 Subjective/Events-last exam Pt is feeling improved. Sepsis Event Evaluation Height, Weight, BMI Height: 6'0.00" Weight: 236lbs. 4.0oz. 107.945287dl; 30.5 BMI Method:Stated Focused Exam Lactate Level 05/16/19 19:33: Lactic Acid Level 1.81 Exam Exam Vital Signs Date Time Temp Pulse Resp B/P (MAP) Pulse Ox O2 Delivery O2 Flow Rate FiO2 05/19/19 13:00 122 05/19/19 12:00 97.0 66 18 153/79 (103) 95 Nasal Cannula 3.00 05/19/19 10:09 97 Nasal Cannula 2.00 05/19/19 08:00 97.8 76 18 132/85 (101) 96 Nasal Cannula 3.00 05/19/19 07:00 66 05/19/19 03:28 96.6 62 20 121/74 (90) 97 Nasal Cannula 2.00 05/19/19 02:18 95 Nasal Cannula 2.00 05/19/19 01:00 70 05/19/19 00:00 97.0 91 20 147/70 (95) 96 Nasal Cannula 2.00 05/18/19 22:05 94 Nasal Cannula 2.00 05/18/19 21:00 96 Nasal Cannula 2.00 05/18/19 20:46 97.9 99 22 137/84 (101) 93 Nasal Cannula 2.00 05/18/19 20:00 97 Nasal Cannula 3.00 05/18/19 19:00 100 05/18/19 16:14 97.8 98 20 107/65 (79) 97 Nasal Cannula 3.00 05/18/19 14:44 95 Nasal Cannula 3.00 I & O 05/19/19 07:00 Intake Total 4075.2 ml Output Total 1100 ml Balance 2975.2 ml Height & Weight Height: 6'0.00" Weight: 236lbs. 4.0oz. 107.639121ws; 30.5 BMI Method:Stated General Appearance: No Apparent Distress, WD/WN HEENT: PERRL/EOMI, Pharynx Normal Neck: Full Range of Motion, Non Tender, Supple Respiratory: Lungs Clear, Normal Breath Sounds, No Accessory Muscle Use, No Respiratory Distress, Decreased Breath Sounds Cardiovascular: Regular Rate, Rhythm, No Edema Capillary Refill: Less Than 3 Seconds Gastrointestinal: normal bowel sounds, non tender, soft Extremity: Normal Capillary Refill, Normal Range of Motion, No Pedal Edema Neurologic/Psychiatric: Alert, Oriented x3 Skin: Normal Color, Warm/Dry Lymphatic: No Adenopathy Results Lab Laboratory Tests 05/18/19 07:25 05/19/19 05:50 Assessment/Plan Assessment/Plan COPDAE (PT has home oxygen 3liters/min) - advair -svns -Solumedrol Dehydration - resolved CKD -Monitor Generalized weaknesss -PT/OT Elevated LFTs probably secondary to ETOH -Check US of RUQ -Hepatitis panel Alcohol dependance -Education -KAMALJIT protocol Chronic pain CHERY ROBERTS DO May 19, 2019 14:25
--- NOTE | 2019-05-19 15:49 | NUR ---
CM/SS, respond to consult. DME: Coordinated FWW with spouse/patient preferred agency, [facility] Agency understands to deliver to patient room so that PT can set up for patient height. Patient will return home with spouse at discharge. She indicated no other concerns at this time.
[2019-05-19 16:19] VITALS: BP 133/64
[2019-05-19 20:00] VITALS: BP 142/76
[2019-05-20 00:09] VITALS: BP 127/69
[2019-05-20] MEDS: methylPREDNISolone 40 MG/ML (Solu-MEDROL) VIAL IV SCH ×2 (02:49→09:03)
[2019-05-20] MEDS: RT-ALBUTEROL/IPRATROPIUM 3 ML (DUONEB) VIAL INH SCH ×2 (03:00→10:08)
[2019-05-20 04:27] VITALS: BP 118/65
[2019-05-20] MEDS: NS IV 1000 ML 1,000 ML IV SCH (05:19)
[2019-05-20 06:36] LABS: CALCIUM 8.9 MG/DL (8.5-10.1); CREATININE SERUM 1.77 MG/DL (0.60-1.30); POTASSIUM 4.5 MMOL/L (3.6-5.0)
[2019-05-20 08:00] VITALS: BP 126/74
--- NOTE | 2019-05-20 08:56 | Discharge Inst-Simple/Standard ---
Discharge Inst-Standard Patient Instructions/Follow Up Plan of Care/Instructions/FU: Please continue to take your medications as written. Please follow up with your PCP in the next week to follow up this hospital stay and for lab work to check your kidney function. Activity as Tolerated: Yes (Please use walker.) Discharge Diet: Cardiac Diet Return to The Hospital For: Chest pain, shortness of breath, confusion, weakness, fever, if you feel you are getting worse. CHRIS ACOSTA MD May 20, 2019 8:56 am
[2019-05-20] MEDS: GABAPENTIN 300 MG (NEURONTIN) CAP PO SCH (09:03)
[2019-05-20] MEDS: APIXABAN 5 MG (ELIQUIS) TABLET PO SCH (09:03)
[2019-05-20] MEDS ORDERED: PRED10TA22 PO (09:06)
[2019-05-20] MEDS ORDERED: FURO40TA4 PO (09:09)
--- NOTE | 2019-05-20 09:10 | NUR ---
CM/SS. Confirmed FWW has been delivered. Patient identifies no other needs and is ready to return home if discharged.
--- NOTE | 2019-05-20 09:16 | Discharge Summary ---
Diagnosis/Chief Complaint Date of Admission May 16, 2019 at 21:00 Date of Discharge Discharge Date: May 20, 2019 Admission Diagnosis 1. 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 Discussed the fact that the p atient's alcohol consumption is clearly excessive which he agrees with he is strongly advised to discontinue alcohol consumption. We'll be holding antihypertensive medication and continue IV fluid therapy with monitoring renal function. monitor for evidence of withdrawal and thiamine is been initiated IV. 2. Alcohol use disorder 3. Acute kidney injury again secondary to hypotension most likely Discharge Diagnosis (1) COPD exacerbation Status: Acute (2) Acute renal failure Status: Acute (3) Alcoholism Status: Acute (4) Atrial fibrillation Onset Date: 05/26/2015 Status: Acute (5) Elevated liver enzymes Status: Acute Discharge Summary Procedures/Consulations Dr Sandhu- Pulmonology Discharge Physical Exam Allergies: Coded Allergies: sulfamethoxazole (Verified Allergy, Severe, ANAPHYLAXIS, 07/11/12) trimethoprim (Verified Allergy, Severe, ANAPHYLAXIS, 07/11/12) levofloxacin (Verified Allergy, Intermediate, NAUSEA, 07/11/12) Vitals & I&Os Vital Signs Date Time Temp Pulse Resp B/P (MAP) Pulse Ox O2 Delivery O2 Flow Rate FiO2 05/20/19 12:55 05/20/19 10:15 96 Nasal Cannula 2.00 05/20/19 08:00 98.1 86 20 05/17/19 03:22 32 General Appearance: No Apparent Distress, WD/WN Cardiovascular: Regular Rate, Rhythm, No Murmur Hospital Course Pt was admitted for hypovolemia and EDWIGE. He was treated with IVF and creatinine slowly improved. He was seen by PT and was ambulatory with a walker. This was prescribed for discharge. He was on his baseline oxygen for his COPD. We did discuss his drinking habits and need to cut back as he is drinking an excessive amount. He is to follow up with Dr Bedoya. I called and discussed his case with Dr Bedoya. Labs (last 24 hrs) Microbiology 05/16/19 Blood Culture - Preliminary, Resulted No growth 05/16/19 Urine Culture - Final, Complete Enterococcus faecalis Gram Pos Mixed Bacterial Jackie Patient resulted labs reviewed. Pending Labs Discussion & Recommendations Discharge Planning: >30 minutes discharge planning Discharge Home Medications: Active Scripts Active Furosemide 40 Mg Tablet 40 Mg PO DAILY Prednisone 10 Mg Tab.ds.pk 10 Mg PO DAILY Take 6 tabs(60mg)daily,decrease by 1 tab(10mg)every other day. Reported Vitamin C (Ascorbic Acid) 500 Mg Capsule 500 Mg PO DAILY Klor-Con M10 (Potassium Chloride) 10 Meq Tab.er.prt 10 Meq PO BID Q-Ymybnz-x-Cysteine (Acetylcysteine) 600 Mg Capsule 600 Mg PO BID Vitamin E (Vitamin E Acetate) 400 Unit Capsule 400 Unit PO DAILY Beta Carotene (Beta-Carotene) 25,000 Unit Capsule 25,000 Unit PO DAILY Hydrocodon-Acetaminophn 10-325 (Hydrocodone/Acetaminophen) 1 Each Tablet 1 Tab PO Q6H PRN Alprazolam 1 Mg Tablet 0.5-1 Mg PO TID PRN Iprat-Albut 0.5-3(2.5) mg/3 ml (Ipratropium/Albuterol Sulfate) 3 Ml Ampul.neb 3 Ml NEB BID Doxazosin Mesylate 4 Mg Tablet 4 Mg PO BID Hydrocortisone 453.6 Gm Cream..g. TOP UD PRN Cetirizine HCl 10 Mg Tablet 10 Mg PO DAILY Montelukast Sodium 10 Mg Tablet 10 Mg PO HS Spiriva (Tiotropium Addison) 1 Inh Aerp 1 Cap INH DAILY Advair 500-50 Diskus (Fluticasone/Salmeterol) 1 Each Blst.w.dev 1 Puff INH BID Finasteride 5 Mg Tablet 5 Mg PO HS Combivent Respimat Inhal Disputanta (Albuterol/Ipratropium) 4 Gm Aero 1 Puff INH QID PRN Potassium Gluconate 595 MG (Potassium Gluconate) 99 Mg Tablet 99 Mg PO DAILY Complete Senior (Multivitamin W/Iron, Minerals) 1 Each Tablet 1 Tab PO DAILY Osteo Bi-Flex Tablet (Glucosamine/D3/Boswellia Anjali) 1 Each Tablet 1 Tab PO DAILY Calcium 600 + Vit D 200 Tablet (Calcium Carbonate/Vitamin D3) 1 Each Tablet 1 Tab PO DAILY B-12 (Cyanocobalamin (Vitamin B-12)) 2,500 Mcg Tab.subl 2,500 Mcg SL DAILY Pomegranate (Pomegranate Fruit Extract) 250 Mg Capsule 500 Mg PO DAILY Eliquis (Apixaban) 5 Mg Tablet 5 Mg PO BID Gabapentin 300 Mg Capsule 600 Mg PO BID TAKES 2 (300MG) CAPSULES Instructions to patient/family Please see electronic discharge instructions given to patient. Clinical Quality Measures DVT/VTE Risk/Contraindication: Risk Factor Score Per Nursin RFS Level Per Nursing on Admit: 4+=Very High Problem Qualifiers (1) Acute renal failure: Acute renal failure type: unspecified Qualified Codes: N17.9 - Acute kidney failure, unspecified (2) Atrial fibrillation: Atrial fibrillation type: chronic Qualified Codes: I48.2 - Chronic atrial fibrillation CHRIS ACOSTA MD May 20, 2019 09:16
[2019-05-20] MEDS: RT-ADVAIR HFA 115/21 MCG PER PUFF IH SCH (10:15)
--- NOTE | 2019-05-20 11:24 | Pulmonary Progress Note ---
Subjective Time Seen by a Provider: 11:20 Subjective/Events-last exam No complications noted. Sepsis Event Evaluation Height, Weight, BMI Height: 6'0.00" Weight: 241lbs. 9.0oz. 109.093871xx; 30.5 BMI Method:Stated Exam Exam Vital Signs Date Time Temp Pulse Resp B/P (MAP) Pulse Ox O2 Delivery O2 Flow Rate FiO2 05/20/19 10:15 96 Nasal Cannula 2.00 05/20/19 10:09 96 Nasal Cannula 2.00 05/20/19 09:00 Nasal Cannula 3.00 05/20/19 08:00 98.1 86 20 126/74 (91) 95 Nasal Cannula 3.00 05/20/19 07:00 95 05/20/19 04:27 96.9 64 20 118/65 (82) 96 Nasal Cannula 3.00 05/20/19 03:00 95 Nasal Cannula 2.00 05/20/19 01:00 77 05/20/19 00:09 97.3 78 20 127/69 (88) 96 Nasal Cannula 3.00 05/19/19 21:52 96 Nasal Cannula 2.00 05/19/19 21:40 Nasal Cannula 3.00 05/19/19 20:11 Nasal Cannula 3.00 05/19/19 20:00 98.1 78 18 142/76 (98) 98 Nasal Cannula 3.00 05/19/19 19:00 82 05/19/19 16:19 97.9 77 20 133/64 (87) 97 Nasal Cannula 3.00 05/19/19 13:00 122 05/19/19 12:00 97.0 66 18 153/79 (103) 95 Nasal Cannula 3.00 I & O 05/20/19 07:00 Intake Total 1615.2 ml Output Total 825 ml Balance 790.2 ml Height & Weight Height: 6'0.00" Weight: 241lbs. 9.0oz. 109.756499bx; 30.5 BMI Method:Stated General Appearance: No Apparent Distress, WD/WN HEENT: PERRL/EOMI, Pharynx Normal, Moist Mucous Membranes Neck: Full Range of Motion, Non Tender, Supple Respiratory: Chest Non Tender, No Accessory Muscle Use, No Respiratory Dis tress, Decreased Breath Sounds Cardiovascular: Regular Rate, Rhythm, No Murmur Capillary Refill: Less Than 3 Seconds Gastrointestinal: normal bowel sounds, non tender, soft Extremity: Normal Capillary Refill, No Pedal Edema Neurologic/Psychiatric: Alert, Oriented x3 Skin: Normal Color, Warm/Dry Lymphatic: No Adenopathy Results Lab Laboratory Tests 05/19/19 05:50 05/20/19 05:20 Assessment/Plan Assessment/Plan COPDAE (PT has home oxygen 3liters/min) - advair -svns -Solumedrol - change to prednisone taper Dehydration - resolved CKD -Monitor Generalized weaknesss -PT/OT Elevated LFTs probably secondary to ETOH Alcohol dependance -Education -KAMALJIT protocol Chronic pain CHERY ROBERTS DO May 20, 2019 11:24
== END 2019-05-20 11:09 | disposition home or self-care (01) | DRG 683 ==
LOC: EDUNIT# 19:26 → ER 19:27 → ICU 21:00 → 4TH 05-18 11:20
PROVIDERS: ADMIT Internal Medicine; ATTEND Internal Medicine
DX: N17.9 Acute kidney failure, unspecified (principal); E86.0 Dehydration; I95.9 Hypotension, unspecified; J44.1 Chronic obstructive pulmonary disease with (acute) exacerbation; E24.2 Drug-induced Cushing's syndrome; K70.10 Alcoholic hepatitis without ascites; I48.2 Chronic atrial fibrillation; I25.10 Atherosclerotic heart disease of native coronary artery without angina pectoris; F10.20 Alcohol dependence, uncomplicated; I12.9 Hypertensive chronic kidney disease with stage 1 through stage 4 chronic kidney disease, or unspecified chronic kidney disease; N18.9 Chronic kidney disease, unspecified; G89.29 Other chronic pain; E78.00 Pure hypercholesterolemia, unspecified; R05 Cough; R09.89 Other specified symptoms and signs involving the circulatory and respiratory systems; S80.01XA Contusion of right knee, initial encounter; S80.02XA Contusion of left knee, initial encounter; E66.9 Obesity, unspecified; I73.9 Peripheral vascular disease, unspecified; N40.0 Benign prostatic hyperplasia without lower urinary tract symptoms; N52.9 Male erectile dysfunction, unspecified; F41.9 Anxiety disorder, unspecified; W19.XXXA Unspecified fall, initial encounter; Z99.81 Dependence on supplemental oxygen; Z79.899 Other long term (current) drug therapy; Z68.31 Body mass index [BMI] 31.0-31.9, adult; Z79.01 Long term (current) use of anticoagulants; Z87.891 Personal history of nicotine dependence; Z79.891 Long term (current) use of opiate analgesic; T38.0X5A Adverse effect of glucocorticoids and synthetic analogues, initial encounter
CPT/HCPCS: 36415; 51702; 70450; 71045; 72125; 73523; 80048; 80053; 80074; 80306; 80320; 81000; 83605; 83735; 84484; 85007; 85025; 85027; 85610; 85730; 87040; 87077; 87088; 87186; 93005; 94640; 94760; 96374

== ENCOUNTER → 2019-08-05 | Outpatient (CLI) | payer MEDICARE, OTHER ==
[~2019-08-05] MED LIST changes: +ASCO500C17 PO; +FURO80TA3 PO; +POTA10TA14 PO; +PRED10TA22 PO
== END ==
LOC: WOUNDCARE 08:11
PROVIDERS: ATTEND Surgery
DX: L97.212 Non-pressure chronic ulcer of right calf with fat layer exposed (principal); I87.331 Chronic venous hypertension (idiopathic) with ulcer and inflammation of right lower extremity; I70.232 Atherosclerosis of native arteries of right leg with ulceration of calf; S81.002A Unspecified open wound, left knee, initial encounter; S51.002A Unspecified open wound of left elbow, initial encounter; J44.9 Chronic obstructive pulmonary disease, unspecified
CPT/HCPCS: 17250

== ENCOUNTER → 2019-08-10 | Outpatient (CLI) | payer MEDICARE, OTHER | LOC: WOUNDCARE 14:59 | PROVIDERS: ATTEND Surgery | DX: L97.212 Non-pressure chronic ulcer of right calf with fat layer exposed (principal); I87.331 Chronic venous hypertension (idiopathic) with ulcer and inflammation of right lower extremity; J44.9 Chronic obstructive pulmonary disease, unspecified; L92.8 Other granulomatous disorders of the skin and subcutaneous tissue; S81.002A Unspecified open wound, left knee, initial encounter; S51.002A Unspecified open wound of left elbow, initial encounter | CPT/HCPCS: 17250 ==

== ENCOUNTER → 2019-08-18 | Outpatient (CLI) | payer MEDICARE, OTHER | LOC: WOUNDCARE 12:46 | PROVIDERS: ATTEND Surgery | DX: I87.331 Chronic venous hypertension (idiopathic) with ulcer and inflammation of right lower extremity (principal); L97.212 Non-pressure chronic ulcer of right calf with fat layer exposed; I96 Gangrene, not elsewhere classified; S81.002A Unspecified open wound, left knee, initial encounter; S51.002A Unspecified open wound of left elbow, initial encounter; J44.9 Chronic obstructive pulmonary disease, unspecified; L92.8 Other granulomatous disorders of the skin and subcutaneous tissue | CPT/HCPCS: 17250 ==

== ENCOUNTER → 2019-08-24 | Outpatient (CLI) | payer MEDICARE, OTHER | LOC: WOUNDCARE 15:11 | PROVIDERS: ATTEND Surgery | DX: S81.002A Unspecified open wound, left knee, initial encounter (principal); S51.002A Unspecified open wound of left elbow, initial encounter; J44.9 Chronic obstructive pulmonary disease, unspecified | CPT/HCPCS: 99213 ==

== ENCOUNTER 2020-08-10 10:29 | Inpatient (IN) | payer MEDICARE, OTHER ==
[~2020-08-10] VITALS: Ht 182.9 cm; Wt 95.2 kg
[~2020-08-10 10:29] MED LIST changes: +ACHYD1T PO; -BETA2500 PO; -CALC-6 PO; +CALC1TAB84 PO; -HYDR-3820 PO; +MONT10TA26 PO; +[UNRECOGNIZED DRUG - CODE] PO
[2020-08-10] MEDS ORDERED: NOREPINEPHRINE 4 MG/250 ML 250 ML IV ONE (10:38)
[2020-08-10] MEDS ORDERED: LACTATED RINGERS 1,000 ML IV ONE ×3 (10:50→12:30)
[2020-08-10] MEDS ORDERED: FUROSEMIDE 40 MG/4 ML INJ (LASIX) ONE (10:53)
[2020-08-10 10:58] LABS: BASOPHILS # (AUTO) 0.1 10^3/uL (0.0-0.1); BASOPHILS % (AUTO) 0 % (0-10); EOSINOPHILS # (AUTO) 0.1 10^3/uL (0.0-0.3); EOSINOPHILS % (AUTO) 0 % (0-10); HEMATOCRIT 47 % (40-54); HEMOGLOBIN 15.2 g/dL (13.3-17.7); LYMPHOCYTES # (AUTO) 1.4 10^3/uL (1.0-4.0); LYMPHOCYTES % (AUTO) 6 % (12-44); MEAN CORPUSCULAR HEMOGLOBIN 34 pg (25-34); MEAN CORPUSCULAR HGB CONC 32 g/dL (32-36); MEAN CORPUSCULAR VOLUME 105 fL (80-99); MEAN PLATELET VOLUME 9.6 fL (9.0-12.2); MONOCYTES # (AUTO) 1.7 10^3/uL (0.0-1.0); MONOCYTES % (AUTO) 7 % (0-12); NEUTROPHILS # (AUTO) 19.6 10^3/uL (1.8-7.8); NEUTROPHILS % (AUTO) 85 % (42-75); PLATELET COUNT 160 10^3/uL (130-400); WHITE BLOOD COUNT 23.1 10^3/uL (4.3-11.0)
[2020-08-10] MEDS ORDERED: FUROSEMIDE 40 MG/4 ML INJ (LASIX) IVP ONE (11:00)
[2020-08-10 11:01] LABS: ALBUMIN 3.9 GM/DL (3.2-4.5); POTASSIUM 4.5 MMOL/L (3.6-5.0)
[2020-08-10 11:02] LABS: BILIRUBIN,URINE NEGATIVE (NEGATIVE); CLARITY,URINE CLEAR; COLOR,URINE YELLOW; GLUCOSE, URINE (UA) NEGATIVE (NEGATIVE); KETONES,URINE NEGATIVE (NEGATIVE); LEUKOCYTE ESTERASE ,URINE NEGATIVE (NEGATIVE); NITRITE,URINE NEGATIVE (NEGATIVE); PH,URINE 5.5 (5-9); PROTEIN,URINE NEGATIVE (NEGATIVE)
[2020-08-10 11:03] LABS: CALCIUM 9.2 MG/DL (8.5-10.1); INR 1.2 (0.8-1.4); PROTHROMBIN TIME PATIENT 15.7 SEC (12.2-14.7)
[2020-08-10 11:04] LABS: TOTAL PROTEIN 6.8 GM/DL (6.4-8.2)
[2020-08-10 11:06] LABS: BILIRUBIN,TOTAL 1.1 MG/DL (0.1-1.0)
[2020-08-10 11:07] LABS: CREATININE SERUM 1.24 MG/DL (0.60-1.30)
[2020-08-10 11:12] LABS: BACTERIA,URINE NEGATIVE /HPF; RBC,URINE RARE /HPF; SQUAMOUS EPITHELIAL CELL,UR RARE /HPF; WBC,URINE RARE /HPF
[2020-08-10] MEDS ORDERED: VANCOMYCIN INJECTION 2,000 MG in NS IV 500 ML 500 ML IV ONE (11:13)
[2020-08-10] MEDS ORDERED: CEFEPIME INJECTION 1,000 MG in WATER (STERILE) FOR INJECTION 10 ML IV ONE (11:15)
[2020-08-10 11:23] LABS: ANISOCYTOSIS SLIGHT; BAND NEUTROPHILS 19 %; LYMPHOCYTES % (MANUAL) 5 %; MONOCYTES % (MANUAL) 3 %; NEUTROPHILS % (MANUAL) 73 %
--- NOTE | 2020-08-10 11:23 | NUR ---
spoke with pts , updates given and questions answered. states she has no further questions or concerns at this time. Obtained phone numbers [phone] & [phone]
--- NOTE | 2020-08-10 11:25 | Diagnostic Imaging Report ---
INDICATION: Patient found down, sepsis. Frontal chest obtained at 11:08 a.m. is compared to 05/16/2019 FINDINGS: Heart is borderline in size. There is mild central vascular congestion. There is some patchy infiltrate in the right midlung and base is new compared to the prior study. Left lung is clear. There is no pneumothorax or pleural fluid. Right IJ central catheter tip overlies the upper SVC. IMPRESSION: New right-sided infiltrates are present, suspect for pneumonia. No pneumothorax or pleural fluid following right IJ catheter placement. Dictated by: Dictated on workstation # [id number]
[2020-08-10] MEDS ORDERED: methylPREDNISolone 125 MG (Solu-MEDROL) VIAL IV STA (11:28)
--- NOTE | 2020-08-10 11:28 | ED General ---
General Chief Complaint: Trauma-Non Activation Stated Complaint: FEVER/WEAKNESS Nursing Triage Note: pt arrived via cc ems from home with complaint of fall. pts in afib with hypotension. found down by this am Nursing Sepsis Screen: No Definite Risk Source of Information: Patient Exam Limitations: No Limitations History of Present Illness Date Seen by Provider: Aug 10, 2020 Time Seen by Provider: 10:30 Initial Comments Patient arrives by EMS from home with chief complaint that this morning while going around the house his found him laying on the floor. He's had some falls recently and has a new blackeye but his said he did not have yesterday on the left side. Patient does not largely contributory towards history but denies having any pain except for occasional leg cramps on the right side. He's not having any nausea or history of fevers chills cough or. He is short of breath. EMS reports they started an IV and he had very low blood pressure with what looked like A. fib RVR on the monitor. He is on Eliquis. He also takes Lasix. Patient does not require oxygen at baseline but sats were around 90-93% so he was started on 2 L by nasal cannula by EMS. He had a blood pressure of 60/40 and was initiated some IV fluids but they were concerned he was in heart failure so they only gave him 400 cc which started to bring his pressure up. Over the phone the reports that he got out of bed to go to the bathroom and she heard commotion and he had apparently fallen and crawl back into the bedroom trying to get to bed but will did not have the strength to get up to bed so she called EMS. No apparent loss of consciousness. Patient with a history of COPD, daily drinks at least 4 drinks of scotch every night as does his . Denies history of withdrawal symptoms. On benzodiazepines daily for anxiety. On opiates daily for chronic neck and joint pain. On Eliquis for atrial fibrillation. Patient of Dr. JONES. History of coronary disease with his last heart catheter showing significant stenosis in the mid LAD by Dr. Jasmine 2013. Echocardiogram by Dr. Rick showing 55-65% EF and concentric hypertrophy. Allergies and Home Medications Allergies Coded Allergies: sulfamethoxazole (Verified Allergy, Severe, ANAPHYLAXIS, 07/11/12) trimethoprim (Verified Allergy, Severe, ANAPHYLAXIS, 07/11/12) levofloxacin (Verified Allergy, Intermediate, NAUSEA, 07/11/12) Home Medications Albuterol Sulfate 18 Gm Hfa.aer.ad, 2 PUFF INH Q6H PRN for SHORTNESS OF BREATH, (Reported) Albuterol/Ipratropium 4 Gm Aero, 1 PUFF INH QID PRN for SHORTNESS OF BREATH, (Reported) Alprazolam 1 Mg Tablet, 0.5-1 MG PO TID PRN for ANXIETY, (Reported) Apixaban 5 Mg Tablet, 5 MG PO BID, (Reported) Ascorbic Acid 500 Mg Capsule, 500 MG PO DAILY, (Reported) Beta-Carotene 25,000 Unit Capsule, 25,000 UNIT PO DAILY, (Reported) Calcium Carbonate/Vitamin D3 1 Each Tablet, 1 TAB PO DAILY, (Reported) Cetirizine HCl 10 Mg Tablet, 10 MG PO DAILY, (Reported) Cyanocobalamin (Vitamin B-12) 2,500 Mcg Tab.subl, 2,500 MCG SL DAILY, (Reported) Doxazosin Mesylate 4 Mg Tablet, 8 MG PO HS, (Reported) TAKES 2 (4MG) TABS Finasteride 5 Mg Tablet, 5 MG PO HS, (Reported) Fluticasone/Vilanterol 1 Each Blst.w.dev, 1 PUFF INH DAILY, (Reported) Furosemide 40 Mg Tablet, 40 MG PO DAILY, (Reported) Gabapentin 300 Mg Capsule, 600 MG PO BID, (Reported) TAKES 2 (300MG) CAPS Glucosamine/D3/Boswellia Anjali 1 Each Tablet, 1 TAB PO DAILY, (Reported) Guaifenesin 600 Mg Tab.er.12h, 600 MG PO Q12H PRN for CONGESTION, (Reported) Hydrocodone/Acetaminophen 1 Each Tablet, 1 EA PO BID PRN for PAIN-MODERATE (5- 7), (Reported) Ipratropium/Albuterol Sulfate 3 Ml Ampul.neb, 3 ML NEB BID, (Reported) Montelukast Sodium 10 Mg Tablet, 10 MG PO HS, (Reported) Multivitamin W/Iron, Minerals 1 Each Tablet, 1 TAB PO DAILY, (Reported) Pomegranate Fruit Extract 250 Mg Capsule, 500 MG PO DAILY, (Reported) Potassium Chloride 10 Meq Capsule.er, 20 MEQ PO BID, (Reported) TAKES 2 (10MEQ) DAILY Potassium Gluconate 99 Mg Tablet, 99 MG PO DAILY, (Reported) Patient Home Medication List Home Medication List Reviewed: Yes Review of Systems Review of Systems Constitutional: see HPI (the patient has a difficult time giving any review of systems but per his these are as follows); No chills, No diaphoresis, No fever EENTM: No ear discharge, No ear pain Respiratory: cough, short of breath Cardiovascular: No chest pain, No edema Gastrointestinal: No abdominal pain, No nausea, No vomiting Genitourinary: No discharge, No dysuria Musculoskeletal: No back pain, No joint pain All Other Systems Reviewed Negative Unless Noted: Yes Past Wwyeodr-Qrsuaw-Gcpazg Hx Patient Social History Alcohol Use: Regular Use Alcohol Beverage of Choice: Scotch Recreational Drug Use: No Smoking Status: Former Smoker Type Used: Cigarettes Former Smoker, Quit: Aug 25, 2002 2nd Hand Smoke Exposure: No Recent Foreign Travel: No Contact w/Someone Who Travel: No Recent Infectious Disease Expo: No Recent Hopitalizations: No Immunizations Up To Date Date of Pneumonia Vaccine: May 17, 2018 Date of Influenza Vaccine: Jul 25, 2017 Past Medical History Surgeries: Yes Cardiac, Eye Surgery, Orthopedic Respiratory: Yes Pneumonia, COPD 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) Atrial Fibrillation, Chronic Edema/Swelling, Coronary Artery Disease, High Cholesterol, Hypertension, Peripheral Vascular Neurological: No Reproductive Disorders: No Genitourinary: Yes (E.D.) Benign Prostatic Hyperpl, Prostate Problems Gastrointestinal: No Musculoskeletal: Yes (CHRONIC NECK PAIN --S/P SURGERY 2007) Degenerate Disk Disease, Arthritis Endocrine: Yes (OBESITY; 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 9.0oz. [id number]; 29.00 BMI Method:Stated General Appearance: Chronically ill, Obese, Severe Distress Eyes: Bilateral Eye Normal Inspection, Bilateral Eye PERRL, Bilateral Eye EOMI HEENT: PERRL/EOMI, TMs Normal, Pharynx Normal, Moist Mucous Membranes, Other (multiple bruises of various ages all over his trunk and head with a relatively new left black eye. No proptosis. 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 Tested, Other (oriented to person and place but not time nor situation.) Skin: warm/dry, ecchymosis (various aged all over the body.) Focused Exam Sepsis Stage: Septic Shock Possible Source: Pulmonary Lactate Level 08/10/20 10:44: Lactic Acid Level 5.44*H 08/10/20 13:35: Lactic Acid Level 2.84*H Time of Focused Exam: 13:00 Respiratory: No Accessory Muscle Use, Rales, Respiratory Distress (mild), Whee zing (mild) Cardiovascular: Regular Rate, Rhythm, Normal Peripheral Pulses Capillary Refill: Less Than 3 Seconds Peripheral Pulses: 2+ Radial Pulses (R), 2+ Radial Pulses (L) Skin: normal color, warm/dry Lactic Acid Level Laboratory Tests Test 08/10/20 13:35 Lactic Acid Level 2.84 MMOL/L (0.50-2.00) *H Within 3hrs of presentation: Admin fluids, Admin ABX, Blood cultures prior to ABX's, Focus exam, Lactate level, Vasopressin therapy Progress/Results/Core Measures Suspected Sepsis Recent Fever Within 48 Hours: No Infection Criteria Present: None New/Unexplained Altered Menta: No Sepsis Screen: No Definite Risk SIRS Temperature: Pulse: 128 Respiratory Rate: 22 Laboratory Tests 08/10/20 10:44: White Blood Count 23.1H Blood Pressure 79 /44 Mean: 56 08/10/20 10:44: Lactic Acid Level 5.44*H 08/10/20 13:35: Lactic Acid Level 2.84*H Laboratory Tests 08/10/20 10:44: Creatinine 1.24, INR Comment 1.2, Platelet Count 160, Total Bilirubin 1.1H Results/Orders Lab Results Laboratory Tests Test 08/10/20 10:44 08/10/20 11:04 08/10/20 11:15 08/10/20 13:35 Range/Units White Blood Count 23.1 H 4.3-11.0 10^3/uL Red Blood Count 4.49 4.30-5.52 10^6/uL Hemoglobin 15.2 13.3-17.7 g/dL Hematocrit 47 40-54 % Mean Corpuscular Volume 105 H 80-99 fL Mean Corpuscular Hemoglobin 34 25-34 pg Mean Corpuscular Hemoglobin Concent 32 32-36 g/dL Red Cell Distribution Width 12.4 10.0-14.5 % Platelet Count 160 130-400 10^3/uL Mean Platelet Volume 9.6 9.0-12.2 fL Immature Granulocyte % (Auto) 1 % Neutrophils (%) (Auto) 85 H 42-75 % Lymphocytes (%) (Auto) 6 L 12-44 % Monocytes (%) (Auto) 7 0-12 % Eosinophils (%) (Auto) 0 0-10 % Basophils (%) (Auto) 0 0-10 % Neutrophils # (Auto) 19.6 H 1.8-7.8 10^3/uL Lymphocytes # (Auto) 1.4 1.0-4.0 10^3/uL Monocytes # (Auto) 1.7 H 0.0-1.0 10^3/uL Eosinophils # (Auto) 0.1 0.0-0.3 10^3/uL Basophils # (Auto) 0.1 0.0-0.1 10^3/uL Immature Granulocyte # (Auto) 0.3 H 0.0-0.1 10^3/uL Neutrophils % (Manual) 73 % Lymphocytes % (Manual) 5 % Monocytes % (Manual) 3 % Band Neutrophils 19 % Anisocytosis SLIGHT Macrocytosis MODERATE Prothrombin Time 15.7 H 12.2-14.7 SEC INR Comment 1.2 0.8-1.4 Activated Partial Thromboplast Time 30 24-35 SEC Urine Color YELLOW Urine Clarity CLEAR Urine pH 5.5 5-9 Urine Specific Eden 1.020 1.016-1.022 Urine Protein NEGATIVE NEGATIVE Urine Glucose (UA) NEGATIVE NEGATIVE Urine Ketones NEGATIVE NEGATIVE Urine Nitrite NEGATIVE NEGATIVE Urine Bilirubin NEGATIVE NEGATIVE Urine Urobilinogen 0.2 < = 1.0 MG/DL Urine Leukocyte Esterase NEGATIVE NEGATIVE Urine RBC (Auto) NEGATIVE NEGATIVE Urine RBC RARE /HPF Urine WBC RARE /HPF Urine Squamous Epithelial Cells RARE /HPF Urine Crystals NONE /LPF Urine Bacteria NEGATIVE /HPF Urine Casts NONE /LPF Urine Mucus NEGATIVE /LPF Urine Culture Indicated NO Sodium Level 144 135-145 MMOL/L Potassium Level 4.5 3.6-5.0 MMOL/L Chloride Level 98 98-107 MMOL/L Carbon Dioxide Level 27 21-32 MMOL/L Anion Gap 19 H 5-14 MMOL/L Blood Urea Nitrogen 13 7-18 MG/DL Creatinine 1.24 0.60-1.30 MG/DL Estimat Glomerular Filtration Rate 56 BUN/Creatinine Ratio 10 Glucose Level 198 H 70-105 MG/DL Lactic Acid Level 5.44 *H 2.84 *H 0.50-2.00 MMOL/L Calcium Level 9.2 8.5-10.1 MG/DL Corrected Calcium 9.3 8.5-10.1 MG/DL Phosphorus Level 4.0 2.3-4.7 MG/DL Magnesium Level 2.0 1.6-2.4 MG/DL Total Bilirubin 1.1 H 0.1-1.0 MG/DL Aspartate Amino Transf (AST/SGOT) 23 5-34 U/L Alanine Aminotransferase (ALT/SGPT) 14 0-55 U/L Alkaline Phosphatase 72 40-136 U/L Troponin I 0.037 H <0.028 NG/ML C-Reactive Protein High Sensitivity 1.49 H 0.00-0.50 MG/DL B-Type Natriuretic Peptide 153.1 H <100.0 PG/ML Total Protein 6.8 6.4-8.2 GM/DL Albumin 3.9 3.2-4.5 GM/DL Procalcitonin 0.20 H <0.10 NG/ML Serum Alcohol < 10 <10 MG/DL Coronavirus 2019 (ARMANI) Negative Negative Blood Gas Puncture Site Blood Gas Patient Temperature 96.8 Arterial Blood pH 7.27 *L 7.37-7.43 Arterial Blood Partial Pressure CO2 71 *H 35-45 MMHG Arterial Blood Partial Pressure O2 144 H 79-93 MMHG Arterial Blood HCO3 32 H 23-27 MMOL/L Arterial Blood Total CO2 34.1 H 21.0-31.0 MMOL/L Arterial Blood Oxygen Saturation 99 94-100 % Arterial Blood Base Excess 5.1 H -2.5-2.5 MMOL/L Paulo Test Blood Gas Ventilator Setting NO Blood Gas Inspired Oxygen 5 Urine Opiates Screen POSITIVE H NEGATIVE Urine Oxycodone Screen NEGATIVE NEGATIVE Urine Methadone Screen NEGATIVE NEGATIVE Urine Propoxyphene Screen NEGATIVE NEGATIVE Urine Barbiturates Screen NEGATIVE NEGATIVE Ur Tricyclic Antidepressants Screen NEGATIVE NEGATIVE Urine Phencyclidine Screen NEGATIVE NEGATIVE Urine Amphetamines Screen NEGATIVE NEGATIVE Urine Methamphetamines Screen NEGATIVE NEGATIVE Urine Benzodiazepines Screen POSITIVE H NEGATIVE Urine Cocaine Screen NEGATIVE NEGATIVE Urine Cannabinoids Screen NEGATIVE NEGATIVE Test 08/10/20 14:06 Range/Units Blood Gas Puncture Site RT RAD Blood Gas Patient Temperature 35.5 Arterial Blood pH 7.30 *L 7.37-7.43 Arterial Blood Partial Pressure CO2 66 H 35-45 MMHG Arterial Blood Partial Pressure O2 89 79-93 MMHG Arterial Blood HCO3 32 H 23-27 MMOL/L Arterial Blood Total CO2 34.2 H 21.0-31.0 MMOL/L Arterial Blood Oxygen Saturation 97 94-100 % Arterial Blood Base Excess 5.6 H -2.5-2.5 MMOL/L Paulo Test YES-POS Blood Gas Ventilator Setting NO Blood Gas Inspired Oxygen 45% Micro Results Microbiology 08/10/20 Influenza Types A,B Antigen (ANN) - Final, Complete My Orders Orders - THIAGO NGUYỄN Norepinephrine 4 Mg/250 Ml (Norepinephri (08/10/20 10:38) Covid 19 Inhouse Test (08/10/20 10:48) Coronavirus Sars-Cov-2 So 2018 (08/10/20 10:48) Cbc With Automated Diff (08/10/20 10:50) Comprehensive Metabolic Panel (08/10/20 10:50) Blood Culture (08/10/20 10:50) Sputum Culture (08/10/20 10:50) Urinalysis (08/10/20 10:50) Urine Culture (08/10/20 10:50) Protime With Inr (08/10/20 10:50) Partial Thromboplastin Time (08/10/20 10:50) Chest 1 View, Ap/Pa Only (08/10/20 10:50) Ed Iv/Invasive Line Start (08/10/20 10:50) Ed Iv/Invasive Line Start (08/10/20 10:50) Ekg Tracing (08/10/20 10:50) Vital Signs Adult Sepsis Patie Q15M (08/10/20 10:50) O2 (08/10/20 10:50) Remove Rings In Anticipation O (08/10/20 10:50) Lactic Acid Analyzer (08/10/20 10:50) Influenza A And B Antigens (08/10/20 10:50) Lactated Ringers (Lr 1000 Ml Iv Solution (08/10/20 10:50) Furosemide Injection (Lasix Injection) (08/10/20 10:53) Furosemide Injection (Lasix Injection) (08/10/20 11:00) Manual Differential (08/10/20 10:44) Procalcitonin (Pct) (08/10/20 11:13) Hs C Reactive Protein (08/10/20 11:13) Catheter(Urinary) Insert & Ass 03,15 (08/10/20 11:13) Ed Iv/Invasive Line Start (08/10/20 11:13) Vital Signs Adult Sepsis Patie Q15M (08/10/20 11:13) O2 (08/10/20 11:13) Remove Rings In Anticipation O (08/10/20 11:13) Cefepime Injection (Maxipime Injection) (08/10/20 11:15) Vancomycin Injection (Vancomycin Injecti (08/10/20 11:13) Arterial Blood Gas (08/10/20 11:13) Magnesium (08/10/20 11:13) Phosphorus (08/10/20 11:13) Troponin I (08/10/20 11:13) BNP (08/10/20 11:13) Bipap (Bilevel) Set Up (08/10/20 11:19) Albuterol/Ipra Inhalation Soln (Duoneb I (08/10/20 11:30) Methylprednisolone Sod Succ (Solu-Medrol (08/10/20 11:28) Svn Small Volume Nebulizer (08/10/20 11:28) Drug Screen Stat (Urine) (08/10/20 11:28) Methylprednisolone Sod Succ (Solu-Medrol (08/10/20 11:29) Alcohol (08/10/20 11:58) Ed Iv/Invasive Line Start (08/10/20 12:20) Lactated Ringers (Lr 1000 Ml Iv Solution (08/10/20 12:20) Lactated Ringers (Lr 1000 Ml Iv Solution (08/10/20 12:30) Ct Head/Face/Cervical Wo (08/10/20 12:35) Medications Given in ED Current Medications Medications Dose Ordered Sig/Antonio Route Start Time Stop Time Status Last Admin Dose Admin Albuterol/ Ipratropium 3 ml ONCE ONCE INH 08/10/20 11:30 08/10/20 11:31 DC 08/10/20 11:53 3 ML Cefepime HCl 1000 mg/Sterile Water 10 ml @ 200 mls/hr ONCE ONCE IV 08/10/20 11:15 08/10/20 11:19 DC 08/10/20 11:42 200 MLS/HR Furosemide 80 mg ONCE ONCE IVP 08/10/20 11:00 08/10/20 11:01 DC 08/10/20 11:04 80 MG Lactated Ringer's 1,000 ml @ 0 mls/hr Q0M ONCE IV 08/10/20 10:50 08/10/20 10:53 DC 08/10/20 10:55 999 MLS/HR Norepinephrine Bitartrate 250 ml @ ud STK-MED ONCE IV 08/10/20 10:38 08/10/20 10:40 DC 08/10/20 10:54 18.8 MLS/HR Vancomycin HCl 2000 mg/Sodium Chloride 500 ml @ 260 mls/hr 1113 ONCE IV 08/10/20 11:13 08/10/20 13:08 DC 08/10/20 11:42 260 MLS/HR Vital Signs/I&O 08/10/20 08/10/20 08/10/20 08/10/20 10:35 10:40 10:54 11:53 Temp 36.0 Pulse 128 128 117 Resp 22 19 B/P (MAP) 80/52 (61) 79/44 Pulse Ox 94 99 98 O2 Delivery Nasal Cannula O2 Flow Rate 5.00 45.00 08/10/20 08/10/20 08/10/20 13:09 13:41 14:00 Pulse 101 100 117 Resp 20 22 B/P (MAP) 111/77 Pulse Ox 99 98 O2 Flow Rate 45.00 Capillary Refill : Less Than 3 Seconds Blood Pressure Mean: 56 Progress Note : Time: 11:[address] head neck and face given the acuity of his black eye on the left side. No signs of basal skull fracture on physical examination. Pressures are stabilized on Levophed. Steroids, broad-spectrum antibiotics and given. Large infiltrate on the right upper lobe likely would be the source of his sepsis and shock however to be certain even though he has a negative screening COVID-19 we will send out for a COVID-19 confirmatory test. ECG Initial ECG Impression Date: Aug 10, 2020 Initial ECG Impression Time: 11:01 Initial ECG Rate: 127 Initial ECG Rhythm: A Fib/Flutter Initial ECG Intervals: QT (477) Initial ECG Impression: Atrial Fibrillation Initial ECG Comparisson: Unchanged Comment Atrial fibrillation with tachycardia. Diagnostic Imaging Diagonstic Imaging: Xray Plain Films/CT/US/NM/MRI: chest Comments [facility] [place] NAME: KAMINI CORTÉS Monscierge REC#: [id number] PT STATUS: REG ER : 1935 PHYSICIAN: THIAGO NGUYỄN MD ADMIT DATE: 08/10/20/ER Draft Date of Exam:08/10/20 CHEST 1 VIEW, AP/PA ONLY INDICATION: Patient found down, sepsis. Frontal chest obtained at 11:08 a.m. is compared to 05/16/2019 FINDINGS: Heart is borderline in size. There is mild central vascular congestion. There is some patchy infiltrate in the right midlung and base is new compared to the prior study. Left lung is clear. There is no pneumothorax or pleural fluid. Right IJ central catheter tip overlies the upper SVC. IMPRESSION: New right-sided infiltrates are present, suspect for pneumonia. No pneumothorax or pleural fluid following right IJ catheter placement. Dictated on workstation # [id number] Dict: 08/10/20 1122 Trans: 08/10/20 1124 [id number] Interpreted by: OCTAVIO ARGUELLO MD Electronically signed by: Reviewed: Reviewed by Me Diagonstic Imaging: CT Plain Films/CT/US/NM/MRI: facial bones, c-spine, head Comments [facility]. [place], [place] NAME: KAMINI CORTÉS Monscierge REC#: [id number] PT STATUS: ADM IN : 1935 PHYSICIAN: THIAGO NGUYỄN MD ADMIT DATE: 08/10/20/ICU Draft Date of Exam:08/10/20 CT HEAD/FACE/CERVICAL WO PROCEDURE: CT head, face, and cervical spine without contrast. TECHNIQUE: Multiple contiguous axial images were obtained through the head, neck, and facial bones without the use of intravenous contrast. Sagittal and coronal reformations through the cervical spine and facial bones were also performed. Auto Exposure Controls were utilized during the CT exam to meet ALARA standards for radiation dose reduction. INDICATION: Fall. Trauma. COMPARISON: CT head and cervical spine without contrast from 07/17/2019. CT neck without contrast from 05/16/2019. FINDINGS: CT HEAD AND MAXILLOFACIAL: Moderate generalized cerebral and cerebellar parenchymal volume loss. No intracranial hemorrhage, mass effect, hydrocephalus, or extra-axial fluid collection. Intracranial vascular calcifications. No CT evidence of territorial infarction. The skull base and calvarium are intact. Mild mucosal thickening in the maxillary sinuses. The mastoids are clear. Advanced degenerative changes in the right temporomandibular joint, moderate on the left. No maxillofacial fractures. The mandible is intact. CT CERVICAL SPINE: Grade 1 retrolisthesis of C3 on C4. Anterior fusion with interbody bone grafting at C4-C7. Hardware components are intact. Vertebral body heights are preserved. No fractures. Right IJ CVC. Diffuse groundglass opacities in the right upper lobe were at least present on the prior exams but are difficult to compare given they are not entirely included on any of the exams. IMPRESSION: 1. No acute intracranial or cervical spine CT findings. Chronic findings, as above. 2. Diffuse groundglass opacities in the right upper lobe are obscured by motion and not entirely included on the exam. Although these were likely present on the prior exams, they are not entirely included on any of the exams and are obscured by motion artifact. Recommend further evaluation with nonemergent noncontrast chest CT. Dictated on workstation # [id number] Dict: 08/10/20 1329 Trans: 08/10/20 1348 [id number] Interpreted by: BUSHRA GRAVES MD Electronically signed by: Reviewed: Reviewed by Me Critical Care Note Critical Care Start Time: 10:30 Stop Time: 11:30 Total Time (minutes) 60m Progress Patient arrived in acute respiratory distress with low blood pressure. He was fairly noncontributory history. We immediately established an IV, Thomas catheter, central line and Levophed peripherally. Initially we put him at 0.01 Elieser Enoch per kilogram per minute and were unsuccessful raising his pressure. We bumped that up to 0.2 mcg/kg/m which brought him up to a decent pressure and we titrated down to 0.15 mg/kg/m. He had received half a liter fluids by EMS and we initiated another liter bolus as he had low temperature of 96 and shortness of breath cough hypoxia, rails on the right side and wheezing bilaterally. Suspect pneumonia and COPD exacerbation. A septic workup including cefepime and vancomycin was initiated. COVID-19 swabs and an influenza swab were collected. As soon as they laid ultrasound to the patient's right internal jugular and saw that it was performed with fluid we discontinued the IV fluids and he received for probably 7-800 cc. In the hour he has been here he has put out 35 cc of urine. No evidence of UTI. Were going to get electrolytes. He's having some cramps in his right thigh and is more communicative now that he is getting his airway issues addressed. We initially put him on CPAP 10 which was helping his breathing significantly and hopefully helping push some of the fluid out of his lungs. When the ABG came back that showed acidemia with a fairly potent CO2 of 72. It was decided we should switch him over to BiPAP so we could move more volume and ventilate him. We put him on 15/7 initially. FiO2 of 0.60. Patient states his breathing is improved. We are going to give him a DuoNeb as well as Solu-Medrol 125 mg. Departure Communication (Admissions) Time/Spoke to Admitting Phy: 12:00 Discussed the case with Dr. Jones and she agrees to admit the patient to the ICU on IV antibiotics, Solu-Medrol. Call the results of the CT scan directly to her. She would like consultation with Dr. Sandhu. Time/Spoke to Consulting Phy: 12:15 Discussed the case with Dr. Sandhu and the plan to scan the patient on the way to the ICU. He agrees to consult on the case as pulmonology. Impression Primary Impression: Pneumonia Qualified Codes: J18.9 - Pneumonia, unspecified organism Additional Impressions: COPD exacerbation Acute on chronic respiratory failure with hypoxia and hypercapnia Septic shock Fall Qualified Codes: W19.XXXA - Unspecified fall, initial encounter Disposition: ADMITTED INPATIENT Condition: Critical Admissions Decision to Admit Reason: Admit from ER (General) Decision to Admit/Date: Aug 10, 2020 Time/Decision to Admit Time: 10:35 Departure-Patient Inst. Referrals: RAYA JONES MD (PCP) Primary Care Physician ALEKSANDR PIÑA DO (Family) Primary Care Physician THIAGO NGUYỄN Aug 10, 2020 11:28
[2020-08-10 11:29] LABS: ABG BASE EXCESS 5.1 MMOL/L (-2.5-2.5); ABG OXYGEN SATURATION 99 % (94-100); ABG PO2 144 MMHG (79-93); ABG TCO2 34.1 MMOL/L (21.0-31.0)
[2020-08-10] MEDS ORDERED: methylPREDNISolone 125 MG (Solu-MEDROL) VIAL ONE (11:29)
[2020-08-10 11:30] LABS: ABG PCO2 71 MMHG (35-45); ABG PH 7.27 (7.37-7.43); INSPIRED O2 5; PATIENT TEMP 96.8; VENTILATOR NO
[2020-08-10] MEDS ORDERED: RT-ALBUTEROL/IPRATROPIUM 3 ML (DUONEB) VIAL INH ONE (11:30)
--- NOTE | 2020-08-10 11:30 | NUR ---
out put since admission 40cc reported to
[2020-08-10 11:53] VITALS: BP 94/61
[2020-08-10 12:00] LABS: AMPHETAMINE SCREEN, URINE NEGATIVE (NEGATIVE); BARBITURATE SCREEN URINE NEGATIVE (NEGATIVE); BENZODIAZEPINES SCREEN URINE POSITIVE (NEGATIVE); CANNABINOID SCREEN, URINE NEGATIVE (NEGATIVE); COCAINE SCREEN URINE NEGATIVE (NEGATIVE); METHADONE STAT NEGATIVE (NEGATIVE); METHAMPHETAMINE SCREEN URINE S NEGATIVE (NEGATIVE); OPIATE SCREEN URINE POSITIVE (NEGATIVE); OXYCODONE STAT NEGATIVE (NEGATIVE); PROPOXYPHENE STAT NEGATIVE (NEGATIVE); TRICYCLIC ANTIDEPRESSANTS SCRE NEGATIVE (NEGATIVE)
--- NOTE | 2020-08-10 12:50 | NUR ---
45cc out put urine past hour
[2020-08-10] MEDS ORDERED: 1/2 NS IV SOLUTION 1,000 ML IV PRN (13:09)
[2020-08-10] MEDS ORDERED: LORazepam INJ 2 MG/ML (ATIVAN) VIAL IM/IV PRN (13:15)
[2020-08-10] MEDS ORDERED: ACETAMINOPHEN 650 MG SUPP (TYLENOL) PR PRN (13:15)
[2020-08-10] MEDS ORDERED: ONDANSETRON 4 MG (ZOFRAN) ORAL DISSOLVE TAB SL PRN (13:15)
[2020-08-10] MEDS ORDERED: EPINEPHrine 1 MG INJECTION 4 MG in NS (IVPB) 248 ML IV SCH (13:15)
[2020-08-10] MEDS ORDERED: ONDANSETRON 4 MG/2 ML (SDV) Z0FRAN IV PRN ×2 (13:15)
[2020-08-10] MEDS ORDERED: ANTACID SUSP 30 ML UDC (MYLANTA) PO PRN (13:15)
[2020-08-10] MEDS ORDERED: ACETAMINOPHEN 325 MG TABLET PO PRN (13:15)
[2020-08-10] MEDS ORDERED: SENNA W/DOCUSATE (SENOKOT S) TABLET PO PRN (13:15)
[2020-08-10] MEDS ORDERED: D5 1/2 NS 1000 ML IV SOLUTION 1,000 ML IV PRN (13:15)
--- NOTE | 2020-08-10 13:15 | NUR ---
CR 1.24; CR CL ~56; ACTUAL WT 100 KG; VANCO 2000 MG IV GIVEN IN ER; CONTINUE WITH VANCO 2000 MG IV Q24H X 3 DAYS
--- NOTE | 2020-08-10 13:48 | Diagnostic Imaging Report ---
PROCEDURE: CT head, face, and cervical spine without contrast. TECHNIQUE: Multiple contiguous axial images were obtained through the head, neck, and facial bones without the use of intravenous contrast. Sagittal and coronal reformations through the cervical spine and facial bones were also performed. Auto Exposure Controls were utilized during the CT exam to meet ALARA standards for radiation dose reduction. INDICATION: Fall. Trauma. COMPARISON: CT head and cervical spine without contrast from 07/17/2019. CT neck without contrast from 05/16/2019. FINDINGS: CT HEAD AND MAXILLOFACIAL: Moderate generalized cerebral and cerebellar parenchymal volume loss. No intracranial hemorrhage, mass effect, hydrocephalus, or extra-axial fluid collection. Intracranial vascular calcifications. No CT evidence of territorial infarction. The skull base and calvarium are intact. Mild mucosal thickening in the maxillary sinuses. The mastoids are clear. Advanced degenerative changes in the right temporomandibular joint, moderate on the left. No maxillofacial fractures. The mandible is intact. CT CERVICAL SPINE: Grade 1 retrolisthesis of C3 on C4. Anterior fusion with interbody bone grafting at C4-C7. Hardware components are intact. Vertebral body heights are preserved. No fractures. Right IJ CVC. Diffuse groundglass opacities in the right upper lobe were at least present on the prior exams but are difficult to compare given they are not entirely included on any of the exams. IMPRESSION: 1. No acute intracranial or cervical spine CT findings. Chronic findings, as above. 2. Diffuse groundglass opacities in the right upper lobe are obscured by motion and not entirely included on the exam. Although these were likely present on the prior exams, they are not entirely included on any of the exams and are obscured by motion artifact. Recommend further evaluation with nonemergent noncontrast chest CT. Dictated by: Dictated on workstation # [id number]
[2020-08-10 14:13] LABS: ABG BASE EXCESS 5.6 MMOL/L (-2.5-2.5); ABG OXYGEN SATURATION 97 % (94-100); ABG PCO2 66 MMHG (35-45); ABG PO2 89 MMHG (79-93); ABG TCO2 34.2 MMOL/L (21.0-31.0)
[2020-08-10 14:22] LABS: ALLENS TEST YES-POS; INSPIRED O2 45%; PATIENT TEMP 35.5; VENTILATOR NO
[2020-08-10] MEDS ORDERED: FURO40TA4 PO (15:34)
[2020-08-10] MEDS ORDERED: GABA300C PO (15:34)
[2020-08-10] MEDS ORDERED: POTA10CA43 PO (15:34)
[2020-08-10] MEDS ORDERED: HYDR-3820 PO (15:34)
[2020-08-10] MEDS ORDERED: ALBU18HF2 INH (15:34)
[2020-08-10] MEDS ORDERED: FLUT1BLS INH (15:34)
[2020-08-10] MEDS ORDERED: GUAI600T43 PO (15:36)
--- NOTE | 2020-08-10 15:37 | NUR ---
SPOKE WITH THE PT (MARIE) AND WENT THRU THE EXT MED HISTORY TO COMPLETE THE MED REC WHEN I SPOKE WITH MARIE SHE LET ME KNOW THAT PT TAKES POTASSIUM 10MEQ 2 TABS BID AND WHEN WE WERE GOING OVER THE OTC MEDS SHE REALIZED HE IS ALSO TAKING OTC POTASSIUM GLUC 99. I INCLUDED BOTH ON THE MED REC FOR DISCHARGE PURPOSES MARIE ALSO LET ME KNOW THAT PT USES VENTOLIN A RESCUE INHALER BUT ALSO USES COMBIVENT A RESCUE INHALER, AND ACCORDING TO MARIE SHE CANT CONVINCE HE TO NOT USE COMBIVENT OTC MEDS: MUCINEX OSTEO BI FLEX MTV VIT C VIT D3 VIT B12 BETA CAROTENE MAGNESIUM POTASSIUM GLUC MTV
[2020-08-10] MEDS ORDERED: MAGN400T39 PO (15:46)
--- NOTE | 2020-08-10 16:27 | Pulmonary Consultation ---
History of Present Illness History of Present Illness Date Seen by Provider: Aug 10, 2020 Time Seen by Provider: 16:22 Date of Admission Allergies and Home Medications Allergies Coded Allergies: sulfamethoxazole (Verified Allergy, Severe, ANAPHYLAXIS, 07/11/12) trimethoprim (Verified Allergy, Severe, ANAPHYLAXIS, 07/11/12) levofloxacin (Verified Allergy, Intermediate, NAUSEA, 07/11/12) Home Medications Albuterol Sulfate 18 Gm Hfa.aer.ad, 2 PUFF INH Q6H PRN for SHORTNESS OF BREATH, (Reported) Albuterol/Ipratropium 4 Gm Aero, 1 PUFF INH QID PRN for SHORTNESS OF BREATH, (Reported) Alprazolam 1 Mg Tablet, 0.5-1 MG PO TID PRN for ANXIETY, (Reported) Apixaban 5 Mg Tablet, 5 MG PO BID, (Reported) Ascorbic Acid 500 Mg Capsule, 500 MG PO DAILY, (Reported) Beta-Carotene 25,000 Unit Capsule, 25,000 UNIT PO DAILY, (Reported) Calcium Carbonate/Vitamin D3 1 Each Tablet, 1 TAB PO DAILY, (Reported) Cetirizine HCl 10 Mg Tablet, 10 MG PO DAILY, (Reported) Cyanocobalamin (Vitamin B-12) 2,500 Mcg Tab.subl, 2,500 MCG SL DAILY, (Reported) Doxazosin Mesylate 4 Mg Tablet, 8 MG PO HS, (Reported) TAKES 2 (4MG) TABS Finasteride 5 Mg Tablet, 5 MG PO HS, (Reported) Fluticasone/Vilanterol 1 Each Blst.w.dev, 1 PUFF INH DAILY, (Reported) Furosemide 40 Mg Tablet, 40 MG PO DAILY, (Reported) Gabapentin 300 Mg Capsule, 600 MG PO BID, (Reported) TAKES 2 (300MG) CAPS Glucosamine/D3/Boswellia Anjali 1 Each Tablet, 1 TAB PO DAILY, (Reported) Guaifenesin 600 Mg Tab.er.12h, 600 MG PO Q12H PRN for CONGESTION, (Reported) Hydrocodone/Acetaminophen 1 Each Tablet, 1 EA PO BID PRN for PAIN-MODERATE (5- 7), (Reported) Ipratropium/Albuterol Sulfate 3 Ml Ampul.neb, 3 ML NEB BID, (Reported) Magnesium Oxide 400 Mg Tablet, 400 MG PO DAILY, (Reported) Montelukast Sodium 10 Mg Tablet, 10 MG PO HS, (Reported) Multivitamin W/Iron, Minerals 1 Each Tablet, 1 TAB PO DAILY, (Reported) Pomegranate Fruit Extract 250 Mg Capsule, 500 MG PO DAILY, (Reported) Potassium Chloride 10 Meq Capsule.er, 20 MEQ PO BID, (Reported) TAKES 2 (10MEQ) DAILY Potassium Gluconate 99 Mg Tablet, 99 MG PO DAILY, (Reported) Past Opiorvr-Rnhmsa-Pppptu Hx Patient Social History Alcohol Use: Regular Use Number of Drinks Today: EE Alcohol Beverage of Choice: Scotch Recreational Drug Use: No Smoking Status: Former Smoker Type Used: Cigarettes Former Smoker, Quit: Aug 25, 2002 2nd Hand Smoke Exposure: No Recent Foreign Travel: No Contact w/Someone Who Travel: No Recent Infectious Disease Expo: No Recent Hopitalizations: No Immunizations Up To Date Date of Pneumonia Vaccine: May 17, 2018 Date of Influenza Vaccine: Jul 25, 2017 Past Medical History Surgeries: Yes Cardiac, Eye Surgery, Orthopedic Respiratory: Yes Pneumonia, COPD 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) Atrial Fibrillation, Chronic Edema/Swelling, Coronary Artery Disease, High Cholesterol, Hypertension, Peripheral Vascular Neurological: No Reproductive Disorders: No Genitourinary: Yes (E.D.) Benign Prostatic Hyperpl, Prostate Problems Gastrointestinal: No Musculoskeletal: Yes (CHRONIC NECK PAIN --S/P SURGERY 2007) Degenerate Disk Disease, Arthritis Endocrine: Yes (OBESITY; JUAN MANUEL'S FROM CHRONIC STEROID USE) HEENT: Yes Cataract Cancer: Yes Skin Psychosocial: Yes Anxiety Integumentary: No Blood Disorders: No Adverse Reaction/Blood Tranf: No Review of Systems Time Seen by Provider: 16:30 Sepsis Event Evaluation Height, Weight, BMI Height: 6'0.00" Weight: 241lbs. 9.0oz. 109.308544af; 29.00 BMI Method:Stated Exam Exam Vital Signs Date Time Temp Pulse Resp B/P (MAP) Pulse Ox O2 Delivery O2 Flow Rate FiO2 08/10/20 14:00 117 22 98 45.00 08/10/20 13:41 100 08/10/20 13:09 101 20 111/77 99 08/10/20 11:53 117 19 98 45.00 08/10/20 10:54 128 79/44 08/10/20 10:40 99 Nasal Cannula 5.00 08/10/20 10:35 36.0 128 22 80/52 (61) 94 Height & Weight Height: 6'0.00" Weight: 241lbs. 9.0oz. [id number]; 29.00 BMI Method:Stated General Appearance: Chronically ill, Obese, Severe Distress HEENT: PERRL/EOMI, TMs Normal, Pharynx Normal, Moist Mucous Membranes, Other (multiple bruises of various ages all over his trunk and head with a relatively new left black eye. No proptosis. No limitation of extraocular muscle movement.) Neck: Full Range of Motion, Normal Inspection Respiratory: No Accessory Muscle Use, Rales, Respiratory Distress (mild), Wheezing (mild) Cardiovascular: Regular Rate, Rhythm, Normal Peripheral Pulses Capillary Refill: Less Than 3 Seconds Peripheral Pulses: 2+ Radial Pulses (R), 2+ Radial Pulses (L) Extremity: Non Tender, No Calf Tenderness, Slow Capillary Refill, Other (acrocyanosis) Neurologic/Psychiatric: Alert, portrait consultant II-XII Norm as Tested, Other (oriented to person and place but not time nor situation.) Results Lab Laboratory Tests 08/10/20 10:44 Assessment/Plan Assessment/Plan Acute respiratory failure -Continue BiPAP HS -Trial pt to Vapotherm during the day keeping flow rate at 45 and titrate oxygen down for Sp02 90-92% -Influenza is negative -R/O COVID -Check CT of chest Pneumonia with severe sepsis -Septic protocol -IVF -Continue Vanco and Cefepime -Shah cultures Agitation - partly secondary to BiPAP -Will trial off Bipap to Vapotherm s/p Fall -CT head shows no acute change Metabolic lactic acidosis and dehydration -IVF -Continue to monitor NSTEMI probably secondary to hypoxia -Monitor -Telemetry -Trend troponins -Currently denies CP Obesity CHERY ROBERTS DO Aug 10, 2020 16:27
[2020-08-10] MEDS: ENOXAPARIN 40 MG/0.4 ML (LOVENOX) SYR SC SCH (17:01)
--- NOTE | 2020-08-10 17:10 | Diagnostic Imaging Report ---
PROCEDURE: CT chest without contrast. TECHNIQUE: Multiple contiguous axial images were obtained through the chest without the use of intravenous contrast. Auto Exposure Controls were utilized during the CT exam to meet ALARA standards for radiation dose reduction. INDICATION: Septic shock CT chest without contrast There is interstitial infiltrate in the right upper lobe with some scattered areas of alveolar consolidation. There are some similar but less pronounced changes in the posterior basilar and lateral basilar segments of the right lower lobe. There are 2 patchy consolidations of the left lung base. There is a tiny right pleural effusion layering out to a depth of less than a centimeter. There is no pneumothorax. There are emphysematous changes in the lungs. There is no hilar or mediastinal lymphadenopathy. There is calcific atherosclerosis of aorta but no aneurysm. IMPRESSION: COPD with emphysema. There is interstitial infiltrate in the right upper lobe with some scattered patchy alveolar consolidations in the right upper lobe and both lower lobes. Dictated by: Dictated on workstation # [id number]
[2020-08-10] MEDS: LACTATED RINGERS 1,000 ML IV SCH ×2 (17:33→18:54)
[2020-08-10] MEDS ORDERED: NS IV 1000 ML 1,000 ML ONE (17:55)
[2020-08-10] MEDS ORDERED: FLU QUAD HIGH DOSE 240 MCG/0.7 ML 2020-21 (FLUZONE) IM ONE (18:00)
[2020-08-10] MEDS: CEFEPIME 1,000 MG/SWFI 10 ML IV PUSH IV SCH ×4 (18:18→23:15)
[2020-08-10] MEDS: methylPREDNISolone 40 MG/ML (Solu-MEDROL) VIAL IV SCH ×2 (18:18→23:15)
[2020-08-10] MEDS: VASOPRESSIN INJECTION 20 UNIT in NS (IVPB) 100 ML IV SCH ×2 (18:54→19:55)
[2020-08-10] MEDS: NOREPINEPHRINE 4 MG/250 ML 250 ML IV SCH ×2 (18:54→19:50)
[2020-08-10] MEDS ORDERED: LACTATED RINGERS 1,000 ML IV SCH (19:30)
--- NOTE | 2020-08-10 20:32 | History & Physicial ---
History of Present Illness History of Present Illness Reason for visit/HPI PT IS AN 85 Y/O MALE WHO IS KNOWN TO ME FROM CLINIC. HE WAS SEEN IN CLINIC BY THE MERCHANDISING DIRECTOR ON 07/29/2020 WITH DX OF COPD EXACERBATION, GIVEN ORAL ANTIBIOTICS, STEROIDS AND INSTRUCTED ON INCREASE IN BREATHING TREATMENTS. HE STATES THAT HE FINISHED HIS ANTIBIOTICS ABOUT 4-5 DAYS AGO, AND WAS "FEELING GOOD". HE ADMITS THAT HE WAS DRINKING LAST NIGHT - USUALLY DRINKS 2 GLASSES OF SCOTCH AND LAST NIGHT HAD ONE OF SCOTCH AND ONE OF VODKA. HE REPORTS THAT HE GOT UP TO USE THE RESTROOM AND NOTICED THAT HIS OXYGEN WAS NOT ON HIS FACE WHEN HE WAS IN THE RESTROOM. HE REPORTS THAT HE BARELY GOT BACK TO BED AND GOT TO HIS OXYGEN...HE IS FUZZY ABOUT THE FULL DETAILS OF WHAT HAPPENED TO CAUSE HIM TO HAVE A BRUISE ON HIS FACE AND WHAT TRANSPIRED TO GET HIM TO THE HOSPITAL. HE STATES THAT HIS OXYGEN HAS BEEN "COMING OFF A LOT". Date of Admission Aug 10, 2020 at 12:15 Date Seen by a Provider: Aug 10, 2020 Time Seen by a Provider: 20:05 I consulted on this patient on 08/10/20 20:27 Attending Physician Raya Jones MD Admitting Physician Raya Jones MD Consult CRITICAL CARE/ PULMONOLOGY Allergies and Home Medications Allergies Coded Allergies: sulfamethoxazole (Verified Allergy, Severe, ANAPHYLAXIS, 07/11/12) trimethoprim (Verified Allergy, Severe, ANAPHYLAXIS, 07/11/12) levofloxacin (Verified Allergy, Intermediate, NAUSEA, 07/11/12) Home Medications Albuterol Sulfate 18 Gm Hfa.aer.ad, 2 PUFF INH Q6H PRN for SHORTNESS OF BREATH, (Reported) Albuterol/Ipratropium 4 Gm Aero, 1 PUFF INH QID PRN for SHORTNESS OF BREATH, (Reported) Alprazolam 1 Mg Tablet, 0.5-1 MG PO TID PRN for ANXIETY, (Reported) Apixaban 5 Mg Tablet, 5 MG PO BID, (Reported) Ascorbic Acid 500 Mg Capsule, 500 MG PO DAILY, (Reported) Beta-Carotene 25,000 Unit Capsule, 25,000 UNIT PO DAILY, (Reported) Calcium Carbonate/Vitamin D3 1 Each Tablet, 1 TAB PO DAILY, (Reported) Cetirizine HCl 10 Mg Tablet, 10 MG PO DAILY, (Reported) Cyanocobalamin (Vitamin B-12) 2,500 Mcg Tab.subl, 2,500 MCG SL DAILY, (Reported) Doxazosin Mesylate 4 Mg Tablet, 8 MG PO HS, (Reported) TAKES 2 (4MG) TABS Finasteride 5 Mg Tablet, 5 MG PO HS, (Reported) Fluticasone/Vilanterol 1 Each Blst.w.dev, 1 PUFF INH DAILY, (Reported) Furosemide 40 Mg Tablet, 40 MG PO DAILY, (Reported) Gabapentin 300 Mg Capsule, 600 MG PO BID, (Reported) TAKES 2 (300MG) CAPS Glucosamine/D3/Boswellia Anjali 1 Each Tablet, 1 TAB PO DAILY, (Reported) Guaifenesin 600 Mg Tab.er.12h, 600 MG PO Q12H PRN for CONGESTION, (Reported) Hydrocodone/Acetaminophen 1 Each Tablet, 1 EA PO BID PRN for PAIN-MODERATE (5- 7), (Reported) Ipratropium/Albuterol Sulfate 3 Ml Ampul.neb, 3 ML NEB BID, (Reported) Magnesium Oxide 400 Mg Tablet, 400 MG PO DAILY, (Reported) Montelukast Sodium 10 Mg Tablet, 10 MG PO HS, (Reported) Multivitamin W/Iron, Minerals 1 Each Tablet, 1 TAB PO DAILY, (Reported) Pomegranate Fruit Extract 250 Mg Capsule, 500 MG PO DAILY, (Reported) Potassium Chloride 10 Meq Capsule.er, 20 MEQ PO BID, (Reported) TAKES 2 (10MEQ) DAILY Potassium Gluconate 99 Mg Tablet, 99 MG PO DAILY, (Reported) Patient Home Medication List Home Medication List Reviewed: Yes Past Rkfuubl-Mmbmcr-Bkonpq Hx Patient Social History Marrital Status: Living Status: LIVES WITH SPOUSE IN THEIR HOME IN [place] Employed/Student: retired Alcohol Use: Regular Use Alcohol Beverage of Choice: Scotch (AT LEAST 2 A NIGHT) Recreational Drug Use: No Smoking Status: Former Smoker Former Smoker, Quit: Aug 25, 2002 Type Used: Cigarettes 2nd Hand Smoke Exposure: No Physical Abuse Screen: No Sexual Abuse: No Recent Foreign Travel: No Contact w/other who traveled: No Recent Hopitalizations: No Recent Infectious Disease Expo: No Immunizations Up To Date Date of Pneumonia Vaccine: Oct 21, 2016 Date of Influenza Vaccine: Jul 25, 2017 Surgeries Yes Cardiac, Eye Surgery, Orthopedic Respiratory Yes Cardiovascular Yes (CAROTID AND PERIPHERAL VASCULAR DISEASE) Atrial Fibrillation, Chronic Edema/Swelling, Coronary Artery Disease, High Cholesterol, Hypertension, Peripheral Vascular Neurological No Reproductive System Hx Reproductive Disorders: No Genitourinary Yes (E.D.) Benign Prostatic Hyperpl, Prostate Problems Gastrointestinal No Musculoskeletal Yes (CHRONIC NECK PAIN --S/P SURGERY 2007) Degenerate Disk Disease, Arthritis Endocrine History of Endocrine Disorders: Yes (OBESITY; JUAN MANUEL'S FROM CHRONIC STEROID USE) HEENT History of HEENT Disorders: Yes HEENT Disorders: Cataract Loss of Vision: Denies Hearing Impairment: Hard of Hearing Cancer Yes Skin Psychosocial History of Psychiatric Problem: Yes Behavioral Health Disorders: Anxiety Integumentary History of Skin or Integumenta: No Blood Transfusions History of Blood Disorders: No Adverse Reaction to a Blood Tr: No Reviewed Nursing Assessment Reviewed/Agree w Nursing PMH: Yes Family Medical History Significant Family History: Hypertension Review of Systems Constitutional: No chills, No fever; malaise, weakness EENTM: hearing loss; No hoarseness, No throat pain Respiratory: cough, dyspnea on exertion, short of breath Cardiovascular: No chest pain; Hx of Intervention Gastrointestinal: No abdominal pain, No constipation, No diarrhea, No loss of appetite, No nausea, No vomiting Genitourinary: nocturia Musculoskeletal: back pain, muscle weakness Skin: no symptoms reported Psychiatric/Neurological: Weakness All Other Systems Reviewed Negative Unless Noted: Yes Physical Exam Vital Signs Vital Signs - First Documented 08/10/20 08/10/20 08/10/20 10:35 10:40 16:53 Temp 36.0 Pulse 128 Resp 22 B/P (MAP) 80/52 (61) Pulse Ox 94 O2 Delivery Nasal Cannula O2 Flow Rate 5.00 FiO2 30 Capillary Refill : Less Than 3 Seconds Height, Weight, BMI Height: 6'0.00" Weight: 241lbs. 9.0oz. 109.132493kk; 30.70 BMI Method:Stated General Appearance: No Apparent Distress, WD/WN, Other (BRUISING OVER LEFT EYE FROM FALL) Eyes: Bilateral Eye Normal Inspection, Bilateral Eye PERRL, Bilateral Eye EOMI HEENT: PERRL/EOMI Neck: Full Range of Motion, Normal Inspection, Non Tender, Supple Respiratory: Chest Non Tender, Decreased Breath Sounds Cardiovascular: Regular Rate, Rhythm Gastrointestinal: Normal Bowel Sounds, No Organomegaly, Non Tender, Soft Rectal: Deferred Extremity: Slow Capillary Refill (CLUBBING OF FINGERS/TOES - CHRONICALLY DECREASED CAP REFILL), Other (TRACE PEDAL EDEMA, ) Neurologic/Psychiatric: Alert, Oriented x3, No Motor/Sensory Deficits, Normal Mood/Affect, magnet placer II-XII Norm as Tested Skin: Warm/Dry, Cool; No Cyanosis; Ecchymosis (OVER LEFT EYE) Assessment/Plan Assessment and Plan SEPTIC SHOCK PNEUMONIA BILATERAL LOBES AND RIGHT UPPER LOBE COPD EXACERBATION WITH EMPHYSEMA LEUKOCYTOSIS LACTIC ACIDOSIS RESPIRATORY FAILURE HYPOTENSION CHRONIC ATRIAL FIBRILLATION CHRONIC ATICOAGUATION WITH NOAC BPH ALCOHOLISM CHRONIC PAIN SYNDROME CHRONIC ANXIETY SEPTIC SHOCK DUE TO PNEUMONIA BILATERAL LOBES AND RIGHT UPPER LOBE WITH COPD EXACERBATION WITH EMPHYSEMA WITH RESPIRATORY FAILURE CT CHEST FOLLOWS: IMPRESSION: COPD with emphysema. There is interstitial infiltrate in the right upper lobe with some scattered patchy alveolar consolidations in the right upper lobe and both lower lobes. - CONTINUE WITH VAPOTHERM LEUKOCYTOSIS - PT HAS BEEN ON STEROIDS - SOME OF THE ELEVATED WHITE COUNT MAY BE DUE TO RECENT STEROID USE - MONITOR LABS CLOSELY. LACTIC ACIDOSIS - CONTINUE WITH OXYGEN SUPPORT, SERIAL LACTIC ACID LEVELS UNTIL NUMBERS IMPROVE - CONTINUE WITH IV FLUIDS HYPOTENSION - IMPROVED WITH FLUIDS, PRESSURE IMPROVED ON PRESSORS - THESE HAVE BEEN SUCCESSFULLY WEANED OFF OF PATIENT. CHRONIC ATRIAL FIBRILLATION WITH CHRONIC ATICOAGUATION WITH NOAC - PT ON LOVENOX, WILL CHANGE TO ORAL ELIQUIS TOMORROW - HOLD MEDICATIONS FOR NOW. BPH - HOLD HOME REGIMEN TONIGHT. ALCOHOLISM AND CHRONIC PAIN SYNDROME - HOLD PAIN MEDICATION TONIGHT - PT ON CIWA WITHDRAWAL REGIMEN FOR ALCOHOL CHRONIC ANXIETY - HOLD ANXIOLYTICS - PT HAS BEEN WEANING OFF OF THESE SINCE HE IS TAKING CHRONIC PAIN MEDICATIONS. PT IS DNR/DNI WAITING ON FINAL COVID TESTING - INITIAL TEST NEGATIVE IN ER. DVT PROPHYLAXIS WITH LOVENOX GI PROPHYLAXIS WITH PEPCID Admission Diagnosis SEPTIC SHOCK PNEUMONIA BILATERAL LOBES AND RIGHT UPPER LOBE COPD EXACERBATION WITH EMPHYSEMA LEUKOCYTOSIS LACTIC ACIDOSIS RESPIRATORY FAILURE HYPOTENSION CHRONIC ATRIAL FIBRILLATION CHRONIC ATICOAGUATION WITH NOAC BPH ALCOHOLISM CHRONIC PAIN SYNDROME CHRONIC ANXIETY Admission Status: Inpatient Order (span 2 midnights) Reason for Inpatient Admission: INPATIENT ADMISSION FOR AT LEAST 72 HOURS FOR SEPTIC SHOCK, RESPIRATORY FAILURE, PNEUMONIA COPD EXACERBATION Clinical Quality Measures DVT/VTE Risk/Contraindication: Risk Factor Score Per Nursin RFS Level Per Nursing on Admit: 4+=Very High RAYA JONES MD Aug 10, 2020 20:32
[2020-08-10] MEDS ORDERED: guaiFENesin (MUCINEX) 600 MG TAB PO PRN (20:45)
[2020-08-10] MEDS ORDERED: GABAPENTIN 300 MG (NEURONTIN) CAP ONE (21:06)
[2020-08-10] MEDS ORDERED: FAMOTIDINE 20 MG (PEPCID) TABLET ONE (21:06)
[2020-08-10] MEDS: MAGNESIUM OXIDE (MAG-OX)400 MG TAB PO SCH (21:14)
[2020-08-10] MEDS: GABAPENTIN 300 MG (NEURONTIN) CAP PO SCH (21:14)
[2020-08-10] MEDS: MONTELUKAST 10 MG (SINGULAIR) TAB PO SCH (21:14)
[2020-08-10] MEDS: FAMOTIDINE 20 MG (PEPCID) TABLET PO SCH (21:14)
[2020-08-10] MEDS: LORazepam 1 MG (ATIVAN) TAB PO PRN (21:23)
--- NOTE | 2020-08-10 23:15 | NUR ---
Patient refused to wear BiPap at this time.
[2020-08-11] MEDS: ENOXAPARIN 40 MG/0.4 ML (LOVENOX) SYR SC SCH ×2 (01:41→13:03)
[2020-08-11] MEDS: NOREPINEPHRINE 4 MG/250 ML 250 ML IV SCH ×4 (01:41→22:55)
[2020-08-11 01:59] LABS: BASOPHILS % (AUTO) 0 % (0-10); HEMOGLOBIN 13.6 g/dL (13.3-17.7); MEAN CORPUSCULAR VOLUME 104 fL (80-99); MONOCYTES # (AUTO) 0.5 10^3/uL (0.0-1.0); MONOCYTES % (AUTO) 2 % (0-12)
[2020-08-11 02:00] LABS: EOSINOPHILS # (AUTO) 0.1 10^3/uL (0.0-0.3); EOSINOPHILS % (AUTO) 0 % (0-10); HEMATOCRIT 42 % (40-54); LYMPHOCYTES # (AUTO) 0.7 10^3/uL (1.0-4.0); LYMPHOCYTES % (AUTO) 4 % (12-44); MEAN CORPUSCULAR HEMOGLOBIN 34 pg (25-34); MEAN CORPUSCULAR HGB CONC 33 g/dL (32-36); MEAN PLATELET VOLUME 9.5 fL (9.0-12.2); NEUTROPHILS # (AUTO) 18.4 10^3/uL (1.8-7.8); NEUTROPHILS % (AUTO) 93 % (42-75); PLATELET COUNT 140 10^3/uL (130-400); WHITE BLOOD COUNT 19.9 10^3/uL (4.3-11.0)
[2020-08-11 02:28] LABS: BUN/CREATININE RATIO 15; CALCIUM 8.1 MG/DL (8.5-10.1); CARBON DIOXIDE 27 MMOL/L (21-32); CHLORIDE 96 MMOL/L (98-107); CREATININE SERUM 0.97 MG/DL (0.60-1.30); GFR ESTIMATED > 60; GLUCOSE 172 MG/DL (70-105); PHOSPHORUS 2.9 MG/DL (2.3-4.7); POTASSIUM 4.7 MMOL/L (3.6-5.0); SODIUM 135 MMOL/L (135-145)
[2020-08-11] MEDS: LACTATED RINGERS 1,000 ML IV SCH ×2 (02:41→05:28)
[2020-08-11] MEDS: VASOPRESSIN INJECTION 20 UNIT in NS (IVPB) 100 ML IV SCH ×3 (02:41→22:55)
[2020-08-11] MEDS: methylPREDNISolone 40 MG/ML (Solu-MEDROL) VIAL IV SCH ×4 (05:29→23:46)
[2020-08-11] MEDS: CEFEPIME 1,000 MG/SWFI 10 ML IV PUSH IV SCH ×8 (05:29→23:46)
--- NOTE | 2020-08-11 05:47 | Pulmonary Progress Note ---
Sepsis Event Evaluation Height, Weight, BMI Height: 6'0.00" Weight: 241lbs. 9.0oz. 109.287270xh; 30.70 BMI Method:Stated Focused Exam Lactate Level 08/10/20 18:35: Lactic Acid Level 2.01*H 08/10/20 21:02: Lactic Acid Level 2.26*H 08/10/20 23:25: Lactic Acid Level 1.50 Time of Focused Exam: 13:00 Exam Exam Vital Signs Date Time Temp Pulse Resp B/P (MAP) Pulse Ox O2 Delivery O2 Flow Rate FiO2 08/11/20 05:00 56 13 121/81 97 Vapotherm 40.00 30.00 08/11/20 04:00 63 20 116/78 96 Vapotherm 40.00 30.00 08/11/20 03:39 96 Vapotherm 40.00 30 08/11/20 03:00 59 17 113/74 96 Vapotherm 40.00 30.00 08/11/20 02:00 62 16 108/65 96 Vapotherm 40.00 30.00 08/11/20 01:00 72 17 95/73 96 Vapotherm 40.00 30.00 08/11/20 00:39 67 08/11/20 00:00 71 17 100/62 95 Vapotherm 40.00 30.00 08/10/20 23:20 36.6 Vapotherm 40.00 30.00 08/10/20 23:00 71 19 115/68 97 Vapotherm 40.00 30.00 08/10/20 22:27 97 Vapotherm 40.00 30 08/10/20 22:00 80 37 125/87 96 Vapotherm 40.00 30.00 08/10/20 21:00 83 17 130/92 97 Vapotherm 40.00 30.00 08/10/20 21:00 97 Vapotherm 30.00 40 08/10/20 20:00 36.2 84 135/77 Vapotherm 40.00 30.00 08/10/20 20:00 81 39 121/88 95 Vapotherm 40.00 30.00 08/10/20 19:09 90 08/10/20 18:58 97 Vapotherm 40.00 30 08/10/20 18:00 92 79/47 92 NIV Bilevel 30.00 08/10/20 17:00 106 127/83 86 NIV Bilevel 30.00 08/10/20 16:53 97 Vapotherm 40.00 30 08/10/20 16:00 90 138/110 97 NIV Bilevel 30.00 08/10/20 15:00 92 122/72 94 NIV Bilevel 30.00 08/10/20 14:00 117 22 98 45.00 08/10/20 13:45 108 133/82 97 NIV Bilevel 30.00 08/10/20 13:41 100 08/10/20 13:23 100 NIV Bilevel 30.00 08/10/20 13:09 101 20 111/77 99 08/10/20 11:53 117 19 98 45.00 08/10/20 10:54 128 79/44 08/10/20 10:40 99 Nasal Cannula 5.00 08/10/20 10:35 36.0 128 22 80/52 (61) 94 I & O 08/11/20 07:00 Intake Total 5850 ml Output Total 1325 ml Balance 4525 ml Height & Weight Height: 6'0.00" Weight: 241lbs. 9.0oz. 109.694180tw; 30.70 BMI Method:Stated General Appearance: No Apparent Distress, WD/WN, Other (BRUISING OVER LEFT EYE FROM FALL) HEENT: PERRL/EOMI Neck: Full Range of Motion, Normal Inspection, Non Tender, Supple Respiratory: Chest Non Tender, Decreased Breath Sounds Cardiovascular: Regular Rate, Rhythm Capillary Refill: Less Than 3 Seconds Peripheral Pulses: 2+ Radial Pulses (R), 2+ Radial Pulses (L) Extremity: Slow Capillary Refill (CLUBBING OF FINGERS/TOES - CHRONICALLY DECREASED CAP REFILL), Other (TRACE PEDAL EDEMA, ) Neurologic/Psychiatric: Alert, Oriented x3, No Motor/Sensory Deficits, Normal Mood/Affect, hot box spotter II-XII Norm as Tested Skin: Warm/Dry, Cool; No Cyanosis; Ecchymosis (OVER LEFT EYE) Results Lab Laboratory Tests 08/10/20 10:44 08/11/20 01:45 Assessment/Plan Assessment/Plan Acute respiratory failure -Continue BiPAP HS -Pt is now on Vapotherm - refusing BiPAP -Repeat ABG. -Influenza is negative -R/O COVID - CT of chest - reviewed -Pt will need a repeat CT of chest 8 wks after discharge to ensure complete resolution. Pneumonia with severe sepsis -Septic protocol -IVF -Continue Vanco and Cefepime -Shah cultures Alcohol dependance -CIWA. Agitation - partly secondary to BiPAP -Will trial off Bipap to Vapotherm s/p Fall -CT head shows no acute change Metabolic lactic acidosis and dehydration -IVF -Continue to monitor NSTEMI probably secondary to hypoxia -Monitor -Telemetry -Trend troponins -Currently denies CP Obesity CHERY ROBERTS DO Aug 11, 2020 05:47
[2020-08-11 07:28] LABS: ABG BASE EXCESS 4.5 MMOL/L (-2.5-2.5); ABG OXYGEN SATURATION 98 % (94-100); ABG PCO2 54 MMHG (35-45); ABG PH 7.36 (7.37-7.43); ABG PO2 88 MMHG (79-93); ABG TCO2 31.7 MMOL/L (21.0-31.0)
[2020-08-11 07:29] LABS: ALLENS TEST POSITIVE; INSPIRED O2 40 L; PATIENT TEMP 95.8; VENTILATOR NO
[2020-08-11] MEDS: MULTIVIT W/MINERALS TAB (THERAGRAN M) PO SCH (07:50)
[2020-08-11] MEDS: THIAMINE 100 MG (VITAMIN B-1) TAB PO SCH (07:50)
[2020-08-11] MEDS: HYDROcodone/APAP 10 MG/325 MG (LORTAB) TAB PO PRN (07:51)
[2020-08-11] MEDS: ADVAIR HFA 115/21 MCG INHALER 8 GM IH SCH (07:57)
[2020-08-11] MEDS: FAMOTIDINE 20 MG (PEPCID) TABLET PO SCH ×2 (08:04→21:24)
[2020-08-11] MEDS: MAGNESIUM OXIDE (MAG-OX)400 MG TAB PO SCH ×2 (08:05→21:24)
[2020-08-11] MEDS: FOLIC ACID 1 MG TAB PO SCH (08:05)
[2020-08-11] MEDS: GABAPENTIN 300 MG (NEURONTIN) CAP PO SCH ×2 (08:05→21:26)
--- NOTE | 2020-08-11 08:37 | Progress Note ---
Subjective Subjective Date Seen by Provider: Aug 11, 2020 Time Seen by Provider: 08:10 PT REPORTS THAT HE IS FEELING BETTER TODAY - HE DENIES CHEST PAIN, HAS CHRONIC SHORTNESS OF BREATH. HE DENIES ABDOMINAL PAIN, NAUSEA, CONSTIPATION. HE DENIES REFLUX SYMPTOMS. HE STATES THAT HE HAS NOT HAD ANY WITHDRAWAL SYMPTOMS. Review of Systems General: No Chills; Fatigue HEENT: No Head Aches, No Dysphasia Pulmonary: Dyspnea, Cough Cardiovascular: No: Chest Pain, Palpitations Gastrointestinal: No: Nausea, Abdominal Pain, Diarrhea, Constipation Genitourinary: Other (LUNA IN PLACE) Neurological: Weakness, Confusion (INTERMITTENT) All Other Systems Reviewed All Other Systems Reviewed: Yes Objective Exam Vital Signs Vital Signs - First Documented 08/10/20 08/10/20 08/10/20 10:35 10:40 16:53 Temp 36.0 Pulse 128 Resp 22 B/P (MAP) 80/52 (61) Pulse Ox 94 O2 Delivery Nasal Cannula O2 Flow Rate 5.00 FiO2 30 Capillary Refill : Less Than 3 Seconds General Appearance: No Apparent Distress, WD/WN, Other (BRUISING OVER LEFT EYE FROM FALL) Eyes: Bilateral Eye Normal Inspection, Bilateral Eye PERRL, Bilateral Eye EOMI HEENT: PERRL/EOMI Neck: Full Range of Motion, Normal Inspection, Non Tender, Supple Respiratory: Chest Non Tender, Decreased Breath Sounds Cardiovascular: Regular Rate, Rhythm Gastrointestinal: Normal Bowel Sounds, No Organomegaly, Non Tender, Soft Rectal: Deferred Extremity: Slow Capillary Refill (CLUBBING OF FINGERS/TOES - CHRONICALLY DECREASED CAP REFILL), Other (TRACE PEDAL EDEMA, ) Neurologic/Psychiatric: Alert, Oriented x3, No Motor/Sensory Deficits, Normal Mood/Affect, second rigger II-XII Norm as Tested Skin: Warm/Dry, Cool; No Cyanosis; Ecchymosis (OVER LEFT EYE) Results Lab Laboratory Tests 08/10/20 10:44: White Blood Count 23.1H, Red Blood Count 4.49, Hemoglobin 15.2, Hematocrit 47, Mean Corpuscular Volume 105H, Mean Corpuscular Hemoglobin 34, Mean Corpuscular Hemoglobin Concent 32, Red Cell Distribution Width 12.4, Platelet Count 160, Mean Platelet Volume 9.6, Immature Granulocyte % (Auto) 1, Neutrophils (%) (Auto) 85H, Lymphocytes (%) (Auto) 6L, Monocytes (%) (Auto) 7, Eosinophils (%) (Auto) 0, Basophils (%) (Auto) 0, Neutrophils # (Auto) 19.6H, Lymphocytes # (Auto) 1.4, Monocytes # (Auto) 1.7H, Eosinophils # (Auto) 0.1, Basophils # (Auto) 0.1, Immature Granulocyte # (Auto) 0.3H, Neutrophils % (Manual) 73, Lymphocytes % (Manual) 5, Monocytes % (Manual) 3, Band Neutrophils 19, Anisoc ytosis SLIGHT, Macrocytosis MODERATE, Prothrombin Time 15.7H, INR Comment 1.2, Activated Partial Thromboplast Time 30, Urine Color YELLOW, Urine Clarity CLEAR, Urine pH 5.5, Urine Specific Magee 1.020, Urine Protein NEGATIVE, Urine G lucose (UA) NEGATIVE, Urine Ketones NEGATIVE, Urine Nitrite NEGATIVE, Urine Bilirubin NEGATIVE, Urine Urobilinogen 0.2, Urine Leukocyte Esterase NEGATIVE, Urine RBC (Auto) NEGATIVE, Urine RBC RARE, Urine WBC RARE, Urine Squamous Epithelial Cells RARE, Urine Crystals NONE, Urine Bacteria NEGATIVE, Urine Casts NONE, Urine Mucus NEGATIVE, Urine Culture Indicated NO, Sodium Level 144, Potassium Level 4.5, Chloride Level 98, Carbon Dioxide Level 27, Anion Gap 19H, Blood Urea Nitrogen 13, Creatinine 1.24, Estimat Glomerular Filtration Rate 56, BUN/Creatinine Ratio 10, Glucose Level 198H, Lactic Acid Level 5.44*H, Calcium Level 9.2, Corrected Calcium 9.3, Phosphorus Level 4.0, Magnesium Level 2.0, Total Bilirubin 1.1H, Aspartate Amino Transf (AST/SGOT) 23, Alanine Aminotransferase (ALT/SGPT) 14, Alkaline Phosphatase 72, Troponin I 0.037H, C- Reactive Protein High Sensitivity 1.49H, B-Type Natriuretic Peptide 153.1H, Total Protein 6.8, Albumin 3.9, Procalcitonin 0.20H, Serum Alcohol < 10, Coronavirus (COVID-19)(PCR) Negative, Coronavirus 2019 ([facility]) Negative 08/10/20 11:04: Blood Gas Puncture Site , Blood Gas Patient Temperature 96.8, Arterial Blood pH 7.27*L, Arterial Blood Partial Pressure CO2 71*H, Arterial Blood Partial Pressure O2 144H, Arterial Blood HCO3 32H, Arterial Blood Total CO2 34.1H, Arterial Blood Oxygen Saturation 99, Arterial Blood Base Excess 5.1H, Paulo Test , Blood Gas Ventilator Setting NO, Blood Gas Inspired Oxygen 5 08/10/20 11:15: Urine Opiates Screen POSITIVEH, Urine Oxycodone Screen NEGATIVE, Urine Methadone Screen NEGATIVE, Urine Propoxyphene Screen NEGATIVE, Urine Barbiturates Screen NEGATIVE, Ur Tricyclic Antidepressants Screen NEGATIVE, Urine Phencyclidine Screen NEGATIVE, Urine Amphetamines Screen NEGATIVE, Urine Methamphetamines Screen NEGATIVE, Urine Benzodiazepines Screen POSITIVEH, Urine Cocaine Screen NEGATIVE, Urine Cannabinoids Screen NEGATIVE 08/10/20 13:35: Lactic Acid Level 2.84*H 08/10/20 14:06: Blood Gas Puncture Site RT RAD, Blood Gas Patient Temperature 35.5, Arterial Bl ood pH 7.30*L, Arterial Blood Partial Pressure CO2 66H, Arterial Blood Partial Pressure O2 89, Arterial Blood HCO3 32H, Arterial Blood Total CO2 34.2H, Arterial Blood Oxygen Saturation 97, Arterial Blood Base Excess 5.6H, Paulo Test YES-POS, Blood Gas Ventilator Setting NO, Blood Gas Inspired Oxygen 45% 08/10/20 16:54: Lactic Acid Level 3.11*H 08/10/20 18:35: Lactic Acid Level 2.01*H, Troponin I 0.054H 08/10/20 21:02: Lactic Acid Level 2.26*H 08/10/20 23:25: Lactic Acid Level 1.50 08/11/20 01:45: White Blood Count 19.9H, Red Blood Count 4.03L, Hemoglobin 13.6, Hematocrit 42, Mean Corpuscular Volume 104H, Mean Corpuscular Hemoglobin 34, Mean Corpuscular Hemoglobin Concent 33, Red Cell Distribution Width 12.3, Platelet Count 140, Mean Platelet Volume 9.5, Immature Granulocyte % (Auto) 1, Neutrophils (%) (Auto) 93H, Lymphocytes (%) (Auto) 4L, Monocytes (%) (Auto) 2, Eosinophils (%) (Auto) 0, Basophils (%) (Auto) 0, Neutrophils # (Auto) 18.4H, Lymphocytes # (Auto) 0.7L, Monocytes # (Auto) 0.5, Eosinophils # (Auto) 0.1, Basophils # (Auto) 0.0, Immature Granulocyte # (Auto) 0.2H, Sodium Level 135, Potassium Level 4.7, Chloride Level 96L, Carbon Dioxide Level 27, Anion Gap 12, Blood Urea Nitrogen 15, Creatinine 0.97, Estimat Glomerular Filtration Rate > 60, BUN/Creatinine Ratio 15, Glucose Level 172H, Calcium Level 8.1L, Phosphorus Level 2.9, Magnesium Level 2.0, Troponin I 0.045H 08/11/20 07:20: Blood Gas Puncture Site RIGHT RADIAL, Blood Gas Patient Temperature 95.8, Arterial Blood pH 7.36L, Arterial Blood Partial Pressure CO2 54H, Arterial Blood Partial Pressure O2 88, Arterial Blood HCO3 30H, Arterial Blood Total CO2 31.7H, Arterial Blood Oxygen Saturation 98, Arterial Blood Base Excess 4.5H, Paulo Test POSITIVE, Blood Gas Ventilator Setting NO, Blood Gas Inspired Oxygen 40 L Microbiology 08/10/20 Influenza Types A,B Antigen (ANN) - Final, Complete Assessment/Plan Assessment/Plan Admission Dx SEPTIC SHOCK PNEUMONIA BILATERAL LOBES AND RIGHT UPPER LOBE COPD EXACERBATION WITH EMPHYSEMA LEUKOCYTOSIS LACTIC ACIDOSIS RESPIRATORY FAILURE HYPOTENSION CHRONIC ATRIAL FIBRILLATION CHRONIC ANTICOAGULATION WITH NOAC BPH ALCOHOLISM CHRONIC PAIN SYNDROME CHRONIC ANXIETY Assessment and Plan SEPTIC SHOCK PNEUMONIA BILATERAL LOBES AND RIGHT UPPER LOBE COPD EXACERBATION WITH EMPHYSEMA LEUKOCYTOSIS LACTIC ACIDOSIS RESPIRATORY FAILURE HYPOTENSION CHRONIC ATRIAL FIBRILLATION CHRONIC ANTICOAGULATION WITH NOAC BPH ALCOHOLISM CHRONIC PAIN SYNDROME CHRONIC ANXIETY SEPTIC SHOCK DUE TO PNEUMONIA BILATERAL LOBES AND RIGHT UPPER LOBE WITH COPD EXACERBATION WITH EMPHYSEMA WITH RESPIRATORY FAILURE CT CHEST FOLLOWS: IMPRESSION: COPD with emphysema. There is interstitial infiltrate in the right upper lobe with some scattered patchy alveolar consolidations in the right upper lobe and both lower lobes. - CONTINUE WITH VAPOTHERM LEUKOCYTOSIS - PT HAS BEEN ON STEROIDS - SOME OF THE ELEVATED WHITE COUNT MAY BE DUE TO RECENT STEROID USE - MONITOR LABS CLOSELY. LACTIC ACIDOSIS - CONTINUE WITH OXYGEN SUPPORT, SERIAL LACTIC ACID LEVELS UNTIL NUMBERS IMPROVE - CONTINUE WITH IV FLUIDS HYPOTENSION - IMPROVED WITH FLUIDS, PRESSURE IMPROVED ON PRESSORS - THESE HAVE BEEN SUCCESSFULLY WEANED OFF OF PATIENT. CHRONIC ATRIAL FIBRILLATION WITH CHRONIC ANTICOAGULATION WITH NOAC - PT ON LOVENOX, WILL CHANGE TO ORAL ELIQUIS TOMORROW - HOLD MEDICATIONS FOR NOW. BPH - HOLD HOME REGIMEN TONIGHT. ALCOHOLISM AND CHRONIC PAIN SYNDROME - HOLD PAIN MEDICATION TONIGHT - PT ON CIWA WITHDRAWAL REGIMEN FOR ALCOHOL CHRONIC ANXIETY FOR NOW ON HOLD, HOWEVER -LIKELY TOMORROW WILL RESTART LOW DOSE ANXIOLYTICS DUE TO PT HAVING BEEN ON THEM FOR YEARS BUT WILL CONTINUE WITH WEANING PROCESS OUTPATIENT. PT IS DNR/DNI FINAL COVID NEGATIVE DVT PROPHYLAXIS WITH LOVENOX GI PROPHYLAXIS WITH PEPCID Admission Dx SEPTIC SHOCK PNEUMONIA BILATERAL LOBES AND RIGHT UPPER LOBE COPD EXACERBATION WITH EMPHYSEMA LEUKOCYTOSIS LACTIC ACIDOSIS RESPIRATORY FAILURE HYPOTENSION CHRONIC ATRIAL FIBRILLATION CHRONIC ATICOAGUATION WITH NOAC BPH ALCOHOLISM CHRONIC PAIN SYNDROME CHRONIC ANXIETY Clinical Quality Measures Admission Status Admission Dx SEPTIC SHOCK PNEUMONIA BILATERAL LOBES AND RIGHT UPPER LOBE COPD EXACERBATION WITH EMPHYSEMA LEUKOCYTOSIS LACTIC ACIDOSIS RESPIRATORY FAILURE HYPOTENSION CHRONIC ATRIAL FIBRILLATION CHRONIC ATICOAGUATION WITH NOAC BPH ALCOHOLISM CHRONIC PAIN SYNDROME CHRONIC ANXIETY DVT/VTE Risk/Contraindication: Risk Factor Score Per Nursin RFS Level Per Nursing on Admit: 4+=Very High RAYA ZAMAN MD Aug 11, 2020 08:37
--- NOTE | 2020-08-11 08:50 | Diagnostic Imaging Report ---
INDICATION: Dyspnea. Compared with study 08/10/2020 FINDINGS: Somewhat nodular infiltrates in the right lung showed no real change. Right IJ at the SVC. There is no pneumothorax. The heart size stable. IMPRESSION: Right-sided infiltrate unchanged Dictated by: Dictated on workstation # [id number]
[2020-08-11] MEDS ORDERED: NON-FORMULARY MEDICATION 1 EA EA (Fluticasone/Vilanterol (Breo Ellipta 200-25 Mcg INH) 1 P INH SCH (09:00)
--- NOTE | 2020-08-11 10:07 | NUR ---
CM/SS visited with patient for social service consult. The patient was lying in bed at time of visit. He reports that he is doing okay today. Patient was pleasant and willing to discuss plans for discharge. Home: The patient reports that he lives at home with his Chaya. He states that they are both independent. The patient does not use a walker or cane but states he has both at the house. According to the patient, He is independent with all of his daily living activities. Patient has 3 stairs on the back and front of house. The back of the house does not have railing. Home Health/ Caregivers/ Homemaker: The patient denies having ever had home health or caregiver. No homemaker services. Equipment: Patient states he has a walker and cane. A walk in shower was added a few years back. Denies toilet seat riser. Reports he has grab bars. Alcohol consumption: The patient reports that him and his drink 2 glasses of Scotch a night. He reports he has not been "drunk" in years. On the night that he fell, he states they were having their drinks and ran out of Scotch. They switched to straight Vodka. He states he felt drunk at that point and feels this is why he feel. Las fall was 3 months prior. CM/SS will continue to follow for discharge planning and physician plan of care.
--- NOTE | 2020-08-11 11:10 | NUR ---
Pastoral care visit.
[2020-08-11] MEDS: VANCOMYCIN 2000 MG/NS 500 ML IVPB IV SCH ×2 (11:16)
[2020-08-11] MEDS: LORazepam INJ 2 MG/ML (ATIVAN) VIAL IV PRN (13:01)
--- NOTE | 2020-08-11 16:11 | Consultation-Cardiology ---
HPI-Cardiology Cardiology Consultation Date of Consultation 08/11/20 Date of Admission Time Seen by Provider: 20:05 HPI 85 years old gentleman with history of hypertension, COPD and alcoholism. He has been having some dyspnea and was started on steroid treatment. Finished antibiotic treatment last week. Got up at night to use the restroom and noticed that his oxygen not on his face. Was trying to get back to his bed when he fell to the floor. Sustained bruising on his arms and face. Does not recall syncope. Denied any chest pain. No shortness of breath beyond his baseline. No palpitation. Noted to be septic. Septic workup was initiated. Noted to have elevated troponin level. Home Medications & Allergies Allergies: Coded Allergies: sulfamethoxazole (Verified Allergy, Severe, ANAPHYLAXIS, 07/11/12) trimethoprim (Verified Allergy, Severe, ANAPHYLAXIS, 07/11/12) levofloxacin (Verified Allergy, Intermediate, NAUSEA, 07/11/12) Home Medication List Reviewed: Yes [id number] Hx Patient Social History Marital Status: Living Status: LIVES WITH SPOUSE IN THEIR HOME IN [place] Employed/Student: retired Alcohol Use: Regular Use Recreational Drug Use: No Smoking Status: Former Smoker Type Used: Cigarettes 2nd Hand Smoke Exposure: No Recent Foreign Travel: No Recent Infectious Disease Expo: No Recent Hopitalizations: No Physical Abuse Screen: No Sexual Abuse: No Immunizations Up To Date Date of Pneumonia Vaccine: Oct 21, 2016 Date of Influenza Vaccine: Jul 25, 2017 Past Medical History Discussed below Family Medical History Significant Family History: Hypertension Family Medical Hx Noncontributory Review of Systems-General Review of Systems Constitutional: No chills, No fever; malaise, weakness EENTM: hearing loss; No hoarseness, No throat pain Respiratory: cough, dyspnea on exertion, short of breath Cardiovascular: see HPI; No chest pain; Hx of Intervention, syncope Gastrointestinal: no symptoms reported, see HPI; No abdominal pain, No constipation, No diarrhea, No loss of appetite, No nausea, No vomiting Genitourinary: no symptoms reported, see HPI, nocturia Musculoskeletal: see HPI, back pain, muscle weakness Skin: no symptoms reported, see HPI Psychiatric/Neurological: See HPI, Weakness All Other Systems Reviewed Negative Unless Noted: Yes Reviewed Test Results Reviewed Test Results Lab Laboratory Tests Test 08/10/20 16:54 08/10/20 18:35 08/10/20 21:02 08/10/20 23:25 Range/Units Lactic Acid Level 3.11 *H 2.01 *H 2.26 *H 1.50 0.50-2.00 MMOL/L Troponin I 0.054 H <0.028 NG/ML Test 08/11/20 01:45 08/11/20 07:20 Range/Units White Blood Count 19.9 H 4.3-11.0 10^3/uL Red Blood Count 4.03 L 4.30-5.52 10^6/uL Hemoglobin 13.6 13.3-17.7 g/dL Hematocrit 42 40-54 % Mean Corpuscular Volume 104 H 80-99 fL Mean Corpuscular Hemoglobin 34 25-34 pg Mean Corpuscular Hemoglobin Concent 33 32-36 g/dL Red Cell Distribution Width 12.3 10.0-14.5 % Platelet Count 140 130-400 10^3/uL Mean Platelet Volume 9.5 9.0-12.2 fL Immature Granulocyte % (Auto) 1 % Neutrophils (%) (Auto) 93 H 42-75 % Lymphocytes (%) (Auto) 4 L 12-44 % Monocytes (%) (Auto) 2 0-12 % Eosinophils (%) (Auto) 0 0-10 % Basophils (%) (Auto) 0 0-10 % Neutrophils # (Auto) 18.4 H 1.8-7.8 10^3/uL Lymphocytes # (Auto) 0.7 L 1.0-4.0 10^3/uL Monocytes # (Auto) 0.5 0.0-1.0 10^3/uL Eosinophils # (Auto) 0.1 0.0-0.3 10^3/uL Basophils # (Auto) 0.0 0.0-0.1 10^3/uL Immature Granulocyte # (Auto) 0.2 H 0.0-0.1 10^3/uL Sodium Level 135 135-145 MMOL/L Potassium Level 4.7 3.6-5.0 MMOL/L Chloride Level 96 L 98-107 MMOL/L Carbon Dioxide Level 27 21-32 MMOL/L Anion Gap 12 5-14 MMOL/L Blood Urea Nitrogen 15 7-18 MG/DL Creatinine 0.97 0.60-1.30 MG/DL Estimat Glomerular Filtration Rate > 60 BUN/Creatinine Ratio 15 Glucose Level 172 H 70-105 MG/DL Calcium Level 8.1 L 8.5-10.1 MG/DL Phosphorus Level 2.9 2.3-4.7 MG/DL Magnesium Level 2.0 1.6-2.4 MG/DL Troponin I 0.045 H <0.028 NG/ML Blood Gas Puncture Site RIGHT RADIAL Blood Gas Patient Temperature 95.8 Arterial Blood pH 7.36 L 7.37-7.43 Arterial Blood Partial Pressure CO2 54 H 35-45 MMHG Arterial Blood Partial Pressure O2 88 79-93 MMHG Arterial Blood HCO3 30 H 23-27 MMOL/L Arterial Blood Total CO2 31.7 H 21.0-31.0 MMOL/L Arterial Blood Oxygen Saturation 98 94-100 % Arterial Blood Base Excess 4.5 H -2.5-2.5 MMOL/L Paulo Test POSITIVE Blood Gas Ventilator Setting NO Blood Gas Inspired Oxygen 40 L Physical Exam Physical Exam Vital Signs Vital Signs - First Documented 08/10/20 08/10/20 08/10/20 10:35 10:40 16:53 Temp 36.0 Pulse 128 Resp 22 B/P (MAP) 80/52 (61) Pulse Ox 94 O2 Delivery Nasal Cannula O2 Flow Rate 5.00 FiO2 30 Capillary Refill : Less Than 3 Seconds Height, Weight, BMI Height: 6'0.00" Weight: 241lbs. 9.0oz. [id number]; 30.70 BMI Method:Stated General Appearance: WD/WN, Mild Distress, Other (BRUISING OVER LEFT EYE FROM FALL) Eyes: Bilateral Eye Normal Inspection, Bilateral Eye PERRL, Bilateral Eye EOMI HEENT: PERRL/EOMI Neck: Full Range of Motion, Normal Inspection, Non Tender, Supple Respiratory: Chest Non Tender, Decreased Breath Sounds Cardiovascular: Regular Rate, Rhythm, No Edema, No Murmur Gastrointestinal: Normal Bowel Sounds, No Organomegaly, Non Tender, Soft Rectal: Deferred Extremity: Slow Capillary Refill (CLUBBING OF FINGERS/TOES - CHRONICALLY DECREASED CAP REFILL), Other (TRACE PEDAL EDEMA, ) Neurologic/Psychiatric: Alert, Oriented x3, No Motor/Sensory Deficits, Normal Mood/Affect, 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 Better at this time, blood pressure is better. Continue to monitor, underlying arrhythmia cannot be entirely excluded at this point. We'll continue to monitor on telemetry Pneumonia, sepsis with septic shock, low pressure has improved, responded to IV antibiotic and IV fluid. Continue to monitor Shortness of breath, acute respiratory failure with COPD exacerbation and emphysema, maintained on Vapotherm at this time, improving. Lactic acidosis. Improving Non-ST elevation myocardial infarction, mild elevation in troponin probably due to hypotension and sepsis, patient is known to have coronary artery disease, continue to monitor for now Coronary artery disease, cardiac catheterization was carried out in November 2018 showing 60-70 percent mid LAD stenosis, mild to moderate disease otherwise. Continue to monitor Alcoholism, electrolyte imbalance, withdrawal precaution, being replaced and monitored by primary care physician Anxiety, chronic pain syndrome, followed and managed by primary care physician Clinical Quality Measures DVT/VTE Risk/Contraindication: Risk Factor Score Per Nursin RFS Level Per Nursing on Admit: 4+=Very High GABRIEL DESHPANDE MD Aug 11, 2020 16:11
--- NOTE | 2020-08-11 18:30 | NUR ---
pt pulled out central line, pt stated "i thought it was a growth. This RN was able to start new IV in [facility] with 22g. Dr. Jones notified.
[2020-08-11] MEDS: MONTELUKAST 10 MG (SINGULAIR) TAB PO SCH (21:23)
[2020-08-11] MEDS: APIXABAN 5 MG (ELIQUIS) TABLET PO SCH (21:26)
[2020-08-12 03:34] LABS: BASOPHILS % (AUTO) 0 % (0-10); EOSINOPHILS % (AUTO) 0 % (0-10); HEMATOCRIT 44 % (40-54); HEMOGLOBIN 14.2 g/dL (13.3-17.7); LYMPHOCYTES # (AUTO) 0.6 10^3/uL (1.0-4.0); LYMPHOCYTES % (AUTO) 4 % (12-44); MEAN CORPUSCULAR HEMOGLOBIN 34 pg (25-34); MEAN CORPUSCULAR HGB CONC 33 g/dL (32-36); MEAN CORPUSCULAR VOLUME 104 fL (80-99); MEAN PLATELET VOLUME 9.8 fL (9.0-12.2); MONOCYTES # (AUTO) 0.7 10^3/uL (0.0-1.0); MONOCYTES % (AUTO) 4 % (0-12); NEUTROPHILS # (AUTO) 15.6 10^3/uL (1.8-7.8); NEUTROPHILS % (AUTO) 91 % (42-75); PLATELET COUNT 130 10^3/uL (130-400); WHITE BLOOD COUNT 17.2 10^3/uL (4.3-11.0)
[2020-08-12 03:46] LABS: CHLORIDE 97 MMOL/L (98-107); POTASSIUM 4.6 MMOL/L (3.6-5.0); SODIUM 135 MMOL/L (135-145)
[2020-08-12 03:48] LABS: CALCIUM 8.8 MG/DL (8.5-10.1); GLUCOSE 149 MG/DL (70-105)
[2020-08-12 03:50] LABS: CARBON DIOXIDE 29 MMOL/L (21-32)
[2020-08-12 03:52] LABS: CREATININE SERUM 0.98 MG/DL (0.60-1.30); GFR ESTIMATED > 60; PHOSPHORUS 3.1 MG/DL (2.3-4.7)
[2020-08-12 03:53] LABS: BUN/CREATININE RATIO 23
[2020-08-12 03:55] LABS: MAGNESIUM 2.3 MG/DL (1.6-2.4)
--- NOTE | 2020-08-12 04:21 | Pulmonary Progress Note ---
Subjective Date Seen by a Provider: Aug 12, 2020 Time Seen by a Provider: 04:16 Subjective/Events-last exam Pt admits to felling slightly better, and that nothing medical is bothering him. He misses his home life and his at home. He denies any pain, his face feels fine, and he admits to bruising easily. He is on 3L of oxygen at home all the time, with no changes in oxygen use when sleeping. Sees Dr. Jones at her clinic for healthcare. Sepsis Event Evaluation Height, Weight, BMI Height: 6'0.00" Weight: 241lbs. 9.0oz. 109.700509br; 30.70 BMI Method:Stated Focused Exam Possible Source: Pulmonary Lactate Level 08/10/20 18:35: Lactic Acid Level 2.01*H 08/10/20 21:02: Lactic Acid Level 2.26*H 08/10/20 23:25: Lactic Acid Level 1.50 Time of Focused Exam: 04:21 Respiratory: Chest Non Tender, No Accessory Muscle Use, No Respiratory Distress, Rhonci, Wheezing Cardiovascular: Regular Rate, Rhythm (difficult to auscultate d/t loud breath sounds), No Edema, No Gallop, No JVD, No Murmur, Normal Peripheral Pulses Capillary Refill: Less Than 3 Seconds Peripheral Pulses: 2+ Dorsalis Pedis (R), 2+ Left Dors-Pedis (L), 2+ Radial Pulses (R), 2+ Radial Pulses (L) Skin: normal color, warm/dry Exam Exam Vital Signs Date Time Temp Pulse Resp B/P (MAP) Pulse Ox O2 Delivery O2 Flow Rate FiO2 08/12/20 01:18 92 Vapotherm 25.00 30 08/12/20 01:00 84 08/12/20 00:00 71 22 131/102 97 Vapotherm 30.00 30.00 08/11/20 23:00 66 17 118/92 97 Vapotherm 30.00 30.00 08/11/20 22:00 80 15 142/95 99 Vapotherm 30.00 30.00 08/11/20 21:32 92 Vapotherm 25.00 30 08/11/20 21:05 97 Vapotherm 25.00 30 08/11/20 21:00 93 28 98 Vapotherm 30.00 30.00 08/11/20 20:00 92 28 140/99 94 Vapotherm 30.00 30.00 08/11/20 19:40 36.6 08/11/20 19:00 90 13 122/105 96 Vapotherm 30.00 30.00 08/11/20 19:00 100 08/11/20 18:00 83 38 116/94 96 Vapotherm 30.00 30.00 08/11/20 17:00 100 21 127/105 95 Vapotherm 30.00 30.00 08/11/20 16:30 94 Vapotherm 25.00 30 08/11/20 16:00 75 14 122/67 95 Vapotherm 30.00 30.00 08/11/20 15:33 36.0 08/11/20 15:00 79 16 123/98 97 Vapotherm 30.00 30.00 08/11/20 14:54 94 Vapotherm 25.00 30 08/11/20 14:00 85 32 136/92 92 Vapotherm 30.00 30.00 08/11/20 13:13 107 08/11/20 13:00 81 30 126/74 94 Vapotherm 30.00 30.00 08/11/20 12:00 70 21 109/83 97 Vapotherm 30.00 30.00 08/11/20 11:50 36.6 08/11/20 11:00 74 11 116/97 97 Vapotherm 30.00 30.00 08/11/20 10:00 68 14 121/87 96 Vapotherm 30.00 30.00 08/11/20 09:00 82 23 125/70 93 Vapotherm 30.00 30.00 08/11/20 09:00 97 Vapotherm 30.00 30 08/11/20 08:02 36.4 08/11/20 08:00 74 15 133/96 97 Vapotherm 30.00 30.00 08/11/20 07:57 94 Vapotherm 30.00 30 08/11/20 07:45 Vapotherm 30.00 30.00 08/11/20 07:00 71 08/11/20 07:00 65 25 120/92 98 Vapotherm 40.00 30.00 08/11/20 06:00 70 14 126/79 97 Vapotherm 40.00 30.00 08/11/20 05:00 56 13 121/81 97 Vapotherm 40.00 30.00 I & O 08/12/20 07:00 Intake Total 750 ml Output Total 975 ml Balance -225 ml Height & Weight Height: 6'0.00" Weight: 241lbs. 9.0oz. 109.036537sn; 30.70 BMI Method:Stated General Appearance: WD/WN, Mild Distress, Other (BRUISING OVER LEFT EYE FROM FALL) HEENT: PERRL/EOMI Neck: Full Range of Motion, Normal Inspection, Non Tender, Supple Respiratory: Chest Non Tender, No Accessory Muscle Use, Decreased Breath Sounds, Rhonci, Wheezing Cardiovascular: Regular Rate, Rhythm, No Edema, No Gallop, No JVD, No Murmur, Normal Peripheral Pulses Peripheral Pulses: 2+ Dorsalis Pedis (R), 2+ Left Dors-Pedis (L), 2+ Radial Pulses (R), 2+ Radial Pulses (L) Gastrointestinal: non tender, soft Extremity: Normal Capillary Refill, Normal Inspection, No Pedal Edema, Slow Capillary Refill (CLUBBING OF FINGERS/TOES - CHRONICALLY DECREASED CAP REFILL), Other (dry skin b/l on LE, possibly suggestive of peripheral vascular disease) Neurologic/Psychiatric: Alert, Oriented x3, No Motor/Sensory Deficits, Normal Mood/Affect, 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 Norm as Tested Skin: Warm/Dry, Cool; No Cyanosis; Ecchymosis (OVER LEFT EYE) Results Lab Laboratory Tests 08/10/20 10:44 08/11/20 01:45 08/12/20 02:45 Assessment/Plan Assessment/Plan Acute respiratory failure -Pt on vapotherm -monitor -negative influenza -negative COVID -chest CT reviewed -repeat chest CT 8wks after discharge to ensure complete resolution Pneumonia with severe sepsis -Septic protocol -VS much improved (HR, Temp, RR WNL), only white count elevated now -Continue Vanco and Cefepime -Shah cultures Alcohol dependance -CIWA s/p Fall -CT head shows no acute change -fall risk -monitor -bedside alarm NSTEMI probably secondary to hypoxia -Monitor -Telemetry -final troponin decreased -Currently denies CP Lactic Acidosis -ABG reviewed, much improved -monitor I/O and for sx Obesity Discharge to floor UNRULY FOWLER MED STUDENT Aug 12, 2020 04:21
[2020-08-12] MEDS: CEFEPIME 1,000 MG/SWFI 10 ML IV PUSH IV SCH ×8 (05:37→23:52)
[2020-08-12] MEDS: NOREPINEPHRINE 4 MG/250 ML 250 ML IV SCH (05:37)
[2020-08-12] MEDS: methylPREDNISolone 40 MG/ML (Solu-MEDROL) VIAL IV SCH ×4 (05:37→23:52)
[2020-08-12] MEDS: THIAMINE 100 MG (VITAMIN B-1) TAB PO SCH (05:38)
[2020-08-12] MEDS: MULTIVIT W/MINERALS TAB (THERAGRAN M) PO SCH (05:38)
[2020-08-12] MEDS ORDERED: MAGNESIUM 1 GM/100 ML IVPB 100 ML IV SCH (06:00)
[2020-08-12] MEDS ORDERED: POTASSIUM CL 10MEQ/50ML IVPB 50 ML IV SCH (06:00)
[2020-08-12] MEDS ORDERED: KCL 20 MEQ TAB (K-DUR) PO SCH (06:00)
--- NOTE | 2020-08-12 07:17 | Diagnostic Imaging Report ---
INDICATION: Septic shock. COMPARISON: 08/11/2020 FINDINGS: Single frontal radiographic view of the chest was obtained and again demonstrates coarse interstitial opacities bilaterally with a few more prominent patchy infiltrates within both lung bases. Overall, aeration is not significantly changed. There is no large effusion or pneumothorax. Cardiac silhouette and pulmonary vasculature are within normal limits. Osseous structures show no gross acute abnormalities. IMPRESSION:. Stable exam of the chest showing scattered infiltrates. Dictated by: Dictated on workstation # [id number]
[2020-08-12] MEDS: VASOPRESSIN INJECTION 20 UNIT in NS (IVPB) 100 ML IV SCH (07:39)
[2020-08-12] MEDS: MAGNESIUM OXIDE (MAG-OX)400 MG TAB PO SCH ×2 (08:27→20:41)
[2020-08-12] MEDS: GABAPENTIN 300 MG (NEURONTIN) CAP PO SCH ×2 (08:27→20:40)
[2020-08-12] MEDS: FOLIC ACID 1 MG TAB PO SCH (08:27)
[2020-08-12] MEDS: FAMOTIDINE 20 MG (PEPCID) TABLET PO SCH ×2 (08:27→20:41)
[2020-08-12] MEDS: APIXABAN 5 MG (ELIQUIS) TABLET PO SCH ×2 (08:28→20:41)
--- NOTE | 2020-08-12 08:46 | Progress Note ---
Subjective Subjective Date Seen by Provider: Aug 12, 2020 Time Seen by Provider: 08:20 PT IS AN 85 Y/O MALE WHO WAS ADMITTED WITH RESPIRATORY FAILURE DUE TO COPD EXACERBATION, SEPTIC SHOCK DUE TO PNEUMONIA, NON-ST WI DUE TO HYPOXIA, ALCOHOLISM, FALL AT HOME. THIS MORNING HE IS TEARFUL, WANTS TO GO HOME, STATES THAT "MY OXYGEN IS ALWAYS BAD AT THE HOSPITAL AND IMPROVES WHEN I GO HOME". HE REPORTS NOT HAVING "BREATHING TREATMENTS SINCE I GOT HERE" THEN ADMITS THAT HE HAS HAD INHALERS. THIS TRUCK AND TRANSPORT MECHANIC EXPLAINED TO PT THAT WE ARE NOT DOING NEBULIZER TREATMENTS AT THIS TIME DUE TO COVID. Review of Systems General: No Chills; Fatigue HEENT: No Dysphasia Pulmonary: Dyspnea, Cough Cardiovascular: No: Chest Pain, Palpitations, Edema Gastrointestinal: No: Nausea, Abdominal Pain, Diarrhea, Constipation Genitourinary: Other (LUNA IN PLACE) Musculoskeletal: back pain Neurological: Weakness, Confusion (INTERMITTENT ) All Other Systems Reviewed All Other Systems Reviewed: Yes Objective Exam Vital Signs Vital Signs - First Documented 08/10/20 08/10/20 08/10/20 10:35 10:40 16:53 Temp 36.0 Pulse 128 Resp 22 B/P (MAP) 80/52 (61) Pulse Ox 94 O2 Delivery Nasal Cannula O2 Flow Rate 5.00 FiO2 30 Capillary Refill : NONE General Appearance: No Apparent Distress, WD/WN, Other (TEARFUL WHEN TOLD HE WOULD NOT BE GOING HOME) Eyes: Bilateral Eye Normal Inspection, Bilateral Eye PERRL, Bilateral Eye EOMI HEENT: PERRL/EOMI Neck: Full Range of Motion, Normal Inspection, Non Tender, Supple Respiratory: Chest Non Tender, No Accessory Muscle Use, Decreased Breath Sounds, Rhonci, Wheezing Cardiovascular: Regular Rate, Rhythm, No Edema, No Murmur, Normal Peripheral Pulses Gastrointestinal: Normal Bowel Sounds, No Organomegaly, Non Tender, Soft Rectal: Deferred Extremity: Normal Capillary Refill, Normal Inspection, No Pedal Edema, Slow Capillary Refill (CLUBBING OF FINGERS/TOES - CHRONICALLY DECREASED CAP REFILL) Neurologic/Psychiatric: Alert, Oriented x3, No Motor/Sensory Deficits, Normal Mood/Affect, safety council director II-XII Norm as Tested Skin: Cool; No Cyanosis; Ecchymosis (OVER LEFT EYE) Results Lab Laboratory Tests 08/12/20 02:45: White Blood Count 17.2H, Red Blood Count 4.19L, Hemoglobin 14.2, Hematocrit 44, Mean Corpuscular Volume 104H, Mean Corpuscular Hemoglobin 34, Mean Corpuscular Hemoglobin Concent 33, Red Cell Distribution Width 12.3, Platelet Count 130, Mean Platelet Volume 9.8, Immature Granulocyte % (Auto) 1, Neutrophils (%) (Auto) 91H, Lymphocytes (%) (Auto) 4L, Monocytes (%) (Auto) 4, Eosinophils (%) (Auto) 0, Basophils (%) (Auto) 0, Neutrophils # (Auto) 15.6H, Lymphocytes # (Auto) 0.6L, Monocytes # (Auto) 0.7, Eosinophils # (Auto) 0.0, Basophils # (Auto) 0.0, Immature Granulocyte # (Auto) 0.2H, Sodium Level 135, Potassium Level 4.6, Chloride Level 97L, Carbon Dioxide Level 29, Anion Gap 9, Blood Urea Nitrogen 23H, Creatinine 0.98, Estimat Glomerular Filtration Rate > 60, BUN/Creatinine Ratio 23, Glucose Level 149H, Calcium Level 8.8, Phosphorus Level 3.1, Magnesium Level 2.3 Microbiology 08/10/20 Influenza Types A,B Antigen (ANN) - Final, Complete 08/10/20 Blood Culture - Preliminary, Resulted No growth 08/10/20 Urine Culture - Final, Complete NO GROWTH Assessment/Plan Assessment/Plan Admission Dx SEPTIC SHOCK PNEUMONIA BILATERAL LOBES AND RIGHT UPPER LOBE COPD EXACERBATION WITH EMPHYSEMA LEUKOCYTOSIS LACTIC ACIDOSIS RESPIRATORY FAILURE HYPOTENSION CHRONIC ATRIAL FIBRILLATION CHRONIC ANTICOAGULATION WITH NOAC BPH ALCOHOLISM CHRONIC PAIN SYNDROME CHRONIC ANXIETY Assessment and Plan SEPTIC SHOCK PNEUMONIA BILATERAL LOBES AND RIGHT UPPER LOBE 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 There is interstitial infiltrate in the right upper lobe with some scattered patchy alveolar consolidations in the right upper lobe and both lower lobes. - CONTINUE WITH VAPOTHERM - WEANING DOWN - NOW ON 20LPM, 30% - PT ON CEFEPIME AND VANCOMYCIN - WILL EXTEND OUT THE ANTIBIOTICS INTO NEXT WEEK - ANTICIPATE HE WILL NEED TO BE HERE AT LEAST UNTIL SATURDAY OR SATURDAY OF NEXT WEEK. - SERIAL CHEST XRAYS. LEUKOCYTOSIS - IMPROVING DWON FROM 23 ON ADMIT TO 17 TODAY - PT HAS BEEN ON STEROIDS - SOME OF THE ELEVATED WHITE COUNT MAY BE DUE TO RECENT STEROID USE - MONITOR LABS CLOSELY. LACTIC ACIDOSIS - CONTINUE WITH OXYGEN SUPPORT, SERIAL LACTIC ACID LEVELS IMPROVED - NO LONGER NEEDING MONITORING AT THIS TIME. - GENTLE IV FLUIDS HYPOTENSION - RESOLVED. CHRONIC ATRIAL FIBRILLATION WITH CHRONIC ANTICOAGULATION WITH NOAC - CHANGED BACK TO ELIQUIS - LOVENOX STOPPED ON 08/11/2020 BPH - RESTART HOME REGIMEN, WILL DC LUNA ON 08/13/2020 ALCOHOLISM AND CHRONIC PAIN SYNDROME - RESTART PRN PAIN MEDICATION - PT ON CIWA WITHDRAWAL REGIMEN FOR ALCOHOL CHRONIC ANXIETY - DUE TO RISK OF WITHDRAWAL - WILL GIVE LOW DOSE LORAZEPAM IN HOSPITAL. PT IS DNR/DNI FINAL COVID NEGATIVE DVT PROPHYLAXIS WITH ELIQUIS GI PROPHYLAXIS WITH PEPCID Admission Dx SEPTIC SHOCK PNEUMONIA BILATERAL LOBES AND RIGHT UPPER LOBE COPD EXACERBATION WITH EMPHYSEMA LEUKOCYTOSIS LACTIC ACIDOSIS RESPIRATORY FAILURE HYPOTENSION CHRONIC ATRIAL FIBRILLATION CHRONIC ATICOAGUATION WITH NOAC BPH ALCOHOLISM CHRONIC PAIN SYNDROME CHRONIC ANXIETY Clinical Quality Measures Admission Status Admission Dx SEPTIC SHOCK PNEUMONIA BILATERAL LOBES AND RIGHT UPPER LOBE COPD EXACERBATION WITH EMPHYSEMA LEUKOCYTOSIS LACTIC ACIDOSIS RESPIRATORY FAILURE HYPOTENSION CHRONIC ATRIAL FIBRILLATION CHRONIC ATICOAGUATION WITH NOAC BPH ALCOHOLISM CHRONIC PAIN SYNDROME CHRONIC ANXIETY DVT/VTE Risk/Contraindication: Risk Factor Score Per Nursin RFS Level Per Nursing on Admit: 4+=Very High RAYA ZAMAN MD Aug 12, 2020 08:46
[2020-08-12] MEDS: LORazepam INJ 2 MG/ML (ATIVAN) VIAL IVP SCH ×2 (09:57→20:41)
[2020-08-12] MEDS: LORATADINE (CLARITIN) 10 MG TAB PO SCH (09:57)
[2020-08-12] MEDS: RT-ALBUTEROL/IPRATROPIUM 3 ML (DUONEB) VIAL INH SCH ×4 (11:00→21:38)
--- NOTE | 2020-08-12 11:29 | NUR ---
CM/SS follow up. CM/SS visited with patient. CM/SS asked patient how he was doing, he stated "well, I'm still here and I don't want to be. I don't know how many days I've been here for but it's too long." Patient states the physician told him he will have to stay the weekend. He is not happy with his but is willing to stay. CM/SS got verbal permission to contact the patient's Chaya. CM/SS contacted the patient's Chaya to discuss discharge planning. CM/SS informed her that patient will likely stay the weekend with antibiotics. She verbalized understanding. CM/SS discussed home health with Chaya. The patient has never had home health but Chaya is agreeable and states he would benefit from that. CM/SS will visit with patient to discuss home health choices and plans for discharge.
--- NOTE | 2020-08-12 11:36 | Cardiology Progress Note ---
Subjective Date Seen by Provider: Aug 12, 2020 Time Seen by Provider: 11:31 Subjective/Events-last exam Patient is laying down in bed, feeling better. No new complaint Review of Systems General: No Chills, No Night Sweats; Fatigue; No Malaise, No Appetite, No Other HEENT: No Head Aches, No Visual Changes, No Eye Pain, No Ear Pain, No Dysphasia, No Sinus Congestion, No Post Nasal Drip, No Sore Throat, No Other Pulmonary: Dyspnea; No Cough, No Pleuritic Chest Pain, No Other Cardiovascular: No: Chest Pain, Palpitations, Orthopnea, Paroxysmal Noc. Dyspnea, Edema, Lt Headedness, Other Focused Exam Lactate Level 08/10/20 18:35: Lactic Acid Level 2.01*H 08/10/20 21:02: Lactic Acid Level 2.26*H 08/10/20 23:25: Lactic Acid Level 1.50 Time of Focused Exam: 04:21 Objective-Cardiology Exam Last Set of Vital Signs Vital Signs 08/12/20 08/12/20 08/12/20 08:00 08:10 08:30 Temp 36.1 Pulse 101 Resp 25 B/P (MAP) 147/100 Pulse Ox 95 O2 Delivery Vapotherm O2 Flow Rate 25.00 FiO2 30 Capillary Refill : Less Than 3 Seconds I&O Intake and Output 08/12/20 00:00 Intake Total 2060 ml Output Total 1000 ml Balance 1060 ml Intake Oral 1050 ml IV Total 1010 ml Output Urine Total 1000 ml # Bowel Movements 1 General: Alert, Oriented X3, Cooperative HEENT: Atraumatic, PERRLA Neck: Supple, No JVD, No Thyromegaly Lungs: Clear to Auscultation, Normal Air Movement Heart: Normal S1, Normal S2, Other (atrial fibrillation, systolic murmur) Abdomen: Normal Bowel Sounds, Soft, No Tenderness, No Hepatosplenomegaly, No Masses Extremities: No Clubbing, No Cyanosis, No Edema, Normal Pulses, No Tenderness/Swelling Skin: Other (ecchymosis on the upper extremities and face) Neuro: Normal Speech, Normal Tone, Sensation Intact Psych/Mental Status: Mental Status NL, Mood NL Results Lab Laboratory Tests 08/12/20 02:45 A/P-Cardiology Admission Diagnosis Syncope Sepsis Pneumonia Non-ST elevation myocardial infarctions Assessment/Plan Syncope, probably hypotensive episode. Better at this time, blood pressure is better. Continue to monitor, underlying arrhythmia cannot be entirely excluded at this point. We'll continue to monitor on telemetry Pneumonia, sepsis with septic shock, low pressure has improved, responded to IV antibiotic and IV fluid. Continue to monitor Shortness of breath, acute on chronic respiratory failure with COPD exacerbation and emphysema, maintained on Vapotherm at this time, improving. Paroxysmal atrial fibrillation, back in atrial fibrillation with controlled rate. Seen by Dr. Rick. Continue to monitor History of mild sinus node dysfunction with episodes of bradycardia, discussed with Dr. Rick in the past possible KIM of pacemaker, does not require it at this point Chronic anticoagulation with Eliquis, currently on hold due to the recent fall. Continue to monitor H&H Lactic acidosis. Improving Non-ST elevation myocardial infarction, mild elevation in troponin probably due to hypotension and sepsis, patient is known to have coronary artery disease, continue to monitor for now Coronary artery disease, cardiac catheterization was carried out in November 2018 showing 60-70 percent mid LAD stenosis, mild to moderate disease otherwise. Continue to monitor Alcoholism, electrolyte imbalance, withdrawal precaution, being replaced and monitored by primary care physician Anxiety, chronic pain syndrome, followed and managed by primary care physician Clinical Quality Measures DVT/VTE Risk/Contraindication: Risk Factor Score Per Nursin RFS Level Per Nursing on Admit: 4+=Very High GABRIEL DESHPANDE MD Aug 12, 2020 11:36
[2020-08-12] MEDS: VANCOMYCIN 2000 MG/NS 500 ML IVPB IV SCH ×2 (12:22)
--- NOTE | 2020-08-12 13:00 | NUR ---
THIS NURSE ATTEMPTED TO CALL REPORT TO MARC RODRIGUEZ AT 1015, 1035, 1122 AND 1253. WILL TRY AGAIN LATER.
[2020-08-12] MEDS: ADVAIR HFA 115/21 MCG INHALER 8 GM IH SCH (14:09)
[2020-08-12 14:21] VITALS: BP 141/92
[2020-08-12] MEDS: HYDROcodone/APAP 10 MG/325 MG (LORTAB) TAB PO PRN (14:57)
[2020-08-12 15:48] VITALS: BP 152/84
[2020-08-12 19:32] VITALS: BP 166/91
[2020-08-12] MEDS: MONTELUKAST 10 MG (SINGULAIR) TAB PO SCH (20:41)
[2020-08-12] MEDS: FINASTERIDE (PROSCAR) 5 MG TAB PO SCH (20:41)
[2020-08-12 23:49] VITALS: BP 138/66
[2020-08-13] MEDS: RT-ALBUTEROL/IPRATROPIUM 3 ML (DUONEB) VIAL INH SCH ×5 (03:21→18:56)
[2020-08-13 03:59] VITALS: BP 124/79
[2020-08-13 06:30] LABS: BASOPHILS % (AUTO) 0 % (0-10); EOSINOPHILS % (AUTO) 0 % (0-10); HEMATOCRIT 42 % (40-54); HEMOGLOBIN 13.6 g/dL (13.3-17.7); LYMPHOCYTES # (AUTO) 0.5 10^3/uL (1.0-4.0); LYMPHOCYTES % (AUTO) 4 % (12-44); MEAN CORPUSCULAR HEMOGLOBIN 34 pg (25-34); MEAN CORPUSCULAR HGB CONC 33 g/dL (32-36); MEAN CORPUSCULAR VOLUME 103 fL (80-99); MEAN PLATELET VOLUME 10.1 fL (9.0-12.2); MONOCYTES # (AUTO) 0.5 10^3/uL (0.0-1.0); MONOCYTES % (AUTO) 5 % (0-12); NEUTROPHILS # (AUTO) 10.4 10^3/uL (1.8-7.8); NEUTROPHILS % (AUTO) 90 % (42-75); PLATELET COUNT 130 10^3/uL (130-400); WHITE BLOOD COUNT 11.6 10^3/uL (4.3-11.0)
[2020-08-13] MEDS: THIAMINE 100 MG (VITAMIN B-1) TAB PO SCH (06:33)
[2020-08-13] MEDS: MULTIVIT W/MINERALS TAB (THERAGRAN M) PO SCH (06:33)
[2020-08-13] MEDS: methylPREDNISolone 40 MG/ML (Solu-MEDROL) VIAL IV SCH ×2 (06:34→11:39)
[2020-08-13] MEDS: CEFEPIME 1,000 MG/SWFI 10 ML IV PUSH IV SCH ×6 (06:34→17:42)
[2020-08-13] MEDS: HYDROcodone/APAP 10 MG/325 MG (LORTAB) TAB PO PRN ×2 (06:42→16:49)
[2020-08-13 06:55] LABS: CHLORIDE 97 MMOL/L (98-107); POTASSIUM 5.1 MMOL/L (3.6-5.0); SODIUM 135 MMOL/L (135-145)
[2020-08-13 06:56] LABS: CALCIUM 8.7 MG/DL (8.5-10.1)
[2020-08-13 06:57] LABS: GLUCOSE 152 MG/DL (70-105)
[2020-08-13 06:58] LABS: CARBON DIOXIDE 28 MMOL/L (21-32)
[2020-08-13 07:01] LABS: CREATININE SERUM 0.92 MG/DL (0.60-1.30); GFR ESTIMATED > 60
[2020-08-13 07:02] LABS: BUN/CREATININE RATIO 34
[2020-08-13 07:03] LABS: MAGNESIUM 2.6 MG/DL (1.6-2.4)
[2020-08-13] MEDS: FAMOTIDINE 20 MG (PEPCID) TABLET PO SCH ×2 (07:40→20:19)
[2020-08-13] MEDS: LORATADINE (CLARITIN) 10 MG TAB PO SCH (07:40)
[2020-08-13] MEDS: LORazepam INJ 2 MG/ML (ATIVAN) VIAL IVP SCH ×2 (07:40→20:21)
[2020-08-13] MEDS: FOLIC ACID 1 MG TAB PO SCH (07:41)
[2020-08-13] MEDS: MAGNESIUM OXIDE (MAG-OX)400 MG TAB PO SCH (07:41)
[2020-08-13] MEDS: APIXABAN 5 MG (ELIQUIS) TABLET PO SCH ×2 (07:41→20:18)
[2020-08-13] MEDS: GABAPENTIN 300 MG (NEURONTIN) CAP PO SCH ×2 (07:41→20:19)
[2020-08-13 08:30] VITALS: BP 143/79
[2020-08-13] MEDS ORDERED: TROUGH ORDER-PHARMACY XX ONE (10:00)
--- NOTE | 2020-08-13 10:00 | Cardiology Progress Note ---
Subjective Date Seen by Provider: Aug 13, 2020 Time Seen by Provider: 09:58 Subjective/Events-last exam Patient is laying down in bed comfortable, complaining of generalized weakness. No chest pain or shortness of breath Review of Systems General: No Chills, No Night Sweats, No Fatigue; Malaise; No Appetite, No Other HEENT: No Head Aches, No Visual Changes, No Eye Pain, No Ear Pain, No Dysphasia, No Sinus Congestion, No Post Nasal Drip, No Sore Throat, No Other Pulmonary: Dyspnea; No Cough, No Pleuritic Chest Pain, No Other Cardiovascular: Edema; No: Chest Pain, Palpitations, Orthopnea, Paroxysmal Noc. Dyspnea, Lt Headedness, Other Focused Exam Lactate Level 08/10/20 18:35: Lactic Acid Level 2.01*H 08/10/20 21:02: Lactic Acid Level 2.26*H 08/10/20 23:25: Lactic Acid Level 1.50 Time of Focused Exam: 04:21 Objective-Cardiology Exam Last Set of Vital Signs Vital Signs 08/12/20 08/13/20 08:30 08:30 Temp 36.4 Pulse 75 Resp 20 B/P (MAP) 143/79 (100) Pulse Ox 98 O2 Delivery High Flow N/C O2 Flow Rate 4.00 FiO2 30 Capillary Refill : Less Than 3 Seconds I&O Intake and Output 08/12/20 23:59 Intake Total 1830 ml Output Total 1425 ml Balance 405 ml Intake Oral 1290 ml IV Total 540 ml Output Urine Total 1425 ml General: Alert, Oriented X3, Cooperative HEENT: Atraumatic, PERRLA Neck: Supple, No JVD, No Thyromegaly Lungs: Clear to Auscultation, Normal Air Movement Heart: Normal S1, Normal S2, Other (atrial fibrillation, systolic murmur) Abdomen: Normal Bowel Sounds, Soft, No Tenderness, No Hepatosplenomegaly, No Masses Extremities: No Clubbing, No Cyanosis, No Edema, Normal Pulses, No Tenderness/Swelling Skin: Other (ecchymosis on the upper extremities and face) Neuro: Normal Speech, Normal Tone, Sensation Intact Psych/Mental Status: Mental Status NL, Mood NL Results Lab Laboratory Tests 08/13/20 05:20 A/P-Cardiology Admission Diagnosis Syncope Sepsis Pneumonia Non-ST elevation myocardial infarctions Assessment/Plan Syncope, probably hypotensive episode. Better at this time, blood pressure is better. Continue to monitor, underlying arrhythmia cannot be entirely excluded at this point. We'll continue to monitor on telemetry Pneumonia, sepsis with septic shock, low pressure has improved, responded to IV antibiotic and IV fluid. Continue to monitor Shortness of breath, acute on chronic respiratory failure with COPD exacerbation and emphysema, managed by primary care team Paroxysmal atrial fibrillation, back in atrial fibrillation with controlled rate. Seen by Dr. Rick. Continue to monitor History of mild sinus node dysfunction with episodes of bradycardia, discussed with Dr. Rick in the past possible KIM of pacemaker, does not require it at this point Chronic anticoagulation with Eliquis, currently on hold due to the recent fall. Continue to monitor H&H Lactic acidosis. Improving Non-ST elevation myocardial infarction, mild elevation in troponin probably due to hypotension and sepsis, patient is known to have coronary artery disease, continue to monitor for now Coronary artery disease, cardiac catheterization was carried out in November 2018 showing 60-70 percent mid LAD stenosis, mild to moderate disease otherwise. Continue to monitor Alcoholism, electrolyte imbalance, withdrawal precaution, being replaced and monitored by primary care physician Anxiety, chronic pain syndrome, followed and managed by primary care physician Clinical Quality Measures DVT/VTE Risk/Contraindication: Risk Factor Score Per Nursin RFS Level Per Nursing on Admit: 4+=Very High GABRIEL DESHPANDE MD Aug 13, 2020 10:00
[2020-08-13] MEDS: LORazepam 1 MG (ATIVAN) TAB PO PRN ×2 (10:26→16:59)
[2020-08-13] MEDS: ADVAIR HFA 115/21 MCG INHALER 8 GM IH SCH (10:40)
--- NOTE | 2020-08-13 11:01 | Diagnostic Imaging Report ---
INDICATION: Pneumonia. Comparison is made to the prior study of August 12, 2020. FINDINGS: There is some persistent blunting of the costophrenic angles. Heart size and mediastinal contours appear appropriate. There does appear to be a slight interval reduction and prior basilar interstitial prominence compared to the prior examination. There is no dense alveolar consolidation. There is no pneumothorax. There are previous operative changes of cervical ACDF. IMPRESSION: Improving pulmonary aeration with diminished prominence of basilar interstitial infiltrates compared to the prior examination. There is stable blunting of the costophrenic angles which may reflect small effusions. Dictated by: Dictated on workstation # [id number]
[2020-08-13 11:05] VITALS: BP 130/85
[2020-08-13] MEDS: VANCOMYCIN 2000 MG/NS 500 ML IVPB IV SCH ×2 (11:47)
--- NOTE | 2020-08-13 12:27 | Progress Note ---
Subjective Date Seen by a Provider: Aug 13, 2020 Time Seen by a Provider: 12:22 Subjective/Events-last exam Fwup respiratory failure, septic shock, Bilateral Pneumonia, COPD exacerbation, Non-STEMI, Chronic Atrial Fibrillation, Alcoholism. Feeling better. Asking about discharge and getting him some scotch. Focused Exam Lactate Level 08/10/20 18:35: Lactic Acid Level 2.01*H 08/10/20 21:02: Lactic Acid Level 2.26*H 08/10/20 23:25: Lactic Acid Level 1.50 Time of Focused Exam: 04:21 Objective Exam Vital Signs Date Time Temp Pulse Resp B/P (MAP) Pulse Ox O2 Delivery O2 Flow Rate FiO2 08/13/20 11:05 36.3 80 18 130/85 (100) 99 High Flow N/C 4.50 08/13/20 10:40 98 Nasal Cannula 5.00 08/13/20 08:30 36.4 75 20 143/79 (100) 98 High Flow N/C 4.00 08/13/20 07:54 Nasal Cannula 4.00 08/13/20 07:00 66 08/13/20 03:59 36.3 81 18 124/79 (94) 98 High Flow N/C 4.00 08/12/20 23:49 36.2 65 20 138/66 (90) 99 High Flow N/C 4.00 08/12/20 21:38 Nasal Cannula 5.00 08/12/20 21:00 Nasal Cannula 4.00 08/12/20 19:32 36.4 111 18 166/91 (116) 98 High Flow N/C 5.00 08/12/20 15:48 36.7 94 18 152/84 (106) 99 High Flow N/C 5.00 08/12/20 14:21 36.6 82 22 141/92 (108) 100 High Flow N/C 5.00 08/12/20 14:06 99 Nasal Cannula 5.00 08/12/20 13:00 106 I & O 08/13/20 07:00 Intake Total 1980 ml Output Total 1500 ml Balance 480 ml Capillary Refill : Less Than 3 Seconds General Appearance: No Apparent Distress Neck: Supple Respiratory: Lungs Clear, Decreased Breath Sounds Cardiovascular: Regular Rate, Rhythm, Systolic Murmur Gastrointestinal: normal bowel sounds, non tender, soft Extremity: Non Tender, No Calf Tenderness, No Pedal Edema Neurologic/Psychiatric: Alert, Oriented x3 Skin: Ecchymosis (left face and bilateral arms) Results Lab Laboratory Tests 08/13/20 05:20: White Blood Count 11.6H, Red Blood Count 4.06L, Hemoglobin 13.6, Hematocrit 42, Mean Corpuscular Volume 103H, Mean Corpuscular Hemoglobin 34, Mean Corpuscular Hemoglobin Concent 33, Red Cell Distribution Width 12.2, Platelet Count 130, Mean Platelet Volume 10.1, Immature Granulocyte % (Auto) 1, Neutrophils (%) (Auto) 90H, Lymphocytes (%) (Auto) 4L, Monocytes (%) (Auto) 5, Eosinophils (%) (Auto) 0, Basophils (%) (Auto) 0, Neutrophils # (Auto) 10.4H, Lymphocytes # (Auto) 0.5L, Monocytes # (Auto) 0.5, Eosinophils # (Auto) 0.0, Basophils # (Auto) 0.0, Immature Granulocyte # (Auto) 0.1, Sodium Level 135, Potassium Level 5.1H, Chloride Level 97L, Carbon Dioxide Level 28, Anion Gap 10, Blood Urea Nitrogen 31H, Creatinine 0.92, Estimat Glomerular Filtration Rate > 60, BUN/Creatinine Ratio 34, Glucose Level 152H, Calcium Level 8.7, Magnesium Level 2.6H 08/13/20 10:58: Vancomycin Level Trough 20.3H Microbiology 08/10/20 Influenza Types A,B Antigen (ANN) - Final, Complete 08/10/20 Blood Culture - Preliminary, Resulted No growth 08/10/20 Urine Culture - Final, Complete NO GROWTH Assessment/Plan Assessment/Plan Assess & Plan/Chief Complaint 1. Acute on Chronic Respiratory Failure--has been weaned back to oxygen via NC 2. Septic Shock--improved 3. Bilateral Pneumonia--CXR improving, WBC count coming down, continue antibiotics 4. Non-STEMI/Chronic Atrial Fibrillation--cardiology following, medical management 5. Alcoholism--on alcohol withdrawal protocol 6. Weakness/Falls--doing PT/OT Clinical Quality Measures DVT/VTE Risk/Contraindication: Risk Factor Score Per Nursin RFS Level Per Nursing on Admit: 4+=Very High TORI JOSEPH DO Aug 13, 2020 12:27
[2020-08-13] MEDS: VANCOMYCIN 1500 MG/NS 500 ML IVPB IV SCH ×2 (13:17)
[2020-08-13 15:40] VITALS: BP 145/77
[2020-08-13 19:27] VITALS: BP 139/81
[2020-08-13] MEDS: MONTELUKAST 10 MG (SINGULAIR) TAB PO SCH (20:19)
[2020-08-13] MEDS: FINASTERIDE (PROSCAR) 5 MG TAB PO SCH (20:19)
[2020-08-13] MEDS ORDERED: methylPREDNISolone 40 MG/ML (Solu-MEDROL) VIAL IV SCH (21:00)
--- NOTE | 2020-08-13 23:02 | NUR ---
ARROWHEAD NECKLACE SENT UP FROM ED AT THIS TIME. PLACED IN PATIENT'S ROOM AND LOCKED IN DRAWER.
[2020-08-14] VITALS: BP 133/89
[2020-08-14] MEDS: CEFEPIME 1,000 MG/SWFI 10 ML IV PUSH IV SCH ×8 (00:13→18:14)
--- NOTE | 2020-08-14 01:00 | NUR ---
PATIENT SCORED 15 ON CIWA SCALE. PATIENT AGITATED AND CONFUSED. PATIENT STATING THAT HE WANTS TO GO HOME AND TRYING TO GET OUT OF BED AT THIS TIME. 2 MG ATIVAN PROVIDED AT 0106 PER CIWA SCORE. WILL CONTINUE TO MONITOR.
[2020-08-14] MEDS: LORazepam INJ 2 MG/ML (ATIVAN) VIAL IV PRN (01:06)
[2020-08-14] MEDS: RT-ALBUTEROL/IPRATROPIUM 3 ML (DUONEB) VIAL INH SCH ×7 (01:23→22:33)
--- NOTE | 2020-08-14 01:30 | NUR ---
PATIENT ATTEMPTING TO REMOVE IV AND THRASHING ARMS AT THIS TIME. PATIENT REMOVED TELEMETRY AND OXYGEN. PATIENT CONTINUING TO TRY TO GET OUT OF BED. DUONEB TREATMENT GIVEN TO PATIENT AT 0123. PATIENT CONCERNED ABOUT BELONGINGS AND NECKLACE. NECKLACE IS LOCKED IN DRAWER AT THIS TIME. DR. JOSEPH CALLED AND NOTIFIED OF PATIENT'S BEHAVIOR. ORDERS RECEIVED FOR 2 MG HALDOL IM ONCE AND 2 MG ATIVAN IV ONCE. MEDICATIONS GIVEN PER ORDER. WILL CONTINUE TO MONITOR PATIENT.
[2020-08-14] MEDS ORDERED: HALOPERIDOL 5 MG/ML (HALDOL) VIAL ONE (01:31)
[2020-08-14] MEDS ORDERED: LORazepam INJ 2 MG/ML (ATIVAN) VIAL IVP ONE (01:45)
[2020-08-14] MEDS ORDERED: HALOPERIDOL 5 MG/ML (HALDOL) VIAL IM ONE (01:45)
[2020-08-14 04:30] VITALS: BP 159/81
[2020-08-14] MEDS: MULTIVIT W/MINERALS TAB (THERAGRAN M) PO SCH (06:18)
[2020-08-14 06:28] LABS: BASOPHILS % (AUTO) 0 % (0-10); EOSINOPHILS % (AUTO) 0 % (0-10); MEAN CORPUSCULAR HGB CONC 33 g/dL (32-36)
[2020-08-14 06:30] LABS: HEMATOCRIT 41 % (40-54); HEMOGLOBIN 13.5 g/dL (13.3-17.7); LYMPHOCYTES # (AUTO) 0.5 10^3/uL (1.0-4.0); LYMPHOCYTES % (AUTO) 5 % (12-44); MEAN CORPUSCULAR HEMOGLOBIN 34 pg (25-34); MEAN CORPUSCULAR VOLUME 103 fL (80-99); MEAN PLATELET VOLUME 9.9 fL (9.0-12.2); MONOCYTES # (AUTO) 0.8 10^3/uL (0.0-1.0); MONOCYTES % (AUTO) 8 % (0-12); NEUTROPHILS # (AUTO) 8.8 10^3/uL (1.8-7.8); NEUTROPHILS % (AUTO) 86 % (42-75); PLATELET COUNT 128 10^3/uL (130-400); WHITE BLOOD COUNT 10.3 10^3/uL (4.3-11.0)
[2020-08-14 06:46] LABS: BUN/CREATININE RATIO 33; CALCIUM 8.7 MG/DL (8.5-10.1); CARBON DIOXIDE 30 MMOL/L (21-32); CHLORIDE 97 MMOL/L (98-107); CREATININE SERUM 0.98 MG/DL (0.60-1.30); GFR ESTIMATED > 60; GLUCOSE 152 MG/DL (70-105); MAGNESIUM 2.6 MG/DL (1.6-2.4); POTASSIUM 5.1 MMOL/L (3.6-5.0); SODIUM 136 MMOL/L (135-145)
[2020-08-14] MEDS: ADVAIR HFA 115/21 MCG INHALER 8 GM IH SCH (06:55)
[2020-08-14 08:00] VITALS: BP 143/86
--- NOTE | 2020-08-14 09:44 | Progress Note ---
Subjective Date Seen by a Provider: Aug 14, 2020 Time Seen by a Provider: 09:41 Subjective/Events-last exam Fwup respiratory failure, septic shock, Bilateral Pneumonia, COPD exacerbation, Non-STEMI, Chronic Atrial Fibrillation, Alcoholism. Groggy this morning but had a rough overnight with agitation and combativeness requiring extra ativan and haldol. Focused Exam Time of Focused Exam: 04:21 Objective Exam Vital Signs Date Time Temp Pulse Resp B/P (MAP) Pulse Ox O2 Delivery O2 Flow Rate FiO2 08/14/20 08:00 36.2 79 20 143/86 (105) 95 High Flow N/C 4.50 08/14/20 06:57 98 Nasal Cannula 3.00 08/14/20 04:30 36.3 101 20 159/81 (107) 100 High Flow N/C 2.00 08/14/20 01:23 Nasal Cannula 5.00 08/14/20 01:00 98 08/14/20 00:00 36.0 89 18 133/89 (104) 100 High Flow N/C 4.00 08/13/20 20:45 Nasal Cannula 4.00 08/13/20 19:27 36.2 101 18 139/81 (100) 98 High Flow N/C 4.50 08/13/20 19:00 86 08/13/20 15:40 36.0 95 18 145/77 (99) 100 High Flow N/C 4.50 08/13/20 12:26 75 08/13/20 11:05 36.3 80 18 130/85 (100) 99 High Flow N/C 4.50 08/13/20 10:40 98 Nasal Cannula 5.00 I & O 08/14/20 07:00 Intake Total 1420 ml Output Total 1000 ml Balance 420 ml Capillary Refill : Less Than 3 Seconds General Appearance: Mild Distress (audible wheezine) Neck: Supple Respiratory: Decreased Breath Sounds, Wheezing Cardiovascular: Regular Rate, Rhythm Gastrointestinal: normal bowel sounds, non tender, soft Extremity: Non Tender, No Calf Tenderness, No Pedal Edema Neurologic/Psychiatric: Alert Results Lab Laboratory Tests 08/13/20 10:58: Vancomycin Level Trough 20.3H 08/14/20 05:56: White Blood Count 10.3, Red Blood Count 3.98L, Hemoglobin 13.5, Hematocrit 41, Mean Corpuscular Volume 103H, Mean Corpuscular Hemoglobin 34, Mean Corpuscular Hemoglobin Concent 33, Red Cell Distribution Width 12.0, Platelet Count 128L, Mean Platelet Volume 9.9, Immature Granulocyte % (Auto) 1, Neutrophils (%) (Auto) 86H, Lymphocytes (%) (Auto) 5L, Monocytes (%) (Auto) 8, Eosinophils (%) (Auto) 0, Basophils (%) (Auto) 0, Neutrophils # (Auto) 8.8H, Lymphocytes # (Auto) 0.5L, Monocytes # (Auto) 0.8, Eosinophils # (Auto) 0.0, Basophils # (Auto) 0.0, Immature Granulocyte # (Auto) 0.1, Sodium Level 136, Potassium Level 5.1H, Chloride Level 97L, Carbon Dioxide Level 30, Anion Gap 9, Blood Urea Nitrogen 32H, Creatinine 0.98, Estimat Glomerular Filtration Rate > 60, BUN/Creatinine Ratio 33, Glucose Level 152H, Calcium Level 8.7, Magnesium Level 2.6H Microbiology 08/10/20 Influenza Types A,B Antigen (ANN) - Final, Complete 08/10/20 Blood Culture - Preliminary, Resulted No growth 08/10/20 Urine Culture - Final, Complete NO GROWTH Assessment/Plan Assessment/Plan Assess & Plan/Chief Complaint 1. Acute on Chronic Respiratory Failure--has been weaned back to oxygen via NC 2. Septic Shock--improved 3. Bilateral Pneumonia--CXR improving, WBC back to normal, continue antibiotics 4. Non-STEMI/Chronic Atrial Fibrillation--cardiology following, medical management 5. Alcoholism--on alcohol withdrawal protocol 6. Weakness/Falls--doing PT/OT 7. COPD with acute exacerbation--I had attempted weaning his solumedrol yesterday but is more wheezy this morning so will increase solumedrol back to 60mg IV q8hrs and give a dose of lasix now as well as albuterol dose Clinical Quality Measures DVT/VTE Risk/Contraindication: Risk Factor Score Per Nursin RFS Level Per Nursing on Admit: 4+=Very High TORI JOSEPH DO Aug 14, 2020 09:43
[2020-08-14] MEDS ORDERED: methylPREDNISolone 40 MG/ML (Solu-MEDROL) VIAL IV NR (09:45)
[2020-08-14] MEDS ORDERED: FUROSEMIDE 40 MG/4 ML INJ (LASIX) IVP NR (09:45)
[2020-08-14] MEDS: GABAPENTIN 300 MG (NEURONTIN) CAP PO SCH ×2 (09:48→21:40)
[2020-08-14] MEDS: LORATADINE (CLARITIN) 10 MG TAB PO SCH (09:48)
[2020-08-14] MEDS: FOLIC ACID 1 MG TAB PO SCH (09:48)
[2020-08-14] MEDS: APIXABAN 5 MG (ELIQUIS) TABLET PO SCH ×2 (09:48→21:40)
[2020-08-14] MEDS: FAMOTIDINE 20 MG (PEPCID) TABLET PO SCH ×2 (09:48→21:40)
[2020-08-14] MEDS: LORazepam INJ 2 MG/ML (ATIVAN) VIAL IVP SCH ×2 (09:49→21:39)
[2020-08-14] MEDS ORDERED: RT-ALBUTEROL/IPRATROPIUM 3 ML (DUONEB) VIAL INH NR (10:00)
[2020-08-14] MEDS: VANCOMYCIN 1500 MG/NS 500 ML IVPB IV SCH ×2 (11:45)
[2020-08-14 12:00] VITALS: BP 147/86
--- NOTE | 2020-08-14 12:56 | Cardiology Progress Note ---
Subjective Date Seen by Provider: Aug 14, 2020 Time Seen by Provider: 12:54 Subjective/Events-last exam Patient had a rough night, was combative overnight, required additional Ativan. On my evaluation this morning he was more sleepy and tired. No new complaint Review of Systems General: No Chills, No Night Sweats; Fatigue, Malaise; No Appetite, No Other HEENT: No Head Aches, No Visual Changes, No Eye Pain, No Ear Pain, No Dysphasia, No Sinus Congestion, No Post Nasal Drip, No Sore Throat, No Other Pulmonary: Dyspnea, Cough; No Pleuritic Chest Pain, No Other Cardiovascular: No: Chest Pain, Palpitations, Orthopnea, Paroxysmal Noc. Dyspnea, Edema, Lt Headedness, Other Focused Exam Time of Focused Exam: 04:21 Objective-Cardiology Exam Last Set of Vital Signs Vital Signs 08/12/20 08/14/20 08:30 08:00 Temp 36.2 Pulse 79 Resp 20 B/P (MAP) 143/86 (105) Pulse Ox 95 O2 Delivery High Flow N/C O2 Flow Rate 4.50 FiO2 30 Capillary Refill : Less Than 3 Seconds I&O Intake and Output 08/14/20 00:00 Intake Total 1600 ml Output Total 1575 ml Balance 25 ml Intake Oral 1600 ml Output Urine Total 1575 ml General: Alert, Oriented X3, Cooperative HEENT: Atraumatic, PERRLA Neck: Supple, No JVD, No Thyromegaly Lungs: Clear to Auscultation, Normal Air Movement Heart: Normal S1, Normal S2, Other (atrial fibrillation, systolic murmur) Abdomen: Normal Bowel Sounds, Soft, No Tenderness, No Hepatosplenomegaly, No Masses Extremities: No Clubbing, No Cyanosis, No Edema, Normal Pulses, No Tenderness/Swelling Skin: Other (ecchymosis on the upper extremities and face) Neuro: Normal Speech, Normal Tone, Sensation Intact Psych/Mental Status: Mental Status NL, Mood NL Results Lab Laboratory Tests 08/14/20 05:56 A/P-Cardiology Admission Diagnosis Syncope Sepsis Pneumonia Non-ST elevation myocardial infarctions Assessment/Plan Syncope, probably hypotensive episode. Better at this time, blood pressure is better. Continue to monitor, underlying arrhythmia cannot be entirely excluded at this point. We'll continue to monitor on telemetry Pneumonia, sepsis with septic shock, low pressure has improved, responded to IV antibiotic and IV fluid. Continue to monitor Shortness of breath, acute on chronic respiratory failure with COPD exacerbation and emphysema, improving, managed by primary care team Paroxysmal atrial fibrillation, back in atrial fibrillation with controlled rate. Seen by Dr. Rick. Continue to monitor History of mild sinus node dysfunction with episodes of bradycardia, discussed with Dr. Rick in the past possible KIM of pacemaker, does not require it at this point Chronic anticoagulation with Eliquis, currently on hold due to the recent fall. Continue to monitor H&H Non-ST elevation myocardial infarction, mild elevation in troponin probably due to hypotension and sepsis, patient is known to have mild to moderate coronary artery disease, conservative management is recommended. Continue to monitor Coronary artery disease, cardiac catheterization was carried out in November 2018 showing 60-70 percent mid LAD stenosis, mild to moderate disease otherwise. Continue to monitor Alcoholism, electrolyte imbalance, withdrawal precaution, being replaced and monitored by primary care physician Anxiety, chronic pain syndrome, followed and managed by primary care physician Clinical Quality Measures DVT/VTE Risk/Contraindication: Risk Factor Score Per Nursin RFS Level Per Nursing on Admit: 4+=Very High GABRIEL DESHPANDE MD Aug 14, 2020 12:56
[2020-08-14] MEDS: methylPREDNISolone 40 MG/ML (Solu-MEDROL) VIAL IV SCH ×2 (14:57→21:39)
[2020-08-14 15:48] VITALS: BP 141/81
[2020-08-14 20:00] VITALS: BP 162/98
[2020-08-14] MEDS: MONTELUKAST 10 MG (SINGULAIR) TAB PO SCH (21:39)
[2020-08-14] MEDS: FINASTERIDE (PROSCAR) 5 MG TAB PO SCH (21:39)
[2020-08-14] MEDS: risperiDONE 1 MG (RisperDAL) TAB PO SCH (21:40)
[2020-08-15] VITALS (8 sets, daily range): BP systolic 138–170; BP diastolic 72–91
[2020-08-15] MEDS: CEFEPIME 1,000 MG/SWFI 10 ML IV PUSH IV SCH ×6 (00:59→13:40)
[2020-08-15] MEDS: RT-ALBUTEROL/IPRATROPIUM 3 ML (DUONEB) VIAL INH SCH ×6 (02:55→22:46)
[2020-08-15 04:36] LABS: BASOPHILS % (AUTO) 0 % (0-10); EOSINOPHILS % (AUTO) 0 % (0-10); HEMATOCRIT 37 % (40-54); LYMPHOCYTES # (AUTO) 0.3 10^3/uL (1.0-4.0); MEAN CORPUSCULAR VOLUME 102 fL (80-99)
[2020-08-15 04:37] LABS: HEMOGLOBIN 12.5 g/dL (13.3-17.7); LYMPHOCYTES % (AUTO) 4 % (12-44); MEAN CORPUSCULAR HEMOGLOBIN 34 pg (25-34); MEAN CORPUSCULAR HGB CONC 34 g/dL (32-36); MEAN PLATELET VOLUME 9.7 fL (9.0-12.2); MONOCYTES # (AUTO) 0.7 10^3/uL (0.0-1.0); MONOCYTES % (AUTO) 8 % (0-12); NEUTROPHILS # (AUTO) 7.1 10^3/uL (1.8-7.8); NEUTROPHILS % (AUTO) 87 % (42-75); PLATELET COUNT 121 10^3/uL (130-400); WHITE BLOOD COUNT 8.2 10^3/uL (4.3-11.0)
[2020-08-15 04:55] LABS: ALBUMIN 3.3 GM/DL (3.2-4.5)
[2020-08-15 04:56] LABS: CHLORIDE 98 MMOL/L (98-107); POTASSIUM 4.9 MMOL/L (3.6-5.0); SODIUM 139 MMOL/L (135-145)
[2020-08-15 04:57] LABS: CALCIUM 8.5 MG/DL (8.5-10.1)
[2020-08-15 04:58] LABS: GLUCOSE 156 MG/DL (70-105); TOTAL PROTEIN 5.5 GM/DL (6.4-8.2)
[2020-08-15 04:59] LABS: CARBON DIOXIDE 33 MMOL/L (21-32)
[2020-08-15 05:00] LABS: BILIRUBIN,TOTAL 0.9 MG/DL (0.1-1.0)
[2020-08-15 05:01] LABS: ALKALINE PHOSPHATASE 38 U/L (40-136); CREATININE SERUM 0.95 MG/DL (0.60-1.30)
[2020-08-15 05:03] LABS: BUN/CREATININE RATIO 33
[2020-08-15 05:04] LABS: ALANINE AMINOTRANSFERASE 58 U/L (0-55); MAGNESIUM 2.5 MG/DL (1.6-2.4)
[2020-08-15 05:09] LABS: GFR ESTIMATED > 60
[2020-08-15] MEDS: MULTIVIT W/MINERALS TAB (THERAGRAN M) PO SCH (06:22)
[2020-08-15] MEDS: methylPREDNISolone 40 MG/ML (Solu-MEDROL) VIAL IV SCH (06:22)
[2020-08-15] MEDS: ADVAIR HFA 115/21 MCG INHALER 8 GM IH SCH (06:35)
[2020-08-15] MEDS ORDERED: predniSONE 20 MG TAB PO SCH (07:00)
--- NOTE | 2020-08-15 09:25 | NUR ---
Contacted respiratory at this time for consult
--- NOTE | 2020-08-15 09:30 | NUR ---
Informed Dr. Jasmine I did not feel the patient should be discharged at this time and that I felt his status has declined since yesterday.
--- NOTE | 2020-08-15 09:47 | NUR ---
Was notified by the water restoration technician that the patients heart rate was 157 at this time. Notified Robert and Dr. Jasmine at this time. Patient non symptomatic and states "I just want to go home."
[2020-08-15] MEDS: LORATADINE (CLARITIN) 10 MG TAB PO SCH (09:57)
[2020-08-15] MEDS: APIXABAN 5 MG (ELIQUIS) TABLET PO SCH ×2 (09:57→20:19)
[2020-08-15] MEDS: GABAPENTIN 300 MG (NEURONTIN) CAP PO SCH ×2 (09:57→20:18)
[2020-08-15] MEDS: LORazepam INJ 2 MG/ML (ATIVAN) VIAL IVP SCH ×2 (09:57→20:17)
[2020-08-15] MEDS: FOLIC ACID 1 MG TAB PO SCH (09:57)
[2020-08-15] MEDS: FAMOTIDINE 20 MG (PEPCID) TABLET PO SCH ×2 (10:01→20:18)
[2020-08-15] MEDS: HYDROcodone/APAP 10 MG/325 MG (LORTAB) TAB PO PRN ×2 (10:01→20:18)
--- NOTE | 2020-08-15 10:07 | Cardiology Progress Note ---
Subjective Date Seen by Provider: Aug 15, 2020 Time Seen by Provider: 10:05 Subjective/Events-last exam Patient is sitting in bed comfortably, denied any chest pain, having more shortness of breath Review of Systems General: No Chills, No Night Sweats, No Fatigue, No Malaise, No Appetite, No Other HEENT: No Head Aches, No Visual Changes, No Eye Pain, No Ear Pain, No Dysphasia, No Sinus Congestion, No Post Nasal Drip, No Sore Throat, No Other Pulmonary: Dyspnea; No Cough, No Pleuritic Chest Pain, No Other Cardiovascular: No: Chest Pain, Palpitations, Orthopnea, Paroxysmal Noc. Dyspnea, Edema, Lt Headedness, Other Focused Exam Time of Focused Exam: 04:21 Objective-Cardiology Exam Last Set of Vital Signs Vital Signs 08/12/20 08/15/20 08/15/20 08:30 09:03 09:30 Temp 35.5 Pulse 123 Resp 26 B/P (MAP) 139/75 (96) Pulse Ox 94 O2 Delivery High Flow N/C O2 Flow Rate 2.00 FiO2 30 Capillary Refill : Less Than 3 Seconds I&O Intake and Output 08/15/20 00:00 Intake Total 1490 ml Output Total 2000 ml Balance -510 ml Intake Oral 1470 ml IV Total 20 ml Output Urine Total 2000 ml # Voids 1 # Urine Diapers 2 # Bowel Movements 2 General: Alert, Oriented X3, Cooperative HEENT: Atraumatic, PERRLA Neck: Supple, No JVD, No Thyromegaly Lungs: Clear to Auscultation, Normal Air Movement Heart: Normal S1, Normal S2, Other (atrial fibrillation, systolic murmur) Abdomen: Normal Bowel Sounds, Soft, No Tenderness, No Hepatosplenomegaly, No Masses Extremities: No Clubbing, No Cyanosis, No Edema, Normal Pulses, No Tenderness/Swelling Skin: Other (ecchymosis on the upper extremities and face) Neuro: Normal Speech, Normal Tone, Sensation Intact Psych/Mental Status: Mental Status NL, Mood NL Results Lab Laboratory Tests 08/15/20 04:05 A/P-Cardiology Admission Diagnosis Syncope Sepsis Pneumonia Non-ST elevation myocardial infarctions Assessment/Plan Syncope, probably hypotensive episode. Better at this time, blood pressure is better. Continue to monitor, underlying arrhythmia cannot be entirely excluded at this point. We'll continue to monitor on telemetry Pneumonia, sepsis with septic shock, low pressure has improved, responded to IV antibiotic and IV fluid. Continue to monitor Shortness of breath, acute on chronic respiratory failure with COPD exacerbation and emphysema, worsening dyspnea today, discussed with Dr. Sandhu, patient is on Solu-Medrol, will evaluate chest x-ray and blood gases. Paroxysmal atrial fibrillation, tachycardic today. I will give him one dose of IV verapamil and start him on short-acting diltiazem and monitor tolerance and response, I proceeded with loop recorder implant History of mild sinus node dysfunction with episodes of bradycardia, discussed with Dr. Rick in the past possible KIM of pacemaker, does not require it at this point Chronic anticoagulation with Eliquis, currently on hold due to the recent fall. Continue to monitor H&H Non-ST elevation myocardial infarction, mild elevation in troponin probably due to hypotension and sepsis, patient is known to have mild to moderate coronary artery, conservative management is recommended. Continue to monitor Coronary artery disease, cardiac catheterization was carried out in November 2018 showing 60-70 percent mid LAD stenosis, mild to moderate disease otherwise. Continue to monitor Peripheral artery disease, known to have occluded right SFA and iliac artery. Has been followed by Dr. Rick Alcoholism Anxiety, chronic pain syndrome, followed and managed by primary care physician Clinical Quality Measures DVT/VTE Risk/Contraindication: Risk Factor Score Per Nursin RFS Level Per Nursing on Admit: 4+=Very High GABRIEL DESHPANDE MD Aug 15, 2020 10:07
[2020-08-15] MEDS ORDERED: VERAPAMIL 5 MG/2 ML (CALAN) VIAL IV ONE (10:15)
--- NOTE | 2020-08-15 10:18 | NUR ---
CM/SS follow up. CM/SS visited with patient. He was sitting up in the chair but appeared to be uncomfortable. He was breathing hard and had to pause while speaking. The patient continued to repeat that he has "been here for too long" and he is supposed to discharge today. The patient was requesting to lie down in bed. CM/SS informed the patient's Aide Latrice. She is assisting patient get back into bed. GERARDO/SS discussed home health with the patient. GERARDO/SS spoke with physician last week discussing plan of care. At that time, home health was discussed. GERARDO/SS is unsure if that is still physician plan at this time. However, this sw provided the patient with a patient preference form. He chose [facility]. CM/SS contacted [facility] for referral. GERARDO/SS will continue to follow. Addendum: 08/15/20 at 1456 by AZIZA NICHOLS CM/SS update: GERARDO/DARRICK spoke with the patient's and gave an update. GERARDO/SS informed Chaya that patient was not discharging home today and is moving to the cardiac step down unit. She verbalized understanding but had many questions. GERARDO/SS attempted to direct her to the right people. Per chart review, patient is supposed to be working with PT/OT; however, it is not ordered and there isn't a PT/OT Evaluation note in. GERARDO/DARRICK spoke with the patient's primary care nurse. She is checking with physician. Will continue to follow.
--- NOTE | 2020-08-15 10:39 | NUR ---
Administered Jez early per Dr. Jasmine verbal request.
--- NOTE | 2020-08-15 10:41 | NUR ---
Ordered ABG per Dr. Tena verbal request. Administered Verapamil with Dr. Jasmine at bedside. Patient tolerated well. Heart rate 95BPM at this time.
[2020-08-15] MEDS ORDERED: LIDOCAINE 1% INJ 20 ML 20 ML VIAL ONE (11:00)
[2020-08-15] MEDS ORDERED: TROUGH ORDER-PHARMACY XX NR (11:00)
[2020-08-15 11:29] LABS: ABG BASE EXCESS 9.3 MMOL/L (-2.5-2.5); ABG OXYGEN SATURATION 92 % (94-100); ABG PCO2 63 MMHG (35-45); ABG PH 7.36 (7.37-7.43); ABG PO2 69 MMHG (79-93)
[2020-08-15 11:31] LABS: ALLENS TEST YES-POS
[2020-08-15 11:32] LABS: INSPIRED O2 30%; PATIENT TEMP 36.5; VENTILATOR NO
--- NOTE | 2020-08-15 11:39 | Diagnostic Imaging Report ---
Indication: Shortness of breath. Time of exam: 11:23 AM Comparison is made with prior chest from 08/13/2020. Heart size is stable. Loop recorder overlies the left hilum. Lungs are clear. No infiltrates are seen. There is no effusion or pneumothorax. Postop changes lower cervical spine are noted. IMPRESSION: No acute cardiopulmonary process is detected. Dictated by: Dictated on workstation # [id number]
--- NOTE | 2020-08-15 11:58 | Implantation of Loop Monitor ---
Implant of Loop Monitior IMPLANTATION OF LOOP MONITOR REPORT DATE OF PROCEDURE: 08/15/20 PREOP DIAGNOSIS: Paroxysmal atrial fibrillation, sinus node dysfunction POSTOP DIAGNOSIS: Paroxysmal atrial fibrillation, sinus node dysfunction PROCEDURE DETAILS: The patient is a 85 male with history of paroxysmal atrial fibrillation requiring long-term surveillance. Therefore implantable loop recorder was discussed and agreed with the patient. Informed consent was taken. All risks and complications were discussed at length. The patient was draped and prepped in the usual sterile fashion. Local anesthesia was lidocaine, which was given in the substernal area close to the 4th intercostal space. Loop monitor Pet [employer] with serial number [id number] was implanted according to the protocol. Steri- Strips were placed at the end of the procedure. There were no complications and the patient tolerated the procedure well. The device was interrogated with a voltage of. ANESTHESIA: Local anesthesia with lidocaine. COMPLICATIONS: None CONTRAST/FLUOROSCOPY: None CONCLUSION: Successful implantation of Loop monitor with no complication GABRIEL DESHPANDE MD Aug 15, 2020 11:58
--- NOTE | 2020-08-15 12:00 | NUR ---
Loop recorder placed at bedside. Patient tolerated procedure well however unable to speak clearly because of SOA at this time.
--- NOTE | 2020-08-15 12:49 | NUR ---
"RD ASSESSMENT PMHx: afib; CAD; hypercholesterolemia; HTN; BPH; COPD; ETOHism; PT INTERACTION: Pt was awake and pleasant during nutrition assessment. Pt states current appetite is not good, and has been this way since admit. Note avg PO intake 40% x2d, per chart review. Pt states eating a regular diet at home, and has no issues with chewing/swallowing food. Pt states no recent issues with nausea, vomiting, constipation, or diarrhea. Note last BM was 08/14, and pt currently on bowel regimen of senna PRN, per chart review. Pt states unsure of recent wt changes. Note unable to determine recent wt hx, per chart review. ABNORMAL NUTRITION-RELATED LAB VALUES LOW: Pro 5.5; HIGH: BUN 31; glu 156; Mg 2.5; AST 103; ALT 58; Est. kcal needs: 2000 kcal | 20 kcal/kg Est. Pro needs: 100 g Pro | 1.0 g Pro/kg PES STATEMENT: Inadequate oral intake (NI-2.1) related to loss of appetite as evidenced by pt interview | avg PO intake 40% x2d INTERVENTION: Continue with current diet order of Heart Healthy diet. Add Ensure Enlive to meals TID, for increased kcal intake. Provides 350 kcal and 20 g Pro per serving. Encouraged pt to eat when able. Will continue to follow and reassess as pt needs, intake, and status change. Nuvia Quach, MS RD LD"
--- NOTE | 2020-08-15 12:54 | Progress Note ---
Subjective Date Seen by a Provider: Aug 15, 2020 Time Seen by a Provider: 12:52 Subjective/Events-last exam Fwup respiratory failure, septic shock, Bilateral Pneumonia, COPD exacerbation, Non-STEMI, Chronic Atrial Fibrillation, Alcoholism. Sitting up in bed eating. Little more short of air but then coughs and clears up. Had LINQ device placed this morning. Focused Exam Time of Focused Exam: 04:21 Objective Exam Vital Signs Date Time Temp Pulse Resp B/P (MAP) Pulse Ox O2 Delivery O2 Flow Rate FiO2 08/15/20 09:30 94 High Flow N/C 2.00 08/15/20 09:03 35.5 123 26 139/75 (96) 90 High Flow N/C 1.00 08/15/20 08:00 35.5 123 26 139/75 (96) 90 High Flow N/C 1.00 08/15/20 06:35 94 High Flow N/C 1.00 08/15/20 03:45 35.3 76 17 162/72 (102) 94 High Flow N/C 1.00 08/15/20 01:00 74 08/15/20 00:00 35.5 77 18 146/73 (97) 93 High Flow N/C 1.00 08/14/20 22:33 93 High Flow N/C 1.00 08/14/20 21:00 Nasal Cannula 2.00 08/14/20 20:00 35.6 97 18 162/98 (119) 95 High Flow N/C 1.00 08/14/20 19:00 96 08/14/20 18:25 92 High Flow N/C 1.00 08/14/20 15:48 35.9 104 20 141/81 (101) 92 High Flow N/C 1.00 08/14/20 14:29 94 High Flow N/C 1.00 08/14/20 13:00 68 I & O 08/15/20 06:59 Intake Total 1420 ml Output Total 2100 ml Balance -680 ml Capillary Refill : Less Than 3 Seconds General Appearance: Mild Distress Respiratory: Decreased Breath Sounds, Wheezing Cardiovascular: Regular Rate, Rhythm, Systolic Murmur Extremity: Non Tender, No Calf Tenderness, No Pedal Edema Neurologic/Psychiatric: Alert, Oriented x3 Results Lab Laboratory Tests 08/15/20 04:05: White Blood Count 8.2, Red Blood Count 3.65L, Hemoglobin 12.5L, Hematocrit 37L, Mean Corpuscular Volume 102H, Mean Corpuscular Hemoglobin 34, Mean Corpuscular Hemoglobin Concent 34, Red Cell Distribution Width 11.9, Platelet Count 121L, Mean Platelet Volume 9.7, Immature Granulocyte % (Auto) 1, Neutrophils (%) (A uto) 87H, Lymphocytes (%) (Auto) 4L, Monocytes (%) (Auto) 8, Eosinophils (%) (Auto) 0, Basophils (%) (Auto) 0, Neutrophils # (Auto) 7.1, Lymphocytes # (Auto) 0.3L, Monocytes # (Auto) 0.7, Eosinophils # (Auto) 0.0, Basophils # (Auto) 0.0, Immature Granulocyte # (Auto) 0.1, Sodium Level 139, Potassium Level 4.9, Chloride Level 98, Carbon Dioxide Level 33H, Anion Gap 8, Blood Urea Nitrogen 31H, Creatinine 0.95, Estimat Glomerular Filtration Rate > 60, BUN/Creatinine Ratio 33, Glucose Level 156H, Calcium Level 8.5, Corrected Calcium 9.1, Magnesium Level 2.5H, Total Bilirubin 0.9, Aspartate Amino Transf (AST/SGOT) 103H, Alanine Aminotransferase (ALT/SGPT) 58H, Alkaline Phosphatase 38L, Total Protein 5.5L, Albumin 3.3 08/15/20 11:05: B-Type Natriuretic Peptide 353.3H, Vancomycin Level Trough 19.5 08/15/20 11:22: Blood Gas Puncture Site L RADIAL, Blood Gas Patient Temperature 36.5, Arterial Blood pH 7.36L, Arterial Blood Partial Pressure CO2 63H, Arterial Blood Partial Pressure O2 69L, Arterial Blood HCO3 35H, Arterial Blood Total CO2 37.0H, Arterial Blood Oxygen Saturation 92L, Arterial Blood Base Excess 9.3H, Paulo Test YES-POS, Blood Gas Ventilator Setting NO, Blood Gas Inspired Oxygen 30% 08/15/20 12:37: Lab Scanned Report Transfusion Reaction Form Microbiology 08/10/20 Influenza Types A,B Antigen (ANN) - Final, Complete 08/10/20 Blood Culture - Preliminary, Resulted No growth 08/10/20 Urine Culture - Final, Complete NO GROWTH Assessment/Plan Assessment/Plan Assess & Plan/Chief Complaint 1. Acute on Chronic Respiratory Failure--has been weaned back to oxygen via NC 2. Septic Shock--improved 3. Bilateral Pneumonia--CXR improving, WBC back to normal, continue antibiotics 4. Non-STEMI/Chronic Atrial Fibrillation--cardiology following, medical management, LINQ placed today 5. Alcoholism--on alcohol withdrawal protocol, better night last night with risperdal 6. Weakness/Falls--doing PT/OT 7. COPD with acute exacerbation--continue with IV solumedrol as weaning trial was unsuccessful yesterday Clinical Quality Measures DVT/VTE Risk/Contraindication: Risk Factor Score Per Nursin RFS Level Per Nursing on Admit: 4+=Very High TORI JOSEPH DO Aug 15, 2020 12:54
[2020-08-15] MEDS: VANCOMYCIN 1500 MG/NS 500 ML IVPB IV SCH ×2 (13:40)
--- NOTE | 2020-08-15 14:18 | Pulmonary Progress Note ---
Subjective Time Seen by a Provider: 14:17 Subjective/Events-last exam Pt has increased WOB. He states he would want intubated if needed. Sepsis Event Evaluation Height, Weight, BMI Height: 6'0.00" Weight: 241lbs. 9.0oz. 109.965841iw; 30.70 BMI Method:Stated Focused Exam Time of Focused Exam: 04:21 Exam Exam Vital Signs Date Time Temp Pulse Resp B/P (MAP) Pulse Ox O2 Delivery O2 Flow Rate FiO2 08/15/20 14:11 90 High Flow N/C 1.00 08/15/20 09:30 94 High Flow N/C 2.00 08/15/20 09:03 35.5 123 26 139/75 (96) 90 High Flow N/C 1.00 08/15/20 08:00 35.5 123 26 139/75 (96) 90 High Flow N/C 1.00 08/15/20 06:35 94 High Flow N/C 1.00 08/15/20 03:45 35.3 76 17 162/72 (102) 94 High Flow N/C 1.00 08/15/20 01:00 74 08/15/20 00:00 35.5 77 18 146/73 (97) 93 High Flow N/C 1.00 08/14/20 22:33 93 High Flow N/C 1.00 08/14/20 21:00 Nasal Cannula 2.00 08/14/20 20:00 35.6 97 18 162/98 (119) 95 High Flow N/C 1.00 08/14/20 19:00 96 08/14/20 18:25 92 High Flow N/C 1.00 08/14/20 15:48 35.9 104 20 141/81 (101) 92 High Flow N/C 1.00 08/14/20 14:29 94 High Flow N/C 1.00 I & O 08/15/20 07:00 Intake Total 1420 ml Output Total 2100 ml Balance -680 ml Height & Weight Height: 6'0.00" Weight: 241lbs. 9.0oz. 109.311003fh; 30.70 BMI Method:Stated General Appearance: Moderate Distress HEENT: PERRL/EOMI Neck: Supple Respiratory: Decreased Breath Sounds, Wheezing Cardiovascular: Regular Rate, Rhythm, Systolic Murmur Capillary Refill: Less Than 3 Seconds Peripheral Pulses: 2+ Dorsalis Pedis (R), 2+ Left Dors-Pedis (L), 2+ Radial Pulses (R), 2+ Radial Pulses (L) Gastrointestinal: normal bowel sounds, non tender, soft Extremity: Non Tender, No Calf Tenderness, No Pedal Edema Neurologic/Psychiatric: Alert, Oriented x3 Skin: Ecchymosis (left face and bilateral arms) Results Lab Laboratory Tests 08/14/20 05:56 08/15/20 04:05 Assessment/Plan Assessment/Plan Acute respiratory failure -Pt on NC -BNP is elevated. Will give lasix x 1 -monitor -negative influenza -negative COVID -Transfer pt to Cardiac Step Down unit -CXR Pneumonia with sepsis -Septic protocol - Vanco and Cefepime -Shah cultures Alcohol dependance -CIWA s/p Fall -CT head shows no acute change -fall risk -monitor -bedside alarm NSTEMI probably secondary to hypoxia -Monitor -Telemetry -final troponin decreased -Currently denies CP Lactic Acidosis -ABG reviewed, much improved -monitor I/O and for sx Obesity CHERY ROBERTS DO Aug 15, 2020 14:18
[2020-08-15] MEDS ORDERED: FUROSEMIDE 40 MG/4 ML INJ (LASIX) IVP NR (14:30)
--- NOTE | 2020-08-15 16:00 | NUR ---
Transferred patient to ICU with Stacia RODRIGUEZ at this time per Dr. Tena request.
--- NOTE | 2020-08-15 16:33 | NUR ---
PT TO ROOM 507 VIA BED ACCOMPANIED BY THIS RN, PT ON 2 LITERS O2 AND SA02 NOTED AT 97, PT ALERT TO NAME, PLACE. CALL LIGHT AND OTHER PERSONAL ITEMS WITHIN REACH, NO NEEDS NOTED AT THIS TIME, BED ALARM SET. WILL CONTINUE TO MONITOR.
[2020-08-15] MEDS: LORazepam 1 MG (ATIVAN) TAB PO PRN (18:06)
[2020-08-15] MEDS: LORazepam INJ 2 MG/ML (ATIVAN) VIAL IV PRN (20:15)
[2020-08-15] MEDS: FINASTERIDE (PROSCAR) 5 MG TAB PO SCH (20:18)
[2020-08-15] MEDS: risperiDONE 1 MG (RisperDAL) TAB PO SCH (20:18)
[2020-08-15] MEDS: MONTELUKAST 10 MG (SINGULAIR) TAB PO SCH (20:18)
--- NOTE | 2020-08-15 21:30 | NUR ---
PT RIPPED OUT IV AT THIS TIME. REFUSES TO LET THIS RN PLACE ANOTHER ONE. BECOMES AGGRESSIVE AND COMBATIVE WHEN ATTEMPTED. WILL CONTINUE TO MONITOR AND TRY AGAIN AT A LATER TIME.
--- NOTE | 2020-08-16 00:45 | NUR ---
THIS RN WAS ABLE TO PLACE PT BACK ON TELE AND RESTART IV 22G IN LEFT WRIST X1 ATTEMPT. PT IS NO LONGER COMBATIVE OR AGGRESSIVE. WILL CONTINUE TO MONITOR FOR CHANGES.
[2020-08-16] MEDS: RT-ALBUTEROL/IPRATROPIUM 3 ML (DUONEB) VIAL INH SCH ×6 (02:10→22:11)
[2020-08-16] MEDS: LORazepam INJ 2 MG/ML (ATIVAN) VIAL IV PRN (02:14)
[2020-08-16 03:01] VITALS: BP 142/74
[2020-08-16 03:26] LABS: EOSINOPHILS % (AUTO) 0 % (0-10); HEMOGLOBIN 12.6 g/dL (13.3-17.7); LYMPHOCYTES % (AUTO) 9 % (12-44)
[2020-08-16 03:29] LABS: BASOPHILS % (AUTO) 0 % (0-10); HEMATOCRIT 37 % (40-54); MEAN CORPUSCULAR HEMOGLOBIN 34 pg (25-34); MEAN CORPUSCULAR HGB CONC 34 g/dL (32-36); MEAN CORPUSCULAR VOLUME 102 fL (80-99); MEAN PLATELET VOLUME 9.4 fL (9.0-12.2); MONOCYTES # (AUTO) 1.6 10^3/uL (0.0-1.0); MONOCYTES % (AUTO) 14 % (0-12); NEUTROPHILS # (AUTO) 8.8 10^3/uL (1.8-7.8); NEUTROPHILS % (AUTO) 77 % (42-75); PLATELET COUNT 140 10^3/uL (130-400); WHITE BLOOD COUNT 11.5 10^3/uL (4.3-11.0)
[2020-08-16 03:48] LABS: BUN/CREATININE RATIO 33; CALCIUM 8.6 MG/DL (8.5-10.1); CARBON DIOXIDE 35 MMOL/L (21-32); CHLORIDE 95 MMOL/L (98-107); CREATININE SERUM 0.99 MG/DL (0.60-1.30); GFR ESTIMATED > 60; GLUCOSE 126 MG/DL (70-105); MAGNESIUM 2.2 MG/DL (1.6-2.4); SODIUM 139 MMOL/L (135-145)
[2020-08-16] MEDS: MULTIVIT W/MINERALS TAB (THERAGRAN M) PO SCH (04:42)
[2020-08-16] MEDS: LORazepam 1 MG (ATIVAN) TAB PO PRN (04:42)
[2020-08-16 04:47] VITALS: BP 136/81
[2020-08-16 05:50] VITALS: BP 144/91
[2020-08-16] MEDS: ADVAIR HFA 115/21 MCG INHALER 8 GM IH SCH (06:55)
[2020-08-16] MEDS ORDERED: predniSONE 20 MG TAB PO SCH (07:00)
[2020-08-16 08:32] VITALS: BP 142/76
[2020-08-16] MEDS: LORazepam INJ 2 MG/ML (ATIVAN) VIAL IVP SCH (08:41)
--- NOTE | 2020-08-16 08:53 | Progress Note ---
Subjective Subjective Date Seen by Provider: Aug 16, 2020 Time Seen by Provider: 08:40 PT IS AN 85 Y/O MALE WHO WAS ADMITTED WITH RESPIRATORY FAILURE DUE TO COPD EXACERBATION, SEPTIC SHOCK DUE TO PNEUMONIA, NON-ST MA DUE TO HYPOXIA, ALCOHOLISM, FALL AT HOME. PT COMBATIVE, IRRITABLE, RESISTING NURSING STAFF HELP AT BEDSIDE, REFUSING MEDICATIONS THIS MORNING. PT HAVING INCREASED TROUBLE BREATH. Review of Systems General: No Chills, No Night Sweats; Fatigue; No Malaise, No Appetite, No Other HEENT: No Head Aches, No Visual Changes, No Eye Pain, No Ear Pain, No Dysphasia, No Sinus Congestion, No Post Nasal Drip, No Sore Throat, No Other Pulmonary: Dyspnea, Cough; No Pleuritic Chest Pain, No Other Cardiovascular: No: Chest Pain, Palpitations, Orthopnea, Paroxysmal Noc. Dyspnea, Edema, Lt Headedness, Other Gastrointestinal: No: Nausea, Abdominal Pain, Diarrhea, Constipation Genitourinary: Other Musculoskeletal: back pain Neurological: Weakness, Confusion All Other Systems Reviewed All Other Systems Reviewed: Yes Objective Exam Vital Signs Vital Signs - First Documented 08/10/20 08/10/20 08/10/20 10:35 10:40 16:53 Temp 36.0 Pulse 128 Resp 22 B/P (MAP) 80/52 (61) Pulse Ox 94 O2 Delivery Nasal Cannula O2 Flow Rate 5.00 FiO2 30 Capillary Refill : Less Than 3 Seconds General Appearance: Moderate Distress Eyes: Bilateral Eye Normal Inspection, Bilateral Eye PERRL, Bilateral Eye EOMI HEENT: PERRL/EOMI Neck: Supple Respiratory: Decreased Breath Sounds, Wheezing Cardiovascular: Regular Rate, Rhythm, Systolic Murmur Gastrointestinal: Normal Bowel Sounds, No Organomegaly, Non Tender, Soft Rectal: Deferred Extremity: Non Tender, No Calf Tenderness, No Pedal Edema Neurologic/Psychiatric: Alert Skin: Ecchymosis (left face and bilateral arms) Results Lab Laboratory Tests 08/15/20 11:05: B-Type Natriuretic Peptide 353.3H, Vancomycin Level Trough 19.5 08/15/20 11:22: Blood Gas Puncture Site L RADIAL, Blood Gas Patient Temperature 36.5, Arterial Blood pH 7.36L, Arterial Blood Partial Pressure CO2 63H, Arterial Blood Partial Pressure O2 69L, Arterial Blood HCO3 35H, Arterial Blood Total CO2 37.0H, Arterial Blood Oxygen Saturation 92L, Arterial Blood Base Excess 9.3H, Paulo Test YES-POS, Blood Gas Ventilator Setting NO, Blood Gas Inspired Oxygen 30% 08/15/20 12:37: Lab Scanned Report Transfusion Reaction Form 08/16/20 03:12: White Blood Count 11.5H, Red Blood Count 3.66L, Hemoglobin 12.6L, Hematocrit 37L , Mean Corpuscular Volume 102H, Mean Corpuscular Hemoglobin 34, Mean Corpuscular Hemoglobin Concent 34, Red Cell Distribution Width 12.1, Platelet Count 140, Mean Platelet Volume 9.4, Immature Granulocyte % (Auto) 1, Neutrophils (%) (Auto) 77H, Lymphocytes (%) (Auto) 9L, Monocytes (%) (Auto) 14H, Eosinophils (%) (Auto) 0, Basophils (%) (Auto) 0, Neutrophils # (Auto) 8.8H, Lymphocytes # (Auto) 1.0, Monocytes # (Auto) 1.6H, Eosinophils # (Auto) 0.0, Basophils # (Auto) 0.0, Immature Granulocyte # (Auto) 0.1, Sodium Level 139, Potassium Level 4.0, Chloride Level 95L, Carbon Dioxide Level 35H, Anion Gap 9, Blood Urea Nitrogen 33H, Creatinine 0.99, Estimat Glomerular Filtration Rate > 60, BUN/Creatinine Ratio 33, Glucose Level 126H, Calcium Level 8.6, Magnesium Level 2.2 Microbiology 08/10/20 Influenza Types A,B Antigen (ANN) - Final, Complete 08/10/20 Blood Culture - Final, Complete No growth 08/10/20 Urine Culture - Final, Complete NO GROWTH Assessment/Plan Assessment/Plan Admission Dx SEPTIC SHOCK PNEUMONIA BILATERAL LOBES AND RIGHT UPPER LOBE COPD EXACERBATION WITH EMPHYSEMA LEUKOCYTOSIS LACTIC ACIDOSIS RESPIRATORY FAILURE HYPOTENSION CHRONIC ATRIAL FIBRILLATION CHRONIC ANTICOAGULATION WITH NOAC BPH ALCOHOLISM CHRONIC PAIN SYNDROME CHRONIC ANXIETY Assessment and Plan SEPTIC SHOCK PNEUMONIA BILATERAL LOBES AND RIGHT UPPER LOBE 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 There is interstitial infiltrate in the right upper lobe with some scattered patchy alveolar consolidations in the right upper lobe and both lower lobes. - PT WAS ON CEFEPIME AND VANCOMYCIN - WILL EXTEND OUT THE CEFEPIME INTO NEXT WEEK - SERIAL CHEST XRAYS. LEUKOCYTOSIS - IMPROVING DWON FROM 23 ON ADMIT TO 11 TODAY - PT HAS BEEN ON STEROIDS - SOME OF THE ELEVATED WHITE COUNT MAY BE DUE TO RECENT STEROID USE - MONITOR LABS CLOSELY. LACTIC ACIDOSIS - CONTINUE WITH OXYGEN SUPPORT, SERIAL LACTIC ACID LEVELS IMPROVED - NO L ONGER NEEDING MONITORING AT THIS TIME. - GENTLE IV FLUIDS HYPOTENSION - RESOLVED. CHRONIC ATRIAL FIBRILLATION WITH CHRONIC ANTICOAGULATION WITH NOAC - CHANGED BACK TO ELIQUIS - LOVENOX STOPPED ON 08/11/2020 BPH - RESTARTED HOME REGIMEN - JEREMY DC'D OVER THE WEEKEND ALCOHOLISM AND CHRONIC PAIN SYNDROME - RESTARTED PRN PAIN MEDICATION - WITHDRAWAL PROTOCOL STOPPED CHRONIC ANXIETY - DUE TO RISK OF WITHDRAWAL - WILL GIVE LOW DOSE LORAZEPAM IN HOSPITAL. CONFUSION/DELIRIUM - CONTINUE WITH SUPPORTIVE CARE - HOPEFULLY HE WILL IMPROVE PRIOR TO DISCHARGE, OTHERWISE HE WILL NEED TO GO TO A SNF - I TALKED TO HIS AND INFORMED HER ABOUT HIS STATUS FINAL COVID NEGATIVE DVT PROPHYLAXIS WITH ELIQUIS GI PROPHYLAXIS WITH PEPCID Admission Dx SEPTIC SHOCK PNEUMONIA BILATERAL LOBES AND RIGHT UPPER LOBE COPD EXACERBATION WITH EMPHYSEMA LEUKOCYTOSIS LACTIC ACIDOSIS RESPIRATORY FAILURE HYPOTENSION CHRONIC ATRIAL FIBRILLATION CHRONIC ANTICOAGULATION WITH NOAC BPH ALCOHOLISM CHRONIC PAIN SYNDROME CHRONIC ANXIETY Clinical Quality Measures Admission Status Admission Dx SEPTIC SHOCK PNEUMONIA BILATERAL LOBES AND RIGHT UPPER LOBE COPD EXACERBATION WITH EMPHYSEMA LEUKOCYTOSIS LACTIC ACIDOSIS RESPIRATORY FAILURE HYPOTENSION CHRONIC ATRIAL FIBRILLATION CHRONIC ANTICOAGULATION WITH NOAC BPH ALCOHOLISM CHRONIC PAIN SYNDROME CHRONIC ANXIETY DVT/VTE Risk/Contraindication: Risk Factor Score Per Nursin RFS Level Per Nursing on Admit: 4+=Very High RAYA ZAMAN MD Aug 16, 2020 08:53
--- NOTE | 2020-08-16 08:55 | Cardiology Progress Note ---
Subjective Date Seen by Provider: Aug 16, 2020 Time Seen by Provider: 08:52 Subjective/Events-last exam Patient is laying down in bed, breathing better today. More confused today Review of Systems General: No Chills, No Night Sweats, No Fatigue, No Malaise, No Appetite, No Other HEENT: No Head Aches, No Visual Changes, No Eye Pain, No Ear Pain, No Dysphasia, No Sinus Congestion, No Post Nasal Drip, No Sore Throat, No Other Pulmonary: Dyspnea; No Cough, No Pleuritic Chest Pain, No Other Cardiovascular: No: Chest Pain, Palpitations, Orthopnea, Paroxysmal Noc. Dyspnea, Edema, Lt Headedness, Other Focused Exam Time of Focused Exam: 04:21 Objective-Cardiology Exam Last Set of Vital Signs Vital Signs 08/12/20 08/16/20 08/16/20 08:30 08:32 11:11 Temp 36.1 Pulse 83 Resp 18 B/P (MAP) 142/76 (98) Pulse Ox 96 O2 Delivery High Flow N/C O2 Flow Rate 2.00 FiO2 30 Capillary Refill : Less Than 3 Seconds I&O Intake and Output 08/16/20 00:00 Intake Total 1275 ml Output Total 1575 ml Balance -300 ml Intake Oral 1275 ml Output Urine Total 1575 ml # Urine Diapers 2 General: Alert, Oriented X3, Cooperative HEENT: Atraumatic, PERRLA Neck: Supple, No JVD, No Thyromegaly Lungs: Clear to Auscultation, Normal Air Movement Heart: Normal S1, Normal S2, Other (atrial fibrillation, systolic murmur) Abdomen: Normal Bowel Sounds, Soft, No Tenderness, No Hepatosplenomegaly, No Masses Extremities: No Clubbing, No Cyanosis, No Edema, Normal Pulses, No Tend erness/Swelling Skin: Other (ecchymosis on the upper extremities and face) Neuro: Normal Speech, Normal Tone, Sensation Intact Psych/Mental Status: Mental Status NL, Mood NL Results Lab Laboratory Tests 08/16/20 03:12 A/P-Cardiology Admission Diagnosis Syncope Sepsis Pneumonia Non-ST elevation myocardial infarctions Assessment/Plan Syncope, probably hypotensive episode. Better at this time, blood pressure is better. Continue to monitor, underlying arrhythmia cannot be entirely excluded at this point. We'll continue to monitor on telemetry Confusion, change in mental status, probably secondary to hypoxemia. Seen and evaluated with the primary care team Pneumonia, improving, receiving antibiotic and managed by Dr. Sandhu Shortness of breath, acute on chronic respiratory failure with COPD exacerbation and emphysema, appeared to be better today. Chest x-ray did not show any changes, I will evaluate 2-D echo. Managed by Dr. Sandhu Paroxysmal atrial fibrillation, appear to be back to sinus rhythm with episodes of PAT, continue on current medication monitor Status post loop recorder implant for long-term monitoring. History of mild sinus node dysfunction with episodes of bradycardia, discussed with Dr. Rick in the past possible KIM of pacemaker, does not require it at this point Chronic anticoagulation with Eliquis, currently on hold due to the recent fall. Continue to monitor H&H Non-ST elevation myocardial infarction, mild elevation in troponin probably due to hypotension and sepsis, patient is known to have mild to moderate coronary artery, conservative management is recommended. Continue to monitor Coronary artery disease, cardiac catheterization was carried out in December 10 showing 60-70 percent mid LAD stenosis, mild to moderate disease otherwise. Continue to monitor Peripheral artery disease, known to have occluded right SFA and iliac artery. Has been followed by Dr. Rick Alcoholism Anxiety, chronic pain syndrome, followed and managed by primary care physician Clinical Quality Measures DVT/VTE Risk/Contraindication: Risk Factor Score Per Nursin RFS Level Per Nursing on Admit: 4+=Very High GABRIEL DESHPANDE MD Aug 16, 2020 8:55 am
[2020-08-16] MEDS ORDERED: RT-ALBUTEROL/IPRATROPIUM 3 ML (DUONEB) VIAL INH PRN (09:00)
[2020-08-16] MEDS: LORATADINE (CLARITIN) 10 MG TAB PO SCH (09:09)
[2020-08-16] MEDS: FAMOTIDINE 20 MG (PEPCID) TABLET PO SCH ×2 (09:09→20:55)
[2020-08-16] MEDS: GABAPENTIN 300 MG (NEURONTIN) CAP PO SCH ×2 (09:09→20:55)
[2020-08-16] MEDS: APIXABAN 5 MG (ELIQUIS) TABLET PO SCH ×2 (09:09→20:55)
[2020-08-16] MEDS ORDERED: FUROSEMIDE 40 MG/4 ML INJ (LASIX) IVP NR (09:15)
[2020-08-16] MEDS ORDERED: CEFEPIME INJECTION 1,000 MG in WATER (STERILE) FOR INJECTION 10 ML IV SCH (09:15)
--- NOTE | 2020-08-16 11:49 | NUR ---
CM/SS follow up. CM/SS was informed by patient's primary care physician that patient was too confused to discuss discharge planning and possible detention placement. The physician spoke to the patient's and informed her he needed a detention placement due to her inability to care for him at home in his current state. Chaya is agreeable with plan and verbalized understanding to physician. CM/SS contacted Jessica at [facility] to make a referral. They have a bed available. CM/SS faxed referral for possible discharge or Saturday. Awaiting acceptance/denial. CM/SS contacted Rosalee [facility] to inform her of update discharge plans. CM/SS asked if they will put referral on hold until Saturday if patient becomes more oriented. She verbalized understanding. CM/SS will continue to follow.
[2020-08-16] MEDS: LORazepam 0.5 MG (ATIVAN) TABLET PO SCH (11:57)
--- NOTE | 2020-08-16 12:16 | Pulmonary Progress Note ---
Subjective Time Seen by a Provider: 12:10 Subjective/Events-last exam Pt appears better c/w yesterday. Sepsis Event Evaluation Height, Weight, BMI Height: 6'0.00" Weight: 241lbs. 9.0oz. [id number]; 30.70 BMI Method:Stated Focused Exam Time of Focused Exam: 04:21 Exam Exam Vital Signs Date Time Temp Pulse Resp B/P (MAP) Pulse Ox O2 Delivery O2 Flow Rate FiO2 08/16/20 11:11 96 High Flow N/C 2.00 08/16/20 09:00 Nasal Cannula 2.00 08/16/20 08:32 36.1 83 18 142/76 (98) 95 High Flow N/C 1.00 08/16/20 06:58 93 High Flow N/C 2.00 08/16/20 06:53 83 08/16/20 05:50 80 18 144/91 (108) 100 High Flow N/C 1.00 08/16/20 04:47 88 21 136/81 (99) 98 High Flow N/C 1.00 08/16/20 03:01 36.3 87 19 142/74 (96) 96 High Flow N/C 1.00 08/16/20 02:10 97 High Flow N/C 2.00 08/16/20 01:00 94 08/15/20 23:29 36.0 88 20 138/78 (98) 95 High Flow N/C 2.00 08/15/20 22:46 92 High Flow N/C 1.00 08/15/20 21:23 Nasal Cannula 2.00 08/15/20 20:00 36.2 92 20 146/82 (103) 96 High Flow N/C 2.00 08/15/20 19:00 100 08/15/20 16:00 36.1 112 24 170/91 (117) 95 High Flow N/C 1.00 08/15/20 14:11 90 High Flow N/C 1.00 08/15/20 12:30 118 I & O 08/16/20 07:00 Intake Total 1375 ml Output Total 1675 ml Balance -300 ml Height & Weight Height: 6'0.00" Weight: 241lbs. 9.0oz. 109.674690pw; 30.70 BMI Method:Stated General Appearance: Moderate Distress HEENT: PERRL/EOMI Neck: Supple Respiratory: Decreased Breath Sounds, Wheezing Cardiovascular: Regular Rate, Rhythm, Systolic Murmur Capillary Refill: Less Than 3 Seconds Peripheral Pulses: 2+ Dorsalis Pedis (R), 2+ Left Dors-Pedis (L), 2+ Radial Pulses (R), 2+ Radial Pulses (L) Gastrointestinal: normal bowel sounds, non tender, soft Extremity: Non Tender, No Calf Tenderness, No Pedal Edema Neurologic/Psychiatric: Alert, Oriented x3 Skin: Ecchymosis (left face and bilateral arms) Results Lab Laboratory Tests 08/15/20 04:05 08/16/20 03:12 Assessment/Plan Assessment/Plan Acute respiratory failure -Pt on NC -lasix -monitor -negative influenza -negative COVID -CXR shows no acute process. Pneumonia with sepsis -Septic protocol - Cefepime Alcohol dependance -CIWA s/p Fall -CT head shows no acute change -fall risk -monitor -bedside alarm NSTEMI probably secondary to hypoxia -Monitor -Telemetry -final troponin decreased -Currently denies CP Lactic Acidosis -ABG reviewed, much improved -monitor I/O and for sx Obesity CHERY ROBERTS DO Aug 16, 2020 12:16
[2020-08-16] MEDS ORDERED: FUROSEMIDE 40 MG/4 ML INJ (LASIX) IVP STA (14:42)
[2020-08-16] MEDS ORDERED: FUROSEMIDE 40 MG/4 ML INJ (LASIX) ONE (14:43)
[2020-08-16 14:44] LABS: ABG BASE EXCESS 16.3 MMOL/L (-2.5-2.5); ABG OXYGEN SATURATION 98 % (94-100); ABG PH 7.39 (7.37-7.43); ABG PO2 92 MMHG (79-93); ABG TCO2 44.2 MMOL/L (21.0-31.0)
[2020-08-16 14:48] LABS: ABG PCO2 71 MMHG (35-45)
[2020-08-16 14:49] LABS: ALLENS TEST YES-POS; INSPIRED O2 30%; VENTILATOR NO
--- NOTE | 2020-08-16 15:27 | Diagnostic Imaging Report ---
INDICATION: Shortness of breath, change in patient condition. COMPARISON: August 15, 2020. TECHNIQUE: Single radiograph of the chest dated August 16, 2020. FINDINGS: Loop recorder is again identified overlying the left chest. The cardiac silhouette is stable. No significant pulmonary vascular congestion. The left lung is clear. Mild right basilar interstitial opacities. No significant pleural effusion. No pneumothorax. Postsurgical changes within the cervical spine. No acute osseous abnormality. IMPRESSION: Low lung volumes with associated mild right basilar atelectasis and/or pneumonitis. Persistent mild cardiomegaly without pulmonary vascular congestion. Dictated by: Dictated on workstation # [id number]
[2020-08-16 16:00] VITALS: BP 117/66
--- NOTE | 2020-08-16 16:20 | NUR ---
GERARDO/DARRICK update: GERARDO/DARRICK received a call from the patient's at 1300 and [phone]. During the first contact the patient reports she is upset because "they are sedating her ". She reports that she does not understand why they are having to sedate him and what they are using to sedate him. She believes he is being sedated too much.The patient stated she does not understand why they are treating him for withdrawal when her is not an alcoholic. This sw talked at length with Chaya discussing the patient's drinking habits and the affects it can have on the body when the substance is removed. She verbalized understanding and stated "Oh, I've never thought of it like that". Chaya jumped subjects often. She then discussed how upset she was that she could not visit. She wanted this sw to ask the charge nurse to make an exception. KAYLEY discussed with the warehouse foreman Federica. Chaya will not be allowed to visit at this time. GERARDO/DARRICK relayed this to Chaya. She verbalized understanding. GERARDO/DARRICK explained the exceptions for palliative, disability, and a minor. She stated "you better not kill my ". GERARDO/DARRICK received the second call from Chaya. Chaya brought up the same concerns that were discussed in the previous conversation. GERARDO/DARRICK briefly reviewed the prior conversation with Chaya. She states she just wants to know what is going on. GERARDO/DARRICK referred her to speak with a nurse for medical questions. GERARDO/DARRICK spoke with patient's primary care nurse. She states she has spoken with Chaya x3 to give updates during her shift today. The patient was lying in bed with BIPAP on. He was resting comfortably. No further needs at this time.
[2020-08-16] MEDS: CEFEPIME INJECTION 1,000 MG in WATER (STERILE) FOR INJECTION 10 ML IV SCH (18:15)
--- NOTE | 2020-08-16 18:22 | NUR ---
SHIFT EVENT SUMMARY: PT AGITATED, BUT LETHARGIC AT BEGINNING OF SHIFT. SCHEDULED ATIVAN HELD AT THAT TIME. AUSTYN IN TO SEE PT. PRN BREATHING TX ORDERED AND GIVEN. THIS RN NOTIFIES AUSTYN OF PT CHANGE IN CONDITION: DECREASE IN AIR MOVEMENT THROUGHOUT LOWER LOBES AND COARSE BREATH SOUNDS AUSCULTATED IN THE UPPER LOBES. ORDER FOR LASIX OBTAINED AND GIVEN. AUSTYN NOTIFIED OF PT CHANGE IN CONDITION: PT BREATHING IS INCREASINGLY LABORED AND COARSE WITH ABDOMINAL RETRACTIONS OBSERVED. ORDERS FOR STAT ABG AND DOSE OF LASIX OBTAINED AND COMPLETED. ALEJANDRA NOTIFIED OF ABG RESULTS. PT PLACED ON BIPAP AT THIS TIME PER ORDERS. AUSTYN NOTIFIED OF PT ABG RESULTS AND THAT PT HAS BEEN PLACED ON BIPAP. AUSTYN NOTIFIED OF THE FOLLOWING: THAT PT REFUSES TO LEAVE BIPAP ON FACE. PT ALSO REFUSES TO KEEP NASAL CANULA ON. THIS RN HAS ATTEMPTED TO TALK CALMLY TO PT ABOUT THE IMPORTANCE OF WEARING HIS OXYGEN. THIS RN HAS ATTEMPTED TO REASSURE PT IS IN A SAFE ENVIRONMENT. THIS RN HAS CALLED AND HAD SPEAK WITH PT. - ORDERS FOR MEDICAL RESTRAINT OBTAINED. SOFT RESTRAINTS APPLIED TO PT WRISTS BILATERALLY. PT TOLERATED WELL. THIS RN WOULD ALSO LIKE TO MAKE IT KNOW THAT PT'S , MARIE, HAS CALLED SIX TIMES DURING HER SHIFT. WITH EACH PHONE CALL LASTING BETWEEN 5 AND 35 MINUTES. THIS RN DID EXPLAIN TO MARIE THAT SHE WOULD CALL WITH ANY CHANGES, BUT THAT SHE SHOULD LIMIT HER CALLS TO THIS NURSE SO SHE COULD BE AT THE BEDSIDE OF HER PATIENTS. MARIE INSISTS DURING ALL PHONE CONVERSATIONS THAT THIS NURSE "LET HER IN TO SEE HER IMMEDIATELY." THIS RN EXPLAINS THE CURRENT HOSPITAL POLICY ON VISITORS AT THIS TIME. MARIE THEN THREATENS TO OBI THIS RN IF SHE DOES NOT "MAKE IT HAPPEN." THIS RN THEN ENDS CONVERSATIONS WITH MARIE AND ASKS THAT IF SHE HAS ANY FURTHER QUESTIONS REGARDING POLICY THAT SHE REFER THEM TO OUR HEEL ATTACHER OR BUDGET REPORT CLERK. HS NOTIFIED OF ALL PHONE INTERACTIONS WITH MARIE.
[2020-08-16] MEDS: methylPREDNISolone 40 MG/ML (Solu-MEDROL) VIAL IV SCH (19:34)
[2020-08-16 19:40] VITALS: BP 143/85
[2020-08-16] MEDS: MONTELUKAST 10 MG (SINGULAIR) TAB PO SCH (20:55)
[2020-08-16] MEDS: risperiDONE 1 MG (RisperDAL) TAB PO SCH (20:55)
[2020-08-16] MEDS: FINASTERIDE (PROSCAR) 5 MG TAB PO SCH (20:55)
[2020-08-17] VITALS: BP 134/98
[2020-08-17] MEDS: methylPREDNISolone 40 MG/ML (Solu-MEDROL) VIAL IV SCH ×4 (00:15→18:02)
[2020-08-17] MEDS: CEFEPIME INJECTION 1,000 MG in WATER (STERILE) FOR INJECTION 10 ML IV SCH ×4 (00:15→18:00)
[2020-08-17] MEDS: RT-ALBUTEROL/IPRATROPIUM 3 ML (DUONEB) VIAL INH SCH ×6 (01:51→22:15)
--- NOTE | 2020-08-17 02:30 | NUR ---
PT OFF FROM RESTRAINS AND BIPAP AT THIS TIME. DRINKING A COUP OF COFFEE.
--- NOTE | 2020-08-17 03:00 | NUR ---
PT REFUSING TO LET US TO PUT THE BIPAP ON. MOVING HEAD SIDE TO SIDE, YELLING GET OFF ME. RESTRAINS IN PLACED NOW. WILL CONTINUO TO MONITOR
[2020-08-17 03:59] LABS: BASOPHILS % (AUTO) 0 % (0-10); EOSINOPHILS % (AUTO) 0 % (0-10); HEMATOCRIT 41 % (40-54); HEMOGLOBIN 13.5 g/dL (13.3-17.7); LYMPHOCYTES # (AUTO) 0.4 10^3/uL (1.0-4.0); LYMPHOCYTES % (AUTO) 3 % (12-44); MEAN CORPUSCULAR HEMOGLOBIN 34 pg (25-34); MEAN CORPUSCULAR HGB CONC 33 g/dL (32-36); MEAN CORPUSCULAR VOLUME 102 fL (80-99); MEAN PLATELET VOLUME 9.3 fL (9.0-12.2); MONOCYTES # (AUTO) 0.4 10^3/uL (0.0-1.0); MONOCYTES % (AUTO) 4 % (0-12); NEUTROPHILS # (AUTO) 10.4 10^3/uL (1.8-7.8); NEUTROPHILS % (AUTO) 92 % (42-75); PLATELET COUNT 149 10^3/uL (130-400); WHITE BLOOD COUNT 11.3 10^3/uL (4.3-11.0)
[2020-08-17 04:13] VITALS: BP 154/93
[2020-08-17 04:29] LABS: CARBON DIOXIDE 38 MMOL/L (21-32); CHLORIDE 89 MMOL/L (98-107); POTASSIUM 4.3 MMOL/L (3.6-5.0); SODIUM 141 MMOL/L (135-145)
[2020-08-17 04:30] LABS: BUN/CREATININE RATIO 32; CALCIUM 8.9 MG/DL (8.5-10.1); GFR ESTIMATED > 60; GLUCOSE 178 MG/DL (70-105); MAGNESIUM 2.2 MG/DL (1.6-2.4)
[2020-08-17 07:47] VITALS: BP 160/85
[2020-08-17] MEDS: APIXABAN 5 MG (ELIQUIS) TABLET PO SCH ×2 (08:52→20:41)
[2020-08-17] MEDS: LORazepam 0.5 MG (ATIVAN) TABLET PO SCH (08:53)
[2020-08-17] MEDS: LORATADINE (CLARITIN) 10 MG TAB PO SCH (08:53)
[2020-08-17] MEDS: FAMOTIDINE 20 MG (PEPCID) TABLET PO SCH ×2 (08:53→20:41)
[2020-08-17] MEDS: GABAPENTIN 300 MG (NEURONTIN) CAP PO SCH ×2 (08:53→20:41)
--- NOTE | 2020-08-17 08:56 | Progress Note ---
Subjective Subjective Date Seen by Provider: Aug 17, 2020 Time Seen by Provider: 08:40 PT IS AN 85 Y/O MALE WHO WAS ADMITTED WITH RESPIRATORY FAILURE DUE TO COPD EXACERBATION, SEPTIC SHOCK DUE TO PNEUMONIA, NON-ST RI DUE TO HYPOXIA, ALCOHOLISM, FALL AT HOME. PT MORE ALERT TODAY - RECOGNIZED THIS NURSE OFFICE, STATES THAT HE IS FEELING A LITTLE BIT BETTER TODAY. HE WAS PLACED ON BIPAP YESTERDAY AFTERNOON AFTER HAVING INCREASED WORK OF BREATHING AND "WET SOUNDING" PER NURSING STAFF. PT HAD TO BE RESTRAINED YESTERDAY DUE TO HIS COMBATIVENESS AND INABILITY TO LEAVE THE BIPAP ALONE AND KEEP IT IN PLACE. Review of Systems General: No Chills, No Night Sweats; Fatigue; No Malaise, No Appetite, No Other HEENT: No Head Aches, No Visual Changes, No Eye Pain, No Ear Pain, No Dysp hasia, No Sinus Congestion, No Post Nasal Drip, No Sore Throat, No Other Pulmonary: Dyspnea, Cough; No Pleuritic Chest Pain, No Other Cardiovascular: No: Chest Pain, Palpitations, Orthopnea, Paroxysmal Noc. Dyspn ea, Edema, Lt Headedness, Other Gastrointestinal: No: Nausea, Abdominal Pain, Diarrhea, Constipation Genitourinary: Frequency Musculoskeletal: back pain Neurological: Weakness, Confusion All Other Systems Reviewed All Other Systems Reviewed: Yes Objective Exam Vital Signs Vital Signs - First Documented 08/11/20 08/11/20 08/11/20 00:00 03:39 08:02 Temp 36.4 Pulse 71 Resp 17 B/P (MAP) 100/62 Pulse Ox 95 O2 Delivery Vapotherm O2 Flow Rate 40.00 30.00 FiO2 30 Capillary Refill : Less Than 3 Seconds General Appearance: WD/WN, Mild Distress Eyes: Bilateral Eye Normal Inspection, Bilateral Eye PERRL, Bilateral Eye EOMI HEENT: PERRL/EOMI Neck: Supple Respiratory: Decreased Breath Sounds, Wheezing Cardiovascular: Regular Rate, Rhythm, Systolic Murmur Gastrointestinal: Normal Bowel Sounds, No Organomegaly, Non Tender, Soft Rectal: Deferred Extremity: Non Tender, No Calf Tenderness, No Pedal Edema Neurologic/Psychiatric: Alert, Oriented x3, Normal Mood/Affect Skin: Ecchymosis (left face and bilateral arms) Results Lab Laboratory Tests 08/16/20 14:41: Blood Gas Puncture Site RT RAD, Blood Gas Patient Temperature 37.0, Arterial Blood pH 7.39, Arterial Blood Partial Pressure CO2 71*H, Arterial Blood Partial Pressure O2 92, Arterial Blood HCO3 42*H, Arterial Blood Total CO2 44.2H, Arterial Blood Oxygen Saturation 98, Arterial Blood Base Excess 16.3H, Paulo Test YES-POS, Blood Gas Ventilator Setting NO, Blood Gas Inspired Oxygen 30% 08/17/20 03:18: White Blood Count 11.3H, Red Blood Count 3.98L, Hemoglobin 13.5, Hematocrit 41, Mean Corpuscular Volume 102H, Mean Corpuscular Hemoglobin 34, Mean Corpuscular Hemoglobin Concent 33, Red Cell Distribution Width 11.9, Platelet Count 149, Mean Platelet Volume 9.3, Immature Granulocyte % (Auto) 1, Neutrophils (%) (Auto) 92H, Lymphocytes (%) (Auto) 3L, Monocytes (%) (Auto) 4, Eosinophils (%) (Auto) 0, Basophils (%) (Auto) 0, Neutrophils # (Auto) 10.4H, Lymphocytes # (Auto) 0.4L, Monocytes # (Auto) 0.4, Eosinophils # (Auto) 0.0, Basophils # (Auto) 0.0, Immature Granulocyte # (Auto) 0.1, Sodium Level 141, Potassium Level 4.3, Chloride Level 89L, Carbon Dioxide Level 38H, Anion Gap 14, Blood Urea Nitrogen 29H, Creatinine 0.90, Estimat Glomerular Filtration Rate > 60, BUN/Creatinine Ratio 32, Glucose Level 178H, Calcium Level 8.9, Magnesium Level 2.2 Microbiology 08/10/20 Influenza Types A,B Antigen (ANN) - Final, Complete 08/10/20 Blood Culture - Final, Complete No growth 08/10/20 Urine Culture - Final, Complete NO GROWTH Assessment/Plan Assessment/Plan Admission Dx SEPTIC SHOCK PNEUMONIA BILATERAL LOBES AND RIGHT UPPER LOBE COPD EXACERBATION WITH EMPHYSEMA LEUKOCYTOSIS LACTIC ACIDOSIS RESPIRATORY FAILURE HYPOTENSION CHRONIC ATRIAL FIBRILLATION CHRONIC ANTICOAGULATION WITH NOAC BPH ALCOHOLISM CHRONIC PAIN SYNDROME CHRONIC ANXIETY Assessment and Plan SEPTIC SHOCK PNEUMONIA BILATERAL LOBES AND RIGHT UPPER LOBE 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 There is interstitial infiltrate in the right upper lobe with some scattered patchy alveolar consolidations in the right upper lobe and both lower lobes. - PT WAS ON CEFEPIME AND VANCOMYCIN - WILL EXTEND OUT THE CEFEPIME INTO NEXT WEEK - SERIAL CHEST XRAYS. - PT IMPROVED ON BIPAP YESTERDAY AND WITH TWO DOSES OF LASIX YESTERDAY. LEUKOCYTOSIS - IMPROVING DWON FROM 23 ON ADMIT TO 11 YESTERDAY AND TODAY - PT HAS BEEN ON STEROIDS - SOME OF THE ELEVATED WHITE COUNT MAY BE DUE TO RECENT STEROID USE - MONITOR LABS CLOSELY. LACTIC ACIDOSIS - CONTINUE WITH OXYGEN SUPPORT, SERIAL LACTIC ACID LEVELS IMPROVED - NO LONGER NEEDING MONITORING AT THIS TIME. - GENTLE IV FLUIDS HYPOTENSION - RESOLVED. CHRONIC ATRIAL FIBRILLATION WITH CHRONIC ANTICOAGULATION WITH NOAC - CHANGED BACK TO ELIQUIS - LOVENOX STOPPED ON 08/11/2020 BPH - RESTARTED HOME REGIMEN - JEREMY WHITT'Liam OVER THE WEEKEND ALCOHOLISM AND CHRONIC PAIN SYNDROME - RESTARTED PRN PAIN MEDICATION - WITHDRAWAL PROTOCOL STOPPED CHRONIC ANXIETY - DUE TO RISK OF WITHDRAWAL - WILL GIVE LOW DOSE LORAZEPAM IN HOSPITAL. CONFUSION/DELIRIUM - CONTINUE WITH SUPPORTIVE CARE - HOPEFULLY HE WILL IMPROVE PRIOR TO DISCHARGE, OTHERWISE HE WILL NEED TO GO TO A CUSTODIAL WEAKNESS/FALLING EPISODES - START PHYSICAL THERAPY TODAY - DISCUSSED WITH HIS , IMPROVED FROM YESTERDAY - WILL STILL NEED TO CONSIDER CUSTODIAL UNLESS HE SHOWS SIGNIFICANT IMPROVEMENT IN THE NEXT FEW DAYS. FINAL COVID NEGATIVE DVT PROPHYLAXIS WITH ELIQUIS GI PROPHYLAXIS WITH PEPCID Admission Dx SEPTIC SHOCK PNEUMONIA BILATERAL LOBES AND RIGHT UPPER LOBE COPD EXACERBATION WITH EMPHYSEMA LEUKOCYTOSIS LACTIC ACIDOSIS RESPIRATORY FAILURE HYPOTENSION CHRONIC ATRIAL FIBRILLATION CHRONIC ANTICOAGULATION WITH NOAC BPH ALCOHOLISM CHRONIC PAIN SYNDROME CHRONIC ANXIETY Clinical Quality Measures Admission Status Admission Dx SEPTIC SHOCK PNEUMONIA BILATERAL LOBES AND RIGHT UPPER LOBE COPD EXACERBATION WITH EMPHYSEMA LEUKOCYTOSIS LACTIC ACIDOSIS RESPIRATORY FAILURE HYPOTENSION CHRONIC ATRIAL FIBRILLATION CHRONIC ANTICOAGULATION WITH NOAC BPH ALCOHOLISM CHRONIC PAIN SYNDROME CHRONIC ANXIETY DVT/VTE Risk/Contraindication: Risk Factor Score Per Nursin RFS Level Per Nursing on Admit: 4+=Very High RAYA ZAMAN MD Aug 17, 2020 08:56
--- NOTE | 2020-08-17 09:52 | Cardiology Progress Note ---
Subjective Date Seen by Provider: Aug 17, 2020 Time Seen by Provider: 08:55 Subjective/Events-last exam Patient in bed, appears less agitated and confused today. Denies any chest pain. Review of Systems General: No Chills, No Night Sweats, No Fatigue, No Malaise, No Appetite, No Other HEENT: No Head Aches, No Visual Changes, No Eye Pain, No Ear Pain, No Dysphasia, No Sinus Congestion, No Post Nasal Drip, No Sore Throat, No Other Pulmonary: No Dyspnea, No Cough, No Pleuritic Chest Pain, No Other Cardiovascular: No: Chest Pain, Palpitations, Orthopnea, Paroxysmal Noc. Dyspnea, Edema, Lt Headedness, Other Focused Exam Time of Focused Exam: 04:21 Objective-Cardiology Exam Last Set of Vital Signs Vital Signs 08/12/20 08/17/20 08:30 12:12 Temp 36.7 Pulse 87 Resp 18 B/P (MAP) 168/88 (114) Pulse Ox 97 O2 Delivery High Flow N/C O2 Flow Rate 2.00 FiO2 30 Capillary Refill : Less Than 3 Seconds I&O Intake and Output 08/16/20 23:59 Intake Total 730 ml Output Total 4150 ml Balance -3420 ml Intake Oral 720 ml IV Total 10 ml Output Urine Total 4150 ml General: Alert, Oriented X3, Cooperative HEENT: Atraumatic, PERRLA Neck: Supple, No JVD, No Thyromegaly Lungs: Clear to Auscultation, Normal Air Movement Heart: Normal S1, Normal S2, Other (atrial fibrillation, systolic murmur) Abdomen: Normal Bowel Sounds, Soft, No Tenderness, No Hepatosplenomegaly, No Masses Extremities: No Clubbing, No Cyanosis, No Edema, Normal Pulses, No Tenderness/Swelling Skin: Other (ecchymosis on the upper extremities and face) Neuro: Normal Speech, Normal Tone, Sensation Intact Psych/Mental Status: Mental Status NL, Mood NL Results Lab Laboratory Tests 08/17/20 03:18 A/P-Cardiology Admission Diagnosis Syncope Sepsis Pneumonia Non-ST elevation myocardial infarctions Assessment/Plan Syncope, probably hypotensive episode. Better at this time, blood pressure is better. Continue to monitor, underlying arrhythmia cannot be entirely excluded at this point. s/p LINq implantation. Confusion, change in mental status, probably secondary to hypoxemia. Seen and evaluated with the primary care team. Patient appears improved. Pneumonia, improving, receiving antibiotic and managed by Dr. Sandhu Shortness of breath, acute on chronic respiratory failure with COPD exacerbation and emphysema, appeared to be better today. Chest x-ray did not show any changes. Managed by Dr. Sandhu Paroxysmal atrial fibrillation,continue on current medication monitor. Status post loop recorder implant on 08/15/2020 for long-term monitoring. History of mild sinus node dysfunction with episodes of bradycardia, discussed with Dr. Rick in the past possible KIM of pacemaker, does not require it at this point Chronic anticoagulation with Eliquis, currently on hold due to the recent fall. Continue to monitor H&H Non-ST elevation myocardial infarction, mild elevation in troponin probably due to hypotension and sepsis, patient is known to have mild to moderate coronary artery, conservative management is recommended. Continue to monitor Coronary artery disease, cardiac catheterization was carried out in November 2018 showing 60-70 percent mid LAD stenosis, mild to moderate disease otherwise. Continue to monitor Peripheral artery disease, known to have occluded right SFA and iliac artery. Has been followed by Dr. Rick Alcoholism Anxiety, chronic pain syndrome, followed and managed by primary care physician Patient was seen and evaluated with Alma, examination performed, management plan was discussed, agree with the current scribed note, I made few changes to the note using Italic font Patient is in bed, still having confusion and lethargy Oxygen saturation is better. Clinical Quality Measures DVT/VTE Risk/Contraindication: Risk Factor Score Per Nursin RFS Level Per Nursing on Admit: 4+=Very High ALMA COULTER Aug 17, 2020 09:52 GABRIEL DESHPANDE MD Aug 17, 2020 12:40
--- NOTE | 2020-08-17 11:13 | Pulmonary Progress Note ---
Subjective Time Seen by a Provider: 11:13 Subjective/Events-last exam Pt appears to be doing better. Sepsis Event Evaluation Height, Weight, BMI Height: 6'0.00" Weight: 241lbs. 9.0oz. [id number]; 30.70 BMI Method:Stated Focused Exam Time of Focused Exam: 04:21 Exam Exam Vital Signs Date Time Temp Pulse Resp B/P (MAP) Pulse Ox O2 Delivery O2 Flow Rate FiO2 08/17/20 08:00 Nasal Cannula 2.00 08/17/20 07:47 36.8 94 18 160/85 (110) 98 High Flow N/C 2.00 08/17/20 04:13 36.2 93 18 154/93 (113) 100 High Flow N/C 3.00 08/17/20 01:00 90 08/17/20 00:00 36.2 106 18 134/98 (110) 99 NIV Bilevel 4.00 08/16/20 22:50 54 29 98 40.00 08/16/20 22:12 98 High Flow N/C 2.00 08/16/20 21:00 NIV Bilevel 08/16/20 19:40 36.3 100 14 143/85 (104) 99 NIV Bilevel 40.00 08/16/20 19:06 112 08/16/20 18:27 54 29 98 40.00 08/16/20 16:00 65 18 117/66 (83) 96 NIV Bilevel 40.00 08/16/20 15:49 91 24 99 40.00 08/16/20 14:41 95 High Flow N/C 2.00 08/16/20 12:38 104 I & O 08/17/20 07:00 Intake Total 750 ml Output Total 4075 ml Balance -3325 ml Height & Weight Height: 6'0.00" Weight: 241lbs. 9.0oz. 109.260952ea; 30.70 BMI Method:Stated General Appearance: WD/WN, Mild Distress HEENT: PERRL/EOMI Neck: Supple Respiratory: Decreased Breath Sounds, Wheezing Cardiovascular: Regular Rate, Rhythm, Systolic Murmur Capillary Refill: Less Than 3 Seconds Peripheral Pulses: 2+ Dorsalis Pedis (R), 2+ Left Dors-Pedis (L), 2+ Radial Pulses (R), 2+ Radial Pulses (L) Gastrointestinal: normal bowel sounds, non tender, soft Extremity: Non Tender, No Calf Tenderness, No Pedal Edema Neurologic/Psychiatric: Alert, Oriented x3, Normal Mood/Affect Skin: Ecchymosis (left face and bilateral arms) Results Lab Laboratory Tests 08/16/20 03:12 08/17/20 03:18 Assessment/Plan Assessment/Plan Acute respiratory failure -Pt on NC -lasix -monitor -negative influenza -negative COVID -CXR shows no acute process. Pneumonia with sepsis -Septic protocol - Cefepime Alcohol dependance -CIWA s/p Fall -CT head shows no acute change -fall risk -monitor -bedside alarm NSTEMI probably secondary to hypoxia -Monitor -Telemetry -final troponin decreased -Currently denies CP Lactic Acidosis -ABG reviewed, much improved -monitor I/O and for sx Obesity CHERY ROBERTS DO Aug 17, 2020 11:13
[2020-08-17] MEDS: ADVAIR HFA 115/21 MCG INHALER 8 GM IH SCH (11:51)
[2020-08-17 12:12] VITALS: BP 168/88
--- NOTE | 2020-08-17 12:30 | Diagnostic Imaging Report ---
INDICATION: Pneumonia. COMPARISON: August 16, 2020. TECHNIQUE: Frontal and lateral radiographs of the chest dated August 17, 2020. FINDINGS: Loop recorder is again noted overlying the left chest. Postsurgical changes within the cervical spine. The cardiac silhouette is stable. No significant pulmonary vascular congestion. The lungs are hyperinflated with flattening of the diaphragm and prominence of the anterior clear space. Improved opacities within the right lung base. Slightly increasing interstitial opacities within the left lung base. No large volume of pleural effusion. No pneumothorax. Osseous structures are stable. IMPRESSION: Slightly improved right basilar atelectasis and/or pneumonitis with developing minimal left basilar atelectasis and/or pneumonitis. Background chronic obstructive pulmonary disease. Additional stable findings as above. Dictated by: Dictated on workstation # [id number]
--- NOTE | 2020-08-17 13:23 | NUR ---
CM/SS follow up. CM/SS received an update from the patient's primary care nurse Ene. She reports she has spoken with the patient's Chaya for an update. They are charging his cell phone per request of Chaya. CM/SS visited with patient. He reports that he is doing "fine" today. He is still confused but is more alert than yesterday. CM/SS contacted Chaya while in the room and put her on speaker phone to talk with the patient. Chaya verbalized thanks. She states he is still confused but it was helpful to actually hear him. She apologized to this sw for calling so many times yesterday. CM/SS will continue to follow for discharge planning.
--- NOTE | 2020-08-17 13:52 | Physical Therapy Evaluation ---
PT Evaluation-General Medical Diagnosis Admission Date Aug 10, 2020 at 12:15 Medical Diagnosis: acute respiratory failure Onset Date: Aug 10, 2020 Therapy Diagnosis Therapy Diagnosis: impaired mobility, strength, endurance Height/Weight Height (Feet): 6 Height (Inches): 0.00 Weight (Pounds): 241 Weight (Ounces): 9.0 Precautions Precautions/Isolations: Fall Prevention, Standard Precautions Referral Physician: Robert Reason for Referral: Evaluation/Treatment Medical History Pertinent Medical History: Atrial Fib, Alcoholism, CAD, COPD, HTN Additional Medical History Surgeries Yes Cardiac, Eye Surgery, Orthopedic Respiratory Yes Cardiovascular Yes (CAROTID AND PERIPHERAL VASCULAR DISEASE) Atrial Fibrillation, Chronic Edema/Swelling, Coronary Artery Disease, High Cholesterol, Hypertension, Peripheral Vascular Neurological No Reproductive System Hx Reproductive Disorders: No Genitourinary Yes (E.D.) Benign Prostatic Hyperpl, Prostate Problems Gastrointestinal No Musculoskeletal Yes (CHRONIC NECK PAIN --S/P SURGERY 2007) Degenerate Disk Disease, Arthritis Endocrine History of Endocrine Disorders: Yes (OBESITY; JUAN MANUEL'S FROM CHRONIC STEROID USE) HEENT History of HEENT Disorders: Yes HEENT Disorders: Cataract Loss of Vision: Denies Hearing Impairment: Hard of Hearing Cancer Yes Skin Psychosocial History of Psychiatric Problem: Yes Behavioral Health Disorders: Anxiety Reviewed History: Yes Social History Home: Single Level Current Living Status: Spouse Entry Into Home: Stairs Without Railing PT Steps Into Home: 1 Prior Prior Level of Function SCALE: Activities may be completed with or without assistive devices. 7-Vfjbzskapw-egakpou completes the activity by him/herself with no assistance from a helper. 5-Set-up or Clean-up Assistance-helper sets up or cleans up; patient completes activity. [place] assists only prior to or following the activity. 4-Supervision or Touching Assistance-helper provides verbal cues and/or touching/steadying and/or contact guard assistance as patient completes activity. Assistance may be provided throughout the activity or intermittently. 3-Partial/Moderate Assistance-helper does LESS THAN HALF the effort. [place] lifts, holds or supports trunk or limbs, but provides less than half the effort. 2-Substantial/Maximal Assistance-helper does MORE THAN HALF the effort. [place] lifts or holds trunk or limbs and provides more than half the effort. 5-Vuuqmdkba-abpiuf does ALL the effort. Patient does none of the effort to complete the activity. Or, the assistance of 2 or more helpers is required for the patient to complete the activity. If activity was not attempted, code reason: 7-Patient Refused. 9-Not Applicable-not attempted and the patient did not perform the activity before the current illness, exacerbation or injury. 10-Not Attempted due to Environmental Limitations-(lack of equipment, weather restraints, etc.). 88-Not Attempted due to Medical Conditions or Safety Concerns. Bed Mobility: 6 Transfers (B,C,W/C): 6 Gait: 6 Stairs: 6 Indoor Mobility (Ambulation): Independent Stairs: Independent Patient states he has a rolling walker but doesn't use it. PT Evaluation-Current Subjective Patient in bed pre tx, agrees to PT, has no complaints of pain. Pt/Family Goals to be independent at home Objective Patient Orientation: Person, Confused ROM/Strength ROM Lower Extremities WNL Strength Lower Extremities 3/5 gross BLE Sensory Hearing: Functional Sensation Right Lower Extremit: Intact Sensation Left Lower Extremity: Intact Transfers Roll Left to Right (QC): 2 Sit to Lying (QC): 2 Lying to Sitting/Side of Bed(Q: 2 Sit to Stand (QC): 2 Patient was able to stand for about 30 seconds before needing to sit back down. Patient unsteady, impulsive. Patient is retropulsive in sitting. Gait Does the Patient Walk?: No and Walking Goal IS indicated Balance Sitting Static: Poor Sitting Dynamic: Poor Standing Static: Poor Standing Dynamic: Poor Treatment seated exercises BLE x10 (AP, LAQ) Assessment/Needs Patient has impaired mobility, strength, endurance. He is confused and has poor balance. Patient in bed post tx with nurse call, phone, tray, all needs met, bed alarm on. 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 Goals Intermediate Goals PT Intermediate Goals Time Frame: Aug 24, 2020 Roll Left & Right (QC): 3 Sit to Lying (QC): 3 Lying-Sitting on Side/Bed(QC): 3 Sit to Stand (QC): 3 Chair/[id number]-Fcjti Xfer(QC): 3 Walk 10 feet (QC): 3 PT Plan Problem List Problem List: Activity Tolerance, Functional Strength, Safety, Balance, Gait, Transfer, Bed Mobility, ROM Treatment/Plan Treatment Plan: Continue Plan of Care Treatment Plan: Bed Mobility, Education, Functional Activity Pino, Functional Strength, Gait, Safety, Therapeutic Exercise, Transfers Treatment Duration: Aug 24, 2020 Frequency: 6 times per week Estimated Hrs Per Day: .25 hour per day Patient and/or Family Agrees t: Yes Safety Risks/Education Patient Education: Transfer Techniques, Correct Positioning, Safety Issues Teaching Recipient: Patient Teaching Methods: Demonstration, Discussion Response to Teaching: Reinforcement Needed Discharge Recommendations Plan Patient will perform bed mobility and transfer training, balance and endurance training, functional strengthening, stair training, gait training, and education, to improve functional mobility and independence at home. Therapy Discharge Recommendati: Other, See Comments (NH) Time/GCodes Time In: 1045 Time Out: 1101 Total Billed Treatment Time: 16 Total Billed Treatment 1 visit PRAKASH Araya' DELTA HAYNES PT Aug 17, 2020 13:52
[2020-08-17 15:57] VITALS: BP 155/84
[2020-08-17 19:35] VITALS: BP 149/93
[2020-08-17] MEDS: FINASTERIDE (PROSCAR) 5 MG TAB PO SCH (20:41)
[2020-08-17] MEDS: risperiDONE 1 MG (RisperDAL) TAB PO SCH (20:41)
[2020-08-17] MEDS: MONTELUKAST 10 MG (SINGULAIR) TAB PO SCH (20:41)
[2020-08-18] VITALS (7 sets, daily range): BP systolic 109–170; BP diastolic 53–89
[2020-08-18] MEDS: CEFEPIME INJECTION 1,000 MG in WATER (STERILE) FOR INJECTION 10 ML IV SCH ×4 (00:58→17:11)
[2020-08-18] MEDS: methylPREDNISolone 40 MG/ML (Solu-MEDROL) VIAL IV SCH ×4 (00:58→17:10)
[2020-08-18] MEDS: RT-ALBUTEROL/IPRATROPIUM 3 ML (DUONEB) VIAL INH SCH ×5 (01:46→22:18)
[2020-08-18 04:01] LABS: BASOPHILS % (AUTO) 0 % (0-10); EOSINOPHILS % (AUTO) 0 % (0-10); HEMATOCRIT 40 % (40-54); LYMPHOCYTES # (AUTO) 0.5 10^3/uL (1.0-4.0); LYMPHOCYTES % (AUTO) 6 % (12-44); MEAN CORPUSCULAR HEMOGLOBIN 34 pg (25-34); MEAN CORPUSCULAR HGB CONC 33 g/dL (32-36); MEAN CORPUSCULAR VOLUME 103 fL (80-99); MEAN PLATELET VOLUME 9.4 fL (9.0-12.2); MONOCYTES # (AUTO) 0.5 10^3/uL (0.0-1.0); MONOCYTES % (AUTO) 6 % (0-12); NEUTROPHILS # (AUTO) 7.8 10^3/uL (1.8-7.8); NEUTROPHILS % (AUTO) 88 % (42-75); PLATELET COUNT 156 10^3/uL (130-400); WHITE BLOOD COUNT 8.9 10^3/uL (4.3-11.0)
[2020-08-18 04:17] LABS: CHLORIDE 89 MMOL/L (98-107); SODIUM 140 MMOL/L (135-145)
[2020-08-18 04:19] LABS: GLUCOSE 156 MG/DL (70-105)
[2020-08-18 04:20] LABS: CARBON DIOXIDE 39 MMOL/L (21-32)
[2020-08-18 04:23] LABS: CREATININE SERUM 0.85 MG/DL (0.60-1.30); GFR ESTIMATED > 60
[2020-08-18 04:24] LABS: BUN/CREATININE RATIO 36
[2020-08-18 04:25] LABS: MAGNESIUM 2.3 MG/DL (1.6-2.4)
[2020-08-18 05:28] LABS: LYMPHOCYTES % (MANUAL) 8 %; MONOCYTES % (MANUAL) 7 %; NEUTROPHILS % (MANUAL) 85 %
[2020-08-18 05:29] LABS: RBC MORPH NORMAL
--- NOTE | 2020-08-18 09:11 | Progress Note ---
Subjective Subjective Date Seen by Provider: Aug 18, 2020 Time Seen by Provider: 09:00 PT IS AN 85 Y/O MALE WHO WAS ADMITTED WITH RESPIRATORY FAILURE DUE TO COPD EXACERBATION, SEPTIC SHOCK DUE TO PNEUMONIA, NON-ST TX DUE TO HYPOXIA, ALCOHOLISM, FALL AT HOME. HE IS MORE ALERT TODAY - APOLOGIZED FOR BEING RUDE YESTERDAY TO STAFF, SAID HE NEEDED TO TELL HIS HE WAS SORRY WELL AND "SQUEEZE HER AND MAKE IT UP TO HER". STAFF REPORTS THAT HE WAS COMBATIVE IN THE EVENING REFUSING BREATHING TREATMENTS. Review of Systems General: No Chills, No Night Sweats, No Fatigue, No Malaise, No Appetite, No Other HEENT: No Head Aches, No Visual Changes, No Eye Pain, No Ear Pain, No Dysphasia, No Sinus Congestion, No Post Nasal Drip, No Sore Throat, No Other Pulmonary: No Dyspnea, No Cough, No Pleuritic Chest Pain, No Other Cardiovascular: No: Chest Pain, Palpitations, Orthopnea, Paroxysmal Noc. Dyspnea, Edema, Lt Headedness, Other Gastrointestinal: No: Nausea, Abdominal Pain, Diarrhea, Constipation Genitourinary: Frequency Musculoskeletal: back pain Neurological: Weakness, Confusion All Other Systems Reviewed All Other Systems Reviewed: Yes Objective Exam Vital Signs Vital Signs - First Documented 08/12/20 08/12/20 08/12/20 00:00 01:18 04:00 Temp 36.8 Pulse 71 Resp 22 B/P (MAP) 131/102 Pulse Ox 97 O2 Delivery Vapotherm O2 Flow Rate 30.00 30.00 FiO2 30 Capillary Refill : Less Than 3 Seconds General Appearance: WD/WN, Mild Distress Eyes: Bilateral Eye Normal Inspection, Bilateral Eye PERRL, Bilateral Eye EOMI HEENT: PERRL/EOMI Neck: Supple Respiratory: Decreased Breath Sounds, Wheezing Cardiovascular: Regular Rate, Rhythm, Systolic Murmur Gastrointestinal: Normal Bowel Sounds, No Organomegaly, Non Tender, Soft Rectal: Deferred Extremity: Non Tender, No Calf Tenderness, No Pedal Edema Neurologic/Psychiatric: Alert, Oriented x3, Normal Mood/Affect Skin: Ecchymosis (left face and bilateral arms) Results Lab Laboratory Tests 08/18/20 02:58: White Blood Count 8.9, Red Blood Count 3.84L, Hemoglobin 13.0L, Hematocrit 40, Mean Corpuscular Volume 103H, Mean Corpuscular Hemoglobin 34, Mean Corpuscular Hemoglobin Concent 33, Red Cell Distribution Width 12.0, Platelet Count 156, Mean Platelet Volume 9.4, Immature Granulocyte % (Auto) 1, Neutrophils (%) (Auto) 88H, Lymphocytes (%) (Auto) 6L, Monocytes (%) (Auto) 6, Eosinophils (%) (Auto) 0, Basophils (%) (Auto) 0, Neutrophils # (Auto) 7.8, Lymphocytes # (Auto) 0.5L, Monocytes # (Auto) 0.5, Eosinophils # (Auto) 0.0, Basophils # (Auto) 0.0, Immature Granulocyte # (Auto) 0.1, Neutrophils % (Manual) 85, Lymphocytes % (Manual) 8, Monocytes % (Manual) 7, Blood Morphology Comment NORMAL, Sodium Level 140, Potassium Level 4.0, Chloride Level 89L, Carbon Dioxide Level 39H, Anion Gap 12, Blood Urea Nitrogen 31H, Creatinine 0.85, Estimat Glomerular Filtration Rate > 60, BUN/Creatinine Ratio 36, Glucose Level 156H, Calcium Level 9.0, Magnesium Level 2.3 Microbiology 08/10/20 Influenza Types A,B Antigen (ANN) - Final, Complete 08/10/20 Blood Culture - Final, Complete No growth 08/10/20 Urine Culture - Final, Complete NO GROWTH Assessment/Plan Assessment/Plan Admission Dx SEPTIC SHOCK PNEUMONIA BILATERAL LOBES AND RIGHT UPPER LOBE COPD EXACERBATION WITH EMPHYSEMA LEUKOCYTOSIS LACTIC ACIDOSIS RESPIRATORY FAILURE HYPOTENSION CHRONIC ATRIAL FIBRILLATION CHRONIC ANTICOAGULATION WITH NOAC BPH ALCOHOLISM CHRONIC PAIN SYNDROME CHRONIC ANXIETY Assessment and Plan SEPTIC SHOCK PNEUMONIA BILATERAL LOBES AND RIGHT UPPER LOBE 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 There is interstitial infiltrate in the right upper lobe with some scattered patchy alveolar consolidations in the right upper lobe and both lower lobes. - PT WAS ON CEFEPIME AND VANCOMYCIN - WILL EXTEND OUT THE CEFEPIME INTO NEXT WEEK - SERIAL CHEST XRAYS. - PT ON OXYGEN VIA NASAL CANNULA AT HIS USUAL 2 LPM LEUKOCYTOSIS - RESOLVED FROM 23 ON ADMISSION LACTIC ACIDOSIS - RESOLVED HYPOTENSION - RESOLVED. CHRONIC ATRIAL FIBRILLATION WITH CHRONIC ANTICOAGULATION WITH NOAC - CHANGED BACK TO ELIQUIS - LOVENOX STOPPED ON 08/11/2020 BPH - RESTARTED HOME REGIMEN - JEREMY WHITT'Liam OVER THE WEEKEND ALCOHOLISM AND CHRONIC PAIN SYNDROME - RESTARTED PRN PAIN MEDICATION - WITHDRAWAL PROTOCOL STOPPED CHRONIC ANXIETY - DUE TO RISK OF WITHDRAWAL - WILL GIVE LOW DOSE LORAZEPAM IN HOSPITAL. CONFUSION/DELIRIUM - CONTINUE WITH SUPPORTIVE CARE - HOPEFULLY HE WILL IMPROVE PRIOR TO DISCHARGE, OTHERWISE HE WILL NEED TO GO TO A SENIOR CARE WEAKNESS/FALLING EPISODES - START PHYSICAL THERAPY TODAY - DISCUSSED WITH HIS , IMPROVED FROM YESTERDAY - WILL STILL NEED TO CONSIDER SENIOR CARE UNLESS HE SHOWS SIGNIFICANT IMPROVEMENT IN THE NEXT FEW DAYS. FINAL COVID NEGATIVE DVT PROPHYLAXIS WITH ELIQUIS GI PROPHYLAXIS WITH PEPCID Admission Dx SEPTIC SHOCK PNEUMONIA BILATERAL LOBES AND RIGHT UPPER LOBE COPD EXACERBATION WITH EMPHYSEMA LEUKOCYTOSIS LACTIC ACIDOSIS RESPIRATORY FAILURE HYPOTENSION CHRONIC ATRIAL FIBRILLATION CHRONIC ANTICOAGULATION WITH NOAC BPH ALCOHOLISM CHRONIC PAIN SYNDROME CHRONIC ANXIETY Clinical Quality Measures Admission Status Admission Dx SEPTIC SHOCK PNEUMONIA BILATERAL LOBES AND RIGHT UPPER LOBE COPD EXACERBATION WITH EMPHYSEMA LEUKOCYTOSIS LACTIC ACIDOSIS RESPIRATORY FAILURE HYPOTENSION CHRONIC ATRIAL FIBRILLATION CHRONIC ANTICOAGULATION WITH NOAC BPH ALCOHOLISM CHRONIC PAIN SYNDROME CHRONIC ANXIETY DVT/VTE Risk/Contraindication: Risk Factor Score Per Nursin RFS Level Per Nursing on Admit: 4+=Very High ARYA ZAMAN MD Aug 18, 2020 09:11
[2020-08-18 09:33] LABS: ALBUMIN 3.5 GM/DL (3.2-4.5); BILIRUBIN,DIRECT 0.6 MG/DL (0.0-0.3); BILIRUBIN,INDIRECT 0.9 MG/DL; BILIRUBIN,TOTAL 1.5 MG/DL (0.1-1.0); TOTAL PROTEIN 5.7 GM/DL (6.4-8.2)
[2020-08-18] MEDS: FAMOTIDINE 20 MG (PEPCID) TABLET PO SCH ×2 (09:34→20:22)
[2020-08-18] MEDS: APIXABAN 5 MG (ELIQUIS) TABLET PO SCH ×2 (09:34→20:22)
[2020-08-18] MEDS: LORATADINE (CLARITIN) 10 MG TAB PO SCH (09:34)
[2020-08-18] MEDS: GABAPENTIN 300 MG (NEURONTIN) CAP PO SCH ×2 (09:35→20:22)
[2020-08-18] MEDS: LORazepam 0.5 MG (ATIVAN) TABLET PO SCH (09:35)
--- NOTE | 2020-08-18 09:53 | Physical Therapy Daily Note ---
PT Daily Note-Current Subjective Pt presents laying supine in bed. Pt agrees to PT and would like to try walking. Pt reports no pain. Appearance At conclusion of PT treatment pt is returned to bed where he has access to tray, call button, and all needs have been met, bed alarm on. Mental Status Patient Orientation: Person, Place, Time, Eyes Open, Situation Attachments: Oxygen Transfers SCALE: Activities may be completed with or without assistive devices. 8-Brrzlpxwrd-ipzvzip completes the activity by him/herself with no assistance from a helper. 5-Set-up or Clean-up Assistance-helper sets up or cleans up; patient completes activity. Ballinger assists only prior to or following the activity. 4-Supervision or Touching Assistance-helper provides verbal cues and/or touching/steadying and/or contact guard assistance as patient completes activity. Assistance may be provided throughout the activity or intermittently. 3-Partial/Moderate Assistance-helper does LESS THAN HALF the effort. Ballinger lifts, holds or supports trunk or limbs, but provides less than half the effort. 2-Substantial/Maximal Assistance-helper does MORE THAN HALF the effort. Ballinger lifts or holds trunk or limbs and provides more than half the effort. 5-Fhxxbsqqb-exclpf does ALL the effort. Patient does none of the effort to complete the activity. Or, the assistance of 2 or more helpers is required for the patient to complete the activity. If activity was not attempted, code reason: 7-Patient Refused. 9-Not Applicable-not attempted and the patient did not perform the activity before the current illness, exacerbation or injury. 10-Not Attempted due to Environmental Limitations-(lack of equipment, weather restraints, etc.). 88-Not Attempted due to Medical Conditions or Safety Concerns. Sit to Lying (QC): 3 Lying to Sitting/Side of Bed(Q: 3 Sit to Stand (QC): 3 Mod assist with sit<->lying as well as sit ->stand. Exercises Supine Ex: Ankle pumps, Quad Set Supine Reps: 20 Standing: Side steps (side stepped 3 ft to right) Treatments LE strengthening Assessment Current Status: Good Progress Pt able to partially bridge to pull up briefs while supine in bed. Pt has improved sitting balance and is able to hold his torso upright. Pt took multiple attempts to complete sit to stand and needed the bed raised slightly and mod assist. Pt took small side steps along bedside with walker to reposition higher in bed. PT Hot Header Operator Goals Mcfp Goals PT Mcfp Goals Time Frame: Aug 24, 2020 Roll Left & Right (QC): 3 Sit to Lying (QC): 3 Lying-Sitting on Side/Bed(QC): 3 Sit to Stand (QC): 3 Chair/Hwq-rj-Calgv Xfer(QC): 3 Walk 10 feet (QC): 3 PT Plan Problem List Problem List: Activity Tolerance, Functional Strength, Safety, Balance, Gait, Transfer, Bed Mobility, ROM Treatment/Plan Treatment Plan: Continue Plan of Care Treatment Plan: Bed Mobility, Education, Functional Activity Pino, Functional Strength, Gait, Safety, Therapeutic Exercise, Transfers Treatment Duration: Aug 24, 2020 Frequency: 6 times per week Estimated Hrs Per Day: .25 hour per day Patient and/or Family Agrees t: Yes Safety Risks/Education Patient Education: Gait Training, Transfer Techniques, Correct Positioning, Safety Issues Teaching Recipient: Patient Teaching Methods: Demonstration, Discussion Response to Teaching: Reinforcement Needed Time/GCodes Time In: 0834 Time Out: 0857 Total Billed Treatment Time: 23 Total Billed Treatment 1 visit EX 10' FA 13' DELTA HAYNES PT Aug 18, 2020 09:53
--- NOTE | 2020-08-18 10:21 | Pulmonary Progress Note ---
Subjective Time Seen by a Provider: 10:20 Subjective/Events-last exam no complications noted. Sepsis Event Evaluation Height, Weight, BMI Height: 6'0.00" Weight: 241lbs. 9.0oz. 109.587958lm; 30.70 BMI Method:Stated Focused Exam Time of Focused Exam: 04:21 Exam Exam Vital Signs Date Time Temp Pulse Resp B/P (MAP) Pulse Ox O2 Delivery O2 Flow Rate FiO2 08/18/20 08:00 Nasal Cannula 2.00 08/18/20 07:45 36.8 88 22 132/69 (90) 98 08/18/20 07:04 65 08/18/20 04:00 35.9 72 16 109/53 (71) 99 High Flow N/C 2.00 08/18/20 01:46 98 High Flow N/C 2.00 08/18/20 01:00 59 08/18/20 00:00 36.0 71 16 118/60 (79) 98 Nasal Cannula 2.00 08/17/20 22:15 99 High Flow N/C 2.00 08/17/20 20:01 Nasal Cannula 2.00 08/17/20 19:35 36.1 97 18 149/93 (111) 96 High Flow N/C 2.00 08/17/20 19:00 95 08/17/20 18:23 96 High Flow N/C 2.00 08/17/20 15:57 36.8 86 19 155/84 (107) 95 High Flow N/C 2.00 08/17/20 15:20 97 High Flow N/C 2.00 08/17/20 12:42 85 08/17/20 12:12 36.7 87 18 168/88 (114) 97 High Flow N/C 2.00 I & O 08/18/20 07:00 Intake Total 1050 ml Output Total 500 ml Balance 550 ml Height & Weight Height: 6'0.00" Weight: 241lbs. 9.0oz. 109.620436fh; 30.70 BMI Method:Stated General Appearance: WD/WN, Mild Distress HEENT: PERRL/EOMI Neck: Supple Respiratory: Decreased Breath Sounds, Wheezing Cardiovascular: Regular Rate, Rhythm, Systolic Murmur Capillary Refill: Less Than 3 Seconds Peripheral Pulses: 2+ Dorsalis Pedis (R), 2+ Left Dors-Pedis (L), 2+ Radial Pulses (R), 2+ Radial Pulses (L) Gastrointestinal: normal bowel sounds, non tender, soft Extremity: Non Tender, No Calf Tenderness, No Pedal Edema Neurologic/Psychiatric: Alert, Oriented x3, Normal Mood/Affect Skin: Ecchymosis (left face and bilateral arms) Results Lab Laboratory Tests 08/17/20 03:18 08/18/20 02:58 Assessment/Plan Assessment/Plan Acute respiratory failure -Pt on NC -monitor -negative influenza -negative COVID -CXR shows no acute process. Pneumonia with sepsis -Septic protocol - Cefepime Alcohol dependance -CIWA s/p Fall -CT head shows no acute change -fall risk -monitor -bedside alarm NSTEMI probably secondary to hypoxia -Monitor -Telemetry -Currently denies CP Obesity CHERY ROBERTS DO Aug 18, 2020 10:21
[2020-08-18] MEDS: ADVAIR HFA 115/21 MCG INHALER 8 GM IH SCH (10:51)
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
[2020-08-18] MEDS: HYDROcodone/APAP 10 MG/325 MG (LORTAB) TAB PO PRN (17:10)
[2020-08-18] MEDS: risperiDONE 1 MG (RisperDAL) TAB PO SCH (20:22)
[2020-08-18] MEDS: FINASTERIDE (PROSCAR) 5 MG TAB PO SCH (20:22)
[2020-08-18] MEDS: MONTELUKAST 10 MG (SINGULAIR) TAB PO SCH (20:22)
[2020-08-19] MEDS: methylPREDNISolone 40 MG/ML (Solu-MEDROL) VIAL IV SCH ×3 (00:59→12:50)
[2020-08-19] MEDS: CEFEPIME INJECTION 1,000 MG in WATER (STERILE) FOR INJECTION 10 ML IV SCH ×3 (01:00→12:52)
[2020-08-19 01:03] VITALS: BP 107/57
[2020-08-19 03:22] LABS: BASOPHILS % (AUTO) 0 % (0-10); EOSINOPHILS % (AUTO) 0 % (0-10); HEMATOCRIT 38 % (40-54); HEMOGLOBIN 12.6 g/dL (13.3-17.7); LYMPHOCYTES # (AUTO) 0.4 10^3/uL (1.0-4.0); LYMPHOCYTES % (AUTO) 4 % (12-44); MEAN CORPUSCULAR HEMOGLOBIN 34 pg (25-34); MEAN CORPUSCULAR HGB CONC 33 g/dL (32-36); MEAN CORPUSCULAR VOLUME 101 fL (80-99); MEAN PLATELET VOLUME 9.3 fL (9.0-12.2); MONOCYTES # (AUTO) 0.6 10^3/uL (0.0-1.0); MONOCYTES % (AUTO) 6 % (0-12); NEUTROPHILS # (AUTO) 8.4 10^3/uL (1.8-7.8); NEUTROPHILS % (AUTO) 89 % (42-75); PLATELET COUNT 169 10^3/uL (130-400); WHITE BLOOD COUNT 9.4 10^3/uL (4.3-11.0)
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
[2020-08-19 03:41] LABS: CHLORIDE 89 MMOL/L (98-107); POTASSIUM 3.9 MMOL/L (3.6-5.0); SODIUM 137 MMOL/L (135-145)
[2020-08-19 03:42] LABS: CALCIUM 8.9 MG/DL (8.5-10.1); GLUCOSE 175 MG/DL (70-105)
[2020-08-19 03:44] LABS: CARBON DIOXIDE 38 MMOL/L (21-32)
[2020-08-19 03:46] LABS: CREATININE SERUM 0.84 MG/DL (0.60-1.30); GFR ESTIMATED > 60
[2020-08-19 03:47] LABS: BUN/CREATININE RATIO 43
[2020-08-19 03:48] LABS: MAGNESIUM 2.3 MG/DL (1.6-2.4)
[2020-08-19] MEDS: RT-ALBUTEROL/IPRATROPIUM 3 ML (DUONEB) VIAL INH SCH (03:55)
[2020-08-19 04:17] VITALS: BP 152/66
[2020-08-19 06:50] VITALS: BP 158/72
--- NOTE | 2020-08-19 07:07 | Pulmonary Progress Note ---
Subjective Time Seen by a Provider: 07:07 Subjective/Events-last exam Pt appears to be doing better and wants to go home. Sepsis Event Evaluation Height, Weight, BMI Height: 6'0.00" Weight: 241lbs. 9.0oz. 109.525478ug; 30.70 BMI Method:Stated Focused Exam Time of Focused Exam: 04:21 Exam Exam Vital Signs Date Time Temp Pulse Resp B/P (MAP) Pulse Ox O2 Delivery O2 Flow Rate FiO2 08/19/20 06:50 76 158/72 (100) 08/19/20 04:17 36.3 74 20 152/66 (94) 98 Nasal Cannula 08/19/20 01:03 36.6 68 20 107/57 (74) 98 Nasal Cannula 08/19/20 01:00 70 08/18/20 22:17 97 High Flow N/C 2.00 08/18/20 20:22 Nasal Cannula 2.00 08/18/20 20:00 36.8 86 14 170/84 (112) 98 08/18/20 19:00 90 08/18/20 16:00 37.2 78 18 143/73 (96) 98 High Flow N/C 2.00 08/18/20 12:03 110 08/18/20 11:16 36.8 103 20 143/89 (107) 97 High Flow N/C 2.00 08/18/20 10:51 99 High Flow N/C 2.00 08/18/20 08:00 Nasal Cannula 2.00 08/18/20 07:45 36.8 88 22 132/69 (90) 98 I & O 08/19/20 07:00 Intake Total 1315 ml Output Total 1000 ml Balance 315 ml Height & Weight Height: 6'0.00" Weight: 241lbs. 9.0oz. 109.905991af; 30.70 BMI Method:Stated General Appearance: No Apparent Distress, WD/WN HEENT: PERRL/EOMI Neck: Supple Respiratory: Decreased Breath Sounds Cardiovascular: Regular Rate, Rhythm, Systolic Murmur Capillary Refill: Less Than 3 Seconds Peripheral Pulses: 2+ Dorsalis Pedis (R), 2+ Left Dors-Pedis (L), 2+ Radial Pulses (R), 2+ Radial Pulses (L) Gastrointestinal: normal bowel sounds, non tender, soft Extremity: Non Tender, No Calf Tenderness, No Pedal Edema Neurologic/Psychiatric: Alert, Oriented x3, Normal Mood/Affect Skin: Normal Color, Ecchymosis (left face and bilateral arms) Lymphatic: No Adenopathy Results Lab Laboratory Tests 08/18/20 02:58 08/19/20 02:50 Assessment/Plan Assessment/Plan Acute respiratory failure -Pt on NC -monitor -negative influenza -negative COVID -CXR shows no acute process. Pneumonia with sepsis -Septic protocol - Cefepime Alcohol dependance -CIWA s/p Fall -CT head shows no acute change -fall risk -monitor -bedside alarm NSTEMI probably secondary to hypoxia -Monitor -Telemetry -Currently denies CP Obesity CHERY ROBERTS DO Aug 19, 2020 07:07
[2020-08-19 08:00] VITALS: BP 168/79
--- NOTE | 2020-08-19 08:34 | Diagnostic Imaging Report ---
PROCEDURE: US Hepatic (Liver). TECHNIQUE: Multiple real-time grayscale images were obtained over the right upper quadrant in various projections. INDICATION: Septic shock. COMPARISON: None FINDINGS: Liver is normal in size, shape, and echogenicity. No hepatic masses are identified. There is no sonographic evidence of intrahepatic biliary ductal dilatation. Common bile duct is obscured. Gallbladder is visualized. There is no cholelithiasis, gallbladder wall thickening, nor pericholecystic free fluid. Pancreas is also heavily obscured secondary to overlying bowel gas. Visualized portions of abdominal aorta and IVC are unremarkable. There is no ascites. Right kidney has a normal appearance. It measures 12.7 cm in length. There is no evidence of hydronephrosis, calculus, nor mass. IMPRESSION: 1. Unremarkable right upper quadrant abdominal sonogram. Dictated by: Dictated on workstation # [id number]
[2020-08-19] MEDS: APIXABAN 5 MG (ELIQUIS) TABLET PO SCH (08:35)
[2020-08-19] MEDS: LORATADINE (CLARITIN) 10 MG TAB PO SCH (08:35)
[2020-08-19] MEDS: LORazepam 0.5 MG (ATIVAN) TABLET PO SCH (08:35)
[2020-08-19] MEDS: GABAPENTIN 300 MG (NEURONTIN) CAP PO SCH (08:35)
[2020-08-19] MEDS: FAMOTIDINE 20 MG (PEPCID) TABLET PO SCH (08:35)
--- NOTE | 2020-08-19 08:41 | Cardiology Progress Note ---
Subjective Date Seen by Provider: Aug 19, 2020 Time Seen by Provider: 08:39 Subjective/Events-last exam Patient is laying down in bed, feeling better today, breathing better. Review of Systems General: No Chills, No Night Sweats, No Fatigue, No Malaise, No Appetite, No Other HEENT: No Head Aches, No Visual Changes, No Eye Pain, No Ear Pain, No Dysphasia, No Sinus Congestion, No Post Nasal Drip, No Sore Throat, No Other Pulmonary: Dyspnea; No Cough, No Pleuritic Chest Pain, No Other Cardiovascular: No: Chest Pain, Palpitations, Orthopnea, Paroxysmal Noc. Dyspnea, Edema, Lt Headedness, Other Focused Exam Time of Focused Exam: 04:21 Objective-Cardiology Exam Last Set of Vital Signs Vital Signs 08/18/20 08/19/20 22:17 08:00 Temp 36.0 Pulse 71 Resp 20 B/P (MAP) 168/79 (108) Pulse Ox 99 O2 Delivery Nasal Cannula O2 Flow Rate 2.00 Capillary Refill : Less Than 3 Seconds I&O Intake and Output 08/19/20 00:00 Intake Total 2015 ml Output Total 600 ml Balance 1415 ml Intake Oral 2015 ml Output Urine Total 600 ml # Voids 4 General: Alert, Oriented X3, Cooperative HEENT: Atraumatic, PERRLA Neck: Supple, No JVD, No Thyromegaly Lungs: Normal Air Movement, Other (bilateral rhonchi) Heart: Normal S1, Normal S2, Other (atrial fibrillation, systolic murmur) Abdomen: Normal Bowel Sounds, Soft, No Tenderness, No Hepatosplenomegaly, No Masses Extremities: No Clubbing, No Cyanosis, No Edema, Normal Pulses, No Tenderness/Swelling Skin: Other (ecchymosis on the upper extremities and face) Neuro: Normal Speech, Normal Tone, Sensation Intact Psych/Mental Status: Mental Status NL, Mood NL Results Lab Laboratory Tests 08/19/20 02:50 A/P-Cardiology Admission Diagnosis Syncope Sepsis Pneumonia Non-ST elevation myocardial infarctions Assessment/Plan Syncope, probably hypotensive episode. Better at this time, blood pressure is better. Continue to monitor, underlying arrhythmia cannot be entirely excluded at this point. s/p LINq implantation. Confusion, change in mental status, probably secondary to hypoxemia. Better today. Continue to monitor Pneumonia, chest x-ray did not show any significant infiltrate, receiving antibiotic and reporting improvement. Acute exacerbation of COPD, receiving steroids. Feeling better Hypertension, poorly controlled probably secondary to steroid. Continue to monitor blood pressure on current medication Shortness of breath, acute on chronic respiratory failure with COPD exacerbation and emphysema, patient is better today. Continue to monitor Paroxysmal atrial fibrillation,continue on current medication monitor. Status post loop recorder implant on August 15, 2020. Continue to monitor History of mild sinus node dysfunction with episodes of bradycardia, discussed with Dr. Rick in the past possible KIM of pacemaker, does not require it at this point Chronic anticoagulation with Eliquis, currently on hold due to the recent fall. Continue to monitor H&H Non-ST elevation myocardial infarction, mild elevation in troponin probably due to hypotension and sepsis, patient is known to have mild to moderate coronary artery, conservative management is recommended. Continue to monitor Coronary artery disease, cardiac catheterization was carried out in November 2018 showing 60-70 percent mid LAD stenosis, mild to moderate disease otherwise. Continue to monitor Peripheral artery disease, known to have occluded right SFA and iliac artery. Has been followed by Dr. Rick Alcoholism mild liver ultrasound was normal Anxiety, chronic pain syndrome, followed and managed by primary care physician Clinical Quality Measures DVT/VTE Risk/Contraindication: Risk Factor Score Per Nursin RFS Level Per Nursing on Admit: 4+=Very High GABRIEL DESHPANDE MD Aug 19, 2020 08:41
--- NOTE | 2020-08-19 09:28 | Physical Therapy Daily Note ---
PT Daily Note-Current Subjective Pt presents supine in bed upon arrival to room, on phone with . Pt agreeable to therapy treatment at this time, no c/o pain. Appearance Following session, pt returned to supine in bed with call light and tray within reach, all needs met at this time. Bed alarm activated Mental Status Patient Orientation: Person, Confused, Place, Situation Attachments: Oxygen (3L) Transfers SCALE: Activities may be completed with or without assistive devices. 5-Bzylkmdodz-ccpqawv completes the activity by him/herself with no assistance from a helper. 5-Set-up or Clean-up Assistance-helper sets up or cleans up; patient completes activity. [place] assists only prior to or following the activity. 4-Supervision or Touching Assistance-helper provides verbal cues and/or touching/steadying and/or contact guard assistance as patient completes activity . Assistance may be provided throughout the activity or intermittently. 3-Partial/Moderate Assistance-helper does LESS THAN HALF the effort. [place] lifts, holds or supports trunk or limbs, but provides less than half the effort. 2-Substantial/Maximal Assistance-helper does MORE THAN HALF the effort. [place] lifts or holds trunk or limbs and provides more than half the effort. 9-Oidynfktr-percul does ALL the effort. Patient does none of the effort to complete the activity. Or, the assistance of 2 or more helpers is required for the patient to complete the activity. If activity was not attempted, code reason: 7-Patient Refused. 9-Not Applicable-not attempted and the patient did not perform the activity before the current illness, exacerbation or injury. 10-Not Attempted due to Environmental Limitations-(lack of equipment, weather restraints, etc.). 88-Not Attempted due to Medical Conditions or Safety Concerns. Sit to Lying (QC): 3 Lying to Sitting/Side of Bed(Q: 3 Sit to Stand (QC): 3 Pt requires Mod A to achieve standing position, and multiple attempts from an elevated bed. VCs for hand placement on walker & pushing up from bed. Transition to place hands on walker very slow and unsafe without Mod A for balance Exercises Standing: Heel/toe raises, Mini squats Standing Reps: 10 Assessment Current Status: Fair Progress Pt continues to be very weak this date, requiring Mod A to achieve standing, as well as with bed mobility. Pt would benefit from further therapy treatment, as he is unsafe to return home with at this time. PT Retirement Goals Supervisor Painting Goals PT Supervisor Painting Goals Time Frame: Aug 24, 2020 Roll Left & Right (QC): 3 Sit to Lying (QC): 3 Lying-Sitting on Side/Bed(QC): 3 Sit to Stand (QC): 3 Chair/Uzi-bd-Rtiea Xfer(QC): 3 Walk 10 feet (QC): 3 PT Plan Problem List Problem List: Activity Tolerance, Functional Strength, Safety, Balance, Gait, Transfer, Bed Mobility, ROM Treatment/Plan Treatment Plan: Continue Plan of Care Treatment Plan: Bed Mobility, Education, Functional Activity Pino, Functional Strength, Gait, Safety, Therapeutic Exercise, Transfers Treatment Duration: Aug 24, 2020 Frequency: 6 times per week Estimated Hrs Per Day: .25 hour per day Patient and/or Family Agrees t: Yes Time/GCodes Time In: 847 Time Out: 913 Total Billed Treatment Time: 26 Total Billed Treatment 1 visit EX (26') MARIBELL SUE PT Aug 19, 2020 09:28
[2020-08-19 09:46] LABS: ALBUMIN 3.5 GM/DL (3.2-4.5); BILIRUBIN,DIRECT 0.7 MG/DL (0.0-0.3); BILIRUBIN,TOTAL 1.7 MG/DL (0.1-1.0); TOTAL PROTEIN 5.7 GM/DL (6.4-8.2)
[2020-08-19] MEDS ORDERED: CEFD300C3 PO (10:24)
[2020-08-19] MEDS ORDERED: IPRA3AMP31 NEB (10:24)
[2020-08-19] MEDS ORDERED: DEXA0.5T PO (10:24)
--- NOTE | 2020-08-19 10:28 | D/C HH Face to Face Order ---
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 RESPIRATORY FAILURE HYPOTENSION CHRONIC ATRIAL FIBRILLATION CHRONIC ANTICOAGULATION WITH NOAC BPH ALCOHOLISM CHRONIC PAIN SYNDROME CHRONIC ANXIETY Patient Data-Allergies,Ht & Wt Patient Allergies: Coded Allergies: sulfamethoxazole (Verified Allergy, Severe, ANAPHYLAXIS, 07/11/12) trimethoprim (Verified Allergy, Severe, ANAPHYLAXIS, 07/11/12) levofloxacin (Verified Allergy, Intermediate, NAUSEA, 07/11/12) Height (Feet): 6 Height (Inches): 0.00 Weight (Pounds): 241 Weight (Ounces): 9.0 Home Health Need/Face to Face Date of Face to Face: Aug 19, 2020 Clinical Findings: Generalized weakness and fatigue, Instability, Muscle weakness, Shortness of breath, Unsteady gait I have seen Pt [id number]: Yes Discharged To: Home Diagnosis/Conditions: SEPTIC SHOCK PNEUMONIA BILATERAL LOBES AND RIGHT UPPER LOBE 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 RESPIRATORY FAILURE HYPOTENSION CHRONIC ATRIAL FIBRILLATION CHRONIC ANTICOAGULATION WITH NOAC BPH ALCOHOLISM CHRONIC PAIN SYNDROME CHRONIC ANXIETY Patient is Homebound due to: Jose fall risk due to instabilty, Muscle weakness, Shortness of breath/distress Homebound Status Due to the above stated illness, injury or surgical procedure (medical condition or diagnosis) and associated clinical findings, the patient is homebound because of his/her inability to leave home except with aid of a supportive device and/or person AND leaving the home requires a considerable and taxing effort or is medically contraindicated. Pt req the following assistanc: Walker Home Health Nursing Orders Home Health Services Order: Nursing Services, Physical Therapy-Evaluate & Treat Home Health Infusion Therapy Line Start Date: Aug 16, 2020 Therapy Orders Therapy Orders: Physical Therapy, PT to assess for OT Therapy Specific Orders: Teach enviro modifications/safety, Increase strength/endurance Certify Stmt I certify that this patient is under my care and that I, a nurse practitioner or a physician; a doctor's assistant working with me, had a face to face encounter that - meets the physician face to face encounter requirements with this patient as dated. Medication List: Active Scripts Active Cefdinir 300 Mg Capsule 300 Mg PO BID Dexamethasone 0.5 Mg Tablet 0.5 Mg PO DAILY Iprat-Albut 0.5-3(2.5) mg/3 ml (Ipratropium/Albuterol Sulfate) 3 Ml Ampul.neb 3 Ml NEB QID Reported Magnesium (Magnesium Oxide) 400 Mg Tablet 400 Mg PO DAILY Mucinex (Guaifenesin) 600 Mg Tab.er.12h 600 Mg PO Q12H PRN Hydrocodone-Acetamin 10-325 mg (Hydrocodone/Acetaminophen) 1 Each Tablet 1 Ea PO BID PRN Ventolin Hfa (Albuterol Sulfate) 18 Gm Hfa.aer.ad 2 Puff INH Q6H PRN Neurontin (Gabapentin) 300 Mg Capsule 600 Mg PO BID TAKES 2 (300MG) CAPS Potassium Chloride 10 Meq Capsule.er 20 Meq PO BID TAKES 2 (10MEQ) DAILY Furosemide 40 Mg Tablet 40 Mg PO DAILY Breo Ellipta 200-25 Mcg INH (Fluticasone/Vilanterol) 1 Each Blst.w.dev 1 Puff INH DAILY Vitamin C (Ascorbic Acid) 500 Mg Capsule 500 Mg PO DAILY Beta Carotene (Beta-Carotene) 25,000 Unit Capsule 25,000 Unit PO DAILY Alprazolam 1 Mg Tablet 0.5-1 Mg PO TID PRN Doxazosin Mesylate 4 Mg Tablet 8 Mg PO HS TAKES 2 (4MG) TABS Cetirizine HCl 10 Mg Tablet 10 Mg PO DAILY Montelukast Sodium 10 Mg Tablet 10 Mg PO HS Finasteride 5 Mg Tablet 5 Mg PO HS Combivent Respimat Inhal Portis (Albuterol/Ipratropium) 4 Gm Aero 1 Puff INH QID PRN Potassium Gluconate 595 MG (Potassium Gluconate) 99 Mg Tablet 99 Mg PO DAILY Complete Senior (Multivitamin W/Iron, Minerals) 1 Each Tablet 1 Tab PO DAILY Osteo Bi-Flex Tablet (Glucosamine/D3/Boswellia Anjali) 1 Each Tablet 1 Tab PO DAILY Calcium 600 + Vit D 200 Tablet (Calcium Carbonate/Vitamin D3) 1 Each Tablet 1 Tab PO DAILY B-12 (Cyanocobalamin (Vitamin B-12)) 2,500 Mcg Tab.subl 2,500 Mcg SL DAILY Pomegranate (Pomegranate Fruit Extract) 250 Mg Capsule 500 Mg PO DAILY Eliquis (Apixaban) 5 Mg Tablet 5 Mg PO BID Lab results: Laboratory Tests Test 08/19/20 02:50 Range/Units White Blood Count 9.4 4.3-11.0 10^3/uL Red Blood Count 3.76 L 4.30-5.52 10^6/uL Hemoglobin 12.6 L 13.3-17.7 g/dL Hematocrit 38 L 40-54 % Mean Corpuscular Volume 101 H 80-99 fL Mean Corpuscular Hemoglobin 34 25-34 pg Mean Corpuscular Hemoglobin Concent 33 32-36 g/dL Red Cell Distribution Width 12.0 10.0-14.5 % Platelet Count 169 130-400 10^3/uL Mean Platelet Volume 9.3 9.0-12.2 fL Immature Granulocyte % (Auto) 1 % Neutrophils (%) (Auto) 89 H 42-75 % Lymphocytes (%) (Auto) 4 L 12-44 % Monocytes (%) (Auto) 6 0-12 % Eosinophils (%) (Auto) 0 0-10 % Basophils (%) (Auto) 0 0-10 % Neutrophils # (Auto) 8.4 H 1.8-7.8 10^3/uL Lymphocytes # (Auto) 0.4 L 1.0-4.0 10^3/uL Monocytes # (Auto) 0.6 0.0-1.0 10^3/uL Eosinophils # (Auto) 0.0 0.0-0.3 10^3/uL Basophils # (Auto) 0.0 0.0-0.1 10^3/uL Immature Granulocyte # (Auto) 0.1 0.0-0.1 10^3/uL Sodium Level 137 135-145 MMOL/L Potassium Level 3.9 3.6-5.0 MMOL/L Chloride Level 89 L 98-107 MMOL/L Carbon Dioxide Level 38 H 21-32 MMOL/L Anion Gap 10 5-14 MMOL/L Blood Urea Nitrogen 36 H 7-18 MG/DL Creatinine 0.84 0.60-1.30 MG/DL Estimat Glomerular Filtration Rate > 60 BUN/Creatinine Ratio 43 Glucose Level 175 H 70-105 MG/DL Calcium Level 8.9 8.5-10.1 MG/DL Magnesium Level 2.3 1.6-2.4 MG/DL Total Bilirubin 1.7 H 0.1-1.0 MG/DL Direct Bilirubin 0.7 H 0.0-0.3 MG/DL Indirect Bilirubin 1.0 MG/DL Aspartate Amino Transf (AST/SGOT) 46 H 5-34 U/L Alanine Aminotransferase (ALT/SGPT) 60 H 0-55 U/L Alkaline Phosphatase 43 40-136 U/L Total Protein 5.7 L 6.4-8.2 GM/DL Albumin 3.5 3.2-4.5 GM/DL My orders: Orders - RAYA ZAMAN MD Patient Visit (08/18/20 ) Exercise Therap, Ea 15 Min (08/18/20 ) Functional Activities, Ea 15 (08/18/20 ) Cbc With Automated Diff (08/19/20 03:00) Basic Metabolic Panel (08/19/20 03:00) Magnesium (08/19/20 03:00) Us Hepatic (Liver)47328 (08/19/20 ) Heart Healthy (08/19/20 Breakfast) Liver Panel (08/19/20 09:27) Home [facility] Dischage (08/19/20 10:08) Attending Discharge Inpt/Inobs (08/19/20 10:08) Patient Visit (08/19/20 ) Exercise Therap, Ea 15 Min (08/19/20 ) RAYA ZAMAN MD Aug 19, 2020 10:28
--- NOTE | 2020-08-19 10:36 | NUR ---
CM/SS finalized discharge. Plan: Patient will discharge home with home health and family support. will pick patient up and a neighbor will help get him into the house. Patient has been advised that he is not safe to return home according to physical therapy. He verbalized understanding but wishes to return home. Home Health: [facility] was notified of patient's discharge for today. CM/SS spoke with patient, he was sitting up in bed eating breakfast. Patient states he is discharging today. CM/SS discussed the safety issues with him going home. Patient verbalized understanding but believes he can manage by himself. CM/SS discussed having neighbor for getting patient into the home. He spoke to his . Chaya will call and see if he is available. The patient stated "I don't care if I have to crawl into the house, I'm going going home." The patient reports he is not going to drink alcohol because he "does not have his brand of whiskey". CM/SS contacted the patient's . CM/SS discussed her calling the neighbor. She is calling to check. CM/SS discussed having her daughter come stay with them until Saturday when the patient's son arrives. She verbalized understanding and is going to call and see if she can. Chaya is going to picking tech a bedside commode. CM/SS updated and informed the patient's primary care nurse of plan. She informed me that the patient's daughter called and did not feel that patient should go home. The nurse explained the patient's wishes. The patient's daughter is going to try and speak with Chaya. No further needs. Addendum: 08/19/20 at 1250 by AZIZA NICHOLS Update: Patient's contacted this sw and informed her that patient had a bowl movement in bed and needed x3 nurses to assist him. Patient came to the determination that he could not go home. He is requesting to stay the weekend. GERARDO/DARRICK sent text to Dr. Jones. GERARDO/SS contacted Rosalee with Home Health to inform her of possibly staying in the hospital. She will check before she leaves today.
--- NOTE | 2020-08-19 10:41 | Discharge Summary ---
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 HE WAS SEEN IN CLINIC BY THE HISTOLOGY TECH ON 07/29/2020 WITH DX OF COPD EXACERBATION, GIVEN ORAL ANTIBIOTICS, STEROIDS AND INSTRUCTED ON INCREASE IN BREATHING TREATMENTS. HE STATES THAT HE FINISHED HIS ANTIBIOTICS ABOUT 4-5 DAYS AGO, AND WAS "FEELING GOOD". HE ADMITS THAT HE WAS DRINKING LAST NIGHT - USUALLY DRINKS 2 GLASSES OF SCOTCH AND LAST NIGHT HAD ONE OF SCOTCH AND ONE OF VODKA. HE REPORTS THAT HE GOT UP TO USE THE RESTROOM AND NOTICED THAT HIS OXYGEN WAS NOT ON HIS FACE WHEN HE WAS IN THE RE STROOM. HE REPORTS THAT HE BARELY GOT BACK TO BED AND GOT TO HIS OXYGEN...HE IS FUZZY ABOUT THE FULL DETAILS OF WHAT HAPPENED TO CAUSE HIM TO HAVE A BRUISE ON HIS FACE AND WHAT TRANSPIRED TO GET HIM TO THE HOSPITAL. HE STATES THAT HIS OXYGEN HAS BEEN "COMING OFF A LOT". Discharge Summary Consultations cardiology pulmonology Discharge Physical Examination Allergies: Coded Allergies: sulfamethoxazole (Verified Allergy, Severe, ANAPHYLAXIS, 07/11/12) trimethoprim (Verified Allergy, Severe, ANAPHYLAXIS, 07/11/12) levofloxacin (Verified Allergy, Intermediate, NAUSEA, 07/11/12) Vitals & I&Os Vital Signs Date Time Temp Pulse Resp B/P (MAP) Pulse Ox O2 Delivery O2 Flow Rate FiO2 08/19/20 08:00 36.0 71 20 168/79 (108) 99 Nasal Cannula 08/19/20 08:00 2.00 General Appearance: Alert, Oriented X3, Cooperative, No Acute Distress HEENT: PERRLA, EOMI, Mucous Memb Moist/[place], Other (improving bruise to left eye) Respiratory: Other (chronically decreased air movement - with rhonchi in bases) Cardiovascular: Regular Rate Abdominal: Normal Bowel Sounds, Soft, No Tenderness Skin: Other (extensive bruising on arms) Neuro: Cranial Nerves 3-12 NL Psych/Mental Status: Mental Status NL, Mood NL Hospital Course Was the Problem List Reviewed?: Yes SEPTIC SHOCK PNEUMONIA BILATERAL LOBES AND RIGHT UPPER LOBE 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 There is interstitial infiltrate in the right upper lobe with some scattered patchy alveolar consolidations in the right upper lobe and both lower lobes. - PT WAS ON CEFEPIME AND VANCOMYCIN - WILL EXTEND OUT THE CEFEPIME INTO NEXT WEEK - SERIAL CHEST XRAYS. - PT IMPROVED ON BIPAP YESTERDAY AND WITH TWO DOSES OF LASIX YESTERDAY. LEUKOCYTOSIS - IMPROVING DWON FROM 23 ON ADMIT TO 11 YESTERDAY AND TODAY - PT HAS BEEN ON STEROIDS - SOME OF THE ELEVATED WHITE COUNT MAY BE DUE TO RECENT STEROID USE - MONITOR LABS CLOSELY. LACTIC ACIDOSIS - CONTINUE WITH OXYGEN SUPPORT, SERIAL LACTIC ACID LEVELS IMPROVED - NO SANDRA FILIPE NEEDING MONITORING AT THIS TIME. - GENTLE IV FLUIDS HYPOTENSION - RESOLVED. CHRONIC ATRIAL FIBRILLATION WITH CHRONIC ANTICOAGULATION WITH NOAC - CHANGED BACK TO ELIQUIS - LOVENOX STOPPED ON 08/11/2020 BPH - RESTARTED HOME REGIMEN - JEREMY WHITT'Liam OVER THE WEEKEND ALCOHOLISM AND CHRONIC PAIN SYNDROME - RESTARTED PRN PAIN MEDICATION - WITHDRAWAL PROTOCOL STOPPED CHRONIC ANXIETY - DUE TO RISK OF WITHDRAWAL - WILL GIVE LOW DOSE LORAZEPAM IN HOSPITAL. CONFUSION/DELIRIUM - CONTINUE WITH SUPPORTIVE CARE - HOPEFULLY HE WILL IMPROVE PRIOR TO DISCHARGE, OTHERWISE HE WILL NEED TO GO TO A LONG-TERM WEAKNESS/FALLING EPISODES - STARTED PHYSICAL THERAPY - HE IS WEAK, REQUIRES A ONE PERSON ASSIST WITH EVERY MOVEMENT/AMBULATION - HE MUST BE ACCOMPANIED AT ALL TIMES WHEN MOVING. I HAVE INFORMED HIS OF HIS WEAKNESS, BUT BOTH THE PATIENT AND HIS ARE REFUSING HIM TO GO TO THE LONG-TERM. FINAL COVID NEGATIVE DVT PROPHYLAXIS WITH ELIQUIS GI PROPHYLAXIS WITH PEPCID Pending Labs Laboratory Tests 08/19/20 02:50: White Blood Count 9.4, Red Blood Count 3.76, Hemoglobin 12.6, Hematocrit 38, Mean Corpuscular Volume 101, Mean Corpuscular Hemoglobin 34, Mean Corpuscular Hemoglobin Concent 33, Red Cell Distribution Width 12.0, Platelet Count 169, Mean Platelet Volume 9.3, Immature Granulocyte % (Auto) 1, Neutrophils (%) (Auto) 89, Lymphocytes (%) (Auto) 4, Monocytes (%) (Auto) 6, Eosinophils (%) (Auto) 0, Basophils (%) (Auto) 0, Neutrophils # (Auto) 8.4, Lymphocytes # (Auto) 0.4, Monocytes # (Auto) 0.6, Eosinophils # (Auto) 0.0, Basophils # (Auto) 0.0, Immature Granulocyte # (Auto) 0.1, Sodium Level 137, Potassium Level 3.9, Chloride Level 89, Carbon Dioxide Level 38, Anion Gap 10, Blood Urea Nitrogen 36, Creatinine 0.84, Estimat Glomerular Filtration Rate > 60, BUN/Creatinine Ratio 43, Glucose Level 175, Calcium Level 8.9, Magnesium Level 2.3, Total Bilirubin 1.7, Direct Bilirubin 0.7, Indirect Bilirubin 1.0, Aspartate Amino Transf (AST/SGOT) 46, Alanine Aminotransferase (ALT/SGPT) 60, Alkaline Phosphatase 43, Total Protein 5.7, Albumin 3.5 Discharge Condition at discharge IMPROVING BUT PHYSICALLY DEBILITATED Instructions to patient/family Please see electronic discharge instructions given to patient. Discharge Medications Reviewed and agree with Discharge Medication list on patient's Discharge Instruction sheet Clinical Quality Measures DVT/VTE Risk/Contraindication: Risk Factor Score Per Nursin RFS Level Per Nursing on Admit: 4+=Very High RAYA ZAMAN MD Aug 19, 2020 10:41
[2020-08-19] MEDS: HYDROcodone/APAP 10 MG/325 MG (LORTAB) TAB PO PRN (10:56)
[2020-08-19 12:36] VITALS: BP 186/88
[2020-08-19 15:29] VITALS: BP 161/76
--- NOTE | 2020-08-19 15:40 | NUR ---
REPORT GIVEN TO DREW AT [facility] FOR CONTINUING [facility]ARE.
== END 2020-08-19 17:00 | DRG 853 ==
LOC: EDUNIT# 10:29 → ER 10:31 → ICU 12:15 → 4TH 08-12 14:33 → CSD 08-15 16:05
PROVIDERS: ADMIT Family Medicine; ATTEND Family Medicine
PROC: 02HV33Z Insertion of Infusion Device into Superior Vena Cava, Percutaneous Approach (ICD-10-PCS; principal; 2020-08-10)
PROC: 0JH632Z Insertion of Monitoring Device into Chest Subcutaneous Tissue and Fascia, Percutaneous Approach (ICD-10-PCS; 2020-08-15)
DX: A41.9 Sepsis, unspecified organism (principal); R65.21 Severe sepsis with septic shock; J18.9 Pneumonia, unspecified organism; J96.00 Acute respiratory failure, unspecified whether with hypoxia or hypercapnia; I21.4 Non-ST elevation (NSTEMI) myocardial infarction; E87.2 Acidosis; I48.20 Chronic atrial fibrillation, unspecified; E24.2 Drug-induced Cushing's syndrome; Z66 Do not resuscitate; J43.9 Emphysema, unspecified; Z20.828 Contact with and (suspected) exposure to other viral communicable diseases; E86.0 Dehydration; N40.0 Benign prostatic hyperplasia without lower urinary tract symptoms; I25.10 Atherosclerotic heart disease of native coronary artery without angina pectoris; I10 Essential (primary) hypertension; F10.20 Alcohol dependence, uncomplicated; G89.29 Other chronic pain; F41.9 Anxiety disorder, unspecified; E66.9 Obesity, unspecified; E78.00 Pure hypercholesterolemia, unspecified; I73.9 Peripheral vascular disease, unspecified; S00.12XA Contusion of left eyelid and periocular area, initial encounter; S40.021A Contusion of right upper arm, initial encounter; S40.022A Contusion of left upper arm, initial encounter; M54.2 Cervicalgia; M19.91 Primary osteoarthritis, unspecified site; T38.0X5A Adverse effect of glucocorticoids and synthetic analogues, initial encounter; R45.1 Restlessness and agitation; N52.9 Male erectile dysfunction, unspecified; E87.8 Other disorders of electrolyte and fluid balance, not elsewhere classified; W19.XXXA Unspecified fall, initial encounter; Y92.009 Unspecified place in unspecified non-institutional (private) residence as the place of occurrence of the external cause; Z79.891 Long term (current) use of opiate analgesic; Z79.01 Long term (current) use of anticoagulants; Z68.30 Body mass index [BMI] 30.0-30.9, adult; Z87.891 Personal history of nicotine dependence; Z85.828 Personal history of other malignant neoplasm of skin; Z79.51 Long term (current) use of inhaled steroids
CPT/HCPCS: 33285; 36415; 36556; 36600; 51702; 70450; 70486; 71045; 71046; 71250; 72125; 76705; 80048; 80053; 80076; 80202; 80306; 80320; 81000; 82805; 83605; 83735; 83880; 84100; 84145; 84484; 85007; 85025; 85027; 85610; 85730; 86141; 87040; 87077; 87088; 87186; 87635; 87804; 90662; 93005; 93306; 94640; 94660; 94760; 96361; 96365; 96366; 96367; 96368; 96375; 99291

== ENCOUNTER 2021-09-13 11:56 | Emergency (ER) | payer MEDICARE, OTHER ==
[~2021-09-13] VITALS: Ht 182 cm; Wt 88.0 kg
[~2021-09-13 11:56] MED LIST changes: +ALBU18HF2 INH; +DEXA0.5T PO; +FLUT1BLS INH; +GABA300C PO; +GUAI600T43 PO; +HYDR-3820 PO; +MAGN400T39 PO; +MONT-40 PO; -MONT10TA26 PO; +POTA-160 PO; +POTA-164 PO; -POTA10TA14 PO; -POTA10TA6 PO
[2021-09-13 12:41] LABS: BASOPHILS % (AUTO) 0 % (0-10); EOSINOPHILS # (AUTO) 0.1 10^3/uL (0.0-0.3); EOSINOPHILS % (AUTO) 1 % (0-10); HEMATOCRIT 43 % (40-54); HEMOGLOBIN 14.1 g/dL (13.3-17.7); LYMPHOCYTES # (AUTO) 1.2 10^3/uL (1.0-4.0); LYMPHOCYTES % (AUTO) 15 % (12-44); MEAN CORPUSCULAR HEMOGLOBIN 33 pg (25-34); MEAN CORPUSCULAR HGB CONC 33 g/dL (32-36); MEAN CORPUSCULAR VOLUME 102 fL (80-99); MONOCYTES # (AUTO) 1.1 10^3/uL (0.0-1.0); MONOCYTES % (AUTO) 14 % (0-12); NEUTROPHILS # (AUTO) 5.4 10^3/uL (1.8-7.8); NEUTROPHILS % (AUTO) 69 % (42-75); PLATELET COUNT 149 10^3/uL (130-400); WHITE BLOOD COUNT 7.8 10^3/uL (4.3-11.0)
[2021-09-13 12:54] LABS: ALBUMIN 3.7 GM/DL (3.2-4.5); POTASSIUM 3.5 MMOL/L (3.6-5.0)
[2021-09-13 12:55] LABS: CALCIUM 9.9 MG/DL (8.5-10.1)
[2021-09-13 12:56] LABS: TOTAL PROTEIN 6.4 GM/DL (6.4-8.2)
[2021-09-13 12:58] LABS: BILIRUBIN,TOTAL 1.2 MG/DL (0.1-1.0)
[2021-09-13 13:00] LABS: CREATININE SERUM 0.85 MG/DL (0.60-1.30)
--- NOTE | 2021-09-13 13:00 | Diagnostic Imaging Report ---
INDICATION: COVID positive. Shortness of air. EXAMINATION: Chest, 09/13/2021. COMPARISON: 08/16/2020. FINDINGS: There are patchy airspace opacities at the lung bases consistent with infiltrates. No effusions. No pneumothorax. Heart is stable. Pulmonary vasculature is unremarkable. Postoperative changes noted in the visualized cervical spine. IMPRESSION: 1. Bibasilar infiltrates. Dictated by: Dictated on workstation # [id number]
--- NOTE | 2021-09-13 14:13 | ED General ---
General Chief Complaint: COVID19 Suspect/Confirmed Stated Complaint: COVID+;SOA Nursing Triage Note: PT CO OF HAVING COVID+ PT STATES WAS TESTED TODAY, HOSP YESTERDAY W COVID, PT STATES WAS SENT BY DR MCHUGH OFFICE, PT WEARS O2 @3L PER N/C AT ALL TIMES. PT STATES HAS WEAKNESS AND GENERALIZED PAIN. Source of Information: Patient Exam Limitations: No Limitations History of Present Illness Date Seen by Provider: Sep 13, 2021 Time Seen by Provider: 12:50 Initial Comments This 86 year old gentleman presents to the ER from Dr. Jones's clinic where he was diagnosed with COVID 19. His was recently admitted to the hospital with C-Diff and COVID 19. He has been vaccinated. He has COPD and uses NC O2 at 2 lpm at home. He complains of fatigue and weakness but no fever or increased SOA or cough. Vital signs are stable and he is in no distress. Allergies and Home Medications Allergies Coded Allergies: sulfamethoxazole (Verified Allergy, Severe, ANAPHYLAXIS, 07/11/12) trimethoprim (Verified Allergy, Severe, ANAPHYLAXIS, 07/11/12) levofloxacin (Verified Allergy, Intermediate, NAUSEA, 07/11/12) Patient Home Medication List Home Medication List Reviewed: Yes Albuterol Sulfate (Ventolin Hfa) 18 Gm Hfa.aer.ad, 2 PUFF INH Q6H PRN for SHORTNESS OF BREATH, (Reported) Entered as Reported by: OCHOA MASCORRO on 08/10/20 1534 Albuterol/Ipratropium (Combivent Respimat Inhal [place]) 4 Gm Aero, 1 PUFF INH QID PRN for SHORTNESS OF BREATH, (Reported) Entered as Reported by: NIURKA AIKEN on 09/17/17 0852 Alprazolam (Alprazolam) 1 Mg Tablet, 0.5-1 MG PO TID PRN for ANXIETY, (Reported) Entered as Reported by: NIURKA AIKEN on 09/17/17 0852 Apixaban (Eliquis) 5 Mg Tablet, 5 MG PO BID, (Reported) Entered as Reported by: MARISELA HORNER on 10/25/16 1332 Ascorbic Acid (Vitamin C) 500 Mg Capsule, 500 MG PO DAILY, (Reported) Entered as Reported by: OCHOA MASCORRO on 05/18/19 1358 Azithromycin (Azithromycin) 250 Mg Tablet, 250 MG PO UD Prescribed by: LISA RAMOS on 09/13/21 142 Beta-Carotene (Beta Carotene) 25,000 Unit Capsule, 25,000 UNIT PO DAILY, (Reported) Entered as Reported by: NIURKA AIKEN on 09/17/17851 Calcium Carbonate/Vitamin D3 (Calcium 600 + Vit D 200 Tablet) 1 Each Tablet, 1 TAB PO DAILY, (Reported) Entered as Reported by: NIURKA AIKEN on 09/17/17851 Cefdinir (Cefdinir) 300 Mg Capsule, 300 MG PO BID Prescribed by: RAYA JONES on 08/19/20 1024 Cefdinir (Cefdinir) 300 Mg Capsule, 300 MG PO BID Prescribed by: LISA RAMOS on 09/13/21 142 Cetirizine HCl (Cetirizine HCl) 10 Mg Tablet, 10 MG PO DAILY, (Reported) Entered as Reported by: NIURKA AIKEN on 09/17/17851 Cyanocobalamin (Vitamin B-12) (B-12) 2,500 Mcg Tab.subl, 2,500 MCG SL DAILY, (Reported) Entered as Reported by: INURKA AIKEN on 09/17/17851 Dexamethasone (Dexamethasone) 0.5 Mg Tablet, 0.5 MG PO DAILY Prescribed by: RAYA JONES on 08/19/20 1024 Doxazosin Mesylate (Doxazosin Mesylate) 4 Mg Tablet, 8 MG PO HS, (Reported) Entered as Reported by: NIURKA AIKEN on 09/17/17851 Finasteride (Finasteride) 5 Mg Tablet, 5 MG PO HS, (Reported) Entered as Reported by: NIURKA AIKEN on 09/17/17851 Fluticasone/Vilanterol (Breo Ellipta 200-25 Mcg INH) 1 Each Blst.w.dev, 1 PUFF INH DAILY, (Reported) Entered as Reported by: OCHOA MASCORRO on 08/10/20 153 Furosemide (Furosemide) 40 Mg Tablet, 40 MG PO DAILY, (Reported) Entered as Reported by: OCHOA MASCORRO on 08/10/20 153 Gabapentin (Neurontin) 300 Mg Capsule, 600 MG PO BID, (Reported) Entered as Reported by: OCHOA MASCORRO on 08/10/20 1534 Glucosamine/D3/Boswellia Anjali (Osteo Bi-Flex Tablet) 1 Each Tablet, 1 TAB PO DAILY, (Reported) Entered as Reported by: NIURKA AIKEN on 09/17/17851 Guaifenesin (Mucinex) 600 Mg Tab.er.12h, 600 MG PO Q12H PRN for CONGESTION, (Reported) Entered as Reported by: OCHOA MASCORRO on 08/10/20 1536 Hydrocodone/Acetaminophen (Hydrocodone-Acetamin 10-325 mg) 1 Each Tablet, 1 EA PO BID PRN for PAIN-MODERATE (5-7), (Reported) Entered as Reported by: OCHOA MASCORRO on 08/10/20 153 Ipratropium/Albuterol Sulfate (Iprat-Albut 0.5-3(2.5) mg/3 ml) 3 Ml Ampul.neb, 3 ML NEB QID Prescribed by: RAYA JONES on 08/19/20 1024 L.acidoph & Paracasei,B.lactis (Probiotic) 1 Each Capsule, 1 EACH PO TID Prescribed by: LISA RAMOS on 09/13/21 1421 Magnesium Oxide (Magnesium) 400 Mg Tablet, 400 MG PO DAILY, (Reported) Entered as Reported by: OCHOA MASCORRO on 08/10/20 1546 Montelukast Sodium (Montelukast Sodium) 10 Mg Tablet, 10 MG PO HS, (Reported) Entered as Reported by: NIURKA AIKEN on 09/17/17851 Multivitamin W/Iron, Minerals (Complete Senior) 1 Each Tablet, 1 TAB PO DAILY, (Reported) Entered as Reported by: NIURKA AIKEN on 09/17/17851 Pomegranate Fruit Extract (Pomegranate) 250 Mg Capsule, 500 MG PO DAILY, (Reported) Entered as Reported by: NIURKA AIKEN on 09/17/17851 Potassium Chloride (Potassium Chloride) 10 Meq Capsule.er, 20 MEQ PO BID, (Reported) Entered as Reported by: OCHOA MASCORRO on 08/10/20 153 Potassium Gluconate (Potassium Gluconate 595 MG) 99 Mg Tablet, 99 MG PO DAILY, (Reported) Entered as Reported by: NIURKA AIKEN on 09/17/17851 Review of Systems Review of Systems Constitutional: see HPI EENTM: no symptoms reported Respiratory: cough (chronic) Cardiovascular: no symptoms reported Gastrointestinal: no symptoms reported Genitourinary: no symptoms reported Musculoskeletal: no symptoms reported Skin: no symptoms reported Psychiatric/Neurological: No Symptoms Reported Hematologic/Lymphatic: No Symptoms Reported Immunological/Allergic: no symptoms reported Past Mrxnnbt-Oodjta-Pzqdui Hx Patient Social History Smoking Status: Former Smoker Substance use?: No Alcohol Use?: Yes Alcohol type: Beer Alcohol Frequency: Daily Pt feels they are or have been: No Immunizations Up To Date Second COVID19 Vaccination Vaibhav: PT STATES BOTH VACCINES Past Medical History Surgeries: Yes Cardiac, Eye Surgery, Orthopedic Respiratory: Yes Pneumonia, COPD (Uses NC O2 at 2 lpm) 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) Atrial Fibrillation, Chronic Edema/Swelling, Coronary Artery Disease, High Cholesterol, Hypertension, Peripheral Vascular Neurological: No Reproductive Disorders: No Genitourinary: Yes (E.D.) Benign Prostatic Hyperpl, Prostate Problems Gastrointestinal: No Musculoskeletal: Yes (CHRONIC NECK PAIN --S/P SURGERY 2007) Degenerate Disk Disease, Arthritis Endocrine: Yes (OBESITY; JUAN MANUEL'S FROM CHRONIC STEROID USE) HEENT: Yes Cataract Loss of Vision: Denies Hearing Impairment: Hard of Hearing Cancer: Yes Skin Psychosocial: Yes Anxiety Integumentary: No Blood Disorders: No Adverse Reaction/Blood Tranf: No Family Medical History Hypertension Physical Exam Vital Signs Vital Signs - First Documented Capillary Refill : Less Than 3 Seconds Height, Weight, BMI Height: 6'0.00" Weight: 241lbs. 9.0oz. 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 Skin: Normal Color, Warm/Dry Progress/Results/Core Measures Suspected Sepsis SIRS Temperature: Pulse: 95 Respiratory Rate: 18 Laboratory Tests 09/13/21 12:25: White Blood Count 7.8 Blood Pressure 130 /85 Mean: 100 Laboratory Tests 09/13/21 12:25: Creatinine 0.85, Platelet Count 149, Total Bilirubin 1.2H Results/Orders Lab Results Laboratory Tests Test 09/13/21 12:25 Range/Units White Blood Count 7.8 4.3-11.0 10^3/uL Red Blood Count 4.25 L 4.30-5.52 10^6/uL Hemoglobin 14.1 13.3-17.7 g/dL Hematocrit 43 40-54 % Mean Corpuscular Volume 102 H 80-99 fL Mean Corpuscular Hemoglobin 33 25-34 pg Mean Corpuscular Hemoglobin Concent 33 32-36 g/dL Red Cell Distribution Width 12.6 10.0-14.5 % Platelet Count 149 130-400 10^3/uL Mean Platelet Volume 9.0 9.0-12.2 fL Immature Granulocyte % (Auto) 1 % Neutrophils (%) (Auto) 69 42-75 % Lymphocytes (%) (Auto) 15 12-44 % Monocytes (%) (Auto) 14 H 0-12 % Eosinophils (%) (Auto) 1 0-10 % Basophils (%) (Auto) 0 0-10 % Neutrophils # (Auto) 5.4 1.8-7.8 10^3/uL Lymphocytes # (Auto) 1.2 1.0-4.0 10^3/uL Monocytes # (Auto) 1.1 H 0.0-1.0 10^3/uL Eosinophils # (Auto) 0.1 0.0-0.3 10^3/uL Basophils # (Auto) 0.0 0.0-0.1 10^3/uL Immature Granulocyte # (Auto) 0.0 0.0-0.1 10^3/uL Sodium Level 135 135-145 MMOL/L Potassium Level 3.5 L 3.6-5.0 MMOL/L Chloride Level 87 L 98-107 MMOL/L Carbon Dioxide Level 36 H 21-32 MMOL/L Anion Gap 12 5-14 MMOL/L Blood Urea Nitrogen 16 7-18 MG/DL Creatinine 0.85 0.60-1.30 MG/DL Estimat Glomerular Filtration Rate 86 BUN/Creatinine Ratio 19 Glucose Level 123 H 70-105 MG/DL Calcium Level 9.9 8.5-10.1 MG/DL Corrected Calcium 10.1 8.5-10.1 MG/DL Total Bilirubin 1.2 H 0.1-1.0 MG/DL Aspartate Amino Transf (AST/SGOT) 21 5-34 U/L Alanine Aminotransferase (ALT/SGPT) 9 0-55 U/L Alkaline Phosphatase 52 40-136 U/L C-Reactive Protein High Sensitivity 1.28 H 0.00-0.50 MG/DL Total Protein 6.4 6.4-8.2 GM/DL Albumin 3.7 3.2-4.5 GM/DL Procalcitonin 0.07 <0.10 NG/ML My Orders Orders - LISA MORALES MD Cbc With Automated Diff (09/13/21 12:20) Comprehensive Metabolic Panel (09/13/21 12:20) Procalcitonin (Pct) (09/13/21 12:20) Hs C Reactive Protein (09/13/21 12:20) Chest 1 View, Ap/Pa Only (09/13/21 12:20) Ed Iv/Invasive Line Start (09/13/21 12:20) Vital Signs/I&O 09/13/21 09/13/21 09/13/21 12:03 12:03 15:08 Temp 36.6 Pulse 95 93 Resp 18 18 B/P (MAP) 130/85 (100) 105/67 Pulse Ox 94 94 O2 Delivery Nasal Cannula Nasal Cannula Nasal Cannula O2 Flow Rate 3.00 3.00 3.00 3.00 Capillary Refill : Less Than 3 Seconds Blood Pressure Mean: 100 Diagnostic Imaging Diagonstic Imaging: Xray Plain Films/CT/US/NM/MRI: chest Comments Chest x-ray viewed by me and report reviewed. NAME: KAMINI CORTÉS [facility] REC#: [id number] PT STATUS: REG ER : 1935 PHYSICIAN: LISA MORALES MD ADMIT DATE: 09/13/21/ER Signed Date of Exam:09/13/21 CHEST 1 VIEW, AP/PA ONLY INDICATION: COVID positive. Shortness of air. EXAMINATION: Chest, 09/13/2021. COMPARISON: 08/16/2020. FINDINGS: There are patchy airspace opacities at the lung bases consistent with infiltrates. No effusions. No pneumothorax. Heart is stable. Pulmonary vasculature is unremarkable. Postoperative changes noted in the visualized cervical spine. IMPRESSION: 1. Bibasilar infiltrates. Dictated by: Dictated on workstation # [id number] Dict: 09/13/21 1257 Trans: 09/13/21 1345 [id number] Interpreted by: PALMIRA CHATMAN MD Electronically signed by: PALMIRA CHATMAN MD 09/13/21 1345 Consults Consults : Consults Notes Work-up was relatively unremarkable and vitals remained stable. Discussed with Dr. Jones. Antibiotics recommended by Dr. Jones. Patient is confident he will be able to safely function at home. Departure Impression Primary Impression: COVID-19 Additional Impressions: COPD (chronic obstructive pulmonary disease) Qualified Codes: J44.9 - Chronic obstructive pulmonary disease, unspecified Chronic respiratory failure with hypoxia Disposition: HOME, SELF-CARE Condition: Stable Departure-Patient Inst. Decision time for Depature: 14:13 Referrals: RAYA JONES MD (PCP) Primary Care Physician ALEKSANDR PIÑA DO (Family) Primary Care Physician Patient Instructions: COVID-19 Overview, REGEN-COV (casirivimab and imdevimab) FDA Fact Sheet Add. Discharge Instructions: Check your oxygen several times a day and when you feel increasingly short of breath. If you are unable to maintain oxygen saturations 92% or higher on 4 L of nasal cannula, return to the ER. Also return to the ER if you have other concerning symptoms such as progressive weakness, pain, vomiting, diarrhea, etc. Complete your antibiotics as prescribed. Call with questions or concerns. Read the fact sheet attached regarding monoclonal antibody therapy. The pharmacy will call you to schedule an appointment for that infusion. All discharge instructions reviewed with patient and/or family. Voiced understanding. Scripts L.acidoph & Paracasei,B.lactis (Probiotic) 1 Each Capsule 1 EACH PO TID, #30 CAP Prov: LISA MORALES MD 09/13/21 Cefdinir (Cefdinir) 300 Mg Capsule 300 MG PO BID, #20 CAP Prov: LISA MORALES MD 09/13/21 Azithromycin (Azithromycin) 250 Mg Tablet 250 MG PO UD, #6 TAB TAKE 2 TABLETS ON DAY ONE THEN TAKE 1 TABLET DAILY FOR FOUR MORE DAYS Prov: LISA MORALES MD 09/13/21 LISA MORALES MD Sep 13, 2021 14:13
[2021-09-13] MEDS ORDERED: CEFD300C3 PO (14:21)
[2021-09-13] MEDS ORDERED: L.AC1CAP6 PO (14:21)
[2021-09-13] MEDS ORDERED: AZIT250T12 PO (14:21)
[2021-09-13 15:08] VITALS: BP 105/67
== END 2021-09-13 14:40 | disposition home or self-care (01) ==
LOC: EDUNIT# 11:56 → ER 11:59
DX: U07.1 COVID-19 (principal); J44.9 Chronic obstructive pulmonary disease, unspecified; I10 Essential (primary) hypertension; F41.9 Anxiety disorder, unspecified; E66.9 Obesity, unspecified; N40.0 Benign prostatic hyperplasia without lower urinary tract symptoms; I48.91 Unspecified atrial fibrillation; G89.29 Other chronic pain; M54.2 Cervicalgia; Z68.26 Body mass index [BMI] 26.0-26.9, adult; Z87.891 Personal history of nicotine dependence; Z79.01 Long term (current) use of anticoagulants; Z79.899 Other long term (current) drug therapy; Z79.891 Long term (current) use of opiate analgesic
CPT/HCPCS: 36415; 71045; 80053; 84145; 85025; 86141

== ENCOUNTER 2021-10-21 10:39 | Emergency (ER) | payer MEDICARE, OTHER ==
[~2021-10-21] VITALS: Ht 182 cm; Wt 81.0 kg
[~2021-10-21 10:39] MED LIST changes: +L.AC1CAP6 PO
--- NOTE | 2021-10-21 11:02 | ED Fall/Injury ---
General Chief Complaint: Trauma-Non Activation Stated Complaint: FALL Nursing Triage Note: ARRIVED VIA EMS FROM HOME. FELL DOWN X3 STARIS ON SATURDAY AND HAS BEEN IN BED SINCE. COMPLAINS OF BACK PAIN. BRUISES NOTED ON ARMS BILAT. EMS REPORTS A LACERATION TO THE BACK OF HIS HEAD. UNKNOWN LOC. Source: patient Exam Limitations: no limitations History of Present Illness Date Seen by Provider: Oct 21, 2021 Time Seen by Provider: 10:58 Initial Comments To ER by EMS from home with reports that he fell on , 10/19/2021 while walking up some stairs at home. These were concrete stairs and he fell down 3 of them. He tried to tough this out at home but has become quite dizzy with any movement, complains of a headache, skin tears to the left arm and severe low back pain that has prevented him from getting out of bed since the fall. He is on Eliquis for atrial fibrillation. He has COPD and is chronically oxygen dependent at 3 L Occurred: other Severity: moderate Injuries/Pain Location: head Loss of Consciousness: no loss of consciousness Associated Symptoms (Fall): Abdominal Pain; No Chest Pain, No Confusion, No Dizziness; Headache, Neck Pain Allergies and Home Medications Allergies Coded Allergies: sulfamethoxazole (Verified Allergy, Severe, ANAPHYLAXIS, 07/11/12) trimethoprim (Verified Allergy, Severe, ANAPHYLAXIS, 07/11/12) levofloxacin (Verified Allergy, Intermediate, NAUSEA, 07/11/12) Patient Home Medication List Home Medication List Reviewed: Yes Albuterol Sulfate (Ventolin Hfa) 18 Gm Hfa.aer.ad, 2 PUFF INH Q6H PRN for SHORTNESS OF BREATH, (Reported) Entered as Reported by: OCHOA MASCORRO on 08/10/20 1534 Albuterol/Ipratropium (Combivent Respimat Inhal [place]) 4 Gm Aero, 1 PUFF INH QID PRN for SHORTNESS OF BREATH, (Reported) Entered as Reported by: NIURKA AIKEN on 09/17/17 08 Alprazolam (Alprazolam) 1 Mg Tablet, 0.5-1 MG PO TID PRN for ANXIETY, (Reported) Entered as Reported by: NIURKA AIKEN on 09/17/17 08 Apixaban (Eliquis) 5 Mg Tablet, 5 MG PO BID, (Reported) Entered as Reported by: MARISELA HORNER on 10/25/16 1332 Ascorbic Acid (Vitamin C) 500 Mg Capsule, 500 MG PO DAILY, (Reported) Entered as Reported by: OCHOA MASCORRO on 05/18/19 1358 Azithromycin (Azithromycin) 250 Mg Tablet, 250 MG PO UD Prescribed by: LISA RAMOS on 09/13/21 1421 Beta-Carotene (Beta Carotene) 25,000 Unit Capsule, 25,000 UNIT PO DAILY, (Reported) Entered as Reported by: NIURKA AIKEN on 09/17/17 08 Calcium Carbonate/Vitamin D3 (Calcium 600 + Vit D 200 Tablet) 1 Each Tablet, 1 TAB PO DAILY, (Reported) Entered as Reported by: NIURKA AIKEN on 09/17/17851 Cefdinir (Cefdinir) 300 Mg Capsule, 300 MG PO BID Prescribed by: RAYA ZAMAN on 08/19/20 1024 Cefdinir (Cefdinir) 300 Mg Capsule, 300 MG PO BID Prescribed by: LISA RAMOS on 09/13/21 1421 Cetirizine HCl (Cetirizine HCl) 10 Mg Tablet, 10 MG PO DAILY, (Reported) Entered as Reported by: NIURKA AIKEN on 09/17/17851 Cyanocobalamin (Vitamin B-12) (B-12) 2,500 Mcg Tab.subl, 2,500 MCG SL DAILY, (Reported) Entered as Reported by: NIURKA AIKEN on 09/17/17851 Dexamethasone (Dexamethasone) 0.5 Mg Tablet, 0.5 MG PO DAILY Prescribed by: RAYA ZAMAN on 08/19/20 1024 Doxazosin Mesylate (Doxazosin Mesylate) 4 Mg Tablet, 8 MG PO HS, (Reported) Entered as Reported by: NIURKA AIKEN on 09/17/17851 Finasteride (Finasteride) 5 Mg Tablet, 5 MG PO HS, (Reported) Entered as Reported by: NIURKA AIKEN on 09/17/17 08 Fluticasone/Vilanterol (Breo Ellipta 200-25 Mcg INH) 1 Each Blst.w.dev, 1 PUFF INH DAILY, (Reported) Entered as Reported by: OCHOA MASCORRO on 08/10/20 1534 Furosemide (Furosemide) 40 Mg Tablet, 40 MG PO DAILY, (Reported) Entered as Reported by: OCHOA MASCORRO on 08/10/20 1534 Gabapentin (Neurontin) 300 Mg Capsule, 600 MG PO BID, (Reported) Entered as Reported by: OCHOA MASCORRO on 08/10/20 153 Glucosamine/D3/Boswellia Anjali (Osteo Bi-Flex Tablet) 1 Each Tablet, 1 TAB PO DAILY, (Reported) Entered as Reported by: NIURKA AIKEN on 09/17/17 08 Guaifenesin (Mucinex) 600 Mg Tab.er.12h, 600 MG PO Q12H PRN for CONGESTION, (Reported) Entered as Reported by: OCHOA MASCORRO on 08/10/20 153 Hydrocodone/Acetaminophen (Hydrocodone-Acetamin 10-325 mg) 1 Each Tablet, 1 EA PO BID PRN for PAIN-MODERATE (5-7), (Reported) Entered as Reported by: OCHOA MASCORRO on 08/10/20 153 Ipratropium/Albuterol Sulfate (Iprat-Albut 0.5-3(2.5) mg/3 ml) 3 Ml Ampul.neb, 3 ML NEB QID Prescribed by: RAYA ZAMAN on 08/19/20 1024 L.acidoph & Paracasei,B.lactis (Probiotic) 1 Each Capsule, 1 EACH PO TID Prescribed by: LISA RAMOS on 09/13/21 1421 Magnesium Oxide (Magnesium) 400 Mg Tablet, 400 MG PO DAILY, (Reported) Entered as Reported by: OCHOA MASCORRO on 08/10/20 1546 Montelukast Sodium (Montelukast Sodium) 10 Mg Tablet, 10 MG PO HS, (Reported) Entered as Reported by: NIURKA AIKEN on 09/17/17 08 Multivitamin W/Iron, Minerals (Complete Senior) 1 Each Tablet, 1 TAB PO DAILY, (Reported) Entered as Reported by: NIURKA AIKEN on 09/17/17851 Pomegranate Fruit Extract (Pomegranate) 250 Mg Capsule, 500 MG PO DAILY, (Reported) Entered as Reported by: NIURKA AIKEN on 09/17/17 08 Potassium Chloride (Potassium Chloride) 10 Meq Capsule.er, 20 MEQ PO BID, (Reported) Entered as Reported by: OCHOA MASCORRO on 08/10/20 1534 Potassium Gluconate (Potassium Gluconate 595 MG) 99 Mg Tablet, 99 MG PO DAILY, (Reported) Entered as Reported by: NIURKA AIKEN on 09/17/17 0852 Review of Systems Review of Systems Constitutional: see HPI Eyes: No Symptoms Reported Ears, Nose, Mouth, Throat: no symptoms reported Respiratory: no symptoms reported Cardiovascular: no symptoms reported Genitourinary: no symptoms reported Musculoskeletal: see HPI Skin: see HPI Psychiatric/Neurological: No Symptoms Reported Past Zawbnkc-Knigas-Ffmiys Hx Immunizations Up To Date Second COVID19 Vaccination Vaibhav: PT STATES BOTH VACCINES Past Medical History Surgeries: Yes Cardiac, Eye Surgery, Orthopedic Respiratory: Yes Pneumonia, COPD 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) Atrial Fibrillation, Chronic Edema/Swelling, Coronary Artery Disease, High Cholesterol, Hypertension, Peripheral Vascular Neurological: No Reproductive Disorders: No Genitourinary: Yes (E.D.) Benign Prostatic Hyperpl, Prostate Problems Gastrointestinal: No Musculoskeletal: Yes (CHRONIC NECK PAIN --S/P SURGERY 2007) Degenerate Disk Disease, Arthritis Endocrine: Yes (OBESITY; JUAN MANUEL'S FROM CHRONIC STEROID USE) HEENT: Yes Cataract Loss of Vision: Denies Hearing Impairment: Hard of Hearing Cancer: Yes Skin Psychosocial: Yes Anxiety Integumentary: No Blood Disorders: No Adverse Reaction/Blood Tranf: No Family Medical History Hypertension Physical Exam Vital Signs Vital Signs - First Documented 10/21/21 10:39 Temp 36.4 Pulse 100 Resp 16 B/P (MAP) 126/90 (102) Pulse Ox 98 O2 Delivery Room Air Capillary Refill : Less Than 3 Seconds Height, Weight, BMI Height: 6'0.00" Weight: 241lbs. 9.0oz. 109.740686jy; 24.00 BMI Method:Stated General Appearance: WD/WN, no apparent distress, other (Hard of hearing but alert and oriented GCS 15. Laceration with scab to the midline occipital scalp. No active bleeding. No other sign of head injury. Bruising to the right elbow, skin tear to the ulnar side of the left wrist and skin tear to the posterior left elbow. These were cleansed with chlorhexidine/saline solution then antibiotic ointment and gauze applied. No deformity. Has diminished lung sounds bilaterally with faint wheezing consistent with his history of COPD. Oxygen saturation 100% on his baseline 3 L. Abdomen is slightly tender but nonbruised. He does have significant purplish ecchymosis across the lumbar spine from the left to the right side. No open wound.) HEENT: PERRL/EOMI, normal ENT inspection Neck: non-tender, full range of motion Respiratory: no respiratory distress, no accessory muscle use Gastrointestinal: normal bowel sounds, non tender, soft Back: vertebral tenderness, other (Lumbar ecchymosis) Extremities: normal range of motion, non-tender, pelvis stable Neurologic/Psychiatric: alert, normal mood/affect, oriented x 3 Skin: normal color, warm/dry B[place] Coma Score Best Eye Response: (4) Open Spontaneously Best Verbal Response: (5) Oriented Best Motor Response: (6) Obeys Commands Barrow Total: 15 Progress/Results/Core Measures Results/Orders Lab Results Laboratory Tests Test 10/21/21 11:00 Range/Units White Blood Count 9.0 4.3-11.0 10^3/uL Red Blood Count 3.04 L 4.30-5.52 10^6/uL Hemoglobin 10.1 L 13.3-17.7 g/dL Hematocrit 31 L 40-54 % Mean Corpuscular Volume 103 H 80-99 fL Mean Corpuscular Hemoglobin 33 25-34 pg Mean Corpuscular Hemoglobin Concent 32 32-36 g/dL Red Cell Distribution Width 12.6 10.0-14.5 % Platelet Count 140 130-400 10^3/uL Mean Platelet Volume 8.9 L 9.0-12.2 fL Immature Granulocyte % (Auto) 0 % Neutrophils (%) (Auto) 71 42-75 % Lymphocytes (%) (Auto) 16 12-44 % Monocytes (%) (Auto) 11 0-12 % Eosinophils (%) (Auto) 1 0-10 % Basophils (%) (Auto) 0 0-10 % Neutrophils # (Auto) 6.4 1.8-7.8 10^3/uL Lymphocytes # (Auto) 1.4 1.0-4.0 10^3/uL Monocytes # (Auto) 1.0 0.0-1.0 10^3/uL Eosinophils # (Auto) 0.1 0.0-0.3 10^3/uL Basophils # (Auto) 0.0 0.0-0.1 10^3/uL Immature Granulocyte # (Auto) 0.0 0.0-0.1 10^3/uL Sodium Level 134 L 135-145 MMOL/L Potassium Level 4.4 3.6-5.0 MMOL/L Chloride Level 91 L 98-107 MMOL/L Carbon Dioxide Level 35 H 21-32 MMOL/L Anion Gap 8 5-14 MMOL/L Blood Urea Nitrogen 9 7-18 MG/DL Creatinine 0.69 0.60-1.30 MG/DL Estimat Glomerular Filtration Rate 109 BUN/Creatinine Ratio 13 Glucose Level 118 H 70-105 MG/DL Calcium Level 9.0 8.5-10.1 MG/DL Corrected Calcium 9.6 8.5-10.1 MG/DL Total Bilirubin 1.7 H 0.1-1.0 MG/DL Aspartate Amino Transf (AST/SGOT) 25 5-34 U/L Alanine Aminotransferase (ALT/SGPT) 13 0-55 U/L Alkaline Phosphatase 45 40-136 U/L Total Protein 5.6 L 6.4-8.2 GM/DL Albumin 3.2 3.2-4.5 GM/DL My Orders Orders - [employer]IRES [employer] Ct Head/Cervical Spine Wo (10/21/21 10:47) Ct Lumbar Spine Wo (10/21/21 10:47) Chest 1 View, Ap/Pa Only (10/21/21 10:47) Pelvis (10/21/21 10:47) Cbc With Automated Diff (10/21/21 10:47) Comprehensive Metabolic Panel (10/21/21 10:47) Ed Iv/Invasive Line Start (10/21/21 10:47) Ct Abdomen/Pelvis Wo (10/21/21 10:57) Forearm, Left, 2 Views (10/21/21 10:57) Meclizine Tablet (Antivert Tablet) (10/21/21 12:15) Dipht,Pertuss(Acell),Tet Adult (Boostrix (10/21/21 12:15) Vital Signs/I&O 10/21/21 10:39 Temp 36.4 Pulse 100 Resp 16 B/P (MAP) 126/90 (102) Pulse Ox 98 O2 Delivery Room Air Blood Pressure Mean: 102 Departure Communication (Admissions) Family Conversation 1223-discussed the CT findings with the patient and his . I offered him admission for additional pain control and physical therapy. He states "well there ain't no reason to stay, she can take care of me at home". confirms that she has everything she needs at home and is comfortable taking him home. NAME: KAMINI CORTÉS [facility] REC#: [id number] PT STATUS: REG ER : 1935 PHYSICIAN: TRACY PIRES APRN ADMIT DATE: 10/21/21/ER Draft Date of Exam:10/21/21 CT HEAD/CERVICAL SPINE WO PROCEDURE: CT head and CT cervical spine without contrast. TECHNIQUE: Multiple contiguous axial images were obtained through the brain and cervical spine without the use of intravenous contrast. Sagittal and coronal reformations through the cervical spine were then performed. Auto Exposure Controls were utilized during the CT exam to meet ALARA standards for radiation dose reduction. INDICATION: Fall. Head and neck pain. Scalp contusion. COMPARISON: 08/10/2020. FINDINGS: CT head: No large acute territorial ischemia, mass, or hemorrhage. No midline shift or mass effect. Decreased attenuation is seen in the periventricular and subcortical white matter. The ventricles and cortical sulci are prominent. The basilar cisterns are patent and unremarkable. The calvarium is intact. Fluid level is seen in the right maxillary sinus. The mastoid air cells are clear. CT cervical spine: No acute fracture or dislocation is seen in the cervical spine. No focal osseous lesions. There is grade 1 retrolisthesis of C3 on C4. ACDF changes are visualized from C4 to C7. The craniocervical junction is well-maintained. Moderate degenerative changes are seen in the cervical spine with disc osteophyte complexes and uncovertebral arthropathy. Soft tissues of the neck are unremarkable. Centrilobular emphysema is seen in the lung apices. IMPRESSION: 1. No hemorrhage or focal intra-axial mass. No CT evidence of large acute territorial ischemia. 2. No acute fracture or dislocation in the cervical spine. 3. Findings suggestive of acute sinusitis involving the right maxillary sinus. 4. Grade 1 retrolisthesis of C3 on C4, similar to the prior exam. Dictated on workstation # [id number] Dict: 10/21/21 1155 Trans: 10/21/21 1200 [id number] Interpreted by: FREDY BEDOLLA DO Electronically signed by: NAME: KAMINI CORTÉS [facility] REC#: [id number] PT STATUS: REG ER : 1935 PHYSICIAN: TRACY PIRES APRN ADMIT DATE: 10/21/21/ER Draft Date of Exam:10/21/21 CT ABDOMEN/PELVIS WO PROCEDURE: CT abdomen and pelvis without contrast. TECHNIQUE: Multiple contiguous axial images were obtained through the abdomen and pelvis without the use of intravenous contrast. Auto Exposure Controls were utilized during the CT exam to meet ALARA standards for radiation dose reduction. INDICATION: 86-year-old male, fell down 3 stairs 2 days ago. Back pain and in bed since then. Bruising. CORRELATION STUDY: None. FINDINGS: LOWER THORAX: Very small pleural effusions layering dependently. There is minimal infiltrate or atelectasis at both lung bases, left greater than right. Heart size upper limits of normal. Small hiatal hernia. LIVER: Unremarkable. GALLBLADDER: Mildly distended. May be minimal amount of sludge or debris. No definitive gallstones or bile ductal dilatation. SPLEEN: Calcified granulomas. PANCREAS: Mildly atrophic. ADRENAL GLANDS: Unremarkable. KIDNEYS: Generalized atrophic changes. Calcifications are present, may be nonobstructing stones versus vascular opacifications. No obstructive uropathy. A 1.5 cm exophytic mass inferior pole right kidney favors probable cyst. ABDOMINAL AORTA: Dense aortoiliac vascular calcification. Extensive calcification at the origin of the mesenteric vessels. Concerning for potential various degrees of significant stenosis. GASTROINTESTINAL TRACT: Colonic diverticulosis without evidence for acute diverticulitis. No obstruction. Normal appendix. No abdominal ascites and/or free air. URINARY BLADDER: Unremarkable. REPRODUCTIVE: Prostate gland unremarkable for the patient's age. OSSEOUS STRUCTURES: Minimally displaced left L3-L4 and potentially L2 transverse process fractures. No definitive evidence for acute compression deformity. Pelvis appearing intact. OTHER: None. IMPRESSION: 1. Negative for acute traumatic intraabdominal abnormality. 2. Minimally displaced left L3, L4 and likely L2 transverse process fractures. Dictated on workstation # [id number] Dict: 10/21/21 1157 Trans: 10/21/21 1214 [facility] [id number] Interpreted by: REX PRADO DO Electronically signed by: NAME: KAMINI CORTÉS [facility] REC#: [id number] PT STATUS: REG ER : 1935 PHYSICIAN: TRACY PIRES APRN ADMIT DATE: 10/21/21/ER Signed Date of Exam:10/21/21 CT LUMBAR SPINE WO PROCEDURE: CT lumbar spine without contrast. TECHNIQUE: Multiple contiguous axial images were obtained through the lumbar spine without the use of intravenous contrast. Sagittal and coronal reformations were then performed. Auto Exposure Controls were utilized during the CT exam to meet ALARA standards for radiation dose reduction. INDICATION: Fall. Low back pain. COMPARISON: None. FINDINGS: There are fractures involving the L3 and L4 transverse processes on the right. The vertebral body heights are maintained. Alignment of the lumbar spine is anatomic. No suspicious focal osseous lesions are seen. No evidence of acute spinal canal stenosis. No high-density material is seen within the spinal canal. Hematoma is seen in the posterior soft tissues of the lumbar spine at the L4 and L5 levels. IMPRESSION: 1. Fractures involving the transverse processes on the left at L3 and L4. 2. No evidence of vertebral body fracture. No malalignment of the lumbar spine. 3. Soft tissue hematoma in the posterior soft tissues of the lumbar spine at the L4-L5 level. Dictated by: Dictated on workstation # [id number] Dict: 10/21/21 1207 Trans: 10/21/21 1216 [id number] Interpreted by: FREDY BEDOLLA DO Electronically signed by: FREDY BEDOLLA DO 10/21/21 1216 Impression Primary Impression: Multiple transverse process fractures Additional Impressions: Fall Skin tear Disposition: 01 HOME, SELF-CARE Condition: Stable Departure-Patient Inst. Decision time for Depature: 12:27 Referrals: RAYA ZAMAN MD (PCP) Primary Care Physician ALEKSANDR PIÑA DO (Family) Primary Care Physician Patient Instructions: Preventing Falls ED Add. Discharge Instructions: 1. Stop using the hydrocodone and replace it with the oxycodone. Return to ER for any concerns. Follow-up with Dr. Zaman next week. All discharge instructions reviewed with patient and/or family. Voiced understanding. Scripts Oxycodone HCl/Acetaminophen (Endocet 7.5-325 mg Tablet) 1 Each Tablet 1 EACH PO Q6H PRN for PAIN-MODERATE MDD 4 for 7 Days, #20 TAB Prov: TRACY PIRES APRN 10/21/21 Copy Copies To 1: RAYA ZAMAN MD, PETER J APRN Oct 21, 2021 11:02
[2021-10-21 11:06] LABS: BASOPHILS % (AUTO) 0 % (0-10); EOSINOPHILS # (AUTO) 0.1 10^3/uL (0.0-0.3); EOSINOPHILS % (AUTO) 1 % (0-10); HEMATOCRIT 31 % (40-54); HEMOGLOBIN 10.1 g/dL (13.3-17.7); LYMPHOCYTES # (AUTO) 1.4 10^3/uL (1.0-4.0); LYMPHOCYTES % (AUTO) 16 % (12-44); MEAN CORPUSCULAR HEMOGLOBIN 33 pg (25-34); MEAN CORPUSCULAR HGB CONC 32 g/dL (32-36); MEAN CORPUSCULAR VOLUME 103 fL (80-99); MEAN PLATELET VOLUME 8.9 fL (9.0-12.2); MONOCYTES % (AUTO) 11 % (0-12); NEUTROPHILS # (AUTO) 6.4 10^3/uL (1.8-7.8); NEUTROPHILS % (AUTO) 71 % (42-75); PLATELET COUNT 140 10^3/uL (130-400)
[2021-10-21 11:21] LABS: ALBUMIN 3.2 GM/DL (3.2-4.5); POTASSIUM 4.4 MMOL/L (3.6-5.0)
[2021-10-21 11:24] LABS: TOTAL PROTEIN 5.6 GM/DL (6.4-8.2)
[2021-10-21 11:26] LABS: BILIRUBIN,TOTAL 1.7 MG/DL (0.1-1.0)
[2021-10-21 11:27] LABS: CREATININE SERUM 0.69 MG/DL (0.60-1.30)
--- NOTE | 2021-10-21 12:01 | Diagnostic Imaging Report ---
PROCEDURE: CT head and CT cervical spine without contrast. TECHNIQUE: Multiple contiguous axial images were obtained through the brain and cervical spine without the use of intravenous contrast. Sagittal and coronal reformations through the cervical spine were then performed. Auto Exposure Controls were utilized during the CT exam to meet ALARA standards for radiation dose reduction. INDICATION: Fall. Head and neck pain. Scalp contusion. COMPARISON: 08/10/2020. FINDINGS: CT head: No large acute territorial ischemia, mass, or hemorrhage. No midline shift or mass effect. Decreased attenuation is seen in the periventricular and subcortical white matter. The ventricles and cortical sulci are prominent. The basilar cisterns are patent and unremarkable. The calvarium is intact. Fluid level is seen in the right maxillary sinus. The mastoid air cells are clear. CT cervical spine: No acute fracture or dislocation is seen in the cervical spine. No focal osseous lesions. There is grade 1 retrolisthesis of C3 on C4. ACDF changes are visualized from C4 to C7. The craniocervical junction is well-maintained. Moderate degenerative changes are seen in the cervical spine with disc osteophyte complexes and uncovertebral arthropathy. Soft tissues of the neck are unremarkable. Centrilobular emphysema is seen in the lung apices. IMPRESSION: 1. No hemorrhage or focal intra-axial mass. No CT evidence of large acute territorial ischemia. 2. No acute fracture or dislocation in the cervical spine. 3. Findings suggestive of acute sinusitis involving the right maxillary sinus. 4. Grade 1 retrolisthesis of C3 on C4, similar to the prior exam. Dictated by: Dictated on workstation # [id number]
[2021-10-21] MEDS ORDERED: TETANUS,DIPTH,PERTUSS P/F (BOOSTRIX) 0.5 ML VIAL IM ONE (12:15)
[2021-10-21] MEDS ORDERED: MECLIZINE 25 MG (ANTIVERT) TAB PO ONE (12:15)
--- NOTE | 2021-10-21 12:15 | Diagnostic Imaging Report ---
PROCEDURE: CT abdomen and pelvis without contrast. TECHNIQUE: Multiple contiguous axial images were obtained through the abdomen and pelvis without the use of intravenous contrast. Auto Exposure Controls were utilized during the CT exam to meet ALARA standards for radiation dose reduction. INDICATION: 86-year-old male, fell down 3 stairs 2 days ago. Back pain and in bed since then. Bruising. CORRELATION STUDY: None. FINDINGS: LOWER THORAX: Very small pleural effusions layering dependently. There is minimal infiltrate or atelectasis at both lung bases, left greater than right. Heart size upper limits of normal. Small hiatal hernia. LIVER: Unremarkable. GALLBLADDER: Mildly distended. May be minimal amount of sludge or debris. No definitive gallstones or bile ductal dilatation. SPLEEN: Calcified granulomas. PANCREAS: Mildly atrophic. ADRENAL GLANDS: Unremarkable. KIDNEYS: Generalized atrophic changes. Calcifications are present, may be nonobstructing stones versus vascular opacifications. No obstructive uropathy. A 1.5 cm exophytic mass inferior pole right kidney favors probable cyst. ABDOMINAL AORTA: Dense aortoiliac vascular calcification. Extensive calcification at the origin of the mesenteric vessels. Concerning for potential various degrees of significant stenosis. GASTROINTESTINAL TRACT: Colonic diverticulosis without evidence for acute diverticulitis. No obstruction. Normal appendix. No abdominal ascites and/or free air. URINARY BLADDER: Unremarkable. REPRODUCTIVE: Prostate gland unremarkable for the patient's age. OSSEOUS STRUCTURES: Minimally displaced left L3-L4 and potentially L2 transverse process fractures. No definitive evidence for acute compression deformity. Pelvis appearing intact. OTHER: None. IMPRESSION: 1. Negative for acute traumatic intraabdominal abnormality. 2. Minimally displaced left L3, L4 and likely L2 transverse process fractures. Dictated by: Dictated on workstation # [id number]
--- NOTE | 2021-10-21 12:15 | Diagnostic Imaging Report ---
PROCEDURE: CT lumbar spine without contrast. TECHNIQUE: Multiple contiguous axial images were obtained through the lumbar spine without the use of intravenous contrast. Sagittal and coronal reformations were then performed. Auto Exposure Controls were utilized during the CT exam to meet ALARA standards for radiation dose reduction. INDICATION: Fall. Low back pain. COMPARISON: None. FINDINGS: There are fractures involving the L3 and L4 transverse processes on the right. The vertebral body heights are maintained. Alignment of the lumbar spine is anatomic. No suspicious focal osseous lesions are seen. No evidence of acute spinal canal stenosis. No high-density material is seen within the spinal canal. Hematoma is seen in the posterior soft tissues of the lumbar spine at the L4 and L5 levels. IMPRESSION: 1. Fractures involving the transverse processes on the left at L3 and L4. 2. No evidence of vertebral body fracture. No malalignment of the lumbar spine. 3. Soft tissue hematoma in the posterior soft tissues of the lumbar spine at the L4-L5 level. Dictated by: Dictated on workstation # [id number]
--- NOTE | 2021-10-21 12:29 | Diagnostic Imaging Report ---
INDICATION: Pain post recent fall TECHNIQUE: 2 views of the left forearm. CORRELATION STUDY: None FINDINGS: The radius and ulna have an unremarkable appearance. The visualized portions of the elbow and wrist are unremarkable. Soft tissues are unremarkable. IMPRESSION: 1. Negative for acute bony abnormality of the left forearm. Dictated by: Dictated on workstation # [id number]
[2021-10-21] MEDS ORDERED: OXYC-190 PO (12:30)
--- NOTE | 2021-10-21 12:37 | Diagnostic Imaging Report ---
INDICATION: Post recent fall, cough.. TECHNIQUE: Single view chest 12:10 PM. CORRELATION STUDY: 08/16/2020 FINDINGS: Heart size enlarged, mediastinum prominent, slightly accentuated from prior. Vasculature overall within normal limits. Likely largely chronic change about the lung parenchyma. No definitive new infiltrate, effusion and/or pneumothorax. Left costophrenic angle incompletely imaged. No large effusion or evidence for pneumothorax. IMPRESSION: 1. Cardiac enlargement, prominent mediastinum, overall appear slightly accentuated from prior. Some of this may be attributed to technique. However, if there is continued concern for chest pathology, two-view chest imaging recommended. No definitive infiltrate. Dictated by: Dictated on workstation # [id number]
--- NOTE | 2021-10-21 12:38 | Diagnostic Imaging Report ---
INDICATION: Pain post recent fall TECHNIQUE: AP pelvis 12:12 PM CORRELATION STUDY: 05/16/2019 FINDINGS: The pelvis demonstrates no evidence for acute fracture. The pectineal lines and obturator rings are maintained. Pubic symphysis and SI joints are unremarkable. Bilateral hip joints with mildly advanced degenerative changes present. IMPRESSION: Negative examination of the pelvis. Dictated by: Dictated on workstation # [id number]
[2021-10-21 12:58] VITALS: BP 121/88
== END 2021-10-21 12:58 | disposition home or self-care (01) ==
LOC: EDUNIT# 10:39 → ER 10:43
DX: S32.039A Unspecified fracture of third lumbar vertebra, initial encounter for closed fracture (principal); S32.049A Unspecified fracture of fourth lumbar vertebra, initial encounter for closed fracture; S01.01XA Laceration without foreign body of scalp, initial encounter; S61.512A Laceration without foreign body of left wrist, initial encounter; S51.012A Laceration without foreign body of left elbow, initial encounter; S50.01XA Contusion of right elbow, initial encounter; J44.9 Chronic obstructive pulmonary disease, unspecified; I48.91 Unspecified atrial fibrillation; I10 Essential (primary) hypertension; N40.0 Benign prostatic hyperplasia without lower urinary tract symptoms; F41.9 Anxiety disorder, unspecified; G89.29 Other chronic pain; M54.2 Cervicalgia; E66.9 Obesity, unspecified; Z68.24 Body mass index [BMI] 24.0-24.9, adult; Z23 Encounter for immunization; Z79.01 Long term (current) use of anticoagulants; Z79.899 Other long term (current) drug therapy; Z79.891 Long term (current) use of opiate analgesic; W10.8XXA Fall (on) (from) other stairs and steps, initial encounter
CPT/HCPCS: 36415; 70450; 71045; 72125; 72131; 72170; 73090; 74176; 80053; 85025; 90471; 90715

== ENCOUNTER → 2021-12-25 | Outpatient (CLI) | payer MEDICARE, OTHER ==
[~2021-12-25] MED LIST changes: +OXYC-190 PO
--- NOTE | 2021-12-25 15:41 | Diagnostic Imaging Report ---
INDICATION: Osteomyelitis. TIME OF EXAM: 3:05 PM. TECHNIQUE: Three views of the right ankle were obtained. FINDINGS: The alignment is normal. The ankle mortise is well maintained. The talar dome is smooth. No fracture or dislocation is seen. No bony destructive changes are identified to suggest osteomyelitis. IMPRESSION: No acute feature is detected. Dictated by: Dictated on workstation # [id number]
== END ==
LOC: RAD 14:22
PROVIDERS: ATTEND Family Medicine
DX: L89.513 Pressure ulcer of right ankle, stage 3 (principal); M86.8X7 Other osteomyelitis, ankle and foot
CPT/HCPCS: 36415; 73610; 85652; 86141

== ENCOUNTER → 2021-12-25 | Outpatient (CLI) | payer MEDICARE, OTHER | LOC: WOUNDCARE 12:19 | PROVIDERS: ATTEND Family Medicine | DX: L89.513 Pressure ulcer of right ankle, stage 3 (principal); L03.115 Cellulitis of right lower limb; I70.238 Atherosclerosis of native arteries of right leg with ulceration of other part of lower leg; I89.0 Lymphedema, not elsewhere classified | CPT/HCPCS: 99214 ==

== ENCOUNTER → 2022-01-01 | Outpatient (CLI) | payer MEDICARE, OTHER | LOC: WOUNDCARE 13:06 | PROVIDERS: ATTEND Family Medicine | DX: L89.513 Pressure ulcer of right ankle, stage 3 (principal); L03.115 Cellulitis of right lower limb; I70.238 Atherosclerosis of native arteries of right leg with ulceration of other part of lower leg; I89.0 Lymphedema, not elsewhere classified; I96 Gangrene, not elsewhere classified | CPT/HCPCS: 11042; 87070; 87077; 87205; A6197; G0463 ==

== ENCOUNTER → 2022-01-08 | Outpatient (CLI) | payer MEDICARE, OTHER | LOC: WOUNDCARE 12:57 | PROVIDERS: ATTEND Family Medicine | DX: L89.513 Pressure ulcer of right ankle, stage 3 (principal); L03.115 Cellulitis of right lower limb; I89.0 Lymphedema, not elsewhere classified; I96 Gangrene, not elsewhere classified; Z91.19 Patient's noncompliance with other medical treatment and regimen | CPT/HCPCS: 11042; G0463 ==

== ENCOUNTER → 2022-01-15 | Outpatient (CLI) | payer MEDICARE, OTHER | LOC: WOUNDCARE 12:53 | PROVIDERS: ATTEND Family Medicine | DX: I96 Gangrene, not elsewhere classified (principal); L89.513 Pressure ulcer of right ankle, stage 3; I89.0 Lymphedema, not elsewhere classified; Z91.19 Patient's noncompliance with other medical treatment and regimen | CPT/HCPCS: 11042; A6207; G0463 ==

== ENCOUNTER → 2022-01-22 | Outpatient (CLI) | payer MEDICARE, OTHER | LOC: WOUNDCARE 12:52 | PROVIDERS: ATTEND Family Medicine | DX: L89.513 Pressure ulcer of right ankle, stage 3 (principal); I89.0 Lymphedema, not elsewhere classified; Z91.19 Patient's noncompliance with other medical treatment and regimen; I96 Gangrene, not elsewhere classified | CPT/HCPCS: 15275; G0463 ==

== ENCOUNTER → 2022-01-29 | Outpatient (CLI) | payer MEDICARE, OTHER | LOC: WOUNDCARE 12:48 | PROVIDERS: ATTEND Family Medicine | DX: L89.513 Pressure ulcer of right ankle, stage 3 (principal); I89.0 Lymphedema, not elsewhere classified; Z91.19 Patient's noncompliance with other medical treatment and regimen; I96 Gangrene, not elsewhere classified | CPT/HCPCS: 15275; G0463 ==

== ENCOUNTER → 2022-02-05 | Outpatient (CLI) | payer MEDICARE, OTHER | END | disposition home or self-care (01) | LOC: WOUNDCARE 12:49 | PROVIDERS: ATTEND Family Medicine | DX: L89.513 Pressure ulcer of right ankle, stage 3 (principal); I89.0 Lymphedema, not elsewhere classified; Z91.19 Patient's noncompliance with other medical treatment and regimen; I96 Gangrene, not elsewhere classified | CPT/HCPCS: A6207; G0463; 99212 ==

== ENCOUNTER → 2022-02-12 | Outpatient (CLI) | payer MEDICARE, OTHER ==
[~2022-02-12] MED LIST changes: +GADOTERATE 0.5 MMOL/ML (CLARISCAN) 20 ML VIAL IV ONE
--- NOTE | 2022-02-12 16:11 | Diagnostic Imaging Report ---
PROCEDURE: MRI right joint lower extremity with and without contrast. TECHNIQUE: Multiplanar, multisequence pre and post contrast-enhanced JOSSY of the right joint lower extremity was accomplished. INDICATION: Ulcer at the lateral aspect of the right ankle. COMPARISON: Radiographs from 12/25/2021. FINDINGS: No acute fracture is seen in the right ankle. Alignment appears normal. There is no tibiotalar joint effusion. No focal bony lesions are seen. The anterior and posterior syndesmotic ligaments are intact. The anterior talofibular and posterior talofibular ligaments are intact. The calcaneofibular ligament is intact. The deep fibers of the deltoid ligament appear intact. The plantar fascia is not thickened. The sinus tarsi demonstrates normal fat signal. The Achilles tendon appears intact. There is a longitudinal split tear of the peroneus brevis tendon with mild peroneal tenosynovitis. The flexor tendons appear intact. There is mildly increased fluid at the flexor hallucis longus tendon sheath at the master knot of Compa. The extensor tendons are intact. There is mild generalized muscular atrophy, with no focal atrophy identified. No masses or fluid collections are seen. There is mild generalized subcutaneous edema. There is a superficial skin ulceration laterally. No underlying fluid collections are seen on this noncontrast exam. IMPRESSION: 1. Subcutaneous edema about the right ankle with lateral skin ulceration. No drainable fluid collections or osteomyelitis are seen. 2. Longitudinal split tear of the peroneus brevis tendon with mild peroneal tenosynovitis. Mild flexor hallucis longus tenosynovitis. Dictated by: Dictated on workstation # [id number]
== END ==
LOC: RAD 12:45
PROVIDERS: ATTEND Family Medicine
DX: L89.513 Pressure ulcer of right ankle, stage 3 (principal); I89.0 Lymphedema, not elsewhere classified; Z91.19 Patient's noncompliance with other medical treatment and regimen; S86.311A Strain of muscle(s) and tendon(s) of peroneal muscle group at lower leg level, right leg, initial encounter; M65.871 Other synovitis and tenosynovitis, right ankle and foot
CPT/HCPCS: 73723

== ENCOUNTER → 2022-02-13 | Outpatient (CLI) | payer MEDICARE, OTHER ==
[~2022-02-13] MED LIST changes: -GADOTERATE 0.5 MMOL/ML (CLARISCAN) 20 ML VIAL IV ONE
== END ==
LOC: WOUNDCARE 12:52
PROVIDERS: ATTEND Family Medicine
DX: L89.513 Pressure ulcer of right ankle, stage 3 (principal); I89.0 Lymphedema, not elsewhere classified; E55.9 Vitamin D deficiency, unspecified; M65.871 Other synovitis and tenosynovitis, right ankle and foot; I96 Gangrene, not elsewhere classified; Z91.19 Patient's noncompliance with other medical treatment and regimen
CPT/HCPCS: 11042; G0463

== ENCOUNTER → 2022-03-05 | Outpatient (CLI) | payer MEDICARE, OTHER | LOC: WOUNDCARE 13:16 | PROVIDERS: ATTEND Family Medicine | DX: L89.513 Pressure ulcer of right ankle, stage 3 (principal); I89.0 Lymphedema, not elsewhere classified; M65.871 Other synovitis and tenosynovitis, right ankle and foot; Z91.19 Patient's noncompliance with other medical treatment and regimen; I96 Gangrene, not elsewhere classified | CPT/HCPCS: 11042; G0463 ==